=== PATIENT | male | born 1955 ===

== ENCOUNTER 2016-10-26 16:47 | Inpatient (IN) | payer MEDICAID ==
[~2016-10-26] VITALS: Ht 172.7 cm; Wt 90.6 kg
[2016-10-26] VITALS (8 sets, daily range): BP systolic 86–143; BP diastolic 47–97; PULSE 101–114; RESP 16–24; O2SAT 93–97
[~2016-10-26 16:47] MED LIST: AMIT100T2 PO; GABA-502 PO; OXYC1TAB24 PO
--- NOTE | 2016-10-26 16:52 | ED.REPORT ---
HPI-General Illness Date of Service Oct 26, 2016 ED Provider: Tomas Daily DO This is a 61 year old male with a history of DM brought to the ED by EMS for failure to thrive. Daughter reports pt body has been cold, has not had any PO intake in the last 2 days aside from EtOH earlier today, and has been more weak. Per daughter, pt fell over a few times while walking to the bathroom due to weakness. Pt states, "my whole body hurts." Reports nausea, vomiting, and diffuse abdominal pain. Denies SOB. En route, BP 110/50, HR 120. Nursing Notes Stated Complaint: FAILURE TO THRIVE Nursing Notes Reviewed: Yes Allergies: Coded Allergies: hydrocodone (Verified Adverse Reaction, Severe, GI issues, 04/15/16) Scheduled Amitriptyline (Amitriptyline) 100 Mg Tablet 200 MG PO HS Gabapentin (Gabapentin) 300 Mg Capsule 900 MG PO TID Scheduled PRN oxyCODONE-Acetaminophen 5-325 mg (oxyCODONE-Acetaminophen 5-325 mg) 1 Each Tablet 1 TAB PO Q4H PRN PRN For Pain General Time Seen by MD: 16:51 Chief Complaint Other Hx Obtained From: Patient Arrived By: Walk-in Sudden in Onset?: Yes Symptom Duration: Since onset Severity: Current: Mild Pertinent Negative: Pt denies other symptoms Recent Healthcare: No recent doctor visit, No recent hospitalization Similar Sx Previous: No Past Medical History Past Medical History Left BKA Smoking History Current Every Day Smoker Social History Alcohol Use: "Social" Ambulatory Status Independent Review of Systems Full Review of Systems Constitutional: Reports: Weakness - generalized, Denies: Chills, Fever Respiratory: Denies: Non-productive cough, Shortness of breath Cardiovascular: Denies: Chest pain GI: Reports: Abdominal pain, Nausea, Vomiting Complete sys rev & neg: except as marked. Physical Exam Vital Signs Vital Signs Date Time Temp Pulse Resp B/P Pulse Ox O2 Delivery O2 Flow Rate FiO2 10/26/16 19:07 103/47 10/26/16 18:55 99/53 10/26/16 18:51 36.9 101 16 143/97 96 Nasal Cannula 2 10/26/16 17:03 36.6 101 17 86/47 95 Nasal Cannula 2 - Initial VS: Reviewed Head / Eyes: Atraumatic, Normocephalic, PERRL Neck: Supple, Non-tender, Full range of motion Cardiovascular: Regular rate & rhythm, Heart sounds normal, Intact distal pulses Skin: Warm Neurologic: Alert, Oriented, Nonfocal Psychiatric: Mood/affect normal, Behavior normal, Normal thought content Mouth: Positive: Mucous membranes dry Respiratory / Chest: No chest tenderness Coarse breath sounds in R base with inspiration Interpretation & Diagnostics BRAIN CT IMPRESSION: No acute intracranial abnormality. Minimal atrophic changes are present. Dictated by: Yunior Nicole M.D. on 10/26/2016 at 17:38 Approved by: Yunior Nicole M.D. on 10/26/2016 at 17:38 CHEST X-RAY IMPRESSION: Infiltrate in the right upper lung field and probably minimally midlung field laterally. Infiltrate in the lower lung field posteroinferiorly side is difficult to determine it could be left or right. Dictated by: Yunior Nicole M.D. on 10/26/2016 at 17:48 Approved by: Yunior Nicole M.D. on 10/26/2016 at 17:48 Lab Results Interpretation Result Diagram: 10/26/16 1800 10/26/16 1800 Test 10/26/16 18:00 White Blood Count 8.9th/mm3 (3.8-10.1) Red Blood Count 3.78mil/mm3 (4.40-5.80) Hemoglobin 12.1g/dL (13.8-17.2) Hematocrit 37.7% (41.0-50.0) Mean Corpuscular Volume 99.7fL (81-100) Mean Corpuscular Hemoglobin 32.0pg (27.0-35.0) Mean Corpuscular Hemoglobin Concent 32.1% (32.0-37.0) Red Cell Distribution Width 13.6% (12.3-15.4) Platelet Count 189bil/L (150-400) Neutrophils (%) (Auto) 79.0% (40-74) Lymphocytes (%) (Auto) 8.3% (14-46) Monocytes (%) (Auto) 10.7% (4-12) Eosinophils (%) (Auto) 0.5% (0-5) Basophils (%) (Auto) 0.1% (0-3) Sodium Level 132mEq/L (134-144) Potassium Level 5.9mEq/L (3.5-5.2) Chloride Level 103mEq/L (97-108) Carbon Dioxide Level 13mmol/L (18-29) Blood Urea Nitrogen 87mg/dL (8-27) Creatinine 8.28mg/dL (0.76-1.27) Estimat Glomerular Filtration Rate 7mL/min (>59) Glucose Level 105mg/dL (60-99) Calcium Level 8.8mg/dL (8.5-10.1) Total Bilirubin 0.3mg/dL (0.0-1.2) Aspartate Amino Transf (AST/SGOT) 58U/L (0-50) Alanine Aminotransferase (ALT/SGPT) 49U/L (0-44) Alkaline Phosphatase 81U/L (25-160) Troponin T < 0.010ug/L (0.0-0.011) Pro-B-Type Natriuretic Peptide 3193pg/mL (0-210) Total Protein 7.9g/dL (6.4-8.4) Albumin 3.4g/dL (3.4-5.0) Hold Ji Top Tube Received (Received) ECG Interpretation ECG Interpretation: Sinus tachycardia at a rate of 102 Time: 19:05 Interpreted by: ED physician Re-Eval/Medical Decision Med Decision/Clinical Course 61-year-old diabetic male brought from the [facility] for increasing confusion over the past couple of days. He is hypoxic on room air and has coarse breath sounds in the right lung. X-ray reveals patchy pneumonia. He appears significantly dehydrated with very dry mucous membranes. He is a difficult IV stick and required IV therapy. Blood pressure initially was 80s over 40s. After 1 L fluids blood pressure improved to 106/50 systolic labs returned showing metabolic acidosis, hyperkalemia, and acute kidney injury with a creatinine of 8.3. Patient was then given a second liter of fluids. Patient meets sepsis criteria. Levaquin was started for pneumonia and renally dosed. Blood cultures were drawn prior to antibiotics. Discussed his care with nephrology who recommended a bicarbonate drip and Kayexalate. Patient will be admitted to [facility] for further treatment and workup. Time of Eval: 17:59 Re-Evaluation/Progress Note: Re-checked, discussed CT and x-ray results. Time of Eval: 19:16 Re-Evaluation/Progress Note: BP 106/45, HR 110. Discussed lab results and need for admission, all questions addressed. Consultation #1: Referral / Consult Name: Antonietta Sigala MD Consulted With: Nephrology Call Returned at: 19:08 Model Making Supervisor: Agrees with eval, Agrees with plan Note: D50 with saline, bicarb drip Consultation #2: Referral / Consult Name: Kuldip Mendoza MD Consulted With: Hospitalist Call Returned at: 19:17 Model Making Supervisor: Accepts admit Counseled Regarding: Diagnosis, Lab results, Need for follow-up, Need for admission Discharge & Departure Primary Impression: Pneumonia Pneumonia type: due to unspecified organism Laterality: right Lung location : unspecified part of lung Qualified Code: J18.9 - Pneumonia, unspecified organism Additional Impressions: Hypotension Hypotension type: unspecified hypotension type Qualified Code: I95.9 - Hypotension, unspecified Dehydration AKASH (acute kidney injury) Sepsis Sepsis type: sepsis due to unspecified organism Qualified Code: A41.9 - Sepsis, unspecified organism Metabolic acidosis Hyperkalemia Hyponatremia Transaminitis Disposition: ADMITTED TO HOSPITAL Discharge Condition All VS Reviewed: Yes Condition: Stable Referrals: NOPCP (PCP) Scribe Attestation Portions of this note were transcribed by Carmen Thapa. I, Dr. Daily personally performed the history, physical exam and medical decision-making; I reviewed and confirmed the accuracy of the information in the transcribed note. Tomas Daily DO Oct 26, 2016 16:51 CARMEN THAPA Oct 26, 2016 16:59
[2016-10-26] MEDS ORDERED: 0.9% Sodium Chloride 1,000 ML IV ONE ×2 (17:01)
--- NOTE | 2016-10-26 17:39 | DRSVH ---
PROCEDURE: CT BRAIN WITHOUT CONTRAST ([id number]) INDICATIONS: ams, confusion TECHNIQUE: Noncontrast 4.5 mm thick angled axial sections acquired from the foramen magnum to the vertex, with c oronal reformats. COMPARISON: None. FINDINGS: Image quality: Excellent. CSF spaces: Basal cisterns are patent. No extra-axial fluid collections. The ventricles are symmet jailyn in size and shape. Brain: No intracranial bleeds or masses. There is cerebral volume loss for age, with resultant vent ricular and sulcal prominence. There are periventricular and deep white matter chronic small vessel ischemic changes. There is intracranial internal carotid artery atherosclerosis. Skull and face: Calvarium and visualized facial bones appear intact, without suspicious lesions. Sinuses: Visualized sinuses and mastoids are clear. IMPRESSION: No acute intracranial abnormality. Minimal atrophic changes are present. Dictated by: Yunior Nicole M.D. on 10/26/2016 at 17:38 Approved by: Yunior Nicole M.D. on 10/26/2016 at 17:38
--- NOTE | 2016-10-26 17:50 | DRSVH ---
PROCEDURE: X-RAY CHEST, TWO VIEWS ([id number]) INDICATIONS: dyspnea, RLL rales TECHNIQUE: 2 views of the chest were acquired. COMPARISON: None. FINDINGS: Surgical changes and devices: teletypesetter monitor leads are seen over the chest. Lungs and pleura: No pleural effusions or pneumothorax. There is a poor depth of inspiration. There is some patchy streaky disease at the right apex medially and probably in the right midlung field. Re trocardiac middle infiltrate cannot be excluded. In the lateral view of the chest is some abnormal de nsity posteroinferiorly at either the left or right base. Mediastinum: Mediastinal contours are normal. Heart size is normal. Bones and chest wall: No suspicious bony abnormalities. Soft tissues appear unremarkable. IMPRESSION: Infiltrate in the right upper lung field and probably minimally midlung field laterally. Infiltrate in the lower lung field posteroinferiorly side is difficult to determine it could be left or right. Dictated by: Yunior Nicole M.D. on 10/26/2016 at 17:48 Approved by: Yunior Nicole M.D. on 10/26/2016 at 17:48
[2016-10-26 18:20] LABS: BASOPHILS % (AUTO) 0.1 % (0-3)
[2016-10-26 18:23] LABS: EOSINOPHILS % (AUTO) 0.5 % (0-5); MONOCYTES % (AUTO) 10.7 % (4-12); Mean Corpuscular Volume 99.7 fL (81-100); Platelet Count 189 bil/L (150-400)
[2016-10-26 19:03] LABS: TROPONIN T < 0.010 ug/L (0.0-0.011)
[2016-10-26] MEDS ORDERED: levoFLOXacin Inj 500 MG in IV Premix 1 EACH IV ONE (19:15)
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
[2016-10-26] MEDS: Sodium Bicarb 8.4% Inj 150 MEQ in Dextrose 5% 1,000 ML IV SCH (20:02)
[2016-10-26 20:39] LABS: APPEARANCE,URINE CLEAR (CLEAR,HAZY); COLOR,URINE YELLOW (YELLOW); OCCULT BLOOD,URINE MODERATE (NEGATIVE); UROBILINOGEN,URINE NORMAL (NORMAL)
[2016-10-26] MEDS ORDERED: Alum-Mag Hydrox-Simeth 30 mL Suspension PO PRN (20:40)
[2016-10-26] MEDS ORDERED: Ondansetron 2 mg/mL 2 mL Inj IVPUSH PRN (20:40)
[2016-10-26] MEDS ORDERED: Thiamine Inj 100 MG, Folic Acid Inj 1 MG, Magnesium Sulfate 50% Inj 2 GM, Multivitamins... IV ONE ×5 (22:25)
--- NOTE | 2016-10-26 23:32 | NUR ---
admission patient confused. alert to person and place. but has difficulty verbalizing. sporadic answering of questions. attempting to get out of bed, does not follow commands and does not hold attention. pulling at leiva catheter and tele box. tele sinus tach 110-115 placed in soft wrist restraints for patient safety and protection of lines. reviewed med rec with nadia benavides. patient has left below the knee amputation. removed prosthetic, looked at skin. small abrasion anterior left knee. prosthetic put back on leg, per patient preference. pale urine in leiva. non productive cough at times. given ice chips sparingly. patient unable to specify source of pain. but is very restless and fidgety. abd is round. hypoactive boweltones. Dr Mendoza to bedside, reviewed plan of care with patient and SO makayla. care ongoing.
[2016-10-26] MEDS: Pantoprazole 20 mg ER24 Tablet PO SCH (23:47)
[2016-10-27] VITALS (15 sets, daily range): BP systolic 82–113; BP diastolic 45–73; PULSE 92–114; RESP 15–34; O2SAT 90–98
--- NOTE | 2016-10-27 01:58 | NUR ---
agitation patient agitated. trying to climb out of bed. turned and repositioned patient. medicated with ativan 1 mg iv push care ongoing.
[2016-10-27] MEDS: Lactulose 20 Gm/30 mL 30 mL Syrup PO SCH ×4 (02:00→20:30)
[2016-10-27 02:03] LABS: Magnesium 2.3 mg/dL (1.6-2.6); TROPONIN T 0.01 ug/L (0.0-0.011)
[2016-10-27 04:36] LABS: Magnesium 2.5 mg/dL (1.6-2.6); Phosphorus 2.6 mg/dL (2.5-4.9)
--- NOTE | 2016-10-27 04:38 | NUR ---
fever patient has temp 38.7 confused. unable to cognitively swallow a pill notified night hospitalist. requested iv tylenol.
[2016-10-27] MEDS: Sodium Bicarb 8.4% Inj 150 MEQ in Dextrose 5% 1,000 ML IV SCH ×2 (05:14→19:22)
[2016-10-27] MEDS: Acetaminophen IV 1,000 MG in IV Premix 1 EACH IV PRN ×2 (05:14→13:11)
--- NOTE | 2016-10-27 06:43 | NUR ---
agitation patient restless. unable to calm. medicated with ativan 0.5mg iv (patient drowsy after last dose of ativan 1 mg iv). will monitor . given emotional support. Addendum: 10/27/16 at 0723 by JUANITA CISSE RN patient given additional 0.5mg ativan. cont to be restless
[2016-10-27] MEDS: Albuterol-Ipratropium 3 mL Inhalation Solution NEB SCH ×5 (07:39→21:42)
[2016-10-27] MEDS ORDERED: Influenza (Adult) Vaccine 0.5 mL Syringe IM ONE (08:30)
[2016-10-27] MEDS: Pantoprazole 20 mg ER24 Tablet PO SCH ×2 (08:30→20:30)
--- NOTE | 2016-10-27 09:29 | ABG ---
DateTimeAnalyzed 09:23:00 -_ pH ____7.249 - 7.350 7.450 pCO2 ___41.5__ -mmHg 35.0 45.0 pO2 ___64.0__ -mmHg 69.0 116 HCO3- ___17.5__ -mmol/L 22.0 26.0 ABE ___-8.7__ -mmol/L -2.0 2.0 tHb ___10.1__ -g/dL O2Hb ___87.6__ -% COHb ____0.9__ -% MetHb ____1.5__ -% sO2 ___89.8__ -% 25.0 FIO2 ___45.0__ -% Drawn By RC - Date/Time Notified____ 09:28:00 -_ Liter_Flow ____6.0__ -L/min Oxygen Device 1 __OXYMASK - Notified By RC - Notified Whom ___MILLER - B 759 -mmHg tO2 ___12.4__ -Vol% Sukhdev test _Positive -
[2016-10-27] MEDS ORDERED: Atropine 1% 5 mL Ophthalmic Solution SL PRN (10:20)
[2016-10-27] MEDS: Heparin 5,000 Unit/mL Inj SUBQ SCH ×2 (10:39→21:05)
[2016-10-27] MEDS ORDERED: 0.9% Sodium Chloride 250 ML ONE (11:12)
--- NOTE | 2016-10-27 11:56 | DRSVH ---
PROCEDURE: X-RAY KUB ([id number]) INDICATIONS: abd distention TECHNIQUE: One view of the abdomen acquired. COMPARISON: None. FINDINGS: Surgical changes and devices: None. Bowel: Bowel gas pattern is nonspecific with several small bowel gas filled loops at the right lower abdomen/pelvis, but without gaseous distention to the degree that likelihood of obstruction is consi dered high.. Soft tissues: No suspicious abdominal calcifications. Visualized solid organ contours appear normal in size. Bones: No suspicious bony lesions. IMPRESSION: Ileus may explain the pattern of mild prominence of gas within small bowel loops over the lower right abdomen/pelvis. Depending on the clinical status followup by CT scanning may become nec essary. Early small bowel obstruction conceivably could produce this appearance. Dictated by: Dane Disla M.D. on 10/27/2016 at 11:54 Approved by: Dane Dilsa M.D. on 10/27/2016 at 11:54
--- NOTE | 2016-10-27 12:21 | NUR ---
Flu vaccine held Held d/t pt unable to consent at this time. No family present to consent.
--- NOTE | 2016-10-27 13:48 | NUR ---
Social Work Note: Screen Note Data& Assessment: EMR reviewed. SW met with pt and pt significant other at bedside to assess for any unmet needs. Pt was sleeping at this time. SW number provided on pt whiteboard. Luís Vega is a 61 year old male admitted n 10/26/2016 for acute Kidney Injury and community acquired pneumonia. Pt has [facility] Medicaid insurance coverage and goes to the [facility] for primary care. Pt lives in [place] and is independent at baseline. Pt significant other denies any needs at this time. SW to continue to follow if any needs arise. Plan: Anticipated discharge home via POV when medically ready. Pt significant other denies any needs at this time. SW to continue to follow if any needs arise. JANELLE Mckeon
--- NOTE | 2016-10-27 14:28 | DRSVH ---
PROCEDURE: US ABDOMEN INDICATIONS: transaminitis TECHNIQUE: Real-time scanning was performed of the abdominal and retroperitoneal organs, with image documentatio n. COMPARISON: None. FINDINGS: Liver length: 18.61 cm Gallbladder Wall Thickness: 3 mm CHD: 5.60 mm CBD: 5.90 mm Spleen length: 15.47 cm Right kidney length: 9.33 cm Left kidney length: 11.28 cm Aorta(Proximal): 2.86 cm Aorta(Mid): 1.94 cm Aorta(Distal): 1.82 cm Liver: Liver is diffusely increased in echogenicity. No focal hepatic abnormalities identified. No rmal hepatic size. Gallbladder: Multiple gallstones are present a lateral thickened measuring up to 3.5 mm. No perichol ecystic fluid. Mild right upper quadrant tenderness is present. Biliary ducts: Intrahepatic bile ducts are non-dilated. Extrahepatic bile duct caliber is normal. Normal is 6-7 mm or less in diameter, or 10 mm or less post-cholecystectomy. Pancreas: Visualized portions of the pancreas are sonographically normal. Spleen: Spleen is enlarged in size and homogeneous in echotexture. Kidneys: Kidneys are normal in size and echotexture. No hydronephrosis or nephrolithiasis. No saige d masses. Bilateral small exophytic cysts present. Aorta: Visualized aorta is normal in caliber at less than 3 cm. Iliacs: Not well-seen. IVC: Not well-seen. Miscellaneous: No free abdominal fluid. IMPRESSION: 1. Increased hepatic echogenicity noted likely related to fatty infiltration of the liver but other s ources of hepatocellular disease cannot be excluded. Recommend clinical correlation. 2. Bilateral exophytic renal cysts. 3. Cholelithiasis with thickened edematous gallbladder wall which may be related to developing jannet cystitis. Recommend clinical correlation and followup. 4. Mild sonographic splenomegaly. Oleksandr Solano RN given results by the test worker at 1350 hrs. 10/27/2016. Dictated by: Bakari SAMANIEGO Interpreted: Gaby Nixon MD on 10/27/2016 at 14:27 Transcribed by: GAURAV on 10/27/2016 at 14:27 Approved by: Gaby Nioxn M.D. on 10/27/2016 at 16:35
--- NOTE | 2016-10-27 14:41 | DRSVH ---
[facility] [address] [place] [address] Echocardiogram Report Name: MERCED HOLDER LStudy Date: Height: 68 in Hospital Exam Location: [facility] Weight: 230 lb Gender: Male BSA: 2.2 m2 : 1955 Age: 61 yrs BP: 111/67 mmHg Reason For Study: CHF Ordering Physician: Performed By: Gracie Dumas Interpretation Summary Technically difficult study. Mild concentric left ventricular hypertrophy with ejection fraction 65-70%. Normal right ventricle and both atria. Mild mitral regurgitation. Right ventricular systolic pressure is estimated to be 32 mmHg plus the clinically estimated CVP which cannot be estimated on this exam. Procedure: A two-dimensional transthoracic echocardiogram with color flow and Doppler was performed. The study quality was technically difficult. Image quality is very poor. The patient is not able to follow breathing instructions. A contrast injection of Definity was performed to improve assessment of LV function. Contrast was injected into an intravenous site in the left arm. A total of 4 cc of contrast was given. There is no prior echocardiogram noted for this patient. The patient was in a tachycardic rhythm during the exam. Left Ventricle: The left ventricle is grossly normal size. There is mild concentric left ventricular hypertrophy. The left ventricular ejection fraction is grossly normal. The ejection fraction is estimated to be 65-70%. There are no obvious focal wall motion abnormalities noted but poor endocardial definition reduces the sensitivity for the detection of such. Spectral Doppler of the mitral valve is reversed, with an E/A wave ratio < 1.0. Right Ventricle: The right ventricle is grossly normal size. Grossly normal right ventricular function. Atria: Both atria are normal in size. Mitral Valve: The mitral valve is normal. There is mild mitral regurgitation. Aortic Valve: The aortic valve opens well. No aortic regurgitation is present. Tricuspid Valve: The tricuspid valve is not well visualized, but is grossly normal. There is trace tricuspid regurgitation. Right ventricular systolic pressure is estimated to be 32 mmHg plus the clinically estimated CVP which cannot be estimated on this exam. Pulmonic Valve: The pulmonic valve is not well visualized. Great Vessels: The aortic root is mildly dilated. The dimensions of the ascending aorta are normal. The pulmonary is not well visualized. The IVC was not well visualized secondary to technical limitations making central venous pressures difficult to estimate. Pericardium/ Pleura There is no pericardial effusion. There is no pleural effusion. MMode/2D Measurements & Calculations LVIDd: 4.7 cm LA dimension RA long axis LVOT diam IVSd: 1.1 cm LVPWd: 1.3 cm LA A2 area RA area AoV Opening : 18.3 cm Ao root diam LA A4 area RA vol: 53.2 ml RA asc Aorta Diam LA length (vol) : 24.5 mm2 LA vol: 57.5 ml LA vol index : 26.5 ml/m2 LV correa. diameter/BSA (cm/m^2): 2.2 Doppler Measurements & Calculations Ao V2 max MV E max rolan MV E/A: 0.85 TR max rolan : 211.5 cm/sec : 142.5 cm/sec Med Peak E' Rolan : 265.6 cm/sec Ao max P.9 mmHg MV A max rolan TR max PG Ao mean P.9 mmHg : 167.8 cm/sec E/E' med: 13.0 : 31.5 mmHg LVOT Max Rolan MV P1/2t Lat Peak E' Rolan PA V2 max : 146.7 cm/sec : 64.5 msec : 140.7 cm/sec E/E' lat: 12.3 PA mean PG EDDA(I,D): 2.9 cm Pulm A Revs Dur sev ratio: 0.69 PA Accel Time : 0.07 sec MV P1/2t max rolan Ao V2 mean LV V1 max PG PA V2 mean : 150.8 cm/sec : 106.9 cm/sec Ao V2 VTI: 31.8 cm LV V1 VTI: 21.9 cm MVA(P1/2t): 3.4 cm2 EDDA(V,D): 2.9 cm2 EDDA indexed to BSA (cm^2/m^2): 1.3 Electronically signed by: Kera Vargas on Reading Physician:10/27/2016 02:40 PM
--- NOTE | 2016-10-27 17:35 | NUR ---
Called to pt. room. R[employer] Bipap alarming inoperable. Removed from pt. Pt. placed on 15 lpm Oxymask. Pt. placed on V-60 Bipap. Bipap checked and functioning properly on pt. Will continue to monitor.
[2016-10-27] MEDS ORDERED: 0.9% Sodium Chloride 500 ML ONE (17:38)
[2016-10-27] MEDS ORDERED: Haloperidol 5 mg/mL Inj IVPUSH ONE (17:50)
[2016-10-27] MEDS ORDERED: 0.9% Sodium Chloride 1,000 ML IV ONE (17:50)
--- NOTE | 2016-10-27 18:23 | PCM.PNMED ---
Subjective Date of Service Oct 27, 2016 Subjective 61-year-old man with peripheral vascular disease, tobacco use presents with new onset acute renal failure and encephalopathy. He is reported by family to have had cough and loss of appetite for several days prior to admission. Patient has been moaning and showing signs of obstructive apnea requiring BiPAP all day. Is not able to report symptoms. His abdomen is distended but not significantly tender to palpation. Exam Vital Signs Vital Sign - Last Date Time Temp Pulse Resp B/P Pulse Ox O2 Delivery O2 Flow Rate FiO2 10/27/16 17:20 94 84/45 10/27/16 16:55 37.3 15 96 BiPAP 10/27/16 16:39 35 10/27/16 08:56 6.00 Intake and Output 10/26/16 10/26/16 10/27/16 Cumulative From/Thru 14:59 22:59 06:59 10/26/16 17:03 - 10/27/16 04:15 Intake Total 2000 ml 1650 ml 3650 ml Output Total 1100 ml 1100 ml Balance 2000 ml 550 ml 2550 ml Intake IV Total 2000 ml 1650 ml 3650 ml Output Urine Total 1100 ml 1100 ml Exam General: Obese man writhing and grunting HEENT: sclerae anicteric, oral mucosa moist Neck: no apparent JVD Chest: Lots of upper airway noise, lung navarrete generally clear to auscultation Cardiac: Distant obscured heart sounds S1S2, no murmur Abdomen: BS absent, distended and moderately tympanic, seemingly non-tender to palpation Extremities: No pitting edema; left leg BKA amputation well-healed Neuro: Does not orient to voice, cranial nerves symmetric, moving all 4 extremities with normal strength IVs and Medications Medications Reviewed: Medications were reviewed in detail Lab and Diagnostics Result Diagram: 10/26/16 1800 10/27/16 0358 Assessment & Plan Acute active and high-risk problems: # Acute renal failure. New-onset. Etiology unclear. Metabolic acidosis with serum bicarbonate 10-13 on admission. Hyperkalemia with potassium approximate 6.1. No overt fluid overload at this time. - Nephrology was consulted regarding plans for dialysis - Monitor and treat critical hyperkalemia - IV fluids only as needed for blood pressure resuscitation otherwise avoid fluid overload - Renal failure lab workup ordered - Abdominal ultrasound performed # Acute respiratory failure with hypoxia. Patient shows clear signs of obstructive apnea, exacerbated by his metabolic encephalopathy. Seems much better on BiPAP. Requiring restraints and sitter to maintain BiPAP due to encephalopathy. - Continue BiPAP, recheck ABG - goal is to achieve adequate oxygenation with some respiratory compensation for metabolic alkalosis - Repeat chest x-ray in a.m. - Continue levofloxacin antibiotics for possible pneumonia # Sepsis with hypotension and organ dysfunction. MAXIMUM TEMPERATURE 38.7. Blood pressure systolic 82 on first day of hospitalization. Tachycardia with heart rate 110. No leukocytosis Procalcitonin markedly elevated 30.6. Patchy chest x-ray abnormalities suggest possible pneumonia, no cough and no phlegm. Abdomen is distended and quiet, possible ischemic bowel or right lower quadrant infectious process. - Fluid resuscitation and/or vasopressors to maintain mean arterial pressure gradient 65 mm - Follow urine output but this is not in a survey guide to volume status - Monitor oxygen saturation and case fluid resuscitation results in pulmonary edema he will need dialysis urgently # Ileus versus SBO. Clinically appears to have acute abdominal distention with reduced bowel tones. Intra abdominal pressure estimate is 16 cm water. We have been unable to pass an NG tube for suction and decompression. - Obtain abdominal CT - If evidence of obstruction will consult general surgery - Add metronidazole given septic picture with possible lower abdominal process # Encephalopathy. Patient has been restless and disoriented and disruptive of needed medical care. Likely metabolic encephalopathy due to sepsis. Ammonia is elevated although abdominal ultrasound does not suggest cirrhosis. Uremia is contributing. - Lactulose when patient is tolerating by mouth intake - Soft restraints as needed to assure needed medical care - Haloperidol as needed, prefer no opioids - Holding off on benzodiazepines due to delirium; unless he develops more obvious alcohol withdrawal Other problems: Peripheral vascular disease Possible alcohol abuse Venous thromboembolism prophylaxis - wait until abdominal assessment complete and there is no need for any intervention and start heparin renal dose GI prophylaxis not indicated at present VTE Prophylaxis: SCDs Resuscitation Status: CPR: Attempt Resuscitation Time spent 65 minutes in critical care time Fito Santiago MD Oct 27, 2016 18:23
[2016-10-27] MEDS ORDERED: Haloperidol 5 mg/mL Inj IVPUSH PRN (18:25)
--- NOTE | 2016-10-27 18:35 | ABG ---
DateTimeAnalyzed 18:31:00 -_ pH ____7.324 - 7.350 7.450 pCO2 ___35.1__ -mmHg 35.0 45.0 pO2 ___70.8__ -mmHg 69.0 116 HCO3- ___17.7__ -mmol/L 22.0 26.0 ABE ___-7.1__ -mmol/L -2.0 2.0 tHb ____9.9__ -g/dL O2Hb ___91.0__ -% COHb ____0.9__ -% MetHb ____1.5__ -% sO2 ___93.2__ -% 25.0 FIO2 ___35.0__ -% Pressure_Support ___12.0__ -cmH2O CPAP ___12.0__ -cmH2O Set_RR ___15.0__ -b/min Drawn By blf - Date/Time Notified____ 18:34:00 -_ Spontaneous_RR ___27.0__ -b/min Oxygen Device 1 ____BIPAP - Notified By blf - Notified Whom ___DR. DUONG - B 758 -mmHg tO2 ___12.8__ -Vol% Sukhdev test N/A -
[2016-10-27] MEDS ORDERED: 0.9% Sodium Chloride 500 ML IV ONE (19:15)
--- NOTE | 2016-10-27 19:27 | NUR ---
hypotension Pt. hypotensive this afternoon at 1700. notified and NS bolus administered. BP increased to 98/68. will continue to monitor. Pt. transferred to CCU room at 1915.
--- NOTE | 2016-10-27 20:00 | NUR ---
Transfer to CCU Pt transferred to CCU from [facility] in stable condition in bed, and with all belongings. Agitated. Does not seem to be A&O to person placer or time. Tele shows SR/ST 90s-110s. Pt abdomen is distended. Orders for CT scan. Pt on BIPAP at 35% FiO2. RR high 30s. MD was at bedside and reports no pain meds (dilaudid and fentanyl) d/t for respiratory drive. Ok to give haldol/ativan for CT scan. Oriented pt and family to room, call light, and floor.
[2016-10-27] MEDS ORDERED: metroNIDAZOLE Inj 1,000 MG in IV Premix 1 EACH IV SCH (20:30)
--- NOTE | 2016-10-27 20:54 | DRSVH ---
PROCEDURE: CT ABDOMEN AND PELVIS WITHOUT CONTRAST ([id number]) INDICATIONS: r/o SBO, RLQ gas abnormal TECHNIQUE: Noncontrast 5 mm thick sections acquired from the diaphragms to the symphysis. 5 mm coronal and sagi ttal reformats were then performed. For radiation dose reduction, the following was used: automated exposure control, adjustment of mA and/or kV according to patient size. COMPARISON: None. FINDINGS: Image quality: Degraded by motion artifact. ABDOMEN: Lung bases: There is moderate patchy bibasilar airspace opacity. Small left pleural effusion which ap pears to demonstrate a thickened rind. Solid organs: Liver and spleen are normal in size. Gallbladder demonstrates calculi within its lume n. Pancreas is normal in contours. No adrenal nodules. Kidneys are normal in size, without hydrone phrosis or nephrolithiasis. Peritoneum and bowel: Unenhanced bowel loops demonstrate normal wall thickness and caliber. No free fluid or air. Normal appendix. Small hiatal hernia. Nodes and vessels: No retroperitoneal or mesenteric adenopathy by size criteria. Aorta and inferior vena cava are normal in caliber. Miscellaneous: No ventral hernias. PELVIS: Genitourinary: Richardson catheter is present. Urinary bladder is decompressed. Miscellaneous: No inguinal hernias or adenopathy. Bones: No suspicious bony lesions. Mild chronic wedging of L1, and L2. No acute vertebral body comp ression fractures. IMPRESSION: 1. Bibasilar pneumonia. 2. Small loculated left pleural effusion with thickened rind, possibly indicating empyema. This is to o small to safely aspirate percutaneously. 3. Cholelithiasis without evidence of cholecystitis. 4. Normal appendix. 5. Small hiatal hernia. Dictated by: Myke Gonzalez M.D. on 10/27/2016 at 20:52 Approved by: Myke Gonzalez M.D. on 10/27/2016 at 20:52
[2016-10-27] MEDS: Dexmedetomidine 400 mCg/100 mL NS Premix IV SCH (22:44)
--- NOTE | 2016-10-27 23:01 | NUR ---
Agitation/RR Pt not responding to IVP medications. He is agitated, overbreathing BIPAP, and pulling everything off/out of him despite 3 point restraints. MD notified and orders to start Precedex gtt per protocol received and initiated. Sitter at bedside for restrained BIPAP pt. Care ongoing
--- NOTE | 2016-10-27 23:42 | ABG ---
DateTimeAnalyzed 23:39:00 -_ pH ____7.351 - 7.350 7.450 pCO2 ___34.7__ -mmHg 35.0 45.0 pO2 ___65.0__ -mmHg 69.0 116 HCO3- ___18.7__ -mmol/L 22.0 26.0 ABE ___-5.7__ -mmol/L -2.0 2.0 tHb ____9.9__ -g/dL O2Hb ___90.3__ -% COHb ____0.8__ -% MetHb ____1.3__ -% sO2 ___92.2__ -% 25.0 FIO2 ___35.0__ -% Pressure_Support ___12.0__ -cmH2O CPAP ____6.0__ -cmH2O Set_RR ___15.0__ -b/min Drawn By MT - Date/Time Notified____ 23:42:00 -_ Spontaneous_RR ___27.0__ -b/min Oxygen Device 1 ____BIPAP - Notified By MT - Notified Whom RN - B 758 -mmHg tO2 ___12.6__ -Vol% Sukhdev test _Positive -
[2016-10-28] VITALS (18 sets, daily range): BP systolic 87–126; BP diastolic 56–73; PULSE 83–106; RESP 15–38; O2SAT 82–100
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
[2016-10-28 01:20] LABS: Mean Corpuscular Hemoglobin 31.6 pg (27.0-35.0); Mean Corpuscular Volume 97.6 fL (81-100)
[2016-10-28] MEDS: Lactulose 20 Gm/30 mL 30 mL Syrup PO SCH ×3 (01:24→14:04)
[2016-10-28 01:51] LABS: Magnesium 2.2 mg/dL (1.6-2.6); Phosphorus 3.9 mg/dL (2.5-4.9)
[2016-10-28 03:34] LABS: BASOPHILS % (AUTO) 0.2 % (0-3); EOSINOPHILS % (AUTO) 0.2 % (0-5); Mean Corpuscular Hemoglobin 31.8 pg (27.0-35.0); Mean Corpuscular Volume 98.1 fL (81-100); NEUTROPHILS % (AUTO) 84.6 % (40-74); Platelet Count 171 bil/L (150-400)
[2016-10-28 04:08] LABS: Vitamin D, 25-Hydroxy 27.8 ng/mL (30.0-100.0)
[2016-10-28] MEDS: Dexmedetomidine 400 mCg/100 mL NS Premix IV SCH ×4 (04:16→22:49)
[2016-10-28 05:13] LABS: Magnesium 2.2 mg/dL (1.6-2.6)
--- NOTE | 2016-10-28 05:22 | NUR ---
Temp Around midnight pt developed temp with max temp beings 39.6. Stat labs ordered to look for possible infection source and came back with slightly elevated WBC and normal LA. MD notified of results and high temp. Pt is NPO and no IV Tylenol ordered. No new orders received from MD. Fan turned on in room. Does not feel hot/warm to touch. Will continue to monitor. Care ongoing
[2016-10-28] MEDS: Albuterol-Ipratropium 3 mL Inhalation Solution NEB SCH ×4 (08:03→20:49)
[2016-10-28] MEDS: Pantoprazole 20 mg ER24 Tablet PO SCH (08:30)
[2016-10-28] MEDS ORDERED: Sodium Bicarb 8.4% Inj 100 MEQ in Dextrose 5% 1,000 ML IV SCH ×2 (08:40→15:20)
[2016-10-28] MEDS: Multivit-Miner-Folic Acid-Iron Tablet PO SCH (08:45)
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
--- NOTE | 2016-10-28 11:06 | NUR ---
NUTRITION ASSESSMENT: ASSESS: Pt is a 61yo M admitted to for confusion, weakness and falls and fevers, sweats, chills and a productive cough. He was transferred to CCU for hypotension. He is on BIPAP. Currently on CIWA protocol. Pt's abdomen was distended but per RN, pt has had a large BM and abdomen is less distended. Nephrology is involved for possible dialysis. Pt has been NPOx2 days due to decreased level of alertness. PMHX: chronic renal insufficiency, pre-diabetes, alcoholism, BKA LABS: Reviewed. Bun 78, [employer]ing [employer] Super[employer] 7.16, Glu 121, Ca 7.8, Alb 2.4 MEDS: Reviewed. Thiamine, MVI GI: BMx1 10/28 SKIN: Kevon 10 CURRENT WTS: 104.5kg, BMI 35kg/m2, IBW 70kg DIET: NPOx2 days EST. NEEDS: BMI, BKA (-5% for BKA) Kcals: 2185-2485kcal/day (22-25kcal/kg) Pro: 85-105g/day (1.2-1.5g/kg IBW) NUTRITION DIAGNOSIS: 1.) Inadequate oral intake related to decreased ability to consume sufficient energy as evidenced by current NPO status. NUTRITION INTERVENTION: 1.) Will continue to monitor NPO/ respiratory status and mentation. If pt continues to be NPO, recommend consider nutrition support in next 24-48 hrs or if mentation improves pt would benefit from a speech evaluation MONITOR / EVAL: NPO, BIPAP, mentation, GI, labs, wt, POC, nutrition status. Will continue to monitor per high nutrition risk guidelines
[2016-10-28] MEDS: Piperacillin-Tazo 3.375 Gm Inj 3.375 GM in Dextrose 5% Minibag Plus 50 ML IV SCH ×2 (11:12→21:33)
[2016-10-28] MEDS: Heparin 5,000 Unit/mL Inj SUBQ SCH ×2 (11:13→21:33)
--- NOTE | 2016-10-28 11:28 | ABG ---
DateTimeAnalyzed 11:20:00 -_ pH ____7.395 - 7.350 7.450 pCO2 ___40.0__ -mmHg 35.0 45.0 pO2 ___78.9__ -mmHg 69.0 116 HCO3- ___24.0__ -mmol/L 22.0 26.0 ABE ___-0.2__ -mmol/L -2.0 2.0 tHb ____9.9__ -g/dL O2Hb ___93.0__ -% COHb ____1.0__ -% MetHb ____1.3__ -% sO2 ___95.2__ -% 25.0 FIO2 ___50.0__ -% Pressure_Support ___12.0__ -cmH2O PEEP ____6.0__ -cmH2O Set_RR ___15.0__ -b/min Drawn By gj - Date/Time Notified____ 11:27:00 -_ Spontaneous_RR ___15.0__ -b/min Oxygen Device 1 ____BIPAP - Notified By gj - Notified Whom LY - B 762 -mmHg tO2 ___13.1__ -Vol% Sukhdev test _Positive -
[2016-10-28 11:40] LABS: INR 1.03 ratio
--- NOTE | 2016-10-28 11:48 | NUR ---
Transfer: Pt transferred to room 2018 with all of his belongings. Family aware of transfer, SO at bedside
[2016-10-28] MEDS ORDERED: fentaNYL-PF 50 mCg/mL 2 mL Inj IVPUSH ONE (12:15)
[2016-10-28] MEDS: Sodium Bicarb 8.4% Inj 150 MEQ in Dextrose 5% 1,000 ML IV SCH ×2 (12:18→23:50)
--- NOTE | 2016-10-28 13:42 | PCM.PNMED ---
Subjective Date of Service Oct 28, 2016 Subjective Nephrology Consult Consult Reason: Elevated Bun/Cr S: Mr Vega continues to be fairly unresponsive except to painful stimuli. Overnight, he was transferred to the CCU and placed on BiPAP for respiratory distress. He continues to be quite feverish and is undergoing a septic workup. This morning, patient was placed in airborne precautions while undergoing TB workup. He is currently on IV Zosyn and IV D5W with NaHCO3. Nephrology attending: Patient was seen and examined by me personally. I discussed the case with the resident. He has had some significant increase in his urine output along with a decrease in his serum creatinine level. He still requiring BiPAP for respiratory support. There are number of laboratory results are pending at time of this dictation. I would like to continue cautious fluid infusion to balance the urine output. Exam Vital Signs Vital Sign - Last Date Time Temp Pulse Resp B/P Pulse Ox O2 Delivery O2 Flow Rate FiO2 10/28/16 12:00 37.8 98 25 115/73 95 BiPAP 50 10/27/16 08:56 6.00 Intake and Output 10/27/16 10/27/16 10/28/16 Cumulative From/Thru 14:59 22:59 06:59 10/26/16 17:03 - 10/28/16 05:39 Intake Total 1800 ml 1596 ml 7046 ml Output Total 200 ml 1100 ml 2400 ml Balance 1600 ml 496 ml 4646 ml Intake IV Total 1800 ml 1596 ml 7046 ml Output Urine Total 200 ml 1100 ml 2400 ml # Bowel Movements 1 1 Exam Gen: Somnolent patient currently on BiPAP, responsive to painful stimuli ENT: Mucous membrane moist, JVP distension noted CV: RRR Resp: Decreased breath sounds with diffuse wheezing Abd: Soft, mildly distended which is improved from yesterday. Tympanitic. Pain to palpation of RUQ IVs and Medications IV Fluids 1596 In 1100 Out 0.44 ml/kg/hr Medications Reviewed: Medications were reviewed in detail Lab and Diagnostics Result Diagram: 10/28/16 0329 10/28/16 0440 X-Rays, CTs and MRIs PROCEDURE: CT ABDOMEN AND PELVIS WITHOUT CONTRAST ([id number]) INDICATIONS: r/o SBO, RLQ gas abnormal TECHNIQUE: Noncontrast 5 mm thick sections acquired from the diaphragms to the symphysis. 5 mm coronal and sagittal reformats were then performed. For radiation dose reduction, the following was used: automated exposure control, adjustment of mA and/or kV according to patient size. COMPARISON: None. FINDINGS: Image quality: Degraded by motion artifact. ABDOMEN: Lung bases: There is moderate patchy bibasilar airspace opacity. Small left pleural effusion which appears to demonstrate a thickened rind. Solid organs: Liver and spleen are normal in size. Gallbladder demonstrates calculi within its lumen. Pancreas is normal in contours. No adrenal nodules. Kidneys are normal in size, without hydronephrosis or nephrolithiasis. Peritoneum and bowel: Unenhanced bowel loops demonstrate normal wall thickness and caliber. No free fluid or air. Normal appendix. Small hiatal hernia. Nodes and vessels: No retroperitoneal or mesenteric adenopathy by size criteria. Aorta and inferior vena cava are normal in caliber. Miscellaneous: No ventral hernias. PELVIS: Genitourinary: Richardson catheter is present. Urinary bladder is decompressed. Miscellaneous: No inguinal hernias or adenopathy. Bones: No suspicious bony lesions. Mild chronic wedging of L1, and L2. No acute vertebral body compression fractures. IMPRESSION: 1. Bibasilar pneumonia. 2. Small loculated left pleural effusion with thickened rind, possibly indicating empyema. This is too small to safely aspirate percutaneously. 3. Cholelithiasis without evidence of cholecystitis. 4. Normal appendix. 5. Small hiatal hernia. Dictated by: Myke Gonzalez M.D. on 10/27/2016 at 20:52 Approved by: Myke Gonzalez M.D. on 10/27/2016 at 20:52 Assessment & Plan IMPRESSION: 1. Acute tubular necrosis secondary to possible pneumonia. 2. Metabolic acidosis. 3. Hyperkalemia, improved 4. Abdominal Distention - Ileus vs SBO RECOMMENDATION: Patient's Cr mildly improved today. Patient's ATN is due to his infection and sepsis. We will plan to follow this patient as his infection is being treated. We will hold dialysis unless there is an urgent indication. Continue to monitor I/Os closely to avoid fluid overload. Thank you for the interesting consult, we will be following him closely with you. VTE Prophylaxis: SCDs Resuscitation Status: CPR: Attempt Resuscitation Ramírez Jean DO Oct 28, 2016 13:42 Humphrey Gonzalez DO Oct 28, 2016 14:29
--- NOTE | 2016-10-28 13:44 | DRSVH ---
PROCEDURE: X-RAY CHEST ONE VIEW, PORTABLE ([id number]) INDICATIONS: central line TECHNIQUE: One view of the chest was acquired. COMPARISON: [facility], CR, XR CHEST 2VW, 10/26/2016, 17:14. FINDINGS: Surgical changes and devices: There is a right IJ central line with the tip projecting to the area of SVC. Lungs and pleura: There is a small left pleural effusion. Bilateral airspace infiltrates are present , increased compared to the last exam. No pneumothorax. Mediastinum: Mediastinal contours appear normal. Heart size is normal. Bones and chest wall: No suspicious bony lesions. Overlying soft tissues appear unremarkable. IMPRESSION: 1. Right IJ central line tip projects to the area of SVC. 2. Bilateral airspace infiltrates are increased, compatible with pulmonary edema or pneumonia. 3. Small left pleural effusion. Dictated by: Kika Crews M.D. on 10/28/2016 at 13:43 Approved by: Kika Crews M.D. on 10/28/2016 at 13:43
[2016-10-28] MEDS ORDERED: Sodium Chloride LOK Flush 10 mL Syringe IVFLUSH PRN ×2 (14:45)
[2016-10-28] MEDS: Norepineph 8,000 mCg/250 mL NS 8,000 MCG in IV Premix 1 EACH IV SCH (15:17)
--- NOTE | 2016-10-28 15:28 | CONS ---
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 Mahnaz Lua. Please refer to her separate detailed note for additional information. REASON FOR CONSULTATION: The patient is a 61-year-old man seen in consultation at the request of Dr. Golden for acute respiratory failure and severe sepsis with right upper lobe pneumonia. HISTORY OF PRESENT ILLNESS: The patient is a 61-year-old gentleman admitted on October 26 with confusion, weakness, falls and fevers in the setting of heavy alcohol use. None of the history is obtained from the patient and is collected from family members and from review of medical records. He has reportedly had about a week of productive cough with fever, chills and worsening confusion. This progressed enough overnight with hypotension that he was transferred to the ICU. There is no significant history of weight loss or direct TB exposure to the patient's family's knowledge. He is currently on BiPAP and confused, unable to give me any additional history. Past medical history, social history, family history, and review of systems is according to resident note. Please refer to that note for additional information, but the patient is too confused for us to obtain this directly from him. PHYSICAL EXAMINATION: Vital signs reviewed. He is febrile up to 39.5, confused. He is on BiPAP trying to pull it off. Chest is clear at this point. LABORATORIES: Reviewed. WBC 10.8. Chemistry also reviewed and his creatinine is up to 7.1, bicarbonate of 19. Procalcitonin 23. Culture data: No new growth. IMAGING: Reviewed his abdominal CT which shows dense bibasilar consolidation concerning for pneumonia. Chest x-ray shows dense right upper lobe infiltrate. Arterial blood gas shows pH 7.39, pCO2 40, pO2 of 78 and bicarbonate of 24. ASSESSMENT/RECOMMENDATIONS: 1. Severe sepsis. 2. Right upper lobe and bibasilar pneumonia. 3. Acute hypoxic respiratory failure. 4. Acute encephalopathy. 5. History of alcohol abuse, suspected alcohol withdrawal. 6. Acute on chronic renal failure. This 61-year-old man with history of significant alcohol abuse is presenting with a respiratory infection and severe sepsis. We are treating him for bacterial pneumonia but we are also reasonably concerned about his risk factors for TB. For this reason, he has been placed in airborne isolation and we are going to try to get sputum for AFB but, given that he is so obtunded, we may not be able to do this without bronchoscopy. At this point since he is hypotensive, I think the priority remains trying to stabilize him with fluid boluses. I would like to get a chest CT if possible if he is able to travel so we can further define this area of infiltrate. He had a central venous catheter placed in order to give us enough IV access. He may need benzodiazepine through the CIWA protocol for management of alcohol withdrawal. CRITICAL CARE TIME: 60 minutes.
--- NOTE | 2016-10-28 15:45 | NUR ---
Agitation/HR/Respiratory: P: Around 1345 pt became very agitated and began to try to pull at lines, sitting up in bed, very agitated and restless, pt needed to have a BM and was trying to get out of bed. HR increased to 130s. RR increased into 30's. I: Pt continues to be on precedex gtt, increased gtt (see flow sheet). Ciwa elevated, given 1 mg ativan IVP with no effect. Given 10 mg lorazepam IVP. E: Pt is now calm and resting at this time. Precedex gtt currently at 0.9 mcg/kg/hr. Pt continues to be on bipap at 50% FiO2 with SpO2 92-99% this shift. RR increases to 30's with agitation and restless ness
--- NOTE | 2016-10-28 15:50 | PCM.PNMED ---
Subjective Date of Service Oct 28, 2016 Subjective pt looked lethargic on Bipap, sedated with Precedex only, barely responded to toxic stimuli, BP boarder line low MAP 70s, mildly [id number], low 90% on Bipap 10/28, 50% FiO2 case was discussed during the rounds AM, pulmonary, ID is on board switched to zosyn, airborne isolation started until rule out TB Family-daughter Next of kin suggested that pt would have refused CPR/intubation. Exam Vital Signs Vital Sign - Last Date Time Temp Pulse Resp B/P Pulse Ox O2 Delivery O2 Flow Rate FiO2 10/28/16 14:28 112 38 87/58 98 50 10/28/16 12:00 37.8 BiPAP 10/27/16 08:56 6.00 Intake and Output 10/27/16 10/27/16 10/28/16 Cumulative From/Thru 15:00 23:00 07:00 10/26/16 17:03 - 10/28/16 05:39 Intake Total 1800 ml 1596 ml 7046 ml Output Total 200 ml 1100 ml 2400 ml Balance 1600 ml 496 ml 4646 ml Intake IV Total 1800 ml 1596 ml 7046 ml Output Urine Total 200 ml 1100 ml 2400 ml # Bowel Movements 1 1 Exam lethargic on BiPAP no JVD, MMM, no LAD regular tachy, nl s1, s2 no mrg coarse BS anteriorly S,ND,NT,normoactive BS+ warm, no edema, pulses 2/2 IVs and Medications Medications Reviewed: Medications were reviewed in detail Lab and Diagnostics Result Diagram: 10/28/16 0329 10/28/16 0440 X-Rays, CTs and MRIs PROCEDURE: CT ABDOMEN AND PELVIS WITHOUT CONTRAST ([id number]) INDICATIONS: r/o SBO, RLQ gas abnormal TECHNIQUE: Noncontrast 5 mm thick sections acquired from the diaphragms to the symphysis. 5 mm coronal and sagittal reformats were then performed. For radiation dose reduction, the following was used: automated exposure control, adjustment of mA and/or kV according to patient size. COMPARISON: None. FINDINGS: Image quality: Degraded by motion artifact. ABDOMEN: Lung bases: There is moderate patchy bibasilar airspace opacity. Small left pleural effusion which appears to demonstrate a thickened rind. Solid organs: Liver and spleen are normal in size. Gallbladder demonstrates calculi within its lumen. Pancreas is normal in contours. No adrenal nodules. Kidneys are normal in size, without hydronephrosis or nephrolithiasis. Peritoneum and bowel: Unenhanced bowel loops demonstrate normal wall thickness and caliber. No free fluid or air. Normal appendix. Small hiatal hernia. Nodes and vessels: No retroperitoneal or mesenteric adenopathy by size criteria. Aorta and inferior vena cava are normal in caliber. Miscellaneous: No ventral hernias. PELVIS: Genitourinary: Leiva catheter is present. Urinary bladder is decompressed. Miscellaneous: No inguinal hernias or adenopathy. Bones: No suspicious bony lesions. Mild chronic wedging of L1, and L2. No acute vertebral body compression fractures. IMPRESSION: 1. Bibasilar pneumonia. 2. Small loculated left pleural effusion with thickened rind, possibly indicating empyema. This is too small to safely aspirate percutaneously. 3. Cholelithiasis without evidence of cholecystitis. 4. Normal appendix. 5. Small hiatal hernia. Dictated by: Myke Gonzalez M.D. on 10/27/2016 at 20:52 Approved by: Myke Gonzalez M.D. on 10/27/2016 at 20:52 Assessment & Plan Acute active and high-risk problems: #severe sepsis, secondary presumed bacterial pneumonia, possible empyema based on CT abd/pelvis, high wbc/procalcitonin -appreciate ID recs on abx management, FU ID w/u, urine strep Ag, legionella, sputum Cx, MRSA swab, respiratory PCR, AFB, Quantiferon. -airborone iso started 10/28 given hx-[place], chronic etoh abuse, d/c when AFBx3 sets negative -chest CT ordered per ID given concern of upper lobe lesion #AKASH on CKD, secondary to ATN from sepsis, resultant severe metabolic acidosis, hyperkalemia, UOP-non oligouric phase of ATN, seemed improving as sepsis clears. -no dialysis today per renal recs, daily assessment for possible dialysis -strict -I/O with leiva, daily wt, avoid renal toxin, replete K,Mg, CMP bid for now # Acute respiratory failure with hypoxia likely from sepsis, maintain airways with BiPAP, -appreciate pulmonary recs on airway management, , would confirm with family again about CODE STATUS if pt requires intubation -target O2 >95%, cw BiPAP, serial ABG # Encephalopathy Likely metabolic encephalopathy due to sepsis. 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 -NPO for now given MS, PPI for GI ppx while on Bipap, dvt ppx: HSQ gi ppx as above DNR/DNI per daughter, appreciate pulmonary team further discussion w/ family diet: NPO while on BiPAP VTE Prophylaxis: SCDs Resuscitation Status: CPR: Attempt Resuscitation Time spent 35min Lalo Golden MD Oct 28, 2016 15:34
[2016-10-28] MEDS: Pantoprazole 4 mg/mL 10 mL Inj IVPUSH SCH (16:01)
--- NOTE | 2016-10-28 16:59 | PROCED ---
[address] [address] PROCEDURE NOTE PATIENT: MERCED HOLDER : 1955 MR#: [id number] ADMIT: 10/26/2016 JOB ID: [id number] DATE OF SERVICE: 10/28/2016 POSTOPERATIVE DIAGNOSIS(ES): PREOPERATIVE DIAGNOSIS(ES): SURGEON: Gianna Mckinney MD. PROCEDURE: Right internal jugular central venous catheter placement. INDICATION: Hypotension. Consent obtained from patient's daughter after risks and benefits discussed in detail. The patient was on BiPAP during the procedure. We used ultrasound to localize the right internal jugular vein which was clearly visualized. We then proceeded to prep and drape the patient in a sterile manner. The patient was placed in Trendelenburg. Ultrasound was used to localize the vein and local anesthetic was administered initially. A finder needle was then used to enter the vein and a guidewire was passed without difficulty. Ultrasound was used to confirm location of the guidewire inside the vein. We then proceeded to make a small skin incision with a scalpel and dilate the vein. Triple lumen catheter was passed without difficulty and secured at 17 cm. Chest x-ray is pending at this time. COMPLICATIONS: None. MEDICATIONS: Lidocaine 5 cc administered and some fentanyl was given also prior to the procedure to help the patient stay calm. Chest x-ray pending as above.
--- NOTE | 2016-10-28 17:59 | ABG ---
DateTimeAnalyzed 17:55:00 -_ pH ____7.434 - 7.350 7.450 pCO2 ___38.9__ -mmHg 35.0 45.0 pO2 ___48.3__ -mmHg 69.0 116 HCO3- ___25.6__ -mmol/L 22.0 26.0 ABE ____1.8__ -mmol/L -2.0 2.0 tHb ___10.2__ -g/dL O2Hb ___82.0__ -% COHb ____1.1__ -% MetHb ____1.3__ -% sO2 ___84.0__ -% 25.0 FIO2 ___50.0__ -% Pressure_Support ___16.0__ -cmH2O PEEP ___10.0__ -cmH2O Set_RR ___15.0__ -b/min Drawn By blf - Date/Time Notified____ 17:58:00 -_ Spontaneous_RR ___32.0__ -b/min Oxygen Device 1 ____BIPAP - Notified By blf - Notified Whom ABU PRATEEK RN - B 764 -mmHg tO2 ___11.8__ -Vol% Sukhdev test N/A -
[2016-10-28 18:11] LABS: BASOPHILS % (AUTO) 0.2 % (0-3); EOSINOPHILS % (AUTO) 0.2 % (0-5); MONOCYTES % (AUTO) 6.8 % (4-12); Mean Corpuscular Hemoglobin 31.8 pg (27.0-35.0); Mean Corpuscular Volume 96.8 fL (81-100); NEUTROPHILS % (AUTO) 86.6 % (40-74); Platelet Count 181 bil/L (150-400)
[2016-10-28 18:32] LABS: Phosphorus 3.6 mg/dL (2.5-4.9)
--- NOTE | 2016-10-28 19:37 | NUR ---
Respiratory Assumed care of pt approx at 1515. Approx at 1740 pt desated. SPO2 down to 82% on BiPAP. RT in the room. Obtained ABGs. BiPAP settings changed per RT. SPO2 up to high 90s. VSS. RT will obtain F/U ABGs.
[2016-10-28] MEDS ORDERED: levoFLOXacin Inj 500 MG in IV Premix 1 EACH IV SCH (20:30)
[2016-10-29] VITALS (14 sets, daily range): BP systolic 85–144; BP diastolic 49–87; PULSE 75–118; RESP 18–41; O2SAT 89–100
[2016-10-29] MEDS: Acetaminophen IV 1,000 MG in IV Premix 1 EACH IV PRN (03:13)
[2016-10-29 05:12] LABS: BASOPHILS % (AUTO) 0.2 % (0-3); EOSINOPHILS % (AUTO) 0.9 % (0-5); MONOCYTES % (AUTO) 6.2 % (4-12); Mean Corpuscular Hemoglobin 31.8 pg (27.0-35.0); Mean Corpuscular Volume 96.7 fL (81-100); NEUTROPHILS % (AUTO) 84.3 % (40-74); Platelet Count 174 bil/L (150-400)
[2016-10-29 05:36] LABS: Phosphorus 4.3 mg/dL (2.5-4.9)
[2016-10-29] MEDS: Albuterol-Ipratropium 3 mL Inhalation Solution NEB SCH ×4 (06:00→20:46)
--- NOTE | 2016-10-29 06:18 | NUR ---
Activity/Resp: Pt was very cooperative and rested throughout the night. Pt tolerated Bipap spo2 has beenbetween 95-99% during the night. Precedex infusing at .5mcg/kg/min.
[2016-10-29] MEDS: Pantoprazole 4 mg/mL 10 mL Inj IVPUSH SCH (07:30)
[2016-10-29] MEDS: Heparin 5,000 Unit/mL Inj SUBQ SCH ×2 (07:34→20:51)
[2016-10-29] MEDS: Norepineph 8,000 mCg/250 mL NS 8,000 MCG in IV Premix 1 EACH IV SCH (07:35)
[2016-10-29] MEDS: Dexmedetomidine 400 mCg/100 mL NS Premix IV SCH (07:35)
[2016-10-29] MEDS: Sodium Bicarb 8.4% Inj 150 MEQ in Dextrose 5% 1,000 ML IV SCH ×3 (08:25→20:07)
[2016-10-29] MEDS: Thiamine Inj 100 MG in Dextrose 5% 50 ML IV SCH (08:30)
[2016-10-29] MEDS: Multivit-Miner-Folic Acid-Iron Tablet PO SCH (08:30)
[2016-10-29] MEDS: Piperacillin-Tazo 3.375 Gm Inj 3.375 GM in Dextrose 5% Minibag Plus 50 ML IV SCH ×2 (08:30→20:51)
--- NOTE | 2016-10-29 09:19 | PROG NOTE ---
[address] [address] PROGRESS NOTE PATIENT: MERCED HOLDER : 1955 MR#: [id number] ADMIT: 10/26/2016 JOB ID: [id number] DATE: 10/29/2016 REASON FOR FOLLOW UP: Respiratory failure and encephalopathy likely secondary to pulmonary infection. INTERVAL HISTORY: Overnight, the patient has improved in some ways while backsliding in others. He is currently on BiPAP in the ICU with 70% BiPAP. Because of his severe acidosis, he has required a bicarbonate drip. On the positive side, the patient is more awake than yesterday and able to tell us that he does not have fever and that he is obviously short of breath. He also is asking for water. He denies any prior history of TB or hepatitis C. This case was discussed in detail with the ICU team as well as with the ICU nurse at the bedside. PHYSICAL EXAMINATION: Reveals a man who is intermittently febrile, currently 37.7, but he was 38.5 during the night axillary. Blood pressure is 98/65. He is saturating reasonably well on BiPAP currently 70, and was as high as 80 during the night. Eyes without scleral icterus. Oral cavity cannot be examined because of the BiPAP. His lung exam: Coarse bilateral breath sounds. Cardiac tones regular rate and rhythm, though distant. Abdomen slightly distended, but essentially nontender. Richardson catheter is present. He had 850 cc at out overnight. No notable skin rash. LABORATORIES: Include a white count stable at 10,000, with 80% segs. Creatinine 6.38, which is down a bit from 6.73 yesterday. His LFTs are entirely normal. Albumin 2.4. Yesterday's procalcitonin an impressive 23.16. That is, of course, in the setting of renal failure, but still pretty dramatic elevation. Urinalysis without pyuria. BRENT screen is negative. ANCA is pending. Hep C is positive, and so we have requested a viral load. HIV negative. QuantiFERON Gold is pending. Urine Legionella negative. Urine pneumococcal antigen likewise negative. Rapid viral panel negative. Blood cultures remain negative. MRSA screen is pending but should be completed within the hour. Chest x-ray yesterday showed bilateral infiltrates consistent with pulmonary edema or pneumonia. Recall that his admission chest x-ray showed a right upper lobe infiltrate as well as some infiltrate in the lower lung navarrete bilaterally. Recall that the CT scan of the abdomen and pelvis had shown the bottom of the lungs which appeared to have a rind around the left pleural effusion suggesting the possibility of an empyema. IMPRESSION: This is a difficult case of a 61-year-old, gentleman, with alcoholism, who presented with confusion, falls and sweats. His procalcitonin is extremely elevated, and suggesting bacterial sepsis or serious bacterial pneumonia as the cause of at least part of his decompensation. His CT of the abdomen showed what appeared to be a piece of an empyema with pleural rind, but we have been unable to confirm this with a chest CT due to the patient's instability. Blood cultures and other studies remain negative and the patient has been on Zosyn as a sole broad-spectrum antibiotic. He has been placed in airborne isolation while we rule out tuberculosis. RECOMMENDATIONS: 1. Continue with airborne isolation. 2. A collection of the sputum samples was discussed in detail with the nurses. 3. Will continue with Zosyn. 4. We await the galactomannan and sputum AFB samples. 5. Once stable enough, I would get a CT scan of the chest. 6. If the patient does indeed have an empyema, of course, it will be essential to drain it with a chest tube or decorticate the patient. 7. A hep C viral load has been ordered as he is hep C positive. 8. The patient tells us today he would definitely want to be intubated if it came to that, as he is now on BiPAP and doing only moderately well. This reflects a change from the chart where he is said to be a DNI, which that information apparently came from his daughter, so I think it might be important to revisit this issue with the patient. We have discussed this in detail in person with Dr. Golden.
--- NOTE | 2016-10-29 12:01 | PCM.PNMED ---
Subjective Date of Service Oct 29, 2016 Subjective ICU/PULMONOLOGY PROGRESS NOTE This is a 61 year old man with past medical history significant for alcohol abuse who presented obtunded now complicated by respiratory infection, hypoxic respiratory failure and severe sepsis. Overnight: No acute events. Today: The patient is still confused and pulled out his IJ. His CIWA this morning is 13. ROS is not obtainable. Exam Vital Signs Vital Sign - Last Date Time Temp Pulse Resp B/P Pulse Ox O2 Delivery O2 Flow Rate FiO2 10/29/16 08:05 CPAP/BIPAP 10/29/16 08:05 37.7 90 34 98/65 98 80 10/27/16 08:56 6.00 Intake and Output 10/28/16 10/28/16 10/29/16 Cumulative From/Thru 15:00 23:00 07:00 10/26/16 17:03 - 10/29/16 06:07 Intake Total 2251 ml 1215 ml 82058 ml Output Total 1750 ml 850 ml 5000 ml Balance 501 ml 365 ml 5512 ml Intake IV Total 2251 ml 1215 ml 02077 ml Output Urine Total 1750 ml 850 ml 5000 ml # Bowel Movements 1 2 Exam GEN: obese man in mild acute distress, with BPAP on face, sitting up in bed, alert, not oriented HEENT: sclera inacteric. PERRLA NECK: bandage on neck RESP: crackles at bases bilaterally, increases respiratory effort CV: tachycardic, irregularly irregular ABD: obese, soft : leiva in place EXT: no edema bilaterally IVs and Medications Medications Reviewed: Medications were reviewed in detail Lab and Diagnostics Result Diagram: 10/29/1644410/29/16444 X-Rays, CTs and MRIs PROCEDURE: CT ABDOMEN AND PELVIS WITHOUT CONTRAST (PNL-7104) IMPRESSION: 1. Bibasilar pneumonia. 2. Small loculated left pleural effusion with thickened rind, possibly indicating empyema. This is too small to safely aspirate percutaneously. 3. Cholelithiasis without evidence of cholecystitis. 4. Normal appendix. 5. Small hiatal hernia. Dictated by: Myke Gonzalez M.D. on 10/27/2016 at 20:52 Approved by: Myke Gonzalez M.D. on 10/27/2016 at 20:52 Assessment & Plan This is a 61 year old man with past medical history significant for alcohol abuse who presented obtunded now complicated by respiratory infection, hypoxic respiratory failure and severe sepsis. Severe sepsis -secondary presumed bacterial pneumonia, possible empyema based on CT abd/pelvis , high wbc/procalcitonin -appreciate ID recs on antibiotics management, FU ID w/u, urine strep Ag, legionella, sputum Cx, MRSA swab, respiratory PCR, AFB, Quantiferon all pending -airborone iso started 10/28 given hx-[place] Paula, chronic etoh abuse, d/c when AFBx3 sets negative -chest CT ordered per ID given concern of upper lobe lesion, however this is not possible with the patients current state AKASH on CKD -secondary to ATN from sepsis -resultant severe metabolic acidosis, hyperkalemia, non oliguric phase of ATN, seemed improving as sepsis clears -has good urine output and his Cr is improving -no dialysis yet -daily assessment for possible dialysis -strict I and O with Leiva, daily wt, avoid renal toxin -replete K and Mg as needed -CMP twice daily for now Acute respiratory failure with hypoxia likely from sepsis, -worsening, on most recent ABG PaO2 was only 48.3 -maintain airways with BiPAP -patient is DNI per his wishes, this has been confirmed with multiple family members however will ask palliative care to assist in further evaluating this code status -today it was explained to his family member that at his current state he is worsening and will likely imminently need to be intubated but to respect his wishes this will not be done, thus he will likely without intubation soon -target O2 >95% -will continue with BPAP -continue to monitor with ABGs Encephalopathy -Likely mixed metabolic encephalopathy with EtOH withdrawal -on Precedex, Haldol and Valium Hepatitis C antibody positive -Viral load pending Ileus on KUB/CT abdomen, bowel remains not surgical. -NPO for now given MS, PPI for GI ppx while on Bipap, dvt ppx: HSQ gi ppx as above DNR/DNI per daughter diet: NPO while on BiPAP VTE Prophylaxis: SCDs Resuscitation Status: CPR: Attempt Resuscitation Attending Statement I have seen and examined this patient with the resident physician. Vital signs , labs, imaging have been reviewed. I agree with the assessment and plan above. Please refer to my separately dictated progress note for any modifications to above. Faey Katz M.D. Pulmonary and Critical Care medicine Pager [phone] Mahnaz Lua DO Oct 29, 2016 11:41 Faye Katz MD Oct 29, 2016 15:27
--- NOTE | 2016-10-29 12:13 | NUR ---
Palliative Care Palliative Care received verbal order from Dr Katz 10/29/16 to assist with goals of care. Patient is a 61 year old man with alcoholism. He was admitted 10/26/16 for care of delirium, CAP, respiratory failure and acute kidney injury. He is on bipap. Manolo Vega (daughter) [phone] Palliative Care to follow. lEba Patten
[2016-10-29] MEDS ORDERED: 0.9% Sodium Chloride 1,000 ML ONE (12:49)
--- NOTE | 2016-10-29 13:25 | PROG NOTE ---
[address] [address] PROGRESS NOTE PATIENT: MERCED HOLDER : 1955 MR#: [id number] ADMIT: 10/26/2016 JOB ID: [id number] DATE: 10/29/2016 PULMONARY CRITICAL CARE PROGRESS NOTE: SUBJECTIVE: The patient is a 61-year-old man with history of alcohol use admitted with severe sepsis, respiratory failure in the setting of alcohol abuse. The patient was seen and evaluated with resident physician, Dr. Mahnaz Lua. Please refer to her separate detailed note for additional information. The following is an addendum. INTERVAL HISTORY: Blood pressures have improved and somewhat stabilized overnight. He remains agitated and delirious on BiPAP, hypoxic. REVIEW OF SYSTEMS: Unable to obtain. PHYSICAL EXAMINATION: Vital signs reviewed. T-max of 38.5, pulse 92, respirations 26, sats 100% on 70% BiPAP. General: Morbidly obese gentleman sitting up in bed, currently with BiPAP on, trying to answer questions. He is oriented to self but thinks he is in [facility] and that it is November 1905. Chest: Bilateral crackles. LABORATORIES: Reviewed. Notable for WBC of 10. Creatinine down to 6.38 from 7.1 yesterday. Bicarb of 26. Procalcitonin of 24. Cultures: Respiratory viral PCR is negative. but we just obtained sputum for AFB and bacterial cultures. Chest x-ray reviewed and shows worsening bilateral infiltrates. Right IJ central line initially in appropriate position. ASSESSMENT: 1. Severe sepsis. 2. Acute hypoxic respiratory failure. 3. Acute encephalopathy/alcohol withdrawal. 4. Bilateral pneumonia. 5. History of alcohol abuse. 6. Hepatitis C. RECOMMENDATIONS: This 61-year-old gentleman with history of significant alcohol use presented with worsening mental status and progressed to respiratory failure requiring BiPAP as well as severe sepsis due to a pneumonia. As far as his pneumonia, the differential includes TB and we have been waiting to get sputum which we just obtained. Studies are still pending on this. He is currently on Zosyn alone. His MRSA surveillance culture is still pending at this time. Blood cultures are negative. As far as his respiratory status, he is on BiPAP at 70% to 80% FiO2 and his last arterial blood gas this morning showed pH 7.43, pCO2 of 38, and pO2 of 48. It is not clear if this is venous or arterial. The patient is agitated enough that he pulled out his central line, his triple lumen right IJ, today. We are going to try to have IV therapy put in two peripherals and manage with that. I think he is high risk for complications if we try again to put a central line in with him on BiPAP on 70% to 80% FiO2. He has also not had any requirements for medications that need to be given through a central line such as pressors. Based on conversation with the patient's daughter, who is legal next of kin, as well as the patient's girlfriend, he has previously clearly indicated a desire to not be intubated or have any kind of life support or resuscitation measures. Apparently this is even in the setting of short-term therapy and with the complete understanding that not getting this therapy may mean that he would . Because of this, the patient is DNR, DNI at this time. Since we are unable to intubate him we have to be especially cautious with medications we give and any procedures. For example, I think bronchoscopy would help us with diagnosis of his underlying lung process, but there is no way he could tolerate it with how tenuous he is from a respiratory standpoint. I did involve Palliative Care to help with conversations with the family and any additional decision making. TIME: Critical care time 50 minutes.
--- NOTE | 2016-10-29 14:02 | PCM.PNMED ---
Subjective Date of Service Oct 29, 2016 Subjective The patient's renal function and urine output continues to improve. He does remain dependent on BiPAP and if there is no improvement in his respiratory status most likely will require intubation and mechanical ventilation. At this point his BRENT has come back negative however his hepatitis C is positive, which may explain his chronic kidney disease. Exam Vital Signs Vital Sign - Last Date Time Temp Pulse Resp B/P Pulse Ox O2 Delivery O2 Flow Rate FiO2 10/29/16 11:00 92 26 100 BiPAP 70 10/29/16 08:05 37.7 98/65 10/27/16 08:56 6.00 Intake and Output 10/28/16 10/28/16 10/29/16 Cumulative From/Thru 15:00 23:00 07:00 10/26/16 17:03 - 10/29/16 06:07 Intake Total 2251 ml 1215 ml 61433 ml Output Total 1750 ml 850 ml 5000 ml Balance 501 ml 365 ml 5512 ml Intake IV Total 2251 ml 1215 ml 19105 ml Output Urine Total 1750 ml 850 ml 5000 ml # Bowel Movements 1 2 Exam Patient is in some moderate respiratory distress on BiPAP. Sclerae are pale. Neck is supple without adenopathy or thyromegaly however venous distention is noted. His lungs showed scattered rhonchi and bibasilar rales. Heart was irregularly irregular. Abdomen remains distended with diffuse tympany to percussion. There is some mild generalized tenderness but no rebound guarding or hepatosplenomegaly was noted. Extremities show significant clubbing, cyanosis, with some generalized edema noted. Skin turgor was good and is no evidence of any rashes. Lab and Diagnostics Result Diagram: 10/29/1644410/29/16444 X-Rays, CTs and MRIs PROCEDURE: CT ABDOMEN AND PELVIS WITHOUT CONTRAST ([id number]) IMPRESSION: 1. Bibasilar pneumonia. 2. Small loculated left pleural effusion with thickened rind, possibly indicating empyema. This is too small to safely aspirate percutaneously. 3. Cholelithiasis without evidence of cholecystitis. 4. Normal appendix. 5. Small hiatal hernia. Dictated by: Myke Gonzalez M.D. on 10/27/2016 at 20:52 Approved by: Myke Gonzalez M.D. on 10/27/2016 at 20:52 Assessment & Plan Impression #1 acute kidney injury/acute tubular necrosis which appears to be resolving [place] acidosis #3 hypertension with hypertensive cardiovascular disease and hypertensive nephrosclerosis normal for hepatitis C Recommendations #1 change his IV and discontinue the sodium bicarbonate drip and switch him to normal saline. #2 we will need to closely follow his intake and output along with his lab. VTE Prophylaxis: SCDs Resuscitation Status: CPR: Attempt Resuscitation Humphrey Gonzalez DO Oct 29, 2016 14:02
--- NOTE | 2016-10-29 14:45 | PCM.PALLBR ---
Palliative Brief Note Date of Service Oct 29, 2016 . 61-year-old male admitted with increasing weakness and confusion, found to be septic with evidence of bilateral pneumonia and acute renal failure. Palliative medicine consulted to assist in determination of goals of care. Patient has intermittently been incoherent and non-decisional- at other times has seemed oriented enough to state wishes, but not consistently. Family members have also provided inconsistent information regarding end-of-life care wishes. Prior to visiting, reviewed records in the EMR in detail, spoke with his nurse and reviewed his case on CCU rounds with medical/critical care teams. Past medical history available is limited, though what there is is reviewed and remarkable for chronic renal failure, stage undetermined, elevated blood glucose, chronic tobacco and alcohol use, and post traumatic left BKA. On my arrival, patient remains on BiPAP, restless and not able to respond to questions consistently or clearly during the time I was with him. Brief physical exam as outlined by medical team. His significant other was in the room and I spoke with her- she thinks that one of his daughters might be formal POA but is uncertain. She says that she does not have power of javascript engineer. She notes that he has previously expressed that ' he did not want to be kept alive on machines' but she was unable to say whether that meant that aggressive support could be used briefly or if it was felt that he had reversible medical problems. When Dr. Quintanilla of infectious disease had seen him, patient apparently indicated clearly that he would be willing to be intubated if necessary. I attempted to reach his family members by phone during the day but was unsuccessful. I left my cell phone number with his bedside nurse with instructions to be called the family members arrived. At this time, because of the inability to determine definitively what his wishes might be, it would appear appropriate to default to aggressive care, and if he deteriorated significantly and required intubation/mechanical ventilation that should be carried out. Palliative medicine will continue to follow and hopefully in the coming days will have opportunity to review the patient's background and wishes further with family members. Total 50 minutes spent today, greater than 50% in direct contact with patient and family members and in care coordination with his medical/critical care teams , including 10 minutes reviewing information regarding advanced care wishes as best they could be determined. Luís Spaulding MD Oct 29, 2016 14:45
--- NOTE | 2016-10-29 14:58 | PCM.PNMED ---
Subjective Date of Service Oct 29, 2016 Subjective was febrile again but HD stable w/o vasopressors MS greatly improved, AAOx2, although slightly drowsy was on BiPAP 07/09, 70% bicarb drip stopped per renal CT without contrast canceled given critical respiratory status palliative care on board, recommended reverting to Full code Exam Vital Signs Vital Sign - Last Date Time Temp Pulse Resp B/P Pulse Ox O2 Delivery O2 Flow Rate FiO2 10/29/16 12:30 CPAP/BIPAP 10/29/16 12:30 37.4 118 38 106/59 97 70 10/27/16 08:56 6.00 Intake and Output 10/28/16 10/28/16 10/29/16 Cumulative From/Thru 15:00 23:00 07:00 10/26/16 17:03 - 10/29/16 06:07 Intake Total 2251 ml 1215 ml 09263 ml Output Total 1750 ml 850 ml 5000 ml Balance 501 ml 365 ml 5512 ml Intake IV Total 2251 ml 1215 ml 61063 ml Output Urine Total 1750 ml 850 ml 5000 ml # Bowel Movements 1 2 Exam drowsy on BiPAP no JVD, MMM, no LAD regular tachy, nl s1, s2 no mrg coarse BS anteriorly S,ND,NT,normoactive BS+ warm, no edema, pulses 2/2 IVs and Medications Medications Reviewed: Medications were reviewed in detail Lab and Diagnostics Result Diagram: 10/29/1644410/29/16444 X-Rays, CTs and MRIs PROCEDURE: CT ABDOMEN AND PELVIS WITHOUT CONTRAST (PNL-7104) IMPRESSION: 1. Bibasilar pneumonia. 2. Small loculated left pleural effusion with thickened rind, possibly indicating empyema. This is too small to safely aspirate percutaneously. 3. Cholelithiasis without evidence of cholecystitis. 4. Normal appendix. 5. Small hiatal hernia. Dictated by: Myke Gonzalez M.D. on 10/27/2016 at 20:52 Approved by: Myke Gonzalez M.D. on 10/27/2016 at 20:52 Assessment & Plan Acute active and high-risk problems: #severe sepsis, secondary presumed bacterial pneumonia, possible empyema based on CT abd/pelvis, high wbc/procalcitonin -appreciate ID recs on abx management, FU ID w/u, urine strep Ag, legionella, sputum Cx, MRSA swab, respiratory PCR, AFB, Quantiferon. -airborone iso started 10/28 given hx-[place] Paula, chronic etoh abuse, d/c when AFBx3 sets negative -chest CT deferred given critical respiratory status #AKASH on CKD, secondary to ATN from sepsis, resultant severe metabolic acidosis, hyperkalemia, UOP-non oligouric phase of ATN, seemed improving as sepsis clears. -no dialysis today per renal recs, daily assessment for possible dialysis, bicarb drip 10/26-12 AM acidosis resolved. -strict -I/O with leiva, daily wt, avoid renal toxin, replete K,Mg, CMP bid for now # Acute respiratory failure with hypoxia likely from sepsis, maintain airways with BiPAP, -appreciate pulmonary recs on airway management, remains FULL CODE per palliative care -target O2 >95%, cw BiPAP, serial ABG # Encephalopathy Likely metabolic encephalopathy due to sepsis. out of window for ETOH WD, less likely [employer] infection given rapid improvement of MS, no nuchal rigidity -restraints/haldol prn for acute delirium, no LP if pt keeps febrile w/ zosyn, -avoid other sedatives-benzo, opioid for now chronic, stable #Ileus on KUB/CT abdomen, bowel remains not surgical. -NPO for now given MS, PPI for GI ppx while on Bipap, dvt ppx: HSQ gi ppx as above full code diet: NPO VTE Prophylaxis: SCDs Resuscitation Status: CPR: Attempt Resuscitation Time spent 35min Lalo Golden MD Oct 29, 2016 14:51
[2016-10-29] MEDS ORDERED: 0.9% Sodium Chloride 250 ML ONE (18:14)
[2016-10-29] MEDS: 0.9% Sodium Chloride 1,000 ML IV SCH (20:50)
[2016-10-29] MEDS ORDERED: fentaNYL 2,500 mCg/250 mL Premix IV ONE (23:11)
[2016-10-29] MEDS ORDERED: Propofol 10,000 mCg/mL 100 mL Inj ONE (23:11)
[2016-10-29] MEDS ORDERED: 0.9% Sodium Chloride 500 ML ONE (23:29)
[2016-10-29] MEDS ORDERED: Furosemide 10 mg/mL 10 mL Inj IVPUSH ONE ×2 (23:36→23:45)
[2016-10-30] VITALS (14 sets, daily range): BP systolic 86–113; BP diastolic 50–71; PULSE 22–126; RESP 16–35; O2SAT 94–100
[2016-10-30] MEDS: Norepineph 8,000 mCg/250 mL NS 8,000 MCG in IV Premix 1 EACH IV SCH (00:35)
--- NOTE | 2016-10-30 01:17 | ABG ---
DateTimeAnalyzed 01:14:00 -_ pH ____7.341 - 7.350 7.450 pCO2 ___44.6__ -mmHg 35.0 45.0 pO2 109 -mmHg 69.0 116 HCO3- ___23.4__ -mmol/L 22.0 26.0 ABE ___-1.7__ -mmol/L -2.0 2.0 tHb ____9.8__ -g/dL O2Hb ___95.5__ -% COHb ____0.8__ -% MetHb ____1.3__ -% sO2 ___97.5__ -% 25.0 FIO2 __100.0__ -% PRVC x - PEEP ____5.0__ -cmH2O Set_RR ___25.0__ -b/min Vt __410.0__ -L Drawn By af - Date/Time Notified____ 01:16:00 -_ Spontaneous_RR ___31.0__ -b/min Oxygen Device 1 VENTILATOR - Notified By AF - Notified Whom ____Nurse - B 765 -mmHg tO2 ___13.4__ -Vol% OrderingPhysicianInitials mf - Sukhdev test N/A -
--- NOTE | 2016-10-30 01:26 | PROCED ---
[address] [address] PROCEDURE NOTE PATIENT: MERCED HOLDER : 1955 MR#: [id number] ADMIT: 10/26/2016 JOB ID: [id number] DATE OF SERVICE: POSTOPERATIVE DIAGNOSIS(ES): PREOPERATIVE DIAGNOSIS(ES): SURGEON: INDICATION: Hemodynamic monitoring and intravenous access. PROCEDURE: A time-out was completed and verified the correct patient, procedure, site and positioning. The patient was placed in Trendelenburg for central line placement. The patient's right neck and shoulder was prepped with Chlorhexidine, draped in sterile fashion. Lidocaine 1% was used to anesthetize the surrounding skin. A triple lumen catheter was introduced into the right internal jugular vein using Seldinger technique under ultrasound guidance. The catheter was threaded smoothly over the guidewire and appropriate blood return was obtained. Each lumen of the catheter was evacuated of air and flushed with sterile saline. The catheter was then sutured in place to the skin and a sterile dressing was applied. Vital signs remained stable throughout the procedure. Only one pass was used. The nurse was present for this entire procedure. I then placed an arterial line for hemodynamic monitoring. The patient's right wrist was prepped in sterile fashion. A 20-gauge Arrow arterial line was introduced into the right radial artery. The catheter was threaded over a guidewire and the needle was removed with appropriate pulsatile blood flow. The catheter was then secured with a sterile dressing. Vital signs remained stable. No complications.
[2016-10-30] MEDS: Propofol Inj 1,000,000 MCG in IV Premix 1 EACH IV SCH ×2 (01:57→22:24)
[2016-10-30] MEDS: fentaNYL 2,500 mCg/250 mL 2,500 MCG in IV Premix 1 EACH IV PRN (01:58)
[2016-10-30] MEDS ORDERED: Cisatracurium 200,000 mCg/100 mL NS IV SCH ×4 (02:25→12:50)
[2016-10-30] MEDS: 0.9% Sodium Chloride 1,000 ML IV SCH ×4 (02:45→23:05)
--- NOTE | 2016-10-30 02:53 | PCM.EDPN ---
ED Note Date of Service Oct 30, 2016 Procedures Intubation : Intubation Procedure: Intubation of this 61-year-old male with pneumonia is requested by the hospitalist team. Patient is presently delirious but when more lucid and reportedly requested ventilatory support if necessary. Contraindications present to the use of succinylcholine. Procedure Performed by: ED physician Patient Position: Neutral position Blade / ET Tube / Route: Lynn scope Procedural Sedation/Analgesia: Sedation: Etomidate (20mg) Neuromuscular Agent: Succinylcholine (120mg) ET Confirmation: Direct visualization, BS equal, End tidal CO2 device, CXR, Rising O2 sat Secured / Marked: ET tube device, Tube marked at ___ cm (25) Complications: None Post-Procedure: Condition improved Hansel Irwin MD Oct 30, 2016 02:53
[2016-10-30] MEDS: Chlorhexidine 0.12% 15 mL Oral Solution MT SCH ×5 (04:30→20:47)
--- NOTE | 2016-10-30 04:59 | ABG ---
DateTimeAnalyzed 04:57:00 -_ pH ____7.169 - 7.350 7.450 pCO2 ___74.5__ -mmHg 35.0 45.0 pO2 134 -mmHg 69.0 116 HCO3- ___26.0__ -mmol/L 22.0 26.0 ABE ___-3.1__ -mmol/L -2.0 2.0 tHb ___10.0__ -g/dL O2Hb ___95.8__ -% COHb ____0.4__ -% MetHb ____1.3__ -% sO2 ___97.5__ -% 25.0 FIO2 __100.0__ -% PEEP ___15.0__ -cmH2O Set_RR ___18.0__ -b/min Vt __480.0__ -L Drawn By af - Date/Time Notified____ 04:59:00 -_ Spontaneous_RR ___18.0__ -b/min Oxygen Device 1 VENTILATOR - Notified By af - Notified Whom ____nurse - B 763 -mmHg tO2 ___13.7__ -Vol% OrderingPhysicianInitials mf - Sukhdev test N/A -
--- NOTE | 2016-10-30 06:11 | ABG ---
DateTimeAnalyzed 06:08:00 -_ pH ____7.222 - 7.350 7.450 pCO2 ___65.5__ -mmHg 35.0 45.0 pO2 124 -mmHg 69.0 116 HCO3- ___25.9__ -mmol/L 22.0 26.0 ABE ___-2.1__ -mmol/L -2.0 2.0 tHb ___10.2__ -g/dL O2Hb ___95.4__ -% COHb ____0.5__ -% MetHb ____1.4__ -% sO2 ___97.2__ -% 25.0 FIO2 __100.0__ -% CPAP ___12.0__ -cmH2O Set_RR ___25.0__ -b/min Vt __440.0__ -L Drawn By AF - Date/Time Notified____ 06:11:00 -_ Spontaneous_RR ___25.0__ -b/min Oxygen Device 1 VENTILATOR - Notified By af - Notified Whom ____nurse - B 762 -mmHg tO2 ___13.9__ -Vol% OrderingPhysicianInitials mf - Sukhdev test N/A -
[2016-10-30] MEDS: Pantoprazole 4 mg/mL 10 mL Inj IVPUSH SCH (07:30)
--- NOTE | 2016-10-30 07:59 | NUR ---
code status/Resp: At start of shift the were conflicting progress notes from MDs regaurding code status. After talking with PT at 1930 which he appeared to be coherent when asked if he would want to be but on ventilator to breath for him pt stated "yah, for a little while" Resident was here and she talked with Dr Hartman and pt's code status was changed to full code. Pt resp rate steadily increased during the evening to the high 40s and low 50s with accessory muscle use. Dr Hartman was paged and here to see pt. ED MD here to intubate pt. Pt was give 120mg of sucs and 20mg of etomidate. pt was intubated with 8.o ETT 25cm at the teeth. CXR confirmed placement anethesia here and placed right IJ triple lumen central line and right radial a-line. Pt was hypotensive and levophed was started and titrated for pressures. Copious amounts of thick pink frothy sputum was suctioned and lasix was ordered. Pt had 1800mls of urine out. Pt was struggling against the ventilator and required to be paralized. Train of 4 baseline was 4/4 at 33.3 milliamps and biz was 57. propofol and fentanyl were titrated for sedation. pt had been stable since being paralized.
[2016-10-30] MEDS: Piperacillin-Tazo 3.375 Gm Inj 3.375 GM in Dextrose 5% Minibag Plus 50 ML IV SCH ×2 (08:30→20:48)
[2016-10-30] MEDS: Thiamine Inj 100 MG in Dextrose 5% 50 ML IV SCH (08:30)
[2016-10-30] MEDS: Heparin 5,000 Unit/mL Inj SUBQ SCH ×3 (08:30→20:47)
[2016-10-30] MEDS: Multivit-Miner-Folic Acid-Iron Tablet PO SCH (08:30)
[2016-10-30 09:10] LABS: BASOPHILS % (AUTO) 0.2 % (0-3); EOSINOPHILS % (AUTO) 1.2 % (0-5); MONOCYTES % (AUTO) 6.3 % (4-12); Mean Corpuscular Hemoglobin 31.5 pg (27.0-35.0); Mean Corpuscular Volume 101.5 fL (81-100); NEUTROPHILS % (AUTO) 80.5 % (40-74); Platelet Count 202 bil/L (150-400)
[2016-10-30 09:30] LABS: Magnesium 1.6 mg/dL (1.6-2.6); Phosphorus 4.8 mg/dL (2.5-4.9)
--- NOTE | 2016-10-30 09:34 | DRSVH ---
PROCEDURE: X-RAY CHEST ONE VIEW, PORTABLE ([id number]) INDICATIONS: TUBE PLACEMENT. TECHNIQUE: One view of the chest was acquired. COMPARISON: [facility], CR, XR CHEST 1VW (PORTABLE), 10/28/2016, 12:54. FINDINGS: Surgical changes and devices: Endotracheal tube is in place, tip projected 3.2 cm above the yanely. Nasogastric tube also present with the tip not visualized. Right IJ CVL has been removed. Lungs and pleura: Diffuse, widespread bilateral pulmonary interstitial and air space opacities are p resent increased from prior examination. No pneumothorax. Mediastinum: Mediastinal contours appear normal. Heart size is normal. Bones and chest wall: No suspicious bony lesions. Overlying soft tissues appear unremarkable. IMPRESSION: 1. Interval placement of ETT and nasogastric tubes. 2. Worsening pulmonary edema and/or diffuse bilateral inflammatory process. Correlate clinically. Dictated by: Bakari SAMANIEGO Interpreted: Ekaterina Carter MD on 10/30/2016 at 8:50 Transcribed by: KAYLA on 10/30/2016 at 12:34 Approved by: Ekaterina Carter MD, PhD on 10/30/2016 at 17:22
--- NOTE | 2016-10-30 09:48 | DRSVH ---
PROCEDURE: X-RAY CHEST ONE VIEW, PORTABLE ([id number]) INDICATIONS: LINE PLACEMENT TECHNIQUE: One view of the chest was acquired. COMPARISON: [facility], CR, XR CHEST 1VW (PORTABLE), 10/29/2016, 23:09. FINDINGS: Surgical changes and devices: Placement of right IJ CVL, tip projected over the mid to upper SVC. S table position of ETT. Nasogastric tube present with the tip likely traversing the GE junction but i s not clearly seen on current exam. Lungs and pleura: Aside from technique differences, no significant change in diffuse, widespread osman ateral pulmonary interstitial and air space opacities. No pneumothorax. Mediastinum: Mediastinal contours appear normal. Heart size is normal. Bones and chest wall: No suspicious bony lesions. Overlying soft tissues appear unremarkable. IMPRESSION: 1. Interval placement of right IJ CVL; otherwise, no significant change from prior exam. Dictated by: Bakari Bunch RRA Interpreted: Ekaterina Carter MD on 10/30/2016 at 8:51 Transcribed by: KAYLA on 10/30/2016 at 12:48 Approved by: Ekaterina Carter MD, PhD on 10/30/2016 at 17:22
--- NOTE | 2016-10-30 10:07 | PROG NOTE ---
[address] [address] PROGRESS NOTE PATIENT: MERCED HOLDER : 1955 MR#: [id number] ADMIT: 10/26/2016 JOB ID: [id number] DATE: 10/30/2016 INFECTIOUS DISEASE FOLLOW UP NOTE: REASON FOR FOLLOWUP: Probable pneumonia with respiratory failure, now ventilator dependent and acute renal failure. INTERVAL HISTORY: The patient overnight had developed increasing respiratory difficulty and was intubated. He is currently on the ventilator requiring high inspired concentrations of FiO2. To improve ventilation, he has been paralyzed and no additional history can be obtained from the patient. This case was discussed exhaustively during ICU rounds this morning. PHYSICAL EXAMINATION: Reveals an intubated and paralyzed gentleman. His temperature is 37.7. Yesterday it was as high as 38.5 and the day before 39 degrees. His pulse is in the 90s, respiratory rate is ventilator dependent, of course, as he is paralyzed. Blood pressure 108/50 and he is on a very minimal dose of norepinephrine. He is saturating well but requiring 80% FiO2 at this moment. Examination of the head reveals no new abnormalities. Eyes without conjunctivitis. Oral endotracheal tube, orogastric tube are now present. The patient's lungs are notable for rales and rhonchi at both bases. Cardiac tones very tachycardic with possible S3. Abdomen: Slightly distended without obvious organomegaly. The patient's extremities notable for the BKA that was previously mentioned. Otherwise no changes. No rash is seen. Minimal peripheral edema though the patient is up several liters. Minimal respiratory secretions though what we do have is pink and frothy consistent with ARDS or CHF. LABORATORIES: Include white count 11,000, platelet count 200,000. Creatinine is 6.38. LFTs are normal. Procalcitonin is 25. Urinalysis without pyuria. BRENT is negative. ANCA is pending. His hep C is positive. Hepatitis C viral load pending. QuantiFERON Gold is pending. Micro: Sputum is pending for Gram stain and culture, but prior sputum from the 7th is growing Staph aureus with susceptibilities pending as well as group B strep. A MRSA screen is negative. Respiratory viral PCR negative. Blood cultures are negative. AFB x2 with nucleic acid implication pending. IMAGING: Chest x-ray was reviewed. Diffuse ARDS or CHF type pattern. Recall that a prior CT though raised the question of a pulmonary rind and that was an abdominal CT as we have not been able to get a pulmonary CT yet. IMPRESSION: This patient continues to be critically ill. He started off with a history confusion, falls and sweats in the setting of alcoholism. He was found to have renal failure, dramatically elevated procalcitonin and evidence of bacterial pneumonia on initial chest x-ray. An abdominal CT raised the possibility of empyema which we have been unable to confirm or refute as we do not have a CT scan. At this point he continues on broad-spectrum antibiotics with Zosyn. RECOMMENDATIONS: 1. Will continue with airborne isolation. 2. We await the AFB and many other pending studies. 3. Will continue with Zosyn. 4. Because he is growing Staph aureus from his sputum, will go ahead and add MRSA coverage but this can be stopped tomorrow if his cultures show that his Staph aureus from sputum is not MRSA. 5. Will continue to closely follow this patient with you. 6. I understand from Dr. Katz that an ultrasound will be attempted to try and define if his pleural fluid is enough to tap. A CT scan of the chest is on hold given the patient's profound respiratory insufficiency at this point.
[2016-10-30] MEDS: DEXTROSE 5% IV SCH ×2 (10:30→20:46)
[2016-10-30] MEDS: CEFTAROLINE IV SCH ×2 (10:30→20:46)
[2016-10-30] MEDS ORDERED: Calcium GLUCO 10% (mEq) Inj 4.65 MEQ in Dextrose 5% 50 ML IV ONE (10:45)
[2016-10-30] MEDS ORDERED: Lidocaine PF 2% 10 mL Inj ONE (10:52)
[2016-10-30] MEDS: Albuterol-Ipratropium 3 mL Inhalation Solution NEB SCH ×3 (10:52→20:28)
[2016-10-30] MEDS ORDERED: Lidocaine Topical 2% 30 mL Jelly ONE (10:52)
--- NOTE | 2016-10-30 10:56 | PCM.PNMED ---
Subjective Date of Service Oct 30, 2016 Subjective Nephrology Progress Note Reason for Consultation: Acute renal failure S: Overnight patient developed increased work of breathing and respiratory distress, so he was intubated. He continues to have elevated temperatures but his urine output has been adequate and his BUN/Cr has been improving. There have been no indications for urgent dialysis yet. Nephrology attending: Events of yesterday evening have been reviewed. I discussed the case at length with Dr. Katz from critical care. In the last 36 hours he has had 3700 mL subjective urine output and his BUN and creatinine continue to improve. Unfortunately he is requiring continual mechanical ventilation. At this point I would like to back down on his fluids and switch him over to D5W with 2 A of sodium bicarbonate to run at 60 mL per minute. Would also like to continue to replace his potassium and closely follow his intake and output. His albumin is 1.8 and feel that we should probably give him several doses of albumin and optimally try to utilize his gut for nutritional support. Exam Vital Signs Vital Sign - Last Date Time Temp Pulse Resp B/P Pulse Ox O2 Delivery O2 Flow Rate FiO2 10/30/16 06:31 93 10/30/16 05:03 108/50 96 100 10/30/16 04:30 CPAP/BIPAP 10/30/16 04:30 37.7 18 10/27/16 08:56 6.00 Intake and Output 10/29/16 10/29/16 10/30/16 Cumulative From/Thru 15:00 23:00 07:00 10/26/16 17:03 - 10/30/16 06:00 Intake Total 1151 ml 1774 ml 69073 ml Output Total 1000 ml 1950 ml 7950 ml Balance 151 ml -176 ml 5487 ml Intake Oral 0 ml 0 ml IV Total 1151 ml 1774 ml 97441 ml Output Urine Total 1000 ml 1800 ml 7800 ml Gastric Drainage Total 150 ml 150 ml # Bowel Movements 0 2 Exam Gen: Obese male currently sedated and intubated on [facility] ventilation. HEENT: NG tube in place with pink frothy secretions noted. Eyes non-icteric. Dry crusty charity-oral mucosa Neck; Right IJ catheter under clear dressing, clean and dry. JVP noted CV; Tachycardic with regular rhythm, radial pulses present and equal Resp: Diffuse wheezing, rhonchi, and bibasilar rales. Abd: Obese, mildly distended, dull to percussion : Richardson catheter in place. MSK: Trace edema of extremities Skin: No rash noted, warm and dry. IVs and Medications Medications Reviewed: Medications were reviewed in detail Lab and Diagnostics Result Diagram: 10/30/16 0850 10/30/16 0850 X-Rays, CTs and MRIs PROCEDURE: X-RAY CHEST ONE VIEW, PORTABLE ([id number]) INDICATIONS: TUBE PLACEMENT. TECHNIQUE: One view of the chest was acquired. COMPARISON: , CR, XR CHEST 1VW (PORTABLE), 10/28/2016, 12 :54. FINDINGS: Surgical changes and devices: Endotracheal tube is in place, tip projected 3.2 cm above the yanely. Nasogastric tube also present with the tip not visualized. Right IJ CVL has been removed. Lungs and pleura: Diffuse, widespread bilateral pulmonary interstitial and air space opacities are present increased from prior examination. No pneumothorax. Mediastinum: Mediastinal contours appear normal. Heart size is normal. Bones and chest wall: No suspicious bony lesions. Overlying soft tissues appear unremarkable. IMPRESSION: 1. Interval placement of ETT and nasogastric tubes. 2. Worsening pulmonary edema and/or diffuse bilateral inflammatory process. Correlate clinically. Dictated by: Bakari Bunch RRA Interpreted: Ekaterina Carter MD on 10/30/2016 at 8:50 Transcribed by: KAYLA on 10/30/2016 at 12:34 Assessment & Plan IMPRESSION: 61 yo male with h/o alcohol abuse who presents with respiratory infection, hypoxic respiratory failure, severe sepsis, and acute renal failure. 1. AKASH/ATN secondary to sepsis 2. Metabolic acidosis. 3. Hypokalemia 4. Hypoalbuminemia RECOMMENDATION: We will plan to change patient's fluids to D5W with 2 amps of bicarb at 50 mls/ hr for maintenance fluids due to patient's respiratory deterioration and increase peripheral edema. Will give Albumin x 3 doses for patient's hypoalbuminemia and replenish patient's potassium with 40meQ of KCl. His BUN/Cr is improving and his urine output is appropriate. Will continue to monitor closely, replenish electrolytes as needed, and dialyze if there are urgent indications. VTE Prophylaxis: SCDs Resuscitation Status: CPR: Attempt Resuscitation Ramírez Jean DO Oct 30, 2016 10:56 Humphrey Gonzalez DO Oct 30, 2016 13:21
--- NOTE | 2016-10-30 11:46 | PCM.PNMED ---
Subjective Date of Service Oct 30, 2016 Subjective pt was decompensated overnight, intubated, RIJ CVC inserted by anesthesia, sedated Exam Vital Signs Vital Sign - Last Date Time Temp Pulse Resp B/P Pulse Ox O2 Delivery O2 Flow Rate FiO2 10/30/16 10:42 115 113/59 96 80 10/30/16 04:30 CPAP/BIPAP 10/30/16 04:30 37.7 18 10/27/16 08:56 6.00 Intake and Output 10/29/16 10/29/16 10/30/16 Cumulative From/Thru 15:00 23:00 07:00 10/26/16 17:03 - 10/30/16 06:00 Intake Total 1151 ml 1774 ml 45037 ml Output Total 1000 ml 1950 ml 7950 ml Balance 151 ml -176 ml 5487 ml Intake Oral 0 ml 0 ml IV Total 1151 ml 1774 ml 46596 ml Output Urine Total 1000 ml 1800 ml 7800 ml Gastric Drainage Total 150 ml 150 ml # Bowel Movements 0 2 Exam sedated, vented on PRVC, no JVD, MMM, no LAD RRR, nl s1, s2 no mrg coarse BS anteriorly S,ND,NT,normoactive BS+ warm, no edema, pulses 2/2 s/p Lt BKA RIJ, leiva in place IVs and Medications Medications Reviewed: Medications were reviewed in detail Lab and Diagnostics Result Diagram: 10/30/16 0850 10/30/16 0850 X-Rays, CTs and MRIs PROCEDURE: X-RAY CHEST ONE VIEW, PORTABLE ([id number]) INDICATIONS: TUBE PLACEMENT. TECHNIQUE: One view of the chest was acquired. COMPARISON: [facility], CR, XR CHEST 1VW (PORTABLE), 10/28/2016, 12 :54. FINDINGS: Surgical changes and devices: Endotracheal tube is in place, tip projected 3.2 cm above the yanely. Nasogastric tube also present with the tip not visualized. Right IJ CVL has been removed. Lungs and pleura: Diffuse, widespread bilateral pulmonary interstitial and air space opacities are present increased from prior examination. No pneumothorax. Mediastinum: Mediastinal contours appear normal. Heart size is normal. Bones and chest wall: No suspicious bony lesions. Overlying soft tissues appear unremarkable. IMPRESSION: 1. Interval placement of ETT and nasogastric tubes. 2. Worsening pulmonary edema and/or diffuse bilateral inflammatory process. Correlate clinically. Dictated by: Bakari Bunch RRA Interpreted: Eakterina Carter MD on 10/30/2016 at 8:50 Transcribed by: KAYLA on 10/30/2016 at 12:34 Assessment & Plan Acute active and high-risk problems: # Acute respiratory failure with hypoxia likely from sepsis, pt was initially maintain airways with BiPAP, deteriorated 10/29-, intubated. -appreciate CCM team active management with airway management, cw vent bundle, remains FULL CODE per palliative care #severe sepsis, secondary presumed bacterial pneumonia, possible empyema based on CT abd/pelvis, high wbc/procalcitonin, staph+ on sputum, -appreciate ID recs on abx management, cw zosyn, FU ID w/u MRSA swab, pending BCX -airborne iso started 10/28 given hx-[place] Paula, chronic etoh abuse, d/c when AFBx3 sets negative -chest CT deferred given critical respiratory status, bedside US to perform by CCM team if effusion is amenable for tap -trial of albumin per nephrology #AKASH on CKD, secondary to ATN from sepsis, resultant severe metabolic acidosis, hyperkalemia, UOP-non oligouric phase of ATN, seemed improving as sepsis clears. -no dialysis today per renal recs, daily assessment for possible dialysis, bicarb drip 10/26-10/29 AM acidosis resolved, resumed bicarb 10/30 as acidosis worsened -strict -I/O with leiva, daily wt, avoid renal toxin, replete K,Mg, # Encephalopathy Likely metabolic encephalopathy due to sepsis. out of window for ETOH WD, less likely LINE ASSEMBLER infection given rapid improvement of MS, no nuchal rigidity -restraints/haldol prn for acute delirium, -avoid other sedatives-benzo, opioid for now chronic, stable #Ileus on KUB/CT abdomen, bowel remains not surgical, tube feeds started dvt ppx: HSQ gi ppx famotidine full code diet: tube feeds VTE Prophylaxis: SCDs Resuscitation Status: CPR: Attempt Resuscitation Time spent 35min Lalo Golden MD Oct 30, 2016 11:46
--- NOTE | 2016-10-30 12:18 | PROG NOTE ---
[address] [address] PROGRESS NOTE PATIENT: MERCED HOLDER : 1955 MR#: [id number] ADMIT: 10/26/2016 JOB ID: [id number] DATE: 10/30/2016 PULMONARY CRITICAL CARE PROGRESS NOTE: The patient is a 61-year-old man with history of alcohol abuse presenting with pneumonia, respiratory failure and ARDS. INTERVAL HISTORY: His respiratory status continued to worsen last night and apparently in a conversation with Dr. Spaulding of palliative care, he indicated in front of his girlfriend that he would want to be intubated if he worsens. For this reason, he was placed on mechanical ventilation last night, as he continued to have respiratory distress. He also had severe hypoxia and was started on a paralytic, with PEEP increased appropriately. REVIEW OF SYSTEMS: Unable to obtain. PHYSICAL EXAMINATION: Vital signs reviewed. Notable for T-max of 37.8. On the vent, he is on 80% FiO2 and PEEP of 12 cm right now, with tidal volume around 500. General: Intubated, sedated and paralyzed. Chest: Bilateral crackles. Heart: Regular rate, rhythm. He has left BKA. LABORATORIES: Reviewed. Notable for creatinine down to 4.5 from 8 on admission. He continues to make urine, almost 2 L. Procalcitonin 25. Cultures, sputum culture with beta strep group B, as well as Staph aureus. Other cultures and respiratory viral PCR panel are negative. Arterial blood gas from this morning shows pH 7.22, pCO2 of 65, pO2 of 124, bicarb of 25.9. IMAGING: Chest x-ray showed diffuse bilateral infiltrates consistent with ARDS. ET tube in appropriate position. He had a central line and art line also placed last night. ASSESSMENT AND RECOMMENDATIONS: 1. Severe adult respiratory distress syndrome. 2. Acute hypoxic respiratory failure. 3. Bilateral pneumonia. 4. Septic shock. 5. Acute on chronic kidney injury. 6. History of alcohol use. 7. Acute encephalopathy. A 61-year-old man with history of alcohol use presenting with pneumonia and respiratory failure with encephalopathy. Respiratory failure worsened to the point of intubation overnight, and he has been severely hypoxic with adult respiratory distress syndrome. FiO2 is currently 80% with PEEP of 12 cm, and his tidal volume is 500 cc. I would like to increase the PEEP slowly to 14 and then again to 16 if tolerated hemodynamically. I also think we should start working down the tidal volume to goal of 6 cc/kg ideal body weight for adult respiratory distress syndrome. We will check his plateau pressure once he gets to 6 cc and repeat a blood gas. Blood gas this morning was acidemic, and it is not clear if this has already been corrected, so will check with RT. His respiratory rate currently is 20 and obviously, he is paralyzed so he is riding the ventilator. From an antibiotic standpoint, he is on Zosyn alone. Dr. Quintanilla is consulting and has added cetirizine. Tuberculosis is also a concern, and we are still in the process of ruling this out. So, for this reason, we will proceed with a bronchoscopy with lavage looking for bacterial, fungal, AFB cultures. Viral organisms are also possibility but I think they are much less likely. We will add on a TB PCR to the BAL samples. We can take him off airborne precautions if that is negative. He is on a very low dose of norepinephrine and has been adequately fluid resuscitated. He is on appropriate deep venous thrombosis and gastrointestinal prophylaxis. He is a FULL CODE at this point per his conversation with Palliative Care yesterday. Appreciate their assistance with this complex patient. Critical care time 45 minutes CANDI
--- NOTE | 2016-10-30 13:29 | ABG ---
DateTimeAnalyzed 13:25:00 -_ pH ____7.110 - 7.350 7.450 pCO2 ___84.4__ -mmHg 35.0 45.0 pO2 ___81.2__ -mmHg 69.0 116 HCO3- ___25.7__ -mmol/L 22.0 26.0 ABE ___-5.0__ -mmol/L -2.0 2.0 tHb ___10.5__ -g/dL O2Hb ___90.5__ -% COHb ____0.3__ -% MetHb ____1.5__ -% sO2 ___92.2__ -% 25.0 FIO2 ___80.0__ -% PRVC 410 - PEEP ___14.0__ -cmH2O Vt __410.0__ -L Drawn By NB - Date/Time Notified____ 13:28:00 -_ Spontaneous_RR ___22.0__ -b/min Oxygen Device 1 VENTILATOR - Notified By NB - Notified Whom ___Parimi - B 758 -mmHg tO2 ___13.5__ -Vol% Sukhdev test N/A -
--- NOTE | 2016-10-30 13:48 | ENDO ---
[address] [address] ENDOSCOPY PROCEDURE PATIENT: MERCED HOLDER : 1955 MR#: [id number] ADMIT: 10/26/2016 JOB ID: [id number] DATE OF SERVICE: 10/30/2016 PROCEDURE: Bronchoscopy. ENDOSCOPIST: Faye Katz MD. INDICATION: Bilateral pneumonia, respiratory failure. DESCRIPTION OF PROCEDURE: Informed consent was obtained from the patient's daughter on the telephone after risks and benefits of the procedure were discussed. The patient was intubated and paralyzed prior to the procedure for respiratory failure and ARDS. FiO2 was turned up to 100%. Lidocaine was administered through the ET tube and bronchoscope was passed through the ET tube without difficulty. Trachea was visualized. A complete bilateral airway inspection revealed completely normal airways without any airway obstruction or abnormal secretions. Mucosa was normal in appearance. We proceeded to do a bronchoalveolar lavage in the right upper lobe anterior segment. 120 cc of saline was administered with approximately 30-40 cc return. We then did a lavage in the left lower lobe anterior segment. Again 120 cc was administered with about 25-30 cc return obtained. The patient tolerated the procedure well. COMPLICATIONS: None. He did not have any problems or desaturation. FINDINGS: Normal airways. SAMPLES: Bilateral samples from right upper lobe anterior segment and left lower lobe anterior segment were pooled for a total of about 55 cc and sent for bacterial, fungal, AFB cultures, viral respiratory PCR, TB PCR.
[2016-10-30] MEDS ORDERED: Sodium Chloride LOK Flush 10 mL Syringe IVFLUSH PRN ×2 (13:50)
[2016-10-30 14:10] LABS: Antiproteinase 3 (PR-3) Abs <3.5 U/mL (0.0-3.5); Perinuclear (P-ANCA) <1:20 titer (Neg:<1:20)
[2016-10-30] MEDS ORDERED: KCl 40 mEq/100 mL (CENTRAL) 40 MEQ in IV Premix 1 EACH IV ONE (14:15)
--- NOTE | 2016-10-30 14:20 | NUR ---
NUTRITION ASSESSMENT: ASSESS: Pt is a 61yo M admitted to for confusion, weakness and falls and fevers, sweats, chills and a productive cough. Pt now intubated, on nimbex. Verbal order received to start TFs today. Pt w/ ileus. PMHX: chronic renal insufficiency, pre-diabetes, alcoholism, BKA LABS: Reviewed. Na 148, K 3.1, Cl 112, BUN 62, Ca 6.1, Albumin 1.6 MEDS: Reviewed. Nimbex, Thiamine, MVI, Propofol @ 10-15 ml/hr (264-396 kcal/d) GI: BMx2 10/28 SKIN: Kevon 12 CURRENT WTS: 101.9 kg, BMI 34.2 kg/m2, IBW 70kg Admit Wt: 104.5 kg DIET: NPOx4 days EST. NEEDS: Vent, BMI, BKA (-5% for BKA) Kcals: 3131-5823 kcal/day (20-22 kcal/kg) Pro: 85-105g/day (1.2-1.5g/kg IBW) NUTRITION DIAGNOSIS: 1.) Inadequate oral intake related to decreased ability to consume sufficient energy as evidenced by current NPO status.---PERSISTS NUTRITION INTERVENTION: 1.) Recommend Vital 1.5 @ 10 ml/hr x24 hrs to establish tolerance d/t ileus and risk for refeeding r/t to alcohol abuse. 2.) Once pt tolerating, recommend advancing 10 ml q 6 hrs to goal rate of 55 ml/hr to provide 1815 kcal/d (~2115 kcal w/ current propofol rate), 81 g/d protein, and 1104 ml/d H2O. 3.) Once pt tolerating Vital 1.5 @ goal rate, recommend addition of 1 packet of prosource per day to better meet pts est protein needs 4.) Adjust goal rate based on daily propofol rate MONITOR / EVAL: NPO/Vent, TF start/dasha, GI, labs, wt, POC, nutrition status. Will continue to monitor per high nutrition risk guidelines
--- NOTE | 2016-10-30 14:20 | PCM.PNMED ---
Subjective Date of Service Oct 30, 2016 Subjective Over night pt decompensated and required intubation with central line and arterial line placement per anesthesia. Pt currently sedated and intubated. Discussion with family by Dr. Spaulding has changed the code status to full code, however, there is a question about who has DPOA status. Will currently work on full code and change should new information becomes available. Exam Vital Signs Vital Sign - Last Date Time Temp Pulse Resp B/P Pulse Ox O2 Delivery O2 Flow Rate FiO2 10/30/16 06:31 93 10/30/16 05:03 108/50 96 100 10/30/16 04:30 CPAP/BIPAP 10/30/16 04:30 37.7 18 10/27/16 08:56 6.00 Intake and Output 10/29/16 10/29/16 10/30/16 Cumulative From/Thru 15:00 23:00 07:00 10/26/16 17:03 - 10/29/16 18:30 Intake Total 1151 ml 19676 ml Output Total 1000 ml 6000 ml Balance 151 ml 5663 ml Intake Oral 0 ml 0 ml IV Total 1151 ml 82306 ml Output Urine Total 1000 ml 6000 ml # Bowel Movements 0 2 Exam GEN: sedated HEENT: sclera inacteric. PERRLA NECK: right IJ in place RESP: diffuse crackles and rhonchi CV: regular rate; irregular rhythm ABD: obese, soft : leiva in place EXT: no edema; paralyzed psych: sedated neuro: sedated IVs and Medications Medications Reviewed: Medications were reviewed in detail Lab and Diagnostics Result Diagram: 10/29/1644410/29/16444 X-Rays, CTs and MRIs PROCEDURE: CT ABDOMEN AND PELVIS WITHOUT CONTRAST ([id number]) IMPRESSION: 1. Bibasilar pneumonia. 2. Small loculated left pleural effusion with thickened rind, possibly indicating empyema. This is too small to safely aspirate percutaneously. 3. Cholelithiasis without evidence of cholecystitis. 4. Normal appendix. 5. Small hiatal hernia. Dictated by: Myke Gonzalez M.D. on 10/27/2016 at 20:52 Approved by: Myke Gonzalez M.D. on 10/27/2016 at 20:52 Assessment & Plan This is a 61 year old man with past medical history significant for alcohol abuse who presented obtunded now complicated by respiratory infection, hypoxic respiratory failure and severe sepsis. Acute Respiratory Distress Syndrome; ongoing - Pt decompensated last night; intubated by anesthesia with initial ABG's showing acidosis pH 7.1. - Vent settings decreased to Vt 6ml/kg lean body weight; PEEP > 12; on nimbex; - Attempting to keep pt as dry as possible in conjunction with nephrology - ABG shows a respiratory acidosis at Severe sepsis second to probable pneumonia - Secondary presumed bacterial pneumonia, possible empyema based on CT abd/ pelvis, high wbc/procalcitonin - ID added cetirizine today, continued zosyn - Bronchoscopy today and samples sent for AFB, fungal, and bacterial cultures AKASH on CKD - Secondary to ATN from sepsis; resolving significantly with Cre from 8 down to 4 in 2-3 days - Resultant severe metabolic acidosis, hyperkalemia, non oliguric phase of ATN - COntinues to maintain good urine output - Nephrology consulted and appreciate Dr. Manzanares recommendations - Continue to perform serial CMP/BMP Encephalopathy - Likely mixed metabolic encephalopathy with EtOH withdrawal - Propofol and Fentanyl and Nimbex currently Hepatitis C antibody positive - Viral load pending Ileus on KUB/CT abdomen, bowel remains not surgical. -NPO for now given MS, PPI for GI ppx while on Bipap, dvt ppx: HSQ gi ppx as above DNR/DNI per daughter VTE Prophylaxis: SCDs Resuscitation Status: CPR: Attempt Resuscitation Attending Statement I have seen and examined this patient with the resident physician. Vital signs , labs, imaging have been reviewed. I agree with the assessment and plan above. Please refer to my separately dictated progress note for any modifications to above. Faye Katz M.D. Pulmonary and Critical Care medicine Pager [phone] Brandon Khanna DO Oct 30, 2016 07:33 Faye Katz MD Oct 30, 2016 16:34
[2016-10-30] MEDS: Sodium Bicarb 8.4% Inj 100 MEQ in Dextrose 5% 1,000 ML IV SCH (15:00)
[2016-10-30] MEDS ORDERED: 0.9% Sodium Chloride 250 ML ONE ×2 (15:23→17:27)
--- NOTE | 2016-10-30 15:28 | ABG ---
DateTimeAnalyzed 15:24:00 -_ pH ____7.128 - 7.350 7.450 pCO2 ___80.5__ -mmHg 35.0 45.0 pO2 107 -mmHg 69.0 116 HCO3- ___25.5__ -mmol/L 22.0 26.0 ABE ___-4.7__ -mmol/L -2.0 2.0 tHb ___10.6__ -g/dL O2Hb ___94.6__ -% COHb ____0.4__ -% MetHb ____1.6__ -% sO2 ___96.5__ -% 25.0 FIO2 ___80.0__ -% PRVC 410 - PEEP ___14.0__ -cmH2O Set_RR ___26.0__ -b/min Vt __410.0__ -L Drawn By NB - Date/Time Notified____ 15:27:00 -_ Oxygen Device 1 VENTILATOR - Notified By NB - Notified Whom ___Parimi - B 757 -mmHg tO2 ___14.2__ -Vol% Sukhdev test N/A -
--- NOTE | 2016-10-30 17:07 | ABG ---
DateTimeAnalyzed 17:03:00 -_ pH ____7.191 - 7.350 7.450 pCO2 ___65.5__ -mmHg 35.0 45.0 pO2 ___91.9__ -mmHg 69.0 116 HCO3- ___24.1__ -mmol/L 22.0 26.0 ABE ___-4.3__ -mmol/L -2.0 2.0 tHb ___10.2__ -g/dL O2Hb ___94.1__ -% COHb ____0.6__ -% MetHb ____1.5__ -% sO2 ___96.1__ -% 25.0 FIO2 ___70.0__ -% PRVC 410 - PEEP ___16.0__ -cmH2O Set_RR ___30.0__ -b/min Vt __410.0__ -L Drawn By NB - Date/Time Notified____ 17:06:00 -_ Spontaneous_RR ___30.0__ -b/min Oxygen Device 1 VENTILATOR - Notified By NB - Notified Whom Parimi/ Khanna - B 756 -mmHg tO2 ___13.7__ -Vol% Sukhdev test N/A -
--- NOTE | 2016-10-30 18:00 | NUR ---
TF not started due to Paralytic needed to ventilate pt.
--- NOTE | 2016-10-30 18:17 | PCM.PNPALL ---
Date of Service Oct 30, 2016 Date of Hospital Admission: Oct 26, 2016 at 20:28 Date of Palliative Consult: Oct 29, 2016 Palliative Care Recommendation Summary of palliative recommendations: -No family available yest or today. At this point full code and aggressive treatment in place. Will sign off for Palliative care. Please call us if something comes up where we may be of benefit. Problems: Resuscitation Status Resuscitation Status: CPR: Attempt Resuscitation Objective Findings Exam Vital Sign - Last Date Time Temp Pulse Resp B/P Pulse Ox O2 Delivery O2 Flow Rate FiO2 10/30/16 17:18 65 10/30/16 15:43 94 10/30/16 13:57 121 103/56 10/30/16 11:56 16 Mechanical Ventilator 10/30/16 04:30 37.7 10/27/16 08:56 6.00 Intake and Output 10/29/16 10/29/16 10/30/16 Cumulative From/Thru 15:00 23:00 07:00 10/26/16 17:03 - 10/30/16 06:00 Intake Total 1151 ml 1774 ml 06440 ml Output Total 1000 ml 1950 ml 7950 ml Balance 151 ml -176 ml 5487 ml Intake Oral 0 ml 0 ml IV Total 1151 ml 1774 ml 48828 ml Output Urine Total 1000 ml 1800 ml 7800 ml Gastric Drainage Total 150 ml 150 ml # Bowel Movements 0 2 Lab/Diagnostics Lab and Imaging results reviewed in detail in EMR. Patient/Family Conference Discussion/Goals of Care Discussion FAMILY UNDERSTANDING OF DISEASE: DISEASE PROGRESSION/EVIDENCE OF DECLINE: SYMPTOM BURDEN: GOALS: HOPES/WORRIES: FAMILY WISHES/VALUES: Do you want to be told truth about his illness, even if unpleasant? Does family want to know prognosis when it can be predicted, to better guide treatment decisions? What is quality of life for the patient: to be able to interact with their loved ones and friends, to travel, not to be bedbound, to be independent in taking care of themselves: Would patient choose quality of life over quantity of life? Would comfort care be more important than being awake and alert? If patient is no longer alert and aware because of their illness, would you choose comfort for them? Palliative Care counselled: Time spent Total time [ ] minutes; >50% face to face with patient and/or family, providing counselling regarding plans and recommendations, and in care coordination with his/her medical teams. I also spent an additional [ ] minutes counseling for advanced care planning with the patient/the patients family/the surrogate decision maker. Yessi Meléndez MD Oct 30, 2016 18:17 Would comfort care be more important than being awake and alert? If patient is no longer alert and aware because of their illness, would you choose comfort for them? Palliative Care counselled: Time spent Total time [ ] minutes; >50% face to face with patient and/or family, providing counselling regarding plans and recommendations, and in care coordination with his/her medical teams. I also spent an additional [ ] minutes counseling for advanced care planning with the patient/the patients family/the surrogate decision maker. Yessi Meléndez MD Oct 30, 2016 18:17
--- NOTE | 2016-10-30 19:00 | NUR ---
ARDS Protocol 6cc/kg;Bronchoscopy/Ultrasound/AFB specs sent/Pressor/Paralytic+sedation Intubated on operation shift supervisor/Rt IJ CVL, Rt radial Art line per Anesthes. Unstable, difficult to ventilate so Paralytic added to Propofol & Fentanyl gtts; current Tof4 is 1/4 @ power of 6. Bis is 32. Norepi titrated to MAP of 65 goal; currently down to 0.75mcg. Vent changes & multiple ABGs done; currently up to PEEP of 16, rate 30, Fio2 65%, Tv 460. Scant secretions. Pt's S.OTravon Ram updated; also [employer] here performing prayer ceremony @ bedside.
[2016-10-30] MEDS: Albumin 25% 25 Gm/100 mL IV SCH (20:47)
[2016-10-31] VITALS (14 sets, daily range): BP systolic 100–164; BP diastolic 53–78; PULSE 78–95; RESP 30; O2SAT 96–100
[2016-10-31] MEDS: Chlorhexidine 0.12% 15 mL Oral Solution MT SCH ×7 (00:50→23:43)
[2016-10-31] MEDS: Albumin 25% 25 Gm/100 mL IV SCH ×2 (02:08→08:22)
[2016-10-31] MEDS: Propofol Inj 1,000,000 MCG in IV Premix 1 EACH IV SCH ×4 (02:12→22:12)
[2016-10-31] MEDS: 0.9% Sodium Chloride 1,000 ML IV SCH ×4 (05:45→19:37)
--- NOTE | 2016-10-31 05:53 | ABG ---
DateTimeAnalyzed 05:50:00 -_ pH ____7.278 - 7.350 7.450 pCO2 ___54.9__ -mmHg 35.0 45.0 pO2 150 -mmHg 69.0 116 HCO3- ___24.8__ -mmol/L 22.0 26.0 ABE ___-1.6__ -mmol/L -2.0 2.0 tHb ____8.8__ -g/dL O2Hb ___96.4__ -% COHb ____0.7__ -% MetHb ____1.5__ -% sO2 ___98.6__ -% 25.0 FIO2 ___21.0__ -% PEEP ___16.0__ -cmH2O Set_RR ___30.0__ -b/min Vt __460.0__ -L Drawn By MD - Date/Time Notified____ 05:52:00 -_ Spontaneous_RR ___30.0__ -b/min Oxygen Device 1 VENTILATOR - Notified By MD - Notified Whom RN D.DEW - B 756 -mmHg tO2 ___12.2__ -Vol% Sukhdev test N/A -
[2016-10-31 06:11] LABS: BASOPHILS % (AUTO) 0.3 % (0-3); EOSINOPHILS % (AUTO) 0.5 % (0-5); MONOCYTES % (AUTO) 6.3 % (4-12); Mean Corpuscular Hemoglobin 31.5 pg (27.0-35.0); Mean Corpuscular Volume 102.6 fL (81-100); NEUTROPHILS % (AUTO) 80.7 % (40-74); Platelet Count 200 bil/L (150-400)
[2016-10-31] MEDS: Albuterol-Ipratropium 3 mL Inhalation Solution NEB SCH ×4 (08:01→20:34)
[2016-10-31] MEDS: Pantoprazole 4 mg/mL 10 mL Inj IVPUSH SCH (08:22)
[2016-10-31] MEDS: Multivit-Miner-Folic Acid-Iron Tablet PO SCH (08:23)
[2016-10-31] MEDS: Piperacillin-Tazo 3.375 Gm Inj 3.375 GM in Dextrose 5% Minibag Plus 50 ML IV SCH ×2 (08:23→21:19)
[2016-10-31] MEDS: Heparin 5,000 Unit/mL Inj SUBQ SCH ×2 (08:23→19:58)
[2016-10-31] MEDS: Sodium Bicarb 8.4% Inj 100 MEQ in Dextrose 5% 1,000 ML IV SCH (08:24)
[2016-10-31] MEDS: DEXTROSE 5% IV SCH ×2 (08:24→19:57)
[2016-10-31] MEDS: CEFTAROLINE IV SCH ×2 (08:24→19:57)
[2016-10-31] MEDS: Thiamine Inj 100 MG in Dextrose 5% 50 ML IV SCH (08:25)
--- NOTE | 2016-10-31 08:36 | PROG NOTE ---
[address] [address] PROGRESS NOTE PATIENT: MERCED HOLDER : 1955 MR#: [id number] ADMIT: 10/26/2016 JOB ID: [id number] DATE: 10/31/2016 INFECTIOUS DISEASE FOLLOW UP NOTE: REASON FOR FOLLOW UP: Respiratory failure with probable sepsis in a patient with underlying pulmonary infection. INTERVAL HISTORY: Overnight, the patient has remained intubated and paralyzed in the ICU. There has been some improvement in some parameters as he has been weaned off vasopressor agents and is maintaining a reasonable blood pressure. He remains ventilator dependent and his FiO2 has been dropped even at the expense of raising his PEEP somewhat. He continues to be in renal failure. No additional history is available from the patient, but we did discuss this case with the ICU team. PHYSICAL EXAMINATION: Reveals temperature 36.6. He was 38.2 yesterday evening. Pulse in the 80s, respiratory rate is ventilator determined as he is paralyzed. Blood pressure 120/63, saturating 100% on 65 but 16 of PEEP. Urine output continues to be poor, though we did have between 500 and 800 cc over the past two days. The patient is orally intubated and also has an oral gastric tube. Mucous membranes are dry. Eyes without scleral icterus or conjunctivitis. The IV lines appear to be in good position. His lungs have improved overnight with less rales and rhonchi. Cardiac tones: Regular rate and rhythm and he is in sinus rhythm. Abdomen without focal abnormality. He has a left BKA as previously noted. Otherwise there is no change in the extremities. LABORATORIES: Include a white count 10,200, platelets 200,000. Creatinine last night 6.33. This morning's is pending. LFTs with a bump in AST to 61 yesterday evening, otherwise stable. Procalcitonin is very elevated about 25. Vanc has come back negative. Glomerular basement membrane negative. BRENT negative. Hep C is positive. Hepatitis C viral load pending. HIV negative. QuantiFERON Gold is pending. In terms of microbiology, we have negative blood cultures, negative respiratory viral PCR panel, negative urine Legionella and pneumococcal antigen. Sputum has grown group B Strep and a Staph aureus to be identified so it is unclear whether that Staph aureus is MSSA or MRSA. A bronch was done yesterday and cultures and multiple studies are pending on the bronchoscopy including AFB PCR. Note that we also have three AFB smears pending at this time from sputum as well as bronchoscopy and at least one of these has nucleic acid amplification pending. IMAGING: Chest x-ray done yesterday showed bilateral interstitial changes consistent with ARDS. Recall that a CT scan done earlier though when the patient was admitted back on the showed suspicion of an empyema on the left with a small associated effusion. IMPRESSION: This patient is somewhat better overnight in that he is no longer on vasopressor agents and is oxygenating better with better acid-base balance, but he remains on 16 of PEEP though he is off vasopressor agents and he is still in renal failure. The working diagnosis here is a Strep or Staph pneumonia possibly with associated empyema. He continues on ceftaroline and Zosyn to cover aspiration pneumonia as well as group B Strep and Staph aureus. The ceftaroline is there exclusively because of the possibility of MRSA, and if the sputum Staph aureus is identified as MSSA, the ceftaroline can be dropped. RECOMMENDATION: 1. Will continue with airborne isolation until we have back at least one sputum nucleic acid amplification, which is negative or two AFBs that are negative. 2. Will continue with Zosyn and ceftaroline, but if the sputum Staph aureus is MSSA, we can stop the ceftaroline. 3. Will continue to closely follow this complex patient with you.
[2016-10-31] MEDS ORDERED: Polyethylene Glycol (PEG) 17 Gm Powder PO PRN (09:10)
[2016-10-31] MEDS ORDERED: Clindamycin Inj 600 MG in IV Premix 1 EACH IV SCH (09:15)
[2016-10-31] MEDS ORDERED: 0.9% Sodium Chloride 250 ML ONE (09:38)
--- NOTE | 2016-10-31 09:56 | DRSVH ---
PROCEDURE: X-RAY CHEST ONE VIEW, PORTABLE ([id number]) INDICATIONS: intubated, ards TECHNIQUE: One view of the chest was acquired. COMPARISON: [facility], CR, XR CHEST 1VW (PORTABLE), 10/30/2016, 0:06. [facility], CR, XR CHEST 1VW (PORTABLE), 10/29/2016, 23:09. [facility], CR, XR CHEST 1VW (PO RTABLE), 10/28/2016, 12:54. FINDINGS: Surgical changes and devices: Stable position of ETT and right IJ CVL. Nasogastric tube tip not well seen. Lungs and pleura: Persistent small bilateral pleural effusions. Diffuse, widespread bilateral pulmona ry interstitial and air space opacities are present and slightly decreased on the right given the dif ferences the technique difference. No pneumothorax. Mediastinum: Mediastinal contours appear normal. Heart size is normal. Bones and chest wall: No suspicious bony lesions. Overlying soft tissues appear unremarkable. IMPRESSION: 1. Support lines and tubes as above. 2. No change to slight decrease in diffuse opacity throughout the right lung otherwise no change from prior examination suggestive of pulmonary edema and/or diffuse bilateral pneumonia. ARDS cannot be excluded. Dictated by: Bakari Bunch RREspinoza Interpreted: Gaby Nixon MD on 10/31/2016 at 9:56 Transcribed by: GAURAV on 10/31/2016 at 9:56 Approved by: Gaby Nixon M.D. on 10/31/2016 at 14:35
[2016-10-31] MEDS ORDERED: 0.9% Sodium Chloride 500 ML ONE (10:35)
--- NOTE | 2016-10-31 11:40 | ABG ---
DateTimeAnalyzed 11:37:00 -_ pH ____7.253 - 7.350 7.450 pCO2 ___60.2__ -mmHg 35.0 45.0 pO2 ___90.3__ -mmHg 69.0 116 HCO3- ___25.7__ -mmol/L 22.0 26.0 ABE ___-1.3__ -mmol/L -2.0 2.0 tHb ____8.4__ -g/dL O2Hb ___94.0__ -% COHb ____0.8__ -% MetHb ____1.3__ -% sO2 ___96.0__ -% 25.0 FIO2 ___55.0__ -% PEEP ___14.0__ -cmH2O Set_RR ___30.0__ -b/min Vt __420.0__ -L Drawn By as - Date/Time Notified____ 11:40:00 -_ Spontaneous_RR ___30.0__ -b/min Oxygen Device 1 VENTILATOR - Notified By ams - Notified Whom dr yanchuk - B 756 -mmHg tO2 ___11.3__ -Vol% Sukhdev test N/A -
--- NOTE | 2016-10-31 11:59 | PCM.PNMED ---
Subjective Date of Service Oct 31, 2016 Subjective ICU/PULMONOLOGY PROGRESS NOTE This is a 61 year old man with past medical history significant for alcohol abuse who presented obtunded now complicated by respiratory infection, hypoxic respiratory failure, ARDS and severe sepsis. Overnight: No acute events. Today: This morning the patient is sedated and intubated and paralyzed. Off NE this morning. ROS is not obtainable. Exam Vital Signs Vital Sign - Last Date Time Temp Pulse Resp B/P Pulse Ox O2 Delivery O2 Flow Rate FiO2 10/31/16 08:48 Ventilator 10/31/16 08:20 36.8 95 30 110/57 99 65 10/27/16 08:56 6.00 Intake and Output 10/30/16 10/30/16 10/31/16 Cumulative From/Thru 15:00 23:00 07:00 10/26/16 17:03 - 10/31/16 06:08 Intake Total 929 ml 1986 ml 67043 ml Output Total 975 ml 825 ml 9750 ml Balance -46 ml 1161 ml 6602 ml Intake Oral 0 ml IV Total 929 ml 1986 ml 55869 ml Output Urine Total 850 ml 550 ml 9200 ml Gastric Drainage Total 125 ml 275 ml 550 ml # Bowel Movements 0 2 Exam GEN: sedated, intubated, restrained HEENT: sclera inacteric NECK: right IJ in place RESP: diffuse crackles and rhonchi CV: irregularly irregular rhythm ABD: obese, soft : leiva in place EXT: no edema; paralyzed psych: sedated neuro: sedated IVs and Medications Medications Reviewed: Medications were reviewed in detail Lab and Diagnostics Result Diagram: 10/31/1652410/31/16524 X-Rays, CTs and MRIs PROCEDURE: CT ABDOMEN AND PELVIS WITHOUT CONTRAST ([id number]) IMPRESSION: 1. Bibasilar pneumonia. 2. Small loculated left pleural effusion with thickened rind, possibly indicating empyema. This is too small to safely aspirate percutaneously. 3. Cholelithiasis without evidence of cholecystitis. 4. Normal appendix. 5. Small hiatal hernia. Dictated by: Myke Gonzalez M.D. on 10/27/2016 at 20:52 Approved by: Myke Gonzalez M.D. on 10/27/2016 at 20:52 Assessment & Plan This is a 61 year old man with past medical history significant for alcohol abuse who presented obtunded now complicated by respiratory infection, hypoxic respiratory failure and severe sepsis. Acute Respiratory Distress Syndrome, ongoing - Pt decompensated 10/30/16 intubated by anesthesia with initial ABG's showing acidosis pH 7.1. - Vent settings decreased to Vt 6ml/kg lean body weight; PEEP > 12; on Nimbex; - Attempting to keep pt as dry as possible in conjunction with nephrology - Most recent ABG shows pH 7.268 PaCO2 54.9 PaO2 150 at FiO2 .65 PEEP 16 TV 460 RR 30 - Will adjust vent to PRVC TV 420 FiO2 .55 RR 30 PEEP 14 Severe sepsis second to pneumonia - Secondary to MRSA and GBS pneumonia, possible empyema based on CT abd/pelvis, high wbc/procalcitonin - Continue with cetirizine and Zosyn - Bronchoscopy 10/30/16 and samples sent for AFB, fungal, and bacterial cultures AKASH on CKD - Secondary to ATN from sepsis; resolving significantly with Cr from 8 down to jasmin of 4, however now increasing back to 6. - Resultant severe metabolic acidosis, hyperkalemia, non oliguric phase of ATN - Continues to maintain good urine output - Nephrology consulted and appreciate Dr. Manzanares recommendations - Continue to perform serial CMP/BMP Encephalopathy - Likely mixed metabolic encephalopathy with EtOH withdrawal - Propofol and Fentanyl and Nimbex currently Hepatitis C antibody positive - Viral load pending Macrocytic Anemia, acute -Likely compounded iatrogenic anemia and non-megaloblastic anemia -will continue to monitor Prophylaxis: SubQ heparin PPI FULL CODE VTE Prophylaxis: SCDs Resuscitation Status: CPR: Attempt Resuscitation Attending Statement I have seen and examined this patient with the resident physician. Vital signs , labs, imaging have been reviewed. I agree with the assessment and plan above. Please refer to my separately dictated progress note for any modifications to above. Faye Katz M.D. Pulmonary and Critical Care medicine Pager [phone] Mahnaz Lua DO Oct 31, 2016 10:38 Faye Katz MD Oct 31, 2016 16:49
--- NOTE | 2016-10-31 13:24 | PROG NOTE ---
[address] [address] PROGRESS NOTE PATIENT: MERCED HOLDER : 1955 MR#: [id number] ADMIT: 10/26/2016 JOB ID: [id number] DATE: 10/31/2016 PULMONARY CRITICAL CARE PROGRESS NOTE: The patient is a 61-year-old man seen in followup for respiratory failure in the setting of septic shock, MRSA pneumonia. The patient was seen and evaluated with resident physician Dr. Mahnaz Lua. Please refer to her separate detailed note for additional information. The following is an addendum. INTERVAL HISTORY: Continues to have problems with respiratory acidosis. He was weaned off of pressors today. Sputum cultures growing MRSA despite negative MRSA in nares screen. REVIEW OF SYSTEMS: Unable to obtain. PHYSICAL EXAMINATION: Vital signs: Reviewed. T-max of 38.2 last night. Sats 97% on 65% FiO2, PEEP of 16 cm, tidal volume 460, rate of 30. General: Intubated, sedated and paralyzed. Chest: Bilateral crackles. LABORATORIES: Reviewed. WBC 10.2, hemoglobin 8.5, platelets 200. Chemistry shows creatinine is up to 6.53 from 4.5 yesterday. Procalcitonin of 25 yesterday. Cultures from October 29 -- sputum cultures growing MRSA and beta strep. IMAGING: Chest x-ray done today shows diffuse bilateral infiltrates with ET tube and lines in appropriate position. ASSESSMENT AND RECOMMENDATIONS: 1. Septic shock. 2. Acute hypoxic respiratory failure. 3. Acute respiratory distress syndrome. 4. Methicillin-resistant Staphylococcus aureus and streptococcal pneumonia. 5. History of alcohol abuse. Acute encephalopathy. This 61-year-old man presenting with pneumonia, septic shock and respiratory failure progressing to adult respiratory distress syndrome. From a ventilator standpoint, he is on 16 cm of PEEP and FiO2 of 65% currently. When we decreased his tidal volume to 6 cc/kg yesterday, he had severely worsened respiratory acidosis with pH of 7.1. For this reason, I increased his tidal volumes back up to 460 at that time. Today, however, his gas is better with a pH of 7.27. So, I would like to attempt this again. We will decrease FiO2 and PEEP a little and then try a lower tidal volume of around 420. On this volume, his plateau pressure is 30, which should be acceptable. He is off pressors currently. Ceftaroline was added to Zosyn yesterday to cover methicillin-resistant Staphylococcus aureus. I suspect this is going to help. Will follow procalcitonin tomorrow, and chest x-rays daily. He is on appropriate deep venous thrombosis and gastrointestinal prophylaxis. He had a bronchoscopy done yesterday and the results are still pending at this time, including AFB cultures to rule out tuberculosis. If his bronchoscopy AFB smear is negative, we can take him off airborne precautions. He is a FULL CODE. Palliative Care has spoken with him prior to intubation. Critical care time 45 minutes MTDD
[2016-10-31] MEDS: Norepineph 8,000 mCg/250 mL NS 8,000 MCG in IV Premix 1 EACH IV SCH (13:42)
--- NOTE | 2016-10-31 14:19 | PCM.PNMED ---
Subjective Date of Service Oct 31, 2016 Subjective sedated, pt remained on vent with persistent resp acidosis, vent managed by CCM team ceftaroline started in addition to zosyn given MRSA+ sputum another fever38.6 last night, HD stable Exam Vital Signs Vital Sign - Last Date Time Temp Pulse Resp B/P Pulse Ox O2 Delivery O2 Flow Rate FiO2 10/31/16 12:53 36.7 93 30 118/59 98 Mechanical Ventilator 55 10/27/16 08:56 6.00 Intake and Output 10/30/16 10/30/16 10/31/16 Cumulative From/Thru 15:00 23:00 07:00 10/26/16 17:03 - 10/31/16 06:08 Intake Total 929 ml 1986 ml 40213 ml Output Total 975 ml 825 ml 9750 ml Balance -46 ml 1161 ml 6602 ml Intake Oral 0 ml IV Total 929 ml 1986 ml 88498 ml Output Urine Total 850 ml 550 ml 9200 ml Gastric Drainage Total 125 ml 275 ml 550 ml # Bowel Movements 0 2 Exam sedated, vented on PRVC, no JVD, MMM, no LAD RRR, nl s1, s2 no mrg coarse BS anteriorly S,ND,NT,normoactive BS+ warm, no edema, pulses 2/2 s/p Lt BKA RIJ, leiva in place IVs and Medications Medications Reviewed: Medications were reviewed in detail Lab and Diagnostics Result Diagram: 10/31/1652410/31/16524 X-Rays, CTs and MRIs PROCEDURE: CT ABDOMEN AND PELVIS WITHOUT CONTRAST ([id number]) IMPRESSION: 1. Bibasilar pneumonia. 2. Small loculated left pleural effusion with thickened rind, possibly indicating empyema. This is too small to safely aspirate percutaneously. 3. Cholelithiasis without evidence of cholecystitis. 4. Normal appendix. 5. Small hiatal hernia. Dictated by: Myke Gonzalez M.D. on 10/27/2016 at 20:52 Approved by: Myke Gonzalez M.D. on 10/27/2016 at 20:52 Assessment & Plan Acute active and high-risk problems: # Acute respiratory failure with hypoxia likely from MRSA pneumonia sepsis, pt was initially maintain airways with BiPAP, deteriorated 10/29-, intubated, pt remained on vent improved hypoxemia -appreciate CCM team active management with airway management, cw vent bundle, remains FULL CODE per palliative care #septic shock secondary to MRSA pneumonia, possible empyema based on CT abd/ pelvis, high wbc/procalcitonin, MRSA+ on sputum, AFB so far ngtd. -pt HD more stable today -appreciate ID recs on abx management, cw zosyn, ceftaroline, FU finial BCX -airborne iso started 10/28 given hx-[place], chronic etoh abuse, d/c when AFB neg from bronchial lavage -chest CT deferred given critical respiratory status, bedside US to perform by CCM team if effusion is amenable for tap -s/p trial of albumin per nephrology #AKASH on CKD, secondary to ATN from sepsis, resultant severe metabolic acidosis, hyperkalemia, UOP-non oligouric phase of ATN, seemed improving as sepsis clears. -no dialysis today per renal recs, daily assessment for possible dialysis, bicarb drip 10/26-12 AM acidosis resolved, resumed bicarb 10/30 as acidosis worsened -strict -I/O with leiva, daily wt, avoid renal toxin, replete K,Mg, # Encephalopathy Likely metabolic encephalopathy due to sepsis. out of window for ETOH WD, less likely BRACELET FORMER infection given rapid improvement of MS prior to intubation, no nuchal rigidity -sedated, reassess MS after extubation. -avoid other sedatives-benzo, opioid for now #hepC ab +, newly found, viral load pending, chronic, stable #Ileus on KUB/CT abdomen, bowel remains not surgical, tube feeds started dvt ppx: HSQ gi ppx famotidine full code diet: tube feeds VTE Prophylaxis: SCDs Resuscitation Status: CPR: Attempt Resuscitation Time spent 35min Lalo Golden MD Oct 31, 2016 14:19
--- NOTE | 2016-10-31 16:36 | NUR ---
Social Work: Continued Discharge Planning D: Pt discussed in morning rounds. Pt remains in CCU status with airborne precautions in place. No anticipated discharge at this time. Pt remains vented with probable sepsis and underlying pulmonary infection, per ID note. Pt remains on IV Abx. Palliative care has consulted however no family has been present. Palliative has signed off until further discussion about treatment and code status can be had with family. A: Pt who is from [facility] with his spouse. P: PRICE ANALYST to continue to follow and assist with dcp once medically appropriate. JANELLE Braxton
--- NOTE | 2016-10-31 19:29 | NUR ---
SEDATION/RESPIRATORY/TUBE FEEDS Sedation continued w/ Propofol at 25-30 mcg/kg/min and Fentanyl 100 mcg/hr. Nimbex continued for ventilator support at 1.5 mcg/kg/min w/ Kasiw-be-Bxlt 11/26 and BIS of 40-48. Will continue to titrate these medications per protocol. Patient has been tolerating ventilator settings at 55% FiO2/14 PEEP/30 Rate/420 Vt, he does not appear to be in respiratory distress w/ Nimbex infusing. Does fight the vent when Nimbex is decreased or turned off. Tube feeding started at 10 mL/hr w/ 30 mL flushes Q4H, low residuals so far this shift w/ 15 mL and 10 mL residuals. Patient has not required pressors during this shift, but remains on standby in case they are needed. Will continue to monitor vitals, sedation status, ventilator requirement and TF residuals.
[2016-10-31] MEDS: fentaNYL 2,500 mCg/250 mL 2,500 MCG in IV Premix 1 EACH IV PRN (22:11)
[2016-11-01] VITALS (11 sets, daily range): BP systolic 88–134; BP diastolic 43–73; PULSE 71–81; RESP 30; O2SAT 98–100
[2016-11-01] MEDS: Norepineph 8,000 mCg/250 mL NS 8,000 MCG in IV Premix 1 EACH IV SCH (01:17)
[2016-11-01] MEDS: Sodium Bicarb 8.4% Inj 100 MEQ in Dextrose 5% 1,000 ML IV SCH (01:18)
[2016-11-01] MEDS: Propofol Inj 1,000,000 MCG in IV Premix 1 EACH IV SCH ×5 (01:18→18:42)
--- NOTE | 2016-11-01 03:11 | NUR ---
Shift Note Patient remains on vent, vent settings remain the same 55%/14/420/30, Nimbex titrated off and patient resting and calm, peak pressures 31 at this time, respirations even and rate of 30 riding the vent, coughing when suctioned and turned, lots of thick creamy white secretions, sedation titrated up, Propofol 35mcg/kg/min, BP decreased and Levophed restarted at 0.05mcg/kg/min, BP 100/50 at this time, has been of Nimbex since 229911/01/16, opening eyes to voice, no distress noted, good urine output, tolerating TF well at trickle feed 10ml.hr, residuals 8ml/35ml/15ml this shift, bathed and linens changed, will continue to monitor, doing well off Nimbex. Addendum: 11/01/16 at 0321 by JORJE NIETO RN Amended: Links added.
[2016-11-01 03:33] LABS: BASOPHILS % (AUTO) 0.4 % (0-3); EOSINOPHILS % (AUTO) 4.5 % (0-5); MONOCYTES % (AUTO) 4.5 % (4-12); Mean Corpuscular Hemoglobin 31.5 pg (27.0-35.0); Mean Corpuscular Volume 101.5 fL (81-100); NEUTROPHILS % (AUTO) 82.1 % (40-74); Platelet Count 190 bil/L (150-400)
[2016-11-01] MEDS: Chlorhexidine 0.12% 15 mL Oral Solution MT SCH ×5 (04:42→19:49)
--- NOTE | 2016-11-01 04:43 | ABG ---
DateTimeAnalyzed 04:41:00 -_ pH ____7.288 - 7.350 7.450 pCO2 ___55.3__ -mmHg 35.0 45.0 pO2 ___65.6__ -mmHg 69.0 116 HCO3- ___25.6__ -mmol/L 22.0 26.0 ABE ___-0.8__ -mmol/L -2.0 2.0 tHb ____8.9__ -g/dL O2Hb ___89.4__ -% COHb ____0.9__ -% MetHb ____1.5__ -% sO2 ___91.6__ -% 25.0 FIO2 ___21.0__ -% PEEP ___14.0__ -cmH2O Set_RR ___30.0__ -b/min Vt __420.0__ -L Drawn By MD - Date/Time Notified____ 04:43:00 -_ Spontaneous_RR ___30.0__ -b/min Oxygen Device 1 VENTILATOR - Notified By MD - Notified Whom RN J.NIETO - B 753 -mmHg tO2 ___11.3__ -Vol% Sukhdev test N/A -
[2016-11-01] MEDS: Albuterol-Ipratropium 3 mL Inhalation Solution NEB SCH ×4 (07:49→19:56)
[2016-11-01] MEDS: Thiamine Inj 100 MG in Dextrose 5% 50 ML IV SCH (08:13)
[2016-11-01] MEDS: CEFTAROLINE IV SCH ×2 (08:13→19:48)
[2016-11-01] MEDS: DEXTROSE 5% IV SCH ×2 (08:13→19:48)
[2016-11-01] MEDS: Pantoprazole 4 mg/mL 10 mL Inj IVPUSH SCH (08:13)
[2016-11-01] MEDS: Piperacillin-Tazo 3.375 Gm Inj 3.375 GM in Dextrose 5% Minibag Plus 50 ML IV SCH ×2 (08:14→19:48)
[2016-11-01] MEDS: Multivit-Miner-Folic Acid-Iron Tablet PO SCH (08:30)
[2016-11-01] MEDS: Heparin 5,000 Unit/mL Inj SUBQ SCH ×2 (08:30→19:49)
--- NOTE | 2016-11-01 10:45 | PCM.PNMED ---
Subjective Date of Service Nov 01, 2016 Subjective pt remained on vent, sedated, Nimbex d/monster since mn large secretions SBT, extubation per CCM team Exam Vital Signs Vital Sign - Last Date Time Temp Pulse Resp B/P Pulse Ox O2 Delivery O2 Flow Rate FiO2 11/01/16 07:49 74 130/61 100 60 11/01/16 04:00 37.0 30 Mechanical Ventilator 10/27/16 08:56 6.00 Intake and Output 10/31/16 10/31/16 11/01/16 Cumulative From/Thru 15:00 23:00 07:00 10/26/16 17:03 - 11/01/16 04:42 Intake Total 1922 ml 1463 ml 65297 ml Output Total 975 ml 750 ml 41128 ml Balance 947 ml 713 ml 8262 ml Intake Oral 0 ml 0 ml IV Total 1828 ml 1271 ml 41366 ml Tube Feeding 64 ml 102 ml 166 ml Tube Irrigant 30 ml 90 ml 120 ml Output Urine Total 950 ml 750 ml 17469 ml Gastric Drainage Total 25 ml 0 ml 575 ml # Bowel Movements 0 0 2 Exam sedated, vented on PRVC, no JVD, MMM, no LAD RRR, nl s1, s2 no mrg coarse BS anteriorly S,ND,NT,normoactive BS+ warm, no edema, pulses 2/2 s/p Lt BKA RIJ, leiva in place IVs and Medications Medications Reviewed: Medications were reviewed in detail Lab and Diagnostics Result Diagram: 11/01/16 0320 11/01/16 032 X-Rays, CTs and MRIs PROCEDURE: CT ABDOMEN AND PELVIS WITHOUT CONTRAST ([id number]) IMPRESSION: 1. Bibasilar pneumonia. 2. Small loculated left pleural effusion with thickened rind, possibly indicating empyema. This is too small to safely aspirate percutaneously. 3. Cholelithiasis without evidence of cholecystitis. 4. Normal appendix. 5. Small hiatal hernia. Dictated by: Myke Gonzalez M.D. on 10/27/2016 at 20:52 Approved by: Myke Gonzalez M.D. on 10/27/2016 at 20:52 Assessment & Plan Acute active and high-risk problems: # Acute respiratory failure with hypoxia likely from MRSA pneumonia sepsis, pt was initially maintain airways with BiPAP, deteriorated 10/29-8, intubated, pt remained on vent, improved oxygenation, still large secretion. -appreciate CCM team active management with airway management, cw vent bundle, remains FULL CODE per palliative care #septic shock secondary to MRSA pneumonia, possible empyema based on CT abd/ pelvis, high wbc/procalcitonin, MRSA+ on sputum, AFB so far ngtd, still on pressor. -appreciate ID recs on abx management, cw zosyn, ceftaroline, FU finial BCX -off airborne iso as neg AFB multiple sets in sputum, bronchial lavage, Quantiferon indeterminate. -chest CT deferred given critical respiratory status, bedside US to perform by CCM team if effusion is amenable for tap -s/p trial of albumin per nephrology #AKASH on CKD, secondary to ATN from sepsis, resultant severe metabolic acidosis, hyperkalemia, UOP-non oligouric phase of ATN, seemed improving as sepsis clears. -no dialysis today per renal recs, daily assessment for possible dialysis, bicarb drip 10/26-10/29 AM acidosis resolved, resumed bicarb 10/30 as acidosis worsened -strict -I/O with leiva, daily wt, avoid renal toxin, replete K,Mg, # Encephalopathy Likely metabolic encephalopathy due to sepsis. out of window for ETOH WD, less likely SIGNAL MANAGER infection given rapid improvement of MS prior to intubation, no nuchal rigidity -sedated, reassess MS after extubation. -avoid other sedatives-benzo, opioid for now #hepC ab +, newly found, viral load pending, chronic, stable #Ileus on KUB/CT abdomen, bowel remains not surgical, tube feeds started dvt ppx: HSQ gi ppx famotidine full code diet: tube feeds dispo: remains in critical condition in CCU VTE Prophylaxis: SCDs Resuscitation Status: CPR: Attempt Resuscitation Time spent 35min Lalo Golden MD Nov 01, 2016 10:45
[2016-11-01] MEDS ORDERED: Potassium Chloride 20 mEq/15 mL 15mL Oral Soln PO ONE (10:50)
--- NOTE | 2016-11-01 10:50 | PCM.PNMED ---
Subjective Date of Service Nov 01, 2016 Subjective Patient continues to be ventilator dependent but is maintaining good urine output. He has had a slight increase in his creatinine to a level .88 this morning. Looking over his intake and output record. Apparently is not tolerating the tube feedings. Intake and output for the last 24 hours was 3908 and an 1800 out Exam Vital Signs Vital Sign - Last Date Time Temp Pulse Resp B/P Pulse Ox O2 Delivery O2 Flow Rate FiO2 11/01/16 07:49 74 130/61 100 60 11/01/16 04:00 37.0 30 Mechanical Ventilator 10/27/16 08:56 6.00 Intake and Output 10/31/16 10/31/16 11/01/16 Cumulative From/Thru 15:00 23:00 07:00 10/26/16 17:03 - 11/01/16 04:42 Intake Total 1922 ml 1463 ml 79778 ml Output Total 975 ml 750 ml 66263 ml Balance 947 ml 713 ml 8262 ml Intake Oral 0 ml 0 ml IV Total 1828 ml 1271 ml 35456 ml Tube Feeding 64 ml 102 ml 166 ml Tube Irrigant 30 ml 90 ml 120 ml Output Urine Total 950 ml 750 ml 76170 ml Gastric Drainage Total 25 ml 0 ml 575 ml # Bowel Movements 0 0 2 Exam Patient is sedated on a ventilator. Lungs showed scattered rhonchi and diminished breath sounds. Heart irregularly regular. Abdomen is slightly distended with diminished bowel sounds. There is some mild tympany to percussion but no tenderness rebound guarding or hepatosplenomegaly noted. Initially shows some mild generalized edema. Skin turgor was good and there was no evidence of any rashes. Lab and Diagnostics Result Diagram: 11/01/16 0320 11/01/16 0320 X-Rays, CTs and MRIs PROCEDURE: CT ABDOMEN AND PELVIS WITHOUT CONTRAST ([id number]) IMPRESSION: 1. Bibasilar pneumonia. 2. Small loculated left pleural effusion with thickened rind, possibly indicating empyema. This is too small to safely aspirate percutaneously. 3. Cholelithiasis without evidence of cholecystitis. 4. Normal appendix. 5. Small hiatal hernia. Dictated by: Myke Gonzalez M.D. on 10/27/2016 at 20:52 Approved by: Myke Gonzalez M.D. on 10/27/2016 at 20:52 Assessment & Plan Impression #1 acute tubular necrosis secondary to MRSA pneumonia/sepsis #2 metabolic acidosis #3 hypokalemia Recommendations #1 I have discussed the case with Dr. Katz from critical care and I agree that we should be cutting back on his IV fluids. Also go ahead and replace his potassium. VTE Prophylaxis: SCDs Resuscitation Status: CPR: Attempt Resuscitation Humphrey Gonzalez DO Nov 01, 2016 10:50
--- NOTE | 2016-11-01 11:38 | PROG NOTE ---
[address] [address] PROGRESS NOTE PATIENT: MERCED HOLDER : 1955 MR#: [id number] ADMIT: 10/26/2016 JOB ID: [id number] DATE: 11/01/2016 PULMONARY CRITICAL CARE PROGRESS NOTE: The patient is a 61-year-old man with history of alcohol abuse, of origin, presenting with respiratory failure, septic shock and MRSA pneumonia. INTERVAL HISTORY: He is on minimal pressors right now. Vent settings are stable. Continues to make urine. No further fevers in the last 24 hours. REVIEW OF SYSTEMS: Unable to obtain. PHYSICAL EXAMINATION: Vital signs reviewed. Temperature 37, pulse 78, respirations 30, BP 123/58, sats 99% on 55% FiO2. General: Intubated, sedated. Chest: Clear to auscultation. LABORATORIES: Reviewed. WBC 10.1, hemoglobin 8.5, platelets 190. Chemistry also reviewed. Creatinine is up to 6.8 but potassium 3.4, bicarbonate is 23, BUN is 81. Procalcitonin today is pending. Culture data shows negative AFB smears on two sputum and one BAL sample. In addition, TB PCR is negative x2 as well. Sputum culture from October 29 growing MRSA and beta strep group B. BAL cultures remain negative to date. Arterial blood gas from this morning shows pH 7.28, pCO2 of 55, pO2 of 65, bicarb of 25. IMAGING: Chest x-ray shows slight improvement in bilateral pulmonary infiltrates. ET tube is in appropriate position. ASSESSMENT AND RECOMMENDATIONS: 1. Adult respiratory distress syndrome. 2. Acute hypoxic respiratory failure. Intubated October 28. 3. Septic shock. 4. Methicillin-resistant Staphylococcus aureus and streptococcal pneumonia. 5. History of alcohol abuse. 6. Acute on chronic renal failure, nonoliguric. 7. Acute encephalopathy. A 61-year-old man, of origin, with history of significant alcohol abuse presenting with septic shock, respiratory failure and now adult respiratory distress syndrome. From hemodynamic standpoint, he is almost completely off pressors. I would like to stop all of his IV fluids because his urine output continues to be good, and I am concerned about volume overload with his adult respiratory distress syndrome. Current ventilator settings are FiO2 of 60%, PEEP of 14. His sats are 100% on this, so I would like to wean his FiO2 first to 50% and then try going down to a PEEP of 12. I do not want to decrease the PEEP any further tonight. He has a mild respiratory acidosis, which is expected on low tidal volume ventilation. His tidal volumes are at goal 6 cc/kg, with plateau pressure of 30. As far as antibiotics, he is on ceftaroline and Zosyn. This is to cover both methicillin-resistant Staphylococcus aureus and aspiration. Procalcitonin has not budged in 3 days but I have a recheck pending today. He is on appropriate deep venous thrombosis and gastrointestinal prophylaxis. BAL cultures remain negative. He is a FULL CODE. CRITICAL CARE TIME: 45 minutes. CANDI
[2016-11-01] MEDS: Polyethylene Glycol (PEG) 17 Gm Powder PO SCH (12:06)
--- NOTE | 2016-11-01 15:45 | NUR ---
NUTRITION ASSESSMENT: ASSESS: Pt is a 61 YO male admitted with confusion, weakness, falls, renal failure, fevers, sweats, chills and a productive cough. Pt remains intubated, with enteral feeding continuing at trickle rate. Nephrology reporting pt. not tolerating enteral feeding. Pt. may require dialysis, although UOP is adequate at this time. PMHX: Chronic renal insufficiency, pre-diabetes, alcoholism, BKA LABS: Reviewed. K+ 3.4, BUN 81, Cr 6.88, glu 126, Ca 7.8, AST 7, Alb 2.5. MEDS:Reviewed. Thiamine, MVI, Propofol @ 20 ml/hr (528 kcal/d) GI: BM x 2 / Bowel regimen initiated. SKIN: Kevon 9 WT:96.7 kg, BMI 32.0 kg/m2, IBW 70kg Admit Wt: 104.5 kg DIET: NPOx6 days ENTERAL FEEDING: Vital 1.5 @ 10 ml/hr. EST. NEEDS: Vent, BMI, BKA (-5% for BKA) Kcals: 6733-2942 kcal/day (20-22 kcal/kg) Pro: 85-105g/day (1.2-1.5g/kg IBW) NUTRITION DIAGNOSIS: 1) Inadequate oral intake related to decreased ability to consume sufficient energy as evidenced by current NPO status with enteral feeding at trickle rate - PERSISTS. NUTRITION INTERVENTION: 1) Recommend advance enteral feeding tomorrow, advancing 10 ml q 6 hrs to goal rate of 55 ml/hr to provide 1815 kcal/d (~2343 kcal w/ current propofol rate), 81 g/d protein, and 1104 ml/d H2O. 3) Once pt tolerating Vital 1.5 @ goal rate, recommend addition of 1 packet of Prosource per day to better meet pts est protein needs 4) Adjust goal rate based on daily propofol rate MONITOR / EVAL: NPO/Vent, enteral feeding tolerance / advance, GI, labs, wt, POC, nutrition status. Will continue to monitor per high nutrition risk guidelines
--- NOTE | 2016-11-01 17:05 | NUR ---
BP Attempting to titrated levophed gtt from 0.05mcg/kg/min to standby and bp drops to 80's/40's. Levophed at 0.04mcg/kg/min with at BP of 114/52 and a MAP of 70. Propofol increased to 45mcg and Fentanyl to 125mcg r/t biting the tube and becoming restless. Q2 turning, floating right heel and left BKA with pillows. No BM. Bowel regimen started, gave miralax via OG tube. TF at trickle, 200cc residual. Richardson draining freely. IV therapy replaced right IJ dressing. Fio2 dropped to 50%
--- NOTE | 2016-11-01 17:20 | DRSVH ---
PROCEDURE: X-RAY CHEST ONE VIEW, PORTABLE ([id number]) INDICATIONS: ARDS TECHNIQUE: One view of the chest was acquired. COMPARISON: [facility], CR, XR CHEST 1VW (PORTABLE), 10/31/2016, 9:18. FINDINGS: Surgical changes and devices: Endotracheal tube and nasogastric tube are in stable position. There is a IJ central line with the tip in the area of SVC. Lungs and pleura: Lateral diffuse interstitial and airspace infiltrates suspicious for bilateral pne umonia or pulmonary edema. Overall, no significant change. There is a small left pleural effusion. No pneumothorax. Mediastinum: Mediastinal contours appear normal. Heart size is normal. Bones and chest wall: No suspicious bony lesions. Overlying soft tissues appear unremarkable. IMPRESSION: Stable chest x-ray. Dictated by: Kika Crews M.D. on 11/01/2016 at 17:18 Approved by: Kika Crews M.D. on 11/01/2016 at 17:18
[2016-11-01] MEDS: fentaNYL 2,500 mCg/250 mL 2,500 MCG in IV Premix 1 EACH IV PRN (18:41)
[2016-11-02] VITALS (13 sets, daily range): BP systolic 98–128; BP diastolic 48–60; PULSE 70–82; RESP 31–34; O2SAT 88–99
[2016-11-02] MEDS: Chlorhexidine 0.12% 15 mL Oral Solution MT SCH ×7 (00:30→23:13)
[2016-11-02 04:24] LABS: BASOPHILS % (AUTO) 0.4 % (0-3); EOSINOPHILS % (AUTO) 5.4 % (0-5); MONOCYTES % (AUTO) 4.4 % (4-12); Mean Corpuscular Hemoglobin 31.4 pg (27.0-35.0); Mean Corpuscular Volume 101.4 fL (81-100); NEUTROPHILS % (AUTO) 79.8 % (40-74); Platelet Count 221 bil/L (150-400)
[2016-11-02 04:51] LABS: Magnesium 2.3 mg/dL (1.6-2.6); Phosphorus 7.4 mg/dL (2.5-4.9)
--- NOTE | 2016-11-02 05:03 | ABG ---
DateTimeAnalyzed 05:01:00 -_ pH ____7.290 - 7.350 7.450 pCO2 ___54.1__ -mmHg 35.0 45.0 pO2 115 -mmHg 69.0 116 HCO3- ___25.2__ -mmol/L 22.0 26.0 ABE ___-1.1__ -mmol/L -2.0 2.0 tHb ____9.0__ -g/dL O2Hb ___95.4__ -% COHb ____0.8__ -% MetHb ____1.5__ -% sO2 ___97.6__ -% 25.0 FIO2 ___21.0__ -% PEEP ___14.0__ -cmH2O Set_RR ___30.0__ -b/min Vt __420.0__ -L Drawn By MD - Date/Time Notified____ 05:03:00 -_ Spontaneous_RR ___31.0__ -b/min Oxygen Device 1 VENTILATOR - Notified By MD - Notified Whom RN J.HERLICKSON - B 754 -mmHg tO2 ___12.3__ -Vol% Sukhdev test N/A -
[2016-11-02] MEDS: Albuterol-Ipratropium 3 mL Inhalation Solution NEB SCH ×4 (07:06→20:16)
[2016-11-02] MEDS: Pantoprazole 4 mg/mL 10 mL Inj IVPUSH SCH (07:54)
[2016-11-02] MEDS: Piperacillin-Tazo 3.375 Gm Inj 3.375 GM in Dextrose 5% Minibag Plus 50 ML IV SCH ×2 (07:55→20:21)
[2016-11-02] MEDS: Polyethylene Glycol (PEG) 17 Gm Powder PO SCH (08:06)
[2016-11-02] MEDS: Heparin 5,000 Unit/mL Inj SUBQ SCH ×2 (08:06→20:20)
[2016-11-02] MEDS: CEFTAROLINE IV SCH ×2 (08:24→20:21)
[2016-11-02] MEDS: DEXTROSE 5% IV SCH ×2 (08:24→20:21)
[2016-11-02] MEDS: Multivit-Miner-Folic Acid-Iron Tablet PO SCH (08:24)
[2016-11-02] MEDS: Thiamine Inj 100 MG in Dextrose 5% 50 ML IV SCH (08:24)
[2016-11-02] MEDS: Propofol Inj 1,000,000 MCG in IV Premix 1 EACH IV SCH ×5 (09:01→23:49)
--- NOTE | 2016-11-02 09:02 | DRSVH ---
PROCEDURE: X-RAY CHEST ONE VIEW, PORTABLE ([id number]) INDICATIONS: ARDS TECHNIQUE: One view of the chest was acquired. COMPARISON: [facility], CR, XR CHEST 1VW (PORTABLE), 11/01/2016, 4:16. FINDINGS: Surgical changes and devices: ET tube with its tip projected over the middle one third of the trachea . Nasoenteric tube is seen descending below the diaphragm. There is a right-sided central line with i ts tip projected over the SVC. Lungs and pleura: Thorax is mildly hypoexpanded. Interval increase in interstitial and air space opac ities in the right lung. Patchy opacity is seen in the retrocardiac region. Costophrenic angles demon strate minimal blunting. Mediastinum: Mediastinal contours appear unchanged. Heart size is normal. Bones and chest wall: No suspicious bony lesions. Overlying soft tissues appear unremarkable. IMPRESSION: Bilateral interstitial and alveolar airspace disease. Interval progression. Possible small bilateral pleural effusions. Dictated by: Anne Leyva M.D. on 11/02/2016 at 8:58 Approved by: Anne Leyva M.D. on 11/02/2016 at 8:58
--- NOTE | 2016-11-02 11:00 | PCM.PNMED ---
Subjective Date of Service Nov 02, 2016 Subjective pt still remain in vent, sedated, pressors, no sig chg Exam Vital Signs Vital Sign - Last Date Time Temp Pulse Resp B/P Pulse Ox O2 Delivery O2 Flow Rate FiO2 11/02/16 07:29 88 40 11/02/16 07:06 67 101/49 11/02/16 00:00 Ventilator 11/02/16 00:00 36.8 31 11/01/16 16:30 6.00 Intake and Output 11/01/16 11/01/16 11/02/16 Cumulative From/Thru 15:00 23:00 07:00 10/26/16 17:03 - 11/02/16 06:11 Intake Total 1699 ml 1388 ml 61177 ml Output Total 1500 ml 900 ml 35713 ml Balance 199 ml 488 ml 8949 ml Intake Oral 0 ml IV Total 1699 ml 956 ml 74761 ml Tube Feeding 251 ml 417 ml Tube Irrigant 181 ml 301 ml Output Urine Total 1500 ml 900 ml 18755 ml Gastric Drainage Total 575 ml # Bowel Movements 2 Exam sedated, vented on PRVC, no JVD, MMM, no LAD RRR, nl s1, s2 no mrg coarse BS anteriorly S,ND,NT,normoactive BS+ warm, no edema, pulses 2/2 s/p Lt BKA RIJ, leiva in place IVs and Medications Medications Reviewed: Medications were reviewed in detail Lab and Diagnostics Result Diagram: 11/02/1640911/02/16409 X-Rays, CTs and MRIs PROCEDURE: CT ABDOMEN AND PELVIS WITHOUT CONTRAST ([id number]) IMPRESSION: 1. Bibasilar pneumonia. 2. Small loculated left pleural effusion with thickened rind, possibly indicating empyema. This is too small to safely aspirate percutaneously. 3. Cholelithiasis without evidence of cholecystitis. 4. Normal appendix. 5. Small hiatal hernia. Dictated by: Myke Gonzalez M.D. on 10/27/2016 at 20:52 Approved by: Myke Gonzalez M.D. on 10/27/2016 at 20:52 Assessment & Plan Today, clinically no significant changes, appreciate vent management per Acute active and high-risk problems: # Acute respiratory failure with hypoxia likely from MRSA pneumonia sepsis, pt was initially maintain airways with BiPAP, deteriorated 10/29-, intubated, pt remained on vent, improved oxygenation, still large secretion. -appreciate CCM team active management with airway management, cw vent bundle, remains FULL CODE per palliative care #septic shock secondary to MRSA pneumonia, possible empyema based on CT abd/ pelvis, high wbc/procalcitonin, MRSA+ on sputum, AFB so far ngtd, still on pressor. -appreciate ID recs on abx management, cw zosyn, ceftaroline, FU finial BCX -off airborne iso as neg AFB multiple sets in sputum, bronchial lavage, Quantiferon indeterminate. -chest CT deferred given critical respiratory status, bedside US to perform by CCM team if effusion is amenable for tap -s/p trial of albumin per nephrology #AKASH on CKD, secondary to ATN from sepsis, resultant severe metabolic acidosis, hyperkalemia, UOP-non oligouric phase of ATN, seemed improving as sepsis clears. -no dialysis today per renal recs, daily assessment for possible dialysis, bicarb drip 10/26-10/29 AM acidosis resolved, resumed bicarb 10/30 as acidosis worsened -strict -I/O with leiva, daily wt, avoid renal toxin, replete K,Mg, # Encephalopathy Likely metabolic encephalopathy due to sepsis. out of window for ETOH WD, less likely SENIOR CONSTRUCTION MANAGER infection given rapid improvement of MS prior to intubation, no nuchal rigidity -sedated, reassess MS after extubation. -avoid other sedatives-benzo, opioid for now #hepC ab +, newly found, viral load pending, chronic, stable #Ileus on KUB/CT abdomen, bowel remains not surgical, tube feeds started dvt ppx: HSQ gi ppx famotidine full code diet: tube feeds dispo: remains in critical condition in CCU VTE Prophylaxis: SCDs Resuscitation Status: CPR: Attempt Resuscitation Time spent 35min Lalo Golden MD Nov 02, 2016 11:00
[2016-11-02] MEDS: fentaNYL 2,500 mCg/250 mL 2,500 MCG in IV Premix 1 EACH IV PRN (11:45)
--- NOTE | 2016-11-02 12:23 | PROG NOTE ---
[address] [address] PROGRESS NOTE PATIENT: MERCED HOLDER : 1955 MR#: [id number] ADMIT: 10/26/2016 JOB ID: [id number] PULMONARY/CRITICAL CARE PROGRESS NOTE: DATE: 11/02/2016 ADMITTING HISTORY: Patient is a 61-year-old man of origin with history of alcohol abuse presenting with respiratory failure, MRSA pneumonia, and septic shock with ARDS. INTERVAL HISTORY: Remains on very low-dose norepinephrine which we are not able to wean because of his blood pressures. Vent settings continue to slowly come down. Continues to make urine. No fevers. REVIEW OF SYSTEMS: Unable to obtain. PHYSICAL EXAMINATION: VITAL SIGNS: Reviewed. Afebrile. Pulse 73, respirations 31, BP 115/58. Sats 99% on 50% FiO2, now down to 40% FiO2 with PEEP of 12 cm, tidal volume 420, plateau pressure is 25. GENERAL: Intubated, sedated. CHEST: Clear to auscultation. LABORATORIES: Reviewed. WBC 10.9, hemoglobin 8.9, platelets 221. Chemistry also reviewed and creatinine is up to 6.86 with BUN of 79. Electrolytes are acceptable without any hyperkalemia or low bicarb. Pro calcitonin remains high at 26.8. Cultures from BAL continue to be negative with no growth, but sputum culture proceeding that has MRSA and group B strep. Chest x-ray shows small bilateral pleural effusions with bilateral airspace disease, worse on the right. Arterial blood gas this morning shows pH 7.29, pCO2 of 54, pO2 of 115, bicarb of 25. ASSESSMENT/RECOMMENDATIONS: 1. Acute respiratory distress syndrome. 2. Acute hypoxic respiratory failure, intubated October 28. 3. Septic shock. 4. Methicillin resistant Staphylococcus aureus and streptococcal pneumonia. 5. History of alcohol abuse. 6. Acute on chronic renal failure, nonoliguric. 7. Acute encephalopathy. A 61-year-old man of origin with significant history of alcohol use presenting with septic shock, respiratory failure, and ARDS. He remains on 0.05 mcg of norepinephrine which we are really not able to wean because of blood pressures. He is on propofol at 35 mcg and fentanyl at 125 to keep him comfortable. Vent settings vaughn, he is down to 40% FiO2 and 12 cm of PEEP, which is a slow improvement compared to a few days ago. I would like to leave his PEEP at 12 cm until we wean his FiO2 down to 30% or so. He is on goal tidal volume of 6 cc/kg with plateau pressure of 24. There was some concern about empyema previously, but on brief bedside evaluation with ultrasound, we did not see enough fluid to tap. I am concerned, however, about his procalcitonin which remains elevated at 26. It is hard to know if the renal failure is playing a part, but it certainly should not cause such a severe elevation. He seems to be responding in all other forms to the addition of MRSA coverage with Ceftaroline, but if he continues to have an elevated procalcitonin and pressor requirement, we may want to re-image his chest either with an ultrasound or with a CAT scan, looking for enlarging pleural effusion that requires chest tube placement. Continue Ceftaroline and Zosyn. I do think the Zosyn can be stopped soon, but primarily the reason for the Zosyn would be anaerobic coverage. Defer to Dr. Quintanilla. Procalcitonin has remained elevated as before. He is on appropriate DVT and GI prophylaxis, and he is a FULL CODE. CRITICAL CARE TIME: 45 minutes.
--- NOTE | 2016-11-02 13:40 | NUR ---
Social Work Note: Continued Discharge Planning Data& Assessment: Pt is not medically ready for discharge at this time. Pt remains on the vent. Pt has begun tube feeds at a trickle. SW to continue to follow for medical stabilization and improvement. No needs identified at this time. SW to continue to follow. Plan: Anticipated need for further PT when medically ready. Pt insurance could be a barrier to SNF. SW to continue to follow for medical stabilization and improvement. JANELLE Mckeon
[2016-11-02] MEDS ORDERED: 0.9% Sodium Chloride 250 ML ONE ×2 (20:06)
[2016-11-02] MEDS ORDERED: 0.9% Sodium Chloride 1,000 ML ONE (20:08)
[2016-11-02] MEDS: Acetaminophen IV 1,000 MG in IV Premix 1 EACH IV PRN (21:46)
[2016-11-02] MEDS: Norepineph 8,000 mCg/250 mL NS 8,000 MCG in IV Premix 1 EACH IV SCH (21:47)
[2016-11-03] VITALS (12 sets, daily range): BP systolic 102–133; BP diastolic 50–62; PULSE 63–70; RESP 30–36; O2SAT 94–97
[2016-11-03] MEDS: Propofol Inj 1,000,000 MCG in IV Premix 1 EACH IV SCH ×6 (02:54→21:18)
[2016-11-03] MEDS: Chlorhexidine 0.12% 15 mL Oral Solution MT SCH ×5 (04:12→20:22)
[2016-11-03 04:50] LABS: BASOPHILS % (AUTO) 0.5 % (0-3); EOSINOPHILS % (AUTO) 5.5 % (0-5); MONOCYTES % (AUTO) 5.5 % (4-12); Mean Corpuscular Hemoglobin 30.6 pg (27.0-35.0); Mean Corpuscular Volume 99.3 fL (81-100); NEUTROPHILS % (AUTO) 75.3 % (40-74); Platelet Count 262 bil/L (150-400)
--- NOTE | 2016-11-03 04:53 | ABG ---
DateTimeAnalyzed 04:49:00 -_ pH ____7.323 - 7.350 7.450 pCO2 ___44.0__ -mmHg 35.0 45.0 pO2 ___82.9__ -mmHg 69.0 116 HCO3- ___22.2__ -mmol/L 22.0 26.0 ABE ___-3.1__ -mmol/L -2.0 2.0 tHb ____9.1__ -g/dL O2Hb ___92.5__ -% COHb ____1.1__ -% MetHb ____1.5__ -% sO2 ___95.0__ -% 25.0 FIO2 ___40.0__ -% PEEP ___12.0__ -cmH2O Set_RR ___30.0__ -b/min Vt __420.0__ -L Drawn By MT - Date/Time Notified____ 04:52:00 -_ Spontaneous_RR ___31.0__ -b/min Oxygen Device 1 VENTILATOR - Notified By MT - Notified Whom RN - B 758 -mmHg tO2 ___11.9__ -Vol% Sukhdev test N/A -
[2016-11-03] MEDS ORDERED: Succinylcholine Chloride 20 mg/mL 5 mL Inj ONE (06:11)
[2016-11-03] MEDS: fentaNYL 2,500 mCg/250 mL 2,500 MCG in IV Premix 1 EACH IV PRN (06:11)
--- NOTE | 2016-11-03 07:04 | NUR ---
Sedation Attempted to wean sedation, Propofol from 45mcgs/kg/min to 40. Patient did not appear restless of uncomfortable but he began to more frequently over-breath the vent. When Propofol was lower Levophed was able to be titrated down slightly as well. Propofol increased back to 45 after a couple of hours; Levo was increased again as well. Fentanyl decreased from 125mcgs/hr to 100mcgs/hr. No changes in RR or other vital signs. Patient continues to appear comfortable and pain free.
[2016-11-03] MEDS: DEXTROSE 5% IV SCH (07:53)
[2016-11-03] MEDS: Piperacillin-Tazo 3.375 Gm Inj 3.375 GM in Dextrose 5% Minibag Plus 50 ML IV SCH (07:53)
[2016-11-03] MEDS: CEFTAROLINE IV SCH (07:53)
[2016-11-03] MEDS: Pantoprazole 4 mg/mL 10 mL Inj IVPUSH SCH (07:54)
[2016-11-03] MEDS: Thiamine Inj 100 MG in Dextrose 5% 50 ML IV SCH (07:54)
[2016-11-03] MEDS: Multivit-Miner-Folic Acid-Iron Tablet PO SCH (07:54)
[2016-11-03] MEDS: Polyethylene Glycol (PEG) 17 Gm Powder PO SCH (07:54)
[2016-11-03] MEDS: Heparin 5,000 Unit/mL Inj SUBQ SCH ×2 (07:55→20:27)
--- NOTE | 2016-11-03 08:59 | PROG NOTE ---
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 INTERVAL HISTORY: Over the weekend, the patient has improved somewhat. He remains on the ventilator, but is no longer paralyzed and his FiO2 has been decreased to 40 and his PEEP has been decreased to 12. He remains intermittently dependent on vasopressor agents, but at somewhat lower doses. His urine output continues to be fairly good, but his creatinine remains grossly elevated. This case discussed in detail with the ICU team. Note that the patient is obviously unable to supply any additional history. PHYSICAL EXAMINATION: Reveals a gentleman who has been afebrile the last 24 hours. Temperature 38.3. Prior to that he had spent two days without fever. Pulse is in the 60s, blood pressure 106/51 on norepinephrine at 0.05 mics per kg a minute, would equate to about 5 mcg per minute of norepinephrine, a moderate dose. He is on 40% and 12 of PEEP as was mentioned. Eyes unremarkable. Oral gastric and oral endotracheal tube present. Central line present on the right. He still has an A-line and his lines appear uninfected. Lungs with decreased breath sounds, especially at the left base but coarse breath sounds are heard. Cardiac tones: Regular rate and rhythm. Abdomen: Abdomen is slightly distended without focal abnormality or ascites. Penis and scrotum appear normal. Richardson catheter is present. He has a left BKA, which is well healed (the stump). LABORATORIES: Include white count sort of bouncing between 9000 and 12,000, currently 11.7, hematocrit 28, platelet count 262,000. Creatinine 7.27. AST is kind of bouncing around, but currently 94, ALT normal at 25, alk phos 82. Albumin 2.3. Procalcitonin on November 01 anyway was remarkable 26.7, BRENT and ANCA are negative. Glomerular basement membrane also negative. Hepatitis C antibody positive, viral load pending. HIV negative. QuantiFERON Gold indeterminate. Urine Legionella and pneumococcal antigens are negative. The bronch wash was culture negative. A prior sputum culture grew MRSA as well as group B strep. The MRSA was susceptible to ceftaroline, clindamycin, linezolid and vancomycin. Group B strep presumably susceptible to most all of those agents, though was not tested for clindamycin susceptibility. Sputums x3 negative for AFB. Two of those sputums were sent for nucleic acid amplification and those studies were negative. IMPRESSION: Overall this critically ill gentleman is somewhat improved. It would appear that his profound septic shock with ventilatory dependent respiratory as well as renal failure arose from a pulmonary infection. Whether this was strictly pneumonia or there was some degree of empyema remains unclear. The likely organisms here include the MRSA and group B strep we have isolated as well as probably anaerobes given his history of heavy alcohol abuse and confusion prior to admission. In addition, the patient has ongoing renal failure, which is non-oliguric as well as alcoholic hepatitis. The patient is currently on a combination of ceftaroline and Zosyn. These antibiotics can be simplified as we now have a better understanding of the microbiology. One reasonable way to proceed would be with a combination of linezolid and Flagyl, as this would provide coverage for the methicillin-resistant Staphylococcus aureus (MRSA) and group B strep and any associated anaerobes. Another way to do this would be to continue ceftaroline and add Flagyl for anaerobic coverage. I would avoid vancomycin in this situation because of his very borderline renal function. Additionally, I think we need to image the patient's chest with a CT scan to better understand what is going on in his left base and see whether this does constitute an empyema or pulmonary rind or not. RECOMMENDATIONS: 1. Will narrow the antibiotics from ceftaroline and Zosyn to linezolid and Flagyl. 2. CT scan of the chest should be obtained if this is feasible given the fact he remains on 12 of PEEP. 3. Will continue to closely follow this complex patient with you.
[2016-11-03] MEDS: Linezolid Inj 600 MG in IV Premix 1 EACH IV SCH ×2 (09:44→20:24)
[2016-11-03] MEDS: metroNIDAZOLE Inj 1,000 MG in IV Premix 1 EACH IV SCH ×2 (09:45→20:22)
[2016-11-03] MEDS: Albuterol-Ipratropium 3 mL Inhalation Solution NEB SCH ×3 (10:21→20:30)
--- NOTE | 2016-11-03 10:35 | NUR ---
NUTRITION FOLLOW UP: ASSESS: 61 YO male admitted with confusion, weakness, falls, renal failure.. Pt remains intubated, with enteral feeding continuing at trickle rate. Unclear if TF will be advanced. PMHX: Chronic renal insufficiency, pre-diabetes, alcoholism, BKA LABS: Reviewed. Na 146, BUN 83, Cr 7.27, Glu 115, AST 94, Alb 2.3 MEDS:Reviewed. Fentanyl, Pressors, Propofol @ 26 ml/hr (686 kcal/d) GI: BM x 1 (10/28) SKIN: Kevon 9 WT: 94.9 kg, BMI 31.8 kg/m2, IBW 70 kg, Admit Wt: 104.5 kg DIET: NPO x 8 days ENTERAL FEEDING: Vital 1.5 @ 10 ml/hr. ESTIMATED NEEDS: Vent, BMI, BKA (-5% for BKA) Calories: 0064-3469 kcal/day (20-22 kcal/kg BW) Protein: 85-105g/day (1.2-1.5 g/kg IBW) NUTRITION DIAGNOSIS: 1) Inadequate oral intake related to decreased ability to consume sufficient energy as evidenced by current NPO status with enteral feeding at trickle rate - PERSISTS. NUTRITION INTERVENTION: 1) Recommend advancing enteral feeding, advancing 10 ml q 6 hrs to goal rate of 45 ml/hr to provide 1485 kcal/d (2171 kcal w/ current propofol rate), 67 g/d protein; meeting 100% calorie, 79% protein needs. 2) Once pt tolerating Vital 1.5 @ goal rate, recommend addition of 1 packet of Prosource BID to better meet pt's estimated protein needs. 3) Adjust goal rate based on daily propofol rate. MONITOR/EVALUATE: NPO/Vent, enteral feeding advance, GI, labs, wt, POC, nutrition status. Follow per high nutrition risk guidelines Addendum: 11/03/16 at [address] Changed TF to Nepro due to elevated phosphorus. Recommend TF of Nepro at 10 ml/hr, once tolerance established, advanced 10 ml q 6 hr to goal rate of 35 ml/hr. At goal TF will provide 1386 kcal (2072 kcal w/ propofol), 62 g protein; meeting 100% calorie, 73% protein needs. Signed orders placed in chart.
--- NOTE | 2016-11-03 11:07 | DRSVH ---
PROCEDURE: X-RAY CHEST ONE VIEW, PORTABLE ([id number]) INDICATIONS: ARDS TECHNIQUE: One view of the chest was acquired. COMPARISON: [facility], CR, XR CHEST 1VW (PORTABLE), 11/02/2016, 7:43. FINDINGS: Surgical changes and devices: Stable position of ETT, nasogastric tube and right IJ CVL. Lungs and pleura: Diffuse, widespread bilateral pulmonary interstitial and air space opacities are p resent similar to prior examination. Trace pleural effusions present. No pneumothorax. Mediastinum: Mediastinal contours appear normal. Heart size is normal. Bones and chest wall: No suspicious bony lesions. Overlying soft tissues appear unremarkable. IMPRESSION: Pulmonary edema and or diffuse bilateral inflammatory process not significantly changed. Developing ARDS cannot be excluded. Dictated by: Bakari Bunch [facility] Interpreted: Ekaterina Carter MD on 11/03/2016 at 11:06 Transcribed by: NAHOMI on 11/03/2016 at 11:06 Approved by: Ekaterina Carter MD, PhD on 11/03/2016 at 17:02
[2016-11-03] MEDS: Dextrose 5% 1,000 ML IV SCH ×2 (11:38→20:45)
--- NOTE | 2016-11-03 13:37 | DRSVH ---
PROCEDURE: US VENOUS LEG DUPLEX BILATERAL INDICATIONS: R/O DVT, patient has respiratory distress. TECHNIQUE: Real-time imaging, as well as color and pulse Doppler interrogation, were performed of the deep veins of both legs from the inguinal ligament to the popliteal fossa. COMPARISON: None. FINDINGS: The deep veins are normally compressible, and free of intraluminal thrombus. Color and pu lse Doppler demonstrate normal phasic intravascular flow. There is normal augmentation response to d istal compression maneuver. IMPRESSION: No deep venous thrombosis identified within either the left or right lower extremities. Dictated by: Bakari Bunch [facility] Interpreted: Kika Crews MD on 11/03/2016 at 13:36 Transcribed by: RJ on 11/03/2016 at 13:36 Approved by: Kika Crews M.D. on 11/03/2016 at 13:50
--- NOTE | 2016-11-03 13:37 | DRSVH ---
PROCEDURE: US CHEST/PLEURAL SONOGRAM INDICATIONS: Respiratory distress, r/o abscess or pleural effus COMPARISON: None. FINDINGS: No left pleural effusion is seen. There is a small loculated right pleural effusion with internal debris. IMPRESSION: A small loculated right pleural effusion. Dictated by: Bakari SAMANIEGO Interpreted: Kika Crews MD on 11/03/2016 at 13:36 Transcribed by: RJ on 11/03/2016 at 13:36 Approved by: Kika Crews M.D. on 11/03/2016 at 13:50
[2016-11-03 14:14] LABS: Magnesium 2.5 mg/dL (1.6-2.6); Phosphorus 7.9 mg/dL (2.5-4.9)
--- NOTE | 2016-11-03 14:19 | PCM.PNMED ---
Subjective Date of Service Nov 03, 2016 Subjective pt was still sedated, vented plan for chest CT per Exam Vital Signs Vital Sign - Last Date Time Temp Pulse Resp B/P Pulse Ox O2 Delivery O2 Flow Rate FiO2 11/03/16 11:51 Ventilator 11/03/16 11:51 37.4 67 31 110/53 96 40 11/02/16 16:30 6.00 Intake and Output 11/02/16 11/02/16 11/03/16 Cumulative From/Thru 15:00 23:00 07:00 10/26/16 17:03 - 11/03/16 06:31 Intake Total 1011 ml 1516 ml 92888 ml Output Total 750 ml 1000 ml 79031 ml Balance 261 ml 516 ml 9726 ml Intake Oral 0 ml IV Total 1011 ml 1287 ml 15386 ml Tube Feeding 139 ml 556 ml Tube Irrigant 90 ml 391 ml Output Urine Total 750 ml 1000 ml 14476 ml Gastric Drainage Total 575 ml # Bowel Movements 2 Exam sedated, vented on PRVC, no JVD, MMM, no LAD RRR, nl s1, s2 no mrg coarse BS anteriorly S,ND,NT,normoactive BS+ warm, no edema, pulses 2/2 s/p Lt BKA RIJ, leiva in place IVs and Medications Medications Reviewed: Medications were reviewed in detail Lab and Diagnostics Result Diagram: 11/03/1643411/03/16434 X-Rays, CTs and MRIs PROCEDURE: CT ABDOMEN AND PELVIS WITHOUT CONTRAST ([id number]) IMPRESSION: 1. Bibasilar pneumonia. 2. Small loculated left pleural effusion with thickened rind, possibly indicating empyema. This is too small to safely aspirate percutaneously. 3. Cholelithiasis without evidence of cholecystitis. 4. Normal appendix. 5. Small hiatal hernia. Dictated by: Myke Gonzalez M.D. on 10/27/2016 at 20:52 Approved by: Myke Gonzalez M.D. on 10/27/2016 at 20:52 Assessment & Plan Today, clinically no significant changes, appreciate vent management per . still ARDS protocol high PEEP, Abx narrowed from ceftaroline and Zosyn to linezolid and Flagyl per ID. Acute active and high-risk problems: # Acute respiratory failure with hypoxia likely from MRSA pneumonia sepsis, pt was initially maintain airways with BiPAP, deteriorated 10/29-, intubated, pt remained on vent, improved oxygenation, still large secretion. -appreciate CCM team active management with airway management, cw vent bundle, remains FULL CODE per palliative care #septic shock secondary to MRSA pneumonia, possible empyema based on CT abd/ pelvis, high wbc/procalcitonin, MRSA+ on sputum, AFB so far ngtd, still on pressor. -appreciate ID recs on abx management, switched from zosyn, ceftaroline to linezolid/flagyl 11/03, FU finial BCX -off airborne iso as neg AFB multiple sets in sputum, bronchial lavage, Quantiferon indeterminate. -awaits chest CT which deferred initially given critical respiratory status, likely to obtain on the vent. -s/p trial of albumin per nephrology #AKASH on CKD, secondary to ATN from sepsis, resultant severe metabolic acidosis, hyperkalemia, UOP-non oligouric phase of ATN, seemed improving as sepsis clears. -no dialysis today per renal recs, daily assessment for possible dialysis, bicarb drip 10/26-10/29 AM acidosis resolved, resumed bicarb 10/30 as acidosis worsened -strict -I/O with leiva, daily wt, avoid renal toxin, replete K,Mg, # Encephalopathy Likely metabolic encephalopathy due to sepsis. out of window for ETOH WD, less likely [employer] infection given rapid improvement of MS prior to intubation, no nuchal rigidity -sedated, reassess MS after extubation. -avoid other sedatives-benzo, opioid for now #hepC ab +, newly found, viral load pending, chronic, stable #Ileus on KUB/CT abdomen, bowel remains not surgical, tube feeds started dvt ppx: HSQ gi ppx famotidine full code diet: tube feeds dispo: remains in critical condition in CCU VTE Prophylaxis: SCDs Resuscitation Status: CPR: Attempt Resuscitation Time spent 35min Lalo Golden MD Nov 03, 2016 14:19
--- NOTE | 2016-11-03 14:19 | PCM.PNMED ---
Subjective Date of Service Nov 03, 2016 Subjective NEPHROLOGY PROGRESS NOTE The patient continues to be intubated and sedated in the CCU. He continues to make good quantities of urine. ROS is not obtainable. Exam Vital Signs Vital Sign - Last Date Time Temp Pulse Resp B/P Pulse Ox O2 Delivery O2 Flow Rate FiO2 11/03/16 11:51 Ventilator 11/03/16 11:51 37.4 67 31 110/53 96 40 11/02/16 16:30 6.00 Intake and Output 11/02/16 11/02/16 11/03/16 Cumulative From/Thru 15:00 23:00 07:00 10/26/16 17:03 - 11/03/16 06:31 Intake Total 1011 ml 1516 ml 94428 ml Output Total 750 ml 1000 ml 87181 ml Balance 261 ml 516 ml 9726 ml Intake Oral 0 ml IV Total 1011 ml 1287 ml 15962 ml Tube Feeding 139 ml 556 ml Tube Irrigant 90 ml 391 ml Output Urine Total 750 ml 1000 ml 71748 ml Gastric Drainage Total 575 ml # Bowel Movements 2 Exam GEN: sedated, intubated, restrained HEENT: sclera inacteric NECK: right IJ in place RESP: diffuse crackles and rhonchi CV: irregularly irregular rhythm ABD: obese, soft : leiva in place EXT: no edema; paralyzed psych: sedated neuro: sedated IVs and Medications Medications Reviewed: Medications were reviewed in detail Lab and Diagnostics Result Diagram: 11/03/1643411/03/16434 X-Rays, CTs and MRIs PROCEDURE: CT ABDOMEN AND PELVIS WITHOUT CONTRAST ([id number]) IMPRESSION: 1. Bibasilar pneumonia. 2. Small loculated left pleural effusion with thickened rind, possibly indicating empyema. This is too small to safely aspirate percutaneously. 3. Cholelithiasis without evidence of cholecystitis. 4. Normal appendix. 5. Small hiatal hernia. Dictated by: Myke Gonzalez M.D. on 10/27/2016 at 20:52 Approved by: Myke Gonzalez M.D. on 10/27/2016 at 20:52 Assessment & Plan Acute kidney injury superimposed on chronic kidney disease of unknown stage -Secondary to ATN from septic shock -At this point the patient continues to make good urine so we will continue to monitor and not proceed with dialysis -However if the patient's Cr continues to trend up and reaches 10 even with good urine output we will initiate dialysis -Repeat UA -Urine eosinophils Severe Metabolic Acidosis secondary to AKASH, resolved Hypernatremia -Patient has a free water deficit at this point -His total daily needs are around 3.4 L including insensible losses. -Will start D5W @ 100 cc/hr and reassess tomorrow. -If the patient is better able to tolerate tube feeds, please feel free to reduce the amount of D5W by half and add more water to tube feeds. Hyperphosphatemia -Added on phos to today's labs -Likely it will be elevated given yesterday's labs and his worsening renal function -Will start Renvela Q8 if it can be crushed and placed into OG tube Addendum I have seen and examined this patient with the resident and I agreed with the findings, assessment and plan as outlined in the resident's note. Dr. Alan, pg [phone] VTE Prophylaxis: SCDs Resuscitation Status: CPR: Attempt Resuscitation Mahnaz Lua DO Nov 03, 2016 14:19 Antonietta Sigala MD Nov 03, 2016 22:04
[2016-11-03] MEDS ORDERED: Albumin 25% 50 GM in IV Premix 1 EACH IV ONE (15:00)
[2016-11-03] MEDS: Norepineph 8,000 mCg/250 mL NS 8,000 MCG in IV Premix 1 EACH IV SCH (15:17)
--- NOTE | 2016-11-03 17:00 | PCM.PNMED ---
Subjective Date of Service Nov 03, 2016 Subjective ICU/PULMONOLOGY PROGRESS NOTE This is a 61 year old male with history significant for alcoholism and CKD who presented on 10/26/2016 obtunded who later developed hypoxic respiratory failure , septic shock likely secondary to MRSA and group B strep pneumonia as well as ARDS The patient continues to be sedated and intubated. Overnight the patient continued to be febrile with Tmax 38.3c. ROS not obtainable. Exam Vital Signs Vital Sign - Last Date Time Temp Pulse Resp B/P Pulse Ox O2 Delivery O2 Flow Rate FiO2 11/03/16 10:22 66 105/50 96 40 11/03/16 07:40 Ventilator 11/03/16 07:40 37.4 36 11/02/16 16:30 6.00 Intake and Output 11/02/16 11/02/16 11/03/16 Cumulative From/Thru 15:00 23:00 07:00 10/26/16 17:03 - 11/03/16 06:31 Intake Total 1011 ml 1516 ml 00141 ml Output Total 750 ml 1000 ml 73904 ml Balance 261 ml 516 ml 9726 ml Intake Oral 0 ml IV Total 1011 ml 1287 ml 61873 ml Tube Feeding 139 ml 556 ml Tube Irrigant 90 ml 391 ml Output Urine Total 750 ml 1000 ml 81612 ml Gastric Drainage Total 575 ml # Bowel Movements 2 Exam GEN: sedated, intubated. HEENT: sclera Anicteric NECK: right IJ in place, . RESP: diffuse crackles and rhonchi CV: RRR ABD: obese, soft : leiva in place EXT: no edema; paralyzed, Right art line. : Leiva catheter in place. psych: sedated neuro: sedated IVs and Medications Medications Reviewed: Medications were reviewed in detail Lab and Diagnostics Result Diagram: 11/03/1643411/03/16434 X-Rays, CTs and MRIs PROCEDURE: CT ABDOMEN AND PELVIS WITHOUT CONTRAST ([id number]) IMPRESSION: 1. Bibasilar pneumonia. 2. Small loculated left pleural effusion with thickened rind, possibly indicating empyema. This is too small to safely aspirate percutaneously. 3. Cholelithiasis without evidence of cholecystitis. 4. Normal appendix. 5. Small hiatal hernia. Dictated by: Myke Gonzalez M.D. on 10/27/2016 at 20:52 Approved by: Myke Gonzalez M.D. on 10/27/2016 at 20:52 Chest x-ray on 11/03/2016: IMPRESSION: Pulmonary edema and or diffuse bilateral inflammatory process not significantly changed. Developing ARDS cannot be excluded. Dictated by: Bakari Bunch [facility] Interpreted: Ekaterina Carter MD on 11/03/2016 at 11:06 Transcribed by: NAHOMI on 11/03/2016 at 11:06 Assessment & Plan This is a 61 year old male with history significant for alcohol abuse and CKD who presented obtunded now complicated by hypoxic respiratory failure, ARDS, and severe sepsis likely secondary to MRSA pneumonia:. Acute Respiratory Distress Syndrome, ongoing - Pt decompensated 10/30/16 intubated by anesthesia with initial ABG's showing acidosis pH 7.1. - Attempting to keep pt as dry as possible in conjunction with nephrology -Patient is showing pattern of increased space on vent. Will further evaluate this with U/S LE to r/o DVT and U/S chest to evaluate for abscess. Acute hypoxic respiratory failure, intubated October 28. - Vent settings currently:; PEEP 12 and FiO2 40%. Patient is now off Nimbex. He continues on propofol 45 ml/hr and fentanyl 125 ml/hr. - Most recent ABG shows pH 7.323, PaCO2 44 PaO2 82.9, HCO3 22.2, at FiO2.40 PEEP 12 TV 420 RR 30 -Tube feeding with Nepro as patient has CKD and elevated phosphorous. -Continue with Budesonide. Septic shock secondary to pneumonia - Secondary to MRSA and GBS pneumonia, possible empyema based on CT abd/pelvis, high wbc/procalcitonin. U/S chest to evaluate for abscess. As patient is improving we will hold on chest CT w/o contrast (will consider again tomorrow). - ID has changed abx to Linezolid and Metronidazole. Patient previously received Zosyn for seven days and Ceftaroline for 5 days before being stopped on (11/03/2016). - Bronchoscopy 10/30/16 and samples sent for AFB, fungal, and bacterial cultures -Viral panel on bronchial washings was negative, AFB smear x3 negative, Sputum culture 10/29/2016 + for MRSA, Group B strep. -Patient continues on Levophed .05 mcg/kg/min. -Will give albumin 50g followed by albumin 25g BID. AKASH on CKD - Secondary to ATN from sepsis; resolving significantly with Cr from 8 down to jasmin of 4. Creatinine on 11/03/2016 7.27 (up from 6.86 on 11/02/2016). - Continues to maintain good urine output. - Nephrology consulted and appreciate Dr. Manzanares recommendations - Continue to perform serial CMP. Hyperphosphatemia -Phosphorous today 7.9. -Switched feeding tube formula to Nepro. Encephalopathy - Likely mixed metabolic encephalopathy with EtOH withdrawal -Unknown baseline. Elevated AST -AST on 11/03/2016 94. ALT 25. Possibly secondary to alcoholic hepatitis. -CMP in morning. Hepatitis C antibody positive - Viral load pending Macrocytic Anemia, acute -Likely secondary to alcoholism. -will continue to monitor Prophylaxis: SubQ heparin PPI FULL CODE VTE Prophylaxis: SCDs Resuscitation Status: CPR: Attempt Resuscitation Attending Statement The patient was seen and examined together with Dr. Collins on 11/03/2016 and I agree with the history, exam and plan as outlined in the note above. José Miguel Collins DO Nov 03, 2016 12:12 Niranjan Marie MD Dec 05, 2016 18:14
--- NOTE | 2016-11-03 17:44 | NUR ---
SEDATION/HEMODYNAMICS/RESPIRATORY Patient continues to require Propofol at 45 mcg/kg/min and Fentanyl at 75 mcg/hr for sedation, but Fentanyl is decreased from 125 mcg/hr at start of shift. Levophed infusing at 0.04 mcg/kg/min to maintain MAP >60, this is also decreased from 0.05 mcg/kg/min at start of shift. CVP has maintained between 10-14. Ventilator settings adjusted by Dr. Marie and RT, he appears to be tolerating current settings of 40% FiO2/10 PEEP/28 Rate/450 Vt. ABG to be repeated in the morning, vent settings can be adjusted at that time. Will continue to monitor vitals signs, sedation requirements and hemodynamics.
[2016-11-03] MEDS: Budesonide 0.5 mg/2 mL Inhalation Solution NEB SCH ×2 (18:24→20:30)
[2016-11-03] MEDS ORDERED: 0.9% Sodium Chloride 250 ML ONE (20:06)
[2016-11-03 21:34] LABS: APPEARANCE,URINE CLEAR (CLEAR,HAZY); COLOR,URINE STRAW (YELLOW); OCCULT BLOOD,URINE MODERATE (NEGATIVE); PH,URINE 6.5 (5.0-8.0); UROBILINOGEN,URINE NORMAL (NORMAL)
[2016-11-04] VITALS (11 sets, daily range): BP systolic 100–123; BP diastolic 51–61; PULSE 61–81; RESP 28–31; O2SAT 94–100
[2016-11-04] MEDS: Chlorhexidine 0.12% 15 mL Oral Solution MT SCH ×6 (00:03→20:13)
[2016-11-04] MEDS: Dextrose 5% 1,000 ML IV SCH (00:33)
[2016-11-04] MEDS: Propofol Inj 1,000,000 MCG in IV Premix 1 EACH IV SCH ×7 (00:33→20:13)
[2016-11-04] MEDS: Norepineph 8,000 mCg/250 mL NS 8,000 MCG in IV Premix 1 EACH IV SCH (00:33)
[2016-11-04 04:49] LABS: BASOPHILS % (AUTO) 0.4 % (0-3); EOSINOPHILS % (AUTO) 5.8 % (0-5); MONOCYTES % (AUTO) 5.3 % (4-12); Mean Corpuscular Hemoglobin 31.3 pg (27.0-35.0); Mean Corpuscular Volume 98.5 fL (81-100); NEUTROPHILS % (AUTO) 76.5 % (40-74); Platelet Count 243 bil/L (150-400)
--- NOTE | 2016-11-04 05:07 | ABG ---
DateTimeAnalyzed 05:04:00 -_ pH ____7.332 - 7.350 7.450 pCO2 ___37.0__ -mmHg 35.0 45.0 pO2 ___80.7__ -mmHg 69.0 116 HCO3- ___19.1__ -mmol/L 22.0 26.0 ABE ___-5.7__ -mmol/L -2.0 2.0 tHb ____9.4__ -g/dL O2Hb ___92.4__ -% COHb ____0.9__ -% MetHb ____1.5__ -% sO2 ___94.7__ -% 25.0 FIO2 ___21.0__ -% PEEP ___10.0__ -cmH2O Set_RR ___28.0__ -b/min Vt __450.0__ -L Drawn By MD - Date/Time Notified____ 05:07:00 -_ Spontaneous_RR ___30.0__ -b/min Oxygen Device 1 VENTILATOR - Notified By MD - Notified Whom RN K.SWAN - B 764 -mmHg tO2 ___12.3__ -Vol% Sukhdev test N/A -
[2016-11-04 05:12] LABS: Magnesium 2.4 mg/dL (1.6-2.6); Phosphorus 8.7 mg/dL (2.5-4.9)
[2016-11-04] MEDS: fentaNYL 2,500 mCg/250 mL 2,500 MCG in IV Premix 1 EACH IV PRN (06:39)
--- NOTE | 2016-11-04 07:08 | NUR ---
Sedation Propofol required to be titrated up around 0430 when patient began breathing in the 40s consistently. Fentanyl titrated from 50mcgs to 75mcgs/hr when patient begin grimacing at rest. Levophed titrated off for a while but turned on again at 0.02mcgs/kg/min when the propofol is turned up. Continue to monitor closely.
[2016-11-04] MEDS: Albuterol-Ipratropium 3 mL Inhalation Solution NEB SCH ×4 (07:27→20:08)
[2016-11-04] MEDS: Budesonide 0.5 mg/2 mL Inhalation Solution NEB SCH ×2 (07:33→20:08)
[2016-11-04] MEDS: Polyethylene Glycol (PEG) 17 Gm Powder PO SCH (08:30)
--- NOTE | 2016-11-04 08:48 | DRSVH ---
PROCEDURE: X-RAY CHEST ONE VIEW, PORTABLE ([id number]) INDICATIONS: ARDS TECHNIQUE: One view of the chest was acquired. COMPARISON: [facility], CR, XR CHEST 1VW (PORTABLE), 11/03/2016, 4:55. FINDINGS: Surgical changes and devices: Stable positioning of ETT and right IJ CVL. Nasogastric tube tip not w ell seen. Lungs and pleura: Diffuse, widespread bilateral pulmonary interstitial and air space opacities are p resent similar to prior examination. Small right pleural effusion Mediastinum: Mediastinal contours appear normal. Heart size is normal. Bones and chest wall: No suspicious bony lesions. Overlying soft tissues appear unremarkable. IMPRESSION: 1. Support lines and tubes as above. 2. Pulmonary edema and/or diffuse bilateral inflammatory process redemonstrated. ARDS cannot be excl uded. Dictated by: Bakari Bunch [facility] Interpreted: Gaby Nixon MD on 11/04/2016 at 8:48 Transcribed by: GAURAV on 11/04/2016 at 8:48 Approved by: Gaby Nixon M.D. on 11/04/2016 at 16:37
--- NOTE | 2016-11-04 09:02 | PROG NOTE ---
[address] [address] PROGRESS NOTE PATIENT: MERCED HOLDER : 1955 MR#: [id number] ADMIT: 10/26/2016 JOB ID: [id number] DATE: 11/04/2016 INFECTIOUS DISEASE FOLLOWUP NOTE: REASON FOR FOLLOWUP: MRSA and group B strep pneumonia in a ventilator-dependent patient. INTERVAL HISTORY: Overnight, the patient has slightly improved in the ICU. His ventilator has been weaned from 40 FiO2 and 12 of PEEP to 40 FiO2 and 10 of PEEP with preservation of his oxygenation status. His vasopressor agents have been weaned to very low levels, and there have been some attempts now to start to back off on his sedatives. This morning when his fentanyl and propofol were inadvertently turned off though the patient became agitated, so it is clear he is not yet ready for complete weaning from sedative agents. He has continued to be afebrile and to have a reasonable urine output even as he remains in renal failure. This case discussed extensively with the ICU nurse, as well as Dr. Marie of the ICU team, and radiographs reviewed with Dr. Marie. PHYSICAL EXAMINATION: Reveals an obese gentleman lying intubated and sedated in the ICU. He has now been afebrile for approximately 36 hours after spiking to 38.1 on the evening of the . Pulse 61, blood pressure 105/52, on low-dose norepinephrine, saturating 100% on 40 FiO2 and 10 of PEEP. Eyes without conjunctival change. Oral endotracheal tube and oral gastric tube in good position. Central line appears uninfected. Lungs more clear than yesterday with decreased rales and rhonchi, though still some rales especially at the right base. Cardiac tones without change. Abdomen soft and without evident mass or tenderness. Penis and scrotum appear normal. There is an erythematous, pustular appearing, about 1 cm lesion present on the right medial thigh which seems to be actually fading over time. The right lower extremity seems to be reasonably well perfused. The left lower extremity has a BKA, and the stump is well healed. LABORATORIES: Include white count 9400, platelet count 243,000. Creatinine 7.1, bilirubin 0.3. AST is now down to 58. Recent urinalysis without pyuria. Hep C viral load has come back at 185,000, so it is clear that he still has active hepatitis C, though it is a fairly low viral load. Bronchoscopy studies continue to come back and are negative. Sputum previously from the , of course, grew MRSA and group B strep. Today's chest x-ray shows some clearing, as opposed to x-rays done in the last couple of days. Note that he still has some degree of bilateral infiltrate. Ultrasound of the chest done yesterday shows a small, loculated right pleural effusion, otherwise negative. CT scan could not be done yesterday because of the patient's fairly high PEEP and other issues. IMPRESSION: This patient continues to slowly improve on continued aggressive therapy for the pathogens isolated from the respiratory tract. Yesterday, we switched to linezolid and Flagyl as our treatment for what appears to be a methicillin-resistant Staphylococcus aureus and/or group B streptococcal pneumonia. This was done because we wish to avoid vancomycin, and there is better data about linezolid for methicillin-resistant Staphylococcus aureus pneumonia than there is ceftaroline, which we were using previously. There is an issue about possible drug interaction with serotonin syndrome between fentanyl we are using here for sedation and linezolid but I discussed this with Pharmacy and the intensive care unit attending, and we all feel that this is a reasonable chance to take here in a patient whom we can closely observe in the intensive care unit. At this point, I suspect he will require at least another week of ongoing therapy with both [id number] Staphylococcus aureus and anti-anaerobe type drugs as we attempt to gradually wean him off the ventilator. RECOMMENDATIONS: 1. Will continue with linezolid and Flagyl. 2. Should the patient be extubated over the next few days he could be switched to, of course, the oral versions of both these drugs, as they are both readily absorbed and would not necessarily need to be given IV. 3. Should there be any sign of serotonin syndrome, the linezolid would need to be stopped, and I would switch back to ceftaroline 600 IV q.8 h. as our backup agent. 4. Note that I will be out of town for the next seven days but can be reached by telephone, text, or email about this or any other patient as needed. Note that I would strongly recommend that a total course of antibiotics probably be 2-3 weeks in this case and would maintain the patient on anti-MRSA and antistreptococcal therapy for at least the next week or two until my return on November 12.
[2016-11-04] MEDS: metroNIDAZOLE Inj 1,000 MG in IV Premix 1 EACH IV SCH ×2 (09:18→20:13)
[2016-11-04] MEDS: Pantoprazole 4 mg/mL 10 mL Inj IVPUSH SCH (09:18)
[2016-11-04] MEDS: Linezolid Inj 600 MG in IV Premix 1 EACH IV SCH ×2 (09:19→20:12)
[2016-11-04] MEDS: Multivit-Miner-Folic Acid-Iron Tablet PO SCH (09:19)
[2016-11-04] MEDS ORDERED: KCl 40 mEq/100 mL (CENTRAL) 20 MEQ in IV Premix 1 EACH IV ONE (09:25)
[2016-11-04] MEDS: Heparin 5,000 Unit/mL Inj SUBQ SCH ×2 (09:56→20:12)
[2016-11-04] MEDS: Thiamine Inj 100 MG in Dextrose 5% 50 ML IV SCH (09:56)
--- NOTE | 2016-11-04 10:35 | NUR ---
NUTRITION FOLLOW UP: ASSESS: 61 YO male admitted with confusion, weakness, falls, renal failure. Pt remains intubated. TF changed to Nepro due to elevated phosphorus. Received verbal orders to increase TF to goal rate today. Orders are in chart and RN aware. PMHX: Chronic renal insufficiency, pre-diabetes, alcoholism, BKA LABS: Reviewed. K 3.3, Bun 80, [employer] 7.10, Glu 121, phos 8.7, AST 58, ammonia 61, Alb 2.9 MEDS:Reviewed. Fentanyl, Pressors, Propofol @ 27 ml/hr (712 kcal/d) GI: BM x 1 (11/03 SKIN: Kevon 10 WT: 95.8 kg, BMI 31.8 kg/m2, IBW 70 kg, Admit Wt: 104.5 kg DIET: NPO ENTERAL FEEDING: Nepro @ 10ml/hr to provide 396kcal and 17g pro ESTIMATED NEEDS: Vent, BMI, BKA (-5% for BKA) Calories: 9833-1211 kcal/day (20-22 kcal/kg BW) Protein: 85-105g/day (1.2-1.5 g/kg IBW) NUTRITION DIAGNOSIS: 1) Inadequate oral intake related to decreased ability to consume sufficient energy as evidenced by current NPO status with enteral feeding at trickle rate - PERSISTS. NUTRITION INTERVENTION: 1) Recommend advancing enteral feeding, advancing 10 ml q 4 hrs to goal rate of 35 ml/hr. At goal TF will provide 1386 kcal (2098 kcal w/ propofol), 62 g protein; meeting 100% calorie, 73% protein needs. 2) Once pt tolerating TF at goal, recommend addition of 2 packets of Prosource BID to better meet pt's estimated protein needs. 3) Adjust goal rate based on daily propofol rate. MONITOR/EVALUATE: NPO/Vent, enteral feeding advance, GI, labs, wt, POC, nutrition status. Follow per high nutrition risk guidelines
--- NOTE | 2016-11-04 11:12 | NUR ---
Social Work Note: Continued Discharge Planning Data& Assessment: Per MD in morning rounds, pt remains on the vent and medically complex. Possible extubation date is unclear at this time. SW to continue to follow for any family needs and follow up with pt post extubation for discharge planning. SW to continue to follow. Plan: Pt remains on the vent. SW to continue to follow for any family needs and follow up with pt post extubation for discharge planning. SW to continue to follow for MD and PT recommendations and evaluations when appropriate. JANELLE Mckeon
--- NOTE | 2016-11-04 11:31 | PCM.PNMED ---
Subjective Date of Service Nov 04, 2016 Subjective NEPHROLOGY PROGRESS NOTE Patient continues to be in the CCU, intubated and sedated. ROS is not obtainable. Exam Vital Signs Vital Sign - Last Date Time Temp Pulse Resp B/P Pulse Ox O2 Delivery O2 Flow Rate FiO2 11/04/16 11:02 75 123/61 98 40 11/04/16 07:07 Ventilator 11/04/16 07:07 36.9 30 11/02/16 16:30 6.00 Intake and Output 11/03/16 11/03/16 11/04/16 Cumulative From/Thru 15:00 23:00 07:00 10/26/16 17:03 - 11/04/16 06:48 Intake Total 1762 ml 2269 ml 07727 ml Output Total 1000 ml 1100 ml 30159 ml Balance 762 ml 1169 ml 91331 ml Intake Oral 0 ml IV Total 1609 ml 2091 ml 09130 ml Tube Feeding 93 ml 118 ml 767 ml Tube Irrigant 60 ml 60 ml 511 ml Output Urine Total 1000 ml 1100 ml 53077 ml Gastric Drainage Total 575 ml # Bowel Movements 1 3 Exam GEN: sedated, intubated, restrained HEENT: sclera inacteric NECK: right IJ in place RESP: diffuse crackles and rhonchi CV: irregularly irregular rhythm ABD: obese, soft : leiva in place EXT: no edema; paralyzed psych: sedated neuro: sedated IVs and Medications Medications Reviewed: Medications were reviewed in detail Lab and Diagnostics Result Diagram: 11/04/16 0435 11/04/16 043 X-Rays, CTs and MRIs PROCEDURE: CT ABDOMEN AND PELVIS WITHOUT CONTRAST ([id number]) IMPRESSION: 1. Bibasilar pneumonia. 2. Small loculated left pleural effusion with thickened rind, possibly indicating empyema. This is too small to safely aspirate percutaneously. 3. Cholelithiasis without evidence of cholecystitis. 4. Normal appendix. 5. Small hiatal hernia. Dictated by: Myke Gonzalez M.D. on 10/27/2016 at 20:52 Approved by: Myke Gonzalez M.D. on 10/27/2016 at 20:52 Chest x-ray on 11/03/2016: IMPRESSION: Pulmonary edema and or diffuse bilateral inflammatory process not significantly changed. Developing ARDS cannot be excluded. Dictated by: Bakari SAMANIEGO Interpreted: Ekaterina Carter MD on 11/03/2016 at 11:06 Transcribed by: NAHOMI on 11/03/2016 at 11:06 Assessment & Plan Acute kidney injury superimposed on chronic kidney disease of unknown stage -Initial thought was that this was due to due ATN, however normally in a patient with ATN one would expect oliguria or anuria -Our patient however is obviously unable to concentrate urine, so while he is able to make good quantities of urine, this is really the first presentation of kidney failure -While his Cr is mildly better today it is likely worsened and this is just dilutional given his now replaced total body water deficit. -It is our concern that his Cr jasmin was a false number and he actually has a fairly significant CKD -We will obtain a renal US, and if his kidneys are severely atrophic, this will be suggestive of that -Repeat UA pending, please obtain -Urine eosinophils pending -We will also plan on proceeding with a temporary dialysis catheter tomorrow -Please stop tube feeds after midnight -We will initiate dialysis tomorrow given his catheter can be placed Severe Metabolic Acidosis secondary to AKASH, resolved Hypernatremia, resolved -Total body water deficit resolved. -Will stop D5W for now. -Continue to monitor -Patient is overall 11 L up. Hyperphosphatemia -Continues to worsen. -Stop Renvela and start Fosrenol per OG tube Hypokalemia -40 mEq KCl IV x 1, then would recheck Normocytic Normochromic Anemia -Likely multifactorial from anemia of CKD, iatrogenic from draws -Iron, TIBC We will continue to follow along with you. Addendum I have seen and examined this patient with the resident and I agreed with the findings, assessment and plan as outlined in the resident's note. Dr. Alan, pg [phone] VTE Prophylaxis: SCDs Resuscitation Status: CPR: Attempt Resuscitation Mahnaz Lua DO Nov 04, 2016 11:31 Antonietta Sigala MD Nov 05, 2016 07:38
[2016-11-04] MEDS: Lanthanum Carbonate 500 mg Chewable Tablet TUBE SCH ×2 (11:48→17:58)
--- NOTE | 2016-11-04 14:22 | PCM.PNMED ---
Subjective Date of Service Nov 04, 2016 Subjective remains intubated and sedated,respiratory status O2 requirement remains unchanged,afebrile Exam Vital Signs Vital Sign - Last Date Time Temp Pulse Resp B/P Pulse Ox O2 Delivery O2 Flow Rate FiO2 11/04/16 12:11 Ventilator 11/04/16 12:11 37.1 74 31 105/53 96 40 11/02/16 16:30 6.00 Intake and Output 11/03/16 11/03/16 11/04/16 Cumulative From/Thru 15:00 23:00 07:00 10/26/16 17:03 - 11/04/16 06:48 Intake Total 1762 ml 2269 ml 89157 ml Output Total 1000 ml 1100 ml 53602 ml Balance 762 ml 1169 ml 85988 ml Intake Oral 0 ml IV Total 1609 ml 2091 ml 56784 ml Tube Feeding 93 ml 118 ml 767 ml Tube Irrigant 60 ml 60 ml 511 ml Output Urine Total 1000 ml 1100 ml 05094 ml Gastric Drainage Total 575 ml # Bowel Movements 1 3 Exam sedated, vented on PRVC, no JVD, MMM, no LAD RRR, nl s1, s2 no mrg coarse BS anteriorly S,ND,NT,normoactive BS+ warm, no edema, pulses 2/2 s/p Lt BKA RIJ, leiva in place IVs and Medications Medications Reviewed: Medications were reviewed in detail Lab and Diagnostics Result Diagram: 11/04/165 11/04/16434 X-Rays, CTs and MRIs PROCEDURE: CT ABDOMEN AND PELVIS WITHOUT CONTRAST ([id number]) IMPRESSION: 1. Bibasilar pneumonia. 2. Small loculated left pleural effusion with thickened rind, possibly indicating empyema. This is too small to safely aspirate percutaneously. 3. Cholelithiasis without evidence of cholecystitis. 4. Normal appendix. 5. Small hiatal hernia. Dictated by: Myke Gonzalez M.D. on 10/27/2016 at 20:52 Approved by: Myke Gonzalez M.D. on 10/27/2016 at 20:52 Chest x-ray on 11/03/2016: IMPRESSION: Pulmonary edema and or diffuse bilateral inflammatory process not significantly changed. Developing ARDS cannot be excluded. Dictated by: Bakari SAMANIEGO Interpreted: Ekaterina Carter MD on 11/03/2016 at 11:06 Transcribed by: NAHOMI on 11/03/2016 at 11:06 chest US IMPRESSION: A small loculated right pleural effusion. Assessment & Plan Acute active and high-risk problems: # Acute respiratory failure with hypoxia -due to MRSA pneumonia /sepsis, pt was initially maintain airways with BiPAP, deteriorated 10/29-, intubated, pt remained on vent, improved oxygenation, still large secretion. -appreciate CCU team active management with airway management, cw vent bundle, remains FULL CODE per palliative care -chest US :small loculated right pleural effusion,probably not large enough for intervention/thoracentesis # septic shock secondary to MRSA pneumonia, possible empyema based on CT abd/ pelvis, high wbc/procalcitonin, MRSA+ on sputum, AFB so far ngtd, still on pressor. -appreciate ID recs on abx management, switched from zosyn, ceftaroline to linezolid/flagyl 11/03, FU finial BCX -off airborne iso as neg AFB multiple sets in sputum, bronchial lavage, Quantiferon indeterminate. -awaits chest CT which deferred initially given critical respiratory status, likely to obtain on the vent. -s/p trial of albumin per nephrology #AKASH on CKD, secondary to ATN from sepsis, resultant severe metabolic acidosis, hyperkalemia, UOP-non oligouric phase of ATN,not improving as sepsis clears. -nephrology plans to put HD catheter and start HD tomorrow, bicarb drip 10/26-12 7 AM acidosis resolved, resumed bicarb 10/30 as acidosis worsened -strict -I/O with leiva, daily wt, avoid renal toxin, replete K,Mg, -high phos,nephrology switched renelva to Fosenol # Encephalopathy Likely metabolic encephalopathy due to sepsis. out of window for ETOH WD, less likely SHADE HANGER infection given rapid improvement of MS prior to intubation, no nuchal rigidity -sedated, reassess MS after extubation. -avoid other sedatives-benzo, opioid for now # hepC ab +, newly found, viral load 185,070 chronic, stable # Ileus on KUB/CT abdomen, bowel remains not surgical, tube feeds started dvt ppx: HSQ gi ppx famotidine full code diet: tube feeds dispo: remains in critical condition in CCU VTE Prophylaxis: SCDs Resuscitation Status: CPR: Attempt Resuscitation Campbell Vazquez MD Nov 04, 2016 14:22
--- NOTE | 2016-11-04 16:10 | DRSVH ---
PROCEDURE: US RENAL SONOGRAM INDICATIONS: CKD TECHNIQUE: Real-time scanning was performed of the kidneys and bladder, with image documentation. COMPARISON: None. FINDINGS: Kidneys: Kidneys are normal in size. Right kidney measures 10.1 cm long; left kidney measures 12.3 cm long. Right renal cortical thickness is 1.3 cm; left renal cortical thickness is 1.3 cm. Renal c ortical echotexture is normal. No hydronephrosis or nephrolithiasis. No suspicious solid mass lesio ns. Left renal simple cyst measuring roughly 1.9 cm. Bladder: Richardson catheter decompresses the bladder. Miscellaneous: No free pelvic fluid. IMPRESSION: Left renal cyst. Dictated by: Bakari SAMANIEGO Interpreted: Gaby Nixon MD on 11/04/2016 at 16:09 Transcribed by: GAURAV on 11/04/2016 at 16:09 Approved by: Gaby Nixon M.D. on 11/04/2016 at 16:57
--- NOTE | 2016-11-04 17:01 | PCM.PNMED ---
Subjective Date of Service Nov 04, 2016 Subjective ICU/PULMONOLOGY PROGRESS NOTE This is a 61 year old male with history significant for alcoholism, CKD, and hepatitis c who presented on 10/26/2016 obtunded who later developed hypoxic respiratory failure, septic shock likely secondary to MRSA and group B strep pneumonia as well as ARDS The patient continues to be sedated and intubated. Overnight he was afebrile. ROS not obtainable. Exam Vital Signs Vital Sign - Last Date Time Temp Pulse Resp B/P Pulse Ox O2 Delivery O2 Flow Rate FiO2 11/04/16 12:11 Ventilator 11/04/16 12:11 37.1 74 31 105/53 96 40 11/02/16 16:30 6.00 Intake and Output 11/03/16 11/03/16 11/04/16 Cumulative From/Thru 15:00 23:00 07:00 10/26/16 17:03 - 11/04/16 06:48 Intake Total 1762 ml 2269 ml 96832 ml Output Total 1000 ml 1100 ml 89588 ml Balance 762 ml 1169 ml 04385 ml Intake Oral 0 ml IV Total 1609 ml 2091 ml 77168 ml Tube Feeding 93 ml 118 ml 767 ml Tube Irrigant 60 ml 60 ml 511 ml Output Urine Total 1000 ml 1100 ml 74057 ml Gastric Drainage Total 575 ml # Bowel Movements 1 3 Exam GEN: sedated, intubated. HEENT: sclera Anicteric NECK: right IJ in place, . RESP: Course breath sounds throughout. CV: Regular rate and rhythm. ABD: obese, soft : leiva in place EXT: no edema; paralyzed, Right art line. : Leiva catheter in place. psych: sedated neuro: sedated Lab and Diagnostics Result Diagram: 11/04/16 0435 11/04/16 043 X-Rays, CTs and MRIs PROCEDURE: CT ABDOMEN AND PELVIS WITHOUT CONTRAST ([id number]) IMPRESSION: 1. Bibasilar pneumonia. 2. Small loculated left pleural effusion with thickened rind, possibly indicating empyema. This is too small to safely aspirate percutaneously. 3. Cholelithiasis without evidence of cholecystitis. 4. Normal appendix. 5. Small hiatal hernia. Dictated by: Myke Gonzalez M.D. on 10/27/2016 at 20:52 Approved by: Myke Gonzalez M.D. on 10/27/2016 at 20:52 Chest x-ray on 11/03/2016: IMPRESSION: Pulmonary edema and or diffuse bilateral inflammatory process not significantly changed. Developing ARDS cannot be excluded. Dictated by: Bakari SAMANIEGO Interpreted: Ekaterina Carter MD on 11/03/2016 at 11:06 Transcribed by: NAHOMI on 11/03/2016 at 11:06 U/S lower extremity on 11/03/2016: IMPRESSION: No deep venous thrombosis identified within either the left or right lower extremities. Dictated by: Bakari SAMANIEGO Interpreted: Kika Crews MD on 11/03/2016 at 13:36 Transcribed by: RJ on 11/03/2016 at 13:36 Approved by: Kika Crews M.D. on 11/03/2016 at 13:50 U/S chest on 11/03/2016: IMPRESSION: A small loculated right pleural effusion. Dictated by: Bakari SAMANIEGO Interpreted: Kika Crews MD on 11/03/2016 at 13:36 Transcribed by: RJ on 11/03/2016 at 13:36 Approved by: Kika Crews M.D. on 11/03/2016 at 13:50 Assessment & Plan This is a 61 year old male with history significant for alcohol abuse, CKD, hepatitis C who presented obtunded now complicated by hypoxic respiratory failure, ARDS, and severe sepsis likely secondary to pneumonia (sputum culture grew MRSA and group b strep): Acute Respiratory Distress Syndrome, ongoing - Pt decompensated 10/30/16 intubated by anesthesia with initial ABG's showing acidosis pH 7.1. - Attempting to keep pt as dry as possible in conjunction with nephrology -Patient is showing pattern of space on vent. U/S of LE showed no DVT. U/ S of chest showed small loculated right pleural effusion (will talk to radiology about possible thoracentesis. -Discussed with nephrology and plan is to complete CT of chest/abdomen/pelvis with contrast tomorrow morning before dialysis. Acute hypoxic respiratory failure, intubated October 30. - Vent settings currently:; PEEP 10 and FiO2 40%. He continues on propofol propofol and fentanyl. We have done trials off of these and patient becomes agitated.. - Most recent ABG on 11/04/2016 pH 7.332, PaCO2 37 PaO2 80.7, HCO3 19.1, at FiO2.40 PEEP 10 TV 450 RR 28 -Tube feeding with Nepro as patient has CKD and elevated phosphorous. Intrathoracic upper airway obstruction: -Vent today still shows pattern of airway collapse during breaths although this is improved. -Continue with the budesonide and duonebs scheduled. Septic shock secondary to pneumonia - Secondary to MRSA and GBS pneumonia, possible empyema based on CT abd/pelvis, high wbc/procalcitonin. U/S chest showed small loculated right pleural effusion. As patient is improving we will hold on chest CT w/o contrast (will consider again tomorrow). - ID to continue Linezolid and Metronidazole (day 2). Patient previously received Zosyn for seven days and Ceftaroline for 5 days before being stopped on (11/03/2016). - Bronchoscopy 10/30/16 and samples sent for AFB, fungal, and bacterial cultures -Viral panel on bronchial washings was negative, AFB smear x3 negative, Sputum culture 10/29/2016 + for MRSA, Group B strep. -Patient continues on Levophed .02 mcg/kg/min which is a decrease from .05mcg/kg /min on 11/03/2016. -Albumin 50g given on 11/03/2016. AKASH on CKD -Last known labwork completed on 09/02/2016: BUN 26 Cr 2.60. On 04/19/2015: Cr 1.85 - Secondary to sepsis: Creatinine on 11/04/2016 7.10 (up from 6.86 on 2015). - Continues to maintain urine output. - Nephrology consulted and appreciate the recommendations: they are to order renal ultrasound, repeat UA, urine eosinophils, iron studies panel. -Temporary dialysis catheter tomorrow with plans for dialysis tomorrow. - Continue to perform serial CMP. Hypokalemia: -Replaced with 40meq KCL Hyperphosphatemia -Phosphorous today 8.7 -Feeding tube formula switched to Nepro on 11/03/2016. -Nephrology started Fosrenol. Encephalopathy - Likely mixed metabolic encephalopathy with EtOH withdrawal -Unknown baseline. Elevated AST -.Possibly secondary to alcoholic hepatitis. -CMP in morning. Hepatitis C antibody positive - Viral load [id number]. Macrocytic Anemia, acute -Likely secondary to alcoholism. -will continue to monitor Prophylaxis: SubQ heparin PPI FULL CODE VTE Prophylaxis: SCDs Resuscitation Status: CPR: Attempt Resuscitation Attending Statement The patient was seen and examined together with Dr. Collins on 11/04/2016 and I agree with the history, exam and plan as outlined in the note above. José Miguel Collins DO Nov 04, 2016 14:30 Niranjan Marie MD Dec 05, 2016 18:16
--- NOTE | 2016-11-04 18:29 | NUR ---
SEDATION/HEMODYNAMICS/RESPIRATORY/TUBE FEEDS Patient adequately sedated at start of shift, w/ 45 mcg/kg/min of Propofol and 75 mcg/hr of Fentanyl. Attempted to wean, but patient became increasingly anxious, w/ respirations in the 40s and thrashing of his head. Increased Propofol to 50 mcg/kg/min, w/ intermittent boluses to help w/ restlessness. Levophed had to be increased to 0.03 mcg/kg/min due to sedation requirement, and low BPs, but this was slowly decreased throughout the course of the day, now at 0.02 mcg/kg/min. No changes made to the ventilator settings today, and patient has tolerated well, as long as sedation is adequate. Tube feeds advanced by 10 mL/hr, but currently on hold for temporary HD catheter placement in the morning. Will continue to monitor vitals, sedation needs and respiratory status.
[2016-11-05] VITALS (11 sets, daily range): BP systolic 91–132; BP diastolic 41–63; PULSE 70–80; RESP 25–29; O2SAT 95–98
[2016-11-05] MEDS: Chlorhexidine 0.12% 15 mL Oral Solution MT SCH ×6 (00:30→21:13)
[2016-11-05] MEDS: Propofol Inj 1,000,000 MCG in IV Premix 1 EACH IV SCH ×5 (00:53→17:13)
[2016-11-05] MEDS: Lanthanum Carbonate 500 mg Chewable Tablet TUBE SCH ×2 (01:55→08:23)
[2016-11-05] MEDS ORDERED: 0.9% Sodium Chloride 250 ML ONE (03:33)
[2016-11-05 04:49] LABS: BASOPHILS % (AUTO) 0.4 % (0-3); EOSINOPHILS % (AUTO) 6.4 % (0-5); MONOCYTES % (AUTO) 6.3 % (4-12); Mean Corpuscular Hemoglobin 31.3 pg (27.0-35.0); Mean Corpuscular Volume 99.6 fL (81-100); NEUTROPHILS % (AUTO) 76.6 % (40-74); Platelet Count 304 bil/L (150-400)
[2016-11-05 05:40] LABS: Phosphorus 8.9 mg/dL (2.5-4.9); Unsaturated Iron Binding 98.1 ug/dL
--- NOTE | 2016-11-05 05:40 | NUR ---
Vent, Sedation, Vs as noted. Continues ventilated with sats mid 90s on 40% fio2 and 10 PEEP. No desaturations through the night. Propofol and fentanyl gtts unchanged at 50mcg/kg/min and 75mcg/h. Pt arouses to open eyes to stimulation. Does not follow commands or move arms spontaneously. Levophed gtt titrated up at times for random drops in blood pressure to high 80s systolic and currently at 0.03mcg/kg/min.
[2016-11-05] MEDS: Albuterol-Ipratropium 3 mL Inhalation Solution NEB SCH ×4 (08:00→20:12)
[2016-11-05] MEDS: Budesonide 0.5 mg/2 mL Inhalation Solution NEB SCH ×2 (08:00→20:12)
[2016-11-05] MEDS: Polyethylene Glycol (PEG) 17 Gm Powder PO SCH (08:05)
[2016-11-05] MEDS: Pantoprazole 4 mg/mL 10 mL Inj IVPUSH SCH (08:22)
[2016-11-05] MEDS: Linezolid Inj 600 MG in IV Premix 1 EACH IV SCH ×2 (08:22→21:13)
[2016-11-05] MEDS: Thiamine Inj 100 MG in Dextrose 5% 50 ML IV SCH (08:22)
[2016-11-05] MEDS: Heparin 5,000 Unit/mL Inj SUBQ SCH ×2 (08:22→21:13)
[2016-11-05] MEDS: Multivit-Miner-Folic Acid-Iron Tablet PO SCH (08:23)
[2016-11-05] MEDS: metroNIDAZOLE Inj 1,000 MG in IV Premix 1 EACH IV SCH ×2 (08:23→21:13)
[2016-11-05] MEDS ORDERED: Darbepoetin Alfa 60 mCg/0.3 mL Inj SUBQ ONE (09:50)
--- NOTE | 2016-11-05 10:30 | DRSVH ---
PROCEDURE: X-RAY CHEST ONE VIEW, PORTABLE ([id number]) INDICATIONS: Vent TECHNIQUE: One view of the chest was acquired. COMPARISON: [facility], US, US CHEST PLEURAL, 11/03/2016, 12:05. [facility] , CR, XR CHEST 1VW (PORTABLE), 11/03/2016, 4:55. [facility], CR, XR CHEST 1VW (PORTABLE) , 11/04/2016, 5:42. FINDINGS: Surgical changes and devices: The endotracheal tube nasogastric tube and right IJ central line are st able in position.. Lungs and pleura: Bilateral diffuse airspace opacities appear unchanged. There is a small right pleu ral effusion and tiny left effusion. Overall, there is no significant change. No pneumothorax. Mediastinum: Mediastinal contours appear normal. Heart size is normal. Bones and chest wall: No suspicious bony lesions. Overlying soft tissues appear unremarkable. IMPRESSION: Stable chest with persistent bilateral airspace opacities consistent with pneumonia. Dictated by: Kika Crews M.D. on 11/05/2016 at 10:28 Approved by: Kika Crews M.D. on 11/05/2016 at 10:28
[2016-11-05] MEDS: fentaNYL 2,500 mCg/250 mL 2,500 MCG in IV Premix 1 EACH IV PRN (11:12)
--- NOTE | 2016-11-05 14:41 | DRSVH ---
PROCEDURE: CT CHEST, ABDOMEN AND PELVIS WITHOUT CONTRAST ([id number]) INDICATIONS: Vent, FEVERS, ARDS TECHNIQUE: After the administration of oral contrast, 5 mm thick sections acquired from the lung apices to the s ymphysis pubis. 5 mm thick coronal and sagittal reformats acquired, with additional 7 mm coronal MIP reformats through the lungs. For radiation dose reduction, the following was used: automated expos ure control, adjustment of mA and/or kV according to patient size. COMPARISON: [facility], CT, CT ABD PELVIS WO CON, 10/27/2016, 20:24. FINDINGS: Image quality: Excellent. CHEST: Lungs and pleura: Patchy bilateral pneumonia pattern, right greater than left, with what appears to b e a small subpulmonic right pleural effusion measuring approximately 1.5 cm in maximal thickness. No pleural effusions or pneumothorax. Central and peripheral airways are patent are normal in caliber. Mediastinum: Heart size is normal. No pericardial effusion. No mediastinal adenopathy by CT size c riteria. Thoracic aorta and central pulmonary arteries are normal in size. Esophagus is normal in c aliber. No hiatal hernia. Presumed nasogastric tube extends into the gastric lumen, endotracheal tu be is in normal position. Chest wall: No axillary or supraclavicular adenopathy by size criteria. Thyroid gland is not well-v isualized. ABDOMEN: Solid organs: Liver and spleen are normal in size. Gallbladder appears normal except for several sm all layering calcifications consistent with gallstones. Pancreas is normal in contours. No adrenal nodules. Both kidneys are normal in size, without hydronephrosis or nephrolithiasis on the right but there is a slight degree of hydronephrosis and hydroureter on the left but this is not associated wi th a calculus involving the course of the left ureter.. Peritoneum and bowel: Small and large bowel loops are normal in caliber and wall thickness. No free fluid or air. Nodes and vessels: No retroperitoneal or mesenteric adenopathy by size criteria. Aorta and inferior vena cava are normal in size. Miscellaneous: No ventral hernias. PELVIS: Genitourinary: Bladder wall thickness is difficult to accurately assess due to a Richardson catheter pres ent draining the bladder lumen. Miscellaneous: No inguinal hernias or adenopathy. Bones: No suspicious bony lesions. No vertebral body compression fractures. IMPRESSION: Bilateral pneumonia which appears to have worsened, right left, with reference to the ear lier comparison CT from 10/27/16. Small posterior right pleural effusion, no suspicion for empyema by appearance. Slight hydronephrosis and hydroureter appears present on the left, but without associated ureteral st one. A Richardson catheter empties the bladder lumen. Normal appendix found. Through the abdomen and pelvis no inflammatory process is found. Dictated by: Dane Disla M.D. on 11/05/2016 at 14:40 Approved by: Dane Disla M.D. on 11/05/2016 at 14:40
[2016-11-05] MEDS: Dextrose 5% 1,000 ML IV SCH (15:03)
--- NOTE | 2016-11-05 15:24 | PCM.PNMED ---
Subjective Date of Service Nov 05, 2016 Subjective no new events,remains intubated and sedated Exam Vital Signs Vital Sign - Last Date Time Temp Pulse Resp B/P Pulse Ox O2 Delivery O2 Flow Rate FiO2 11/05/16 13:00 81 98/44 95 40 11/05/16 12:30 36.8 29 Mechanical Ventilator 6.00 Intake and Output 11/04/16 11/04/16 11/05/16 Cumulative From/Thru 15:00 23:00 07:00 10/26/16 17:03 - 11/05/16 05:39 Intake Total 1797 ml 57435 ml Output Total 1200 ml 89268 ml Balance 597 ml 24941 ml Intake Oral 0 ml IV Total 1570 ml 05589 ml Tube Feeding 167 ml 934 ml Tube Irrigant 60 ml 571 ml Output Urine Total 1200 ml 72905 ml Gastric Drainage Total 575 ml # Bowel Movements 2 5 Exam sedated, vented on PRVC, no JVD, MMM, no LAD RRR, nl s1, s2 no mrg coarse BS anteriorly S,ND,NT,normoactive BS+ warm, no edema, pulses 2/2 s/p Lt BKA RIJ, leiva in place IVs and Medications Medications Reviewed: Medications were reviewed in detail Lab and Diagnostics Result Diagram: 11/05/16 0400 11/05/16 0400 X-Rays, CTs and MRIs PROCEDURE: CT ABDOMEN AND PELVIS WITHOUT CONTRAST ([id number]) IMPRESSION: 1. Bibasilar pneumonia. 2. Small loculated left pleural effusion with thickened rind, possibly indicating empyema. This is too small to safely aspirate percutaneously. 3. Cholelithiasis without evidence of cholecystitis. 4. Normal appendix. 5. Small hiatal hernia. Dictated by: Myke Gonzalez M.D. on 10/27/2016 at 20:52 Approved by: Myke Gonzalez M.D. on 10/27/2016 at 20:52 Chest x-ray on 11/03/2016: IMPRESSION: Pulmonary edema and or diffuse bilateral inflammatory process not significantly changed. Developing ARDS cannot be excluded. Dictated by: Bakari SAMANIEGO Interpreted: Ekaterina Carter MD on 11/03/2016 at 11:06 Transcribed by: NAHOMI on 11/03/2016 at 11:06 U/S lower extremity on 11/03/2016: IMPRESSION: No deep venous thrombosis identified within either the left or right lower extremities. Dictated by: Bakari SAMANIEGO Interpreted: Kika Crews MD on 11/03/2016 at 13:36 Transcribed by: RJ on 11/03/2016 at 13:36 Approved by: Kika Crews M.D. on 11/03/2016 at 13:50 U/S chest on 11/03/2016: IMPRESSION: A small loculated right pleural effusion. Dictated by: Bakari SAMANIEGO Interpreted: Kika Crews MD on 11/03/2016 at 13:36 Transcribed by: RJ on 11/03/2016 at 13:36 Approved by: Kika Crews M.D. on 11/03/2016 at 13:50 CT abd/pelvis/chest IMPRESSION: Bilateral pneumonia which appears to have worsened, right left, with reference to the earlier comparison CT from 10/27/16. Small posterior right pleural effusion, no suspicion for empyema by appearance. Slight hydronephrosis and hydroureter appears present on the left, but without associated ureteral stone. A Leiva catheter empties the bladder lumen. Normal appendix found. Through the abdomen and pelvis no inflammatory process is found. Dictated by: Dane Disla M.D. on 11/05/2016 at 14:40 Assessment & Plan Acute active and high-risk problems: # Acute respiratory failure with hypoxia -due to MRSA pneumonia /sepsis, pt was initially maintain airways with BiPAP, deteriorated 10/29-8, intubated, pt remained on vent, improved oxygenation, still large secretion. -appreciate CCU team active management with airway management, cw vent bundle, remains FULL CODE per palliative care -chest US :small loculated right pleural effusion,probably not large enough for intervention/thoracentesis -CT C/A/P 11/05 :Bilateral pneumonia which appears to have worsened, right left , with reference to the earlier comparison CT from 10/27/16. Small posterior right pleural effusion, no suspicion for empyema by appearance. # septic shock secondary to MRSA pneumonia, continues to require pressor support - high wbc/procalcitonin, MRSA+ on sputum, AFB so far ngtd, still on pressor. -appreciate ID recs on abx management, switched from zosyn, ceftaroline to linezolid/flagyl 11/03, FU finial BCX -off airborne iso as neg AFB multiple sets in sputum, bronchial lavage, Quantiferon indeterminate. -awaits chest CT which deferred initially given critical respiratory status, likely to obtain on the vent. -s/p trial of albumin per nephrology # AKASH on CKD, secondary to ATN from sepsis, resultant severe metabolic acidosis , hyperkalemia, UOP-non oligouric phase of ATN,not improving as sepsis clears. -baseline creatinine reportedly mid 2's -nephrology plans to put HD catheter and start HD soon,following volume and electrolytes closely, bicarb drip 10/26-10/29 AM acidosis resolved, also received bicarb on 10/30 as acidosis worsened -strict -I/O with leiva, daily wt, avoid renal toxin, replete K,Mg, -high phos,nephrology switched renelva to Fosenol # Encephalopathy Likely metabolic encephalopathy due to sepsis. 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 -avoid other sedatives-benzo, opioid for now # hepC ab +, newly found, viral load 185,070 dvt ppx: HSQ gi ppx famotidine full code diet: tube feeds dispo: remains in critical condition in CCU VTE Prophylaxis: SCDs Resuscitation Status: CPR: Attempt Resuscitation Campbell Vazquez MD Nov 05, 2016 15:23
--- NOTE | 2016-11-05 15:56 | ABG ---
DateTimeAnalyzed 11:40:00 -_ pH ____7.286 - 7.350 7.450 pCO2 ___36.0__ -mmHg 35.0 45.0 pO2 111 -mmHg 69.0 116 HCO3- ___16.6__ -mmol/L 22.0 26.0 ABE ___-8.8__ -mmol/L -2.0 2.0 tHb ____9.0__ -g/dL O2Hb ___95.3__ -% COHb ____0.7__ -% MetHb ____1.6__ -% sO2 ___97.5__ -% 25.0 FIO2 ___40.0__ -% PRVC 28 - PEEP ___10.0__ -cmH2O Vt __450.0__ -L Drawn By GJ - Date/Time Notified____ 11:50:00 -_ Spontaneous_RR ___28.0__ -b/min Oxygen Device 1 VENTILATOR - Notified By GJ - Notified Whom ___DR. KENDREGEN - B 760 -mmHg tO2 ___12.2__ -Vol% Sukhdev test N/A -
--- NOTE | 2016-11-05 16:01 | NUR ---
NUTRITION FOLLOW UP: ASSESS: 61 YO male admitted with confusion, weakness, falls, renal failure. Pt remains intubated. TF changed to Nepro due to elevated phosphorus. TF is currently off today for procedures, but pt was tolerating TF at goal rate of 35 ML/hr. Pt will have temp tunnel cath and be started on dialysis soon. Unclear on wt status and pt is fluid positive about 12 L but wt has decreased 8 Kg since admit. RN to look into and clarify with MD. PMHX: Chronic renal insufficiency, pre-diabetes, alcoholism, BKA LABS: Reviewed. Na 145, BUN 80, Cr 6.86, Phos 8.9, Alb 2.7. MEDS:Reviewed. Fentanyl, Pressors, Propofol @ 27 ml/hr (712 kcal/d) GI: BM x 2 (11/04) WT: 95.9 kg. IBW 70 kg, Admit Wt: 104.5 kg (question wt accuracy as wt decreasing but pt is fluid positive) DIET: NPO ENTERAL FEEDING: Nepro @ 35 mL/hr ESTIMATED NEEDS: Vent, BMI, BKA (-5% for BKA) Calories: 0552-1357 kcal/day (20-22 kcal/kg BW) Protein: 55-80 g/day (0.8-1.2 g/kg IBW) NUTRITION DIAGNOSIS: 1) Inadequate oral intake related to decreased ability to consume sufficient energy as evidenced by current NPO status --PERSISTS, BUT IMPROVED PT ON TF. NUTRITION INTERVENTION: 1) Recommend restarting TF once pt has completed his procedures today at 35 mL/hr. TF providing 1386 kcal (2098 kcal w/ propofol), 62 g protein; 2.) Will add 1 packet prosource daily to better meet pt est. needs as prosource will provide an additional 11 g protein (73 g per day) 3) Adjust goal rate daily based on daily propofol rate. 4) If pt is started on dialysis and/or dry weight is clarified, recommend re-estimating energy and protein needs and adjusting TF/prosource as needed. MONITOR/EVALUATE: NPO/Vent, enteral feeding / prosource tolerance, labs, weights, nutrition status. Follow per high nutrition risk guidelines.
--- NOTE | 2016-11-05 17:07 | PCM.PNMED ---
Subjective Date of Service Nov 05, 2016 Subjective NEPHROLOGY PROGRESS NOTE Patient continues to be in the ICU, intubated and sedated. ROS is not obtainable. Exam Vital Signs Vital Sign - Last Date Time Temp Pulse Resp B/P Pulse Ox O2 Delivery O2 Flow Rate FiO2 11/05/16 08:30 Ventilator 11/05/16 08:30 36.8 79 29 100/50 97 40 11/05/16 08:30 6.00 Intake and Output 11/04/16 11/04/16 11/05/16 Cumulative From/Thru 14:59 22:59 06:59 10/26/16 17:03 - 11/05/16 05:39 Intake Total 1797 ml 77055 ml Output Total 1200 ml 06226 ml Balance 597 ml 03873 ml Intake Oral 0 ml IV Total 1570 ml 90597 ml Tube Feeding 167 ml 934 ml Tube Irrigant 60 ml 571 ml Output Urine Total 1200 ml 35325 ml Gastric Drainage Total 575 ml # Bowel Movements 2 5 Exam GEN: sedated, intubated, restrained HEENT: sclera inacteric NECK: right IJ in place RESP: diffuse crackles and rhonchi CV: irregularly irregular rhythm ABD: obese, soft : leiva in place EXT: no edema; paralyzed psych: sedated neuro: sedated IVs and Medications Medications Reviewed: Medications were reviewed in detail Lab and Diagnostics Result Diagram: 11/05/16 0400 11/05/16 0400 X-Rays, CTs and MRIs PROCEDURE: CT ABDOMEN AND PELVIS WITHOUT CONTRAST ([id number]) IMPRESSION: 1. Bibasilar pneumonia. 2. Small loculated left pleural effusion with thickened rind, possibly indicating empyema. This is too small to safely aspirate percutaneously. 3. Cholelithiasis without evidence of cholecystitis. 4. Normal appendix. 5. Small hiatal hernia. Dictated by: Myke Gonzalez M.D. on 10/27/2016 at 20:52 Approved by: Myke Gonzalez M.D. on 10/27/2016 at 20:52 Chest x-ray on 11/03/2016: IMPRESSION: Pulmonary edema and or diffuse bilateral inflammatory process not significantly changed. Developing ARDS cannot be excluded. Dictated by: Bakari SAMANIEGO Interpreted: Ekaterina Carter MD on 11/03/2016 at 11:06 Transcribed by: NAHOMI on 11/03/2016 at 11:06 U/S lower extremity on 11/03/2016: IMPRESSION: No deep venous thrombosis identified within either the left or right lower extremities. Dictated by: Bakari SAMANIEGO Interpreted: Kika Crews MD on 11/03/2016 at 13:36 Transcribed by: RJ on 11/03/2016 at 13:36 Approved by: Kika Crews M.D. on 11/03/2016 at 13:50 U/S chest on 11/03/2016: IMPRESSION: A small loculated right pleural effusion. Dictated by: Bakari SAMANIEGO Interpreted: Kika Crews MD on 11/03/2016 at 13:36 Transcribed by: RJ on 11/03/2016 at 13:36 Approved by: Kika Crews M.D. on 11/03/2016 at 13:50 Assessment & Plan Acute kidney injury superimposed on chronic kidney disease of unknown stage -Initial thought was that this was due to due ATN, however normally in a patient with ATN one would expect oliguria or anuria -Per CCU team patient's baseline Cr is around 2 which goes back our first line of thinking. -Repeat UA unrevealing -Urine eosinophils negative -As his Cr is better today will hold off on dialysis for now and continue to monitor Severe Metabolic Acidosis secondary to AKASH, ongoing Hypernatremia, ongoing -secondary to total body water deficit -Will again restart D5W -Continue to monitor -Patient is overall 11 L up. -Reassess in AM Hyperphosphatemia -Continues to worsen. -Will switch to calcium carbonate due to difficulty with using OG tube. Hypokalemia, resolved -continue to monitor Normocytic Normochromic Anemia secondary to anemia from CKD -Aranesp 60 mg x 1 We will continue to follow along with you. VTE Prophylaxis: SCDs Resuscitation Status: CPR: Attempt Resuscitation Mahnaz Lua DO Nov 05, 2016 11:46
--- NOTE | 2016-11-05 17:21 | NUR ---
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 Pt completed OG contrast prior to transfer to CT. Restarted TF at 1600. Gradually increasing Levophed throughout the day r/t BP's 80's/40's. Levophed currently at 0.08mcg/kg. Large loose dark brown stool. HD catheter with dialysis cancelled for today. Strict Q2 turning. Vent settings remain the same. Family at bedside.
[2016-11-05] MEDS: Norepineph 8,000 mCg/250 mL NS 8,000 MCG in IV Premix 1 EACH IV SCH (18:35)
[2016-11-06] VITALS (12 sets, daily range): BP systolic 110–149; BP diastolic 53–68; PULSE 69–88; RESP 28–31; O2SAT 96–100
[2016-11-06] MEDS: Chlorhexidine 0.12% 15 mL Oral Solution MT SCH ×6 (00:30→20:11)
[2016-11-06] MEDS: Dextrose 5% 1,000 ML IV SCH ×3 (02:08→12:20)
[2016-11-06] MEDS: Propofol Inj 1,000,000 MCG in IV Premix 1 EACH IV SCH ×7 (02:09→20:30)
[2016-11-06 04:46] LABS: BASOPHILS % (AUTO) 0.6 % (0-3); EOSINOPHILS % (AUTO) 6.5 % (0-5); MONOCYTES % (AUTO) 6.3 % (4-12); Mean Corpuscular Hemoglobin 31.2 pg (27.0-35.0); Mean Corpuscular Volume 99.3 fL (81-100); NEUTROPHILS % (AUTO) 71.7 % (40-74); Platelet Count 359 bil/L (150-400)
[2016-11-06 05:18] LABS: Magnesium 2.4 mg/dL (1.6-2.6); Phosphorus 9.1 mg/dL (2.5-4.9)
--- NOTE | 2016-11-06 05:45 | NUR ---
Vent, sedation, pressors Vs as noted. Continues ventilated with sats high 90s on 40% fio2. Peek pressures on vent up to 44 while on right side and 38-39 while on left. Sedation unchanged with propofol 50mcg/kg/min and Fentanyl 75mcg/h. Pt arouses to open eyes but does not follow commands. Levophed gtt increased once to 0.07mcg/kg/min for blood pressure 90/ and map 59. Tolerating tube feeds well.
--- NOTE | 2016-11-06 05:50 | ABG ---
DateTimeAnalyzed 05:46:26 -_ pH ____7.287 - 7.350 7.450 pCO2 ___35.0__ -mmHg 35.0 45.0 pO2 113 -mmHg 70.0 100 HCO3- ___16.7__ -mmol/L 22.0 26.0 ABE ___-9.1__ -mmol/L -2.0 2.0 tHb ____9.0__ -g/dL 12.0 18.0 O2Hb ___96.8__ -% 95.0 COHb ____0.5__ -% 1.5 MetHb ____0.8__ -% 0.4 1.5 sO2 ___98.1__ -% 25.0 FIO2 ___21.0__ -% PRVC 28 - PEEP ___10.0__ -cmH2O Vt __450.0__ -L Drawn By MD - Date/Time Notified____ 05:49:00 -_ Spontaneous_RR 28 -b/min Oxygen Device 1 VENTILATOR - Notified By MD - Notified Whom RN J.HERLICKSON - B 753 -mmHg K+ ____3.0__ -mmol/L tO2 ___12.5__ -Vol% Sukhdev test N/A -
[2016-11-06] MEDS: Norepineph 8,000 mCg/250 mL NS 8,000 MCG in IV Premix 1 EACH IV SCH (06:07)
--- NOTE | 2016-11-06 07:35 | PCM.PNMED ---
Subjective Date of Service Nov 05, 2016 Subjective ICU/PULMONOLOGY PROGRESS NOTE This is a 61 year old male with history significant for alcoholism, CKD, and hepatitis c who presented on 10/26/2016 obtunded who later developed hypoxic respiratory failure, septic shock likely secondary to MRSA and group B strep pneumonia as well as ARDS. He was intubated on 10/30/2016. The patient continues to be sedated and intubated. He has been afebrile over the last 48 hours. ROS not obtainable. Exam Vital Signs Vital Sign - Last Date Time Temp Pulse Resp B/P Pulse Ox O2 Delivery O2 Flow Rate FiO2 11/05/16 08:30 Ventilator 11/05/16 08:30 36.8 79 29 100/50 97 40 11/02/16 16:30 6.00 Intake and Output 11/04/16 11/04/16 11/05/16 Cumulative From/Thru 15:00 23:00 07:00 10/26/16 17:03 - 11/05/16 05:39 Intake Total 1797 ml 53285 ml Output Total 1200 ml 80665 ml Balance 597 ml 31074 ml Intake Oral 0 ml IV Total 1570 ml 59141 ml Tube Feeding 167 ml 934 ml Tube Irrigant 60 ml 571 ml Output Urine Total 1200 ml 05342 ml Gastric Drainage Total 575 ml # Bowel Movements 2 5 Exam GEN: sedated, intubated. HEENT: sclera Anicteric NECK: right IJ in place, . RESP: Course breath sounds throughout. CV: Regular rate and rhythm. No clicks, rubs, murmurs. ABD: obese, soft : leiva in place EXT: no edema; paralyzed, Right art line. : Leiva catheter in place. psych: sedated neuro: sedated IVs and Medications Medications Reviewed: Medications were reviewed in detail Lab and Diagnostics Result Diagram: 11/05/16 0400 11/05/16 040 X-Rays, CTs and MRIs PROCEDURE: CT ABDOMEN AND PELVIS WITHOUT CONTRAST ([id number]) IMPRESSION: 1. Bibasilar pneumonia. 2. Small loculated left pleural effusion with thickened rind, possibly indicating empyema. This is too small to safely aspirate percutaneously. 3. Cholelithiasis without evidence of cholecystitis. 4. Normal appendix. 5. Small hiatal hernia. Dictated by: Myke Gonzalez M.D. on 10/27/2016 at 20:52 Approved by: Myke Gonzalez M.D. on 10/27/2016 at 20:52 Chest x-ray on 11/03/2016: IMPRESSION: Pulmonary edema and or diffuse bilateral inflammatory process not significantly changed. Developing ARDS cannot be excluded. Dictated by: Bakari SAMANIEGO Interpreted: Ekaterina Carter MD on 11/03/2016 at 11:06 Transcribed by: NAHOMI on 11/03/2016 at 11:06 U/S lower extremity on 11/03/2016: IMPRESSION: No deep venous thrombosis identified within either the left or right lower extremities. Dictated by: Bakari SAMANIEGO Interpreted: Kika Crews MD on 11/03/2016 at 13:36 Transcribed by: RJ on 11/03/2016 at 13:36 Approved by: Kika Crews M.D. on 11/03/2016 at 13:50 U/S chest on 11/03/2016: IMPRESSION: A small loculated right pleural effusion. Dictated by: Bakari SAMANIEGO Interpreted: Kika Crews MD on 11/03/2016 at 13:36 Transcribed by: RJ on 11/03/2016 at 13:36 Approved by: Kika Crews M.D. on 11/03/2016 at 13:50 U/S retroperitoneal 11/04/2016: IMPRESSION: Left renal cyst. Dictated by: Bakari SAMANIEGO Interpreted: Gaby Nixon MD on 11/04/2016 at 16: 09 Transcribed by: GAURAV on 11/04/2016 at 16:09 Approved by: Gaby Nixon M.D. on 11/04/2016 at 16:57 Assessment & Plan This is a 61 year old male with history significant for alcohol abuse, CKD, hepatitis C who presented obtunded now complicated by hypoxic respiratory failure, ARDS, and severe sepsis likely secondary to pneumonia (sputum culture grew MRSA and group b strep), and acute kidney injury. Acute Respiratory Distress Syndrome, ongoing - Pt decompensated 10/30/16 intubated by anesthesia with initial ABG's showing acidosis pH 7.1. - Attempting to keep pt as dry as possible in conjunction with nephrology -Patient is showing pattern of space on vent. U/S of LE showed no DVT. U/ S of chest showed small loculated right pleural effusion. -CT of chest w/o contrast. CT of abdomen and pelvis with oral contrast. Patient will not be dialyzed today. Acute hypoxic respiratory failure, intubated October 30. - Vent settings currently:; PEEP 10 and FiO2 40%. He continues on propofol propofol and fentanyl. We have done trials off of these and patient becomes agitated. Will again try to wean today. - Most recent ABG on 11/04/2016 pH 7.332, PaCO2 37 PaO2 80.7, HCO3 19.1, at FiO2.40 PEEP 10 TV 450 RR 28. ABG for today is pending. -Tube feeding with Nepro as patient has CKD and elevated phosphorous. Intrathoracic upper airway obstruction: -Vent today still shows pattern of airway collapse during breaths although this is improved. -Continue with the budesonide and duonebs scheduled. Septic shock secondary to pneumonia - Secondary to MRSA and GBS pneumonia, possible empyema based on CT abd/pelvis, high wbc/procalcitonin. U/S chest showed small loculated right pleural effusion. - ID to continue Linezolid and Metronidazole (day 3). Patient previously received Zosyn for seven days and Ceftaroline for 5 days before being stopped on (11/03/2016). - Bronchoscopy 10/30/16 and samples sent for AFB, fungal, and bacterial cultures -Viral panel on bronchial washings was negative, AFB smear x3 negative, Sputum culture 10/29/2016 + for MRSA, Group B strep. -Patient continues on Levophed .03 mcg/kg/min, -Albumin 50g given on 11/03/2016. AKASH on CKD -Last known labwork completed on 09/02/2016: BUN 26 Cr 2.60. On 04/19/2015: Cr 1.85 - Secondary to sepsis: Creatinine on 11/05/2016 6.86. - Continues to maintain urine output. - Nephrology consulted and appreciate the recommendations: Renal ultrasound showed left renal cyst. -Nephrology will hold on temporary dialysis catheter and HD. - Continue to perform serial CMP. Hypokalemia, resolved -Potassium on 11/05/2016 3.6. Hyperphosphatemia -Phosphorous 8.9 today. -Feeding tube formula switched to Nepro on 11/03/2016. -Nephrology started Fosrenol. Encephalopathy - Likely mixed metabolic encephalopathy with EtOH withdrawal -Unknown baseline. Elevated AST -.Possibly secondary to alcoholic hepatitis. -CMP in morning. Hepatitis C antibody positive - Viral load [id number]. Macrocytic Anemia, acute -Likely secondary to alcoholism. -will continue to monitor Prophylaxis: SubQ heparin PPI FULL CODE VTE Prophylaxis: SCDs Resuscitation Status: CPR: Attempt Resuscitation Attending Statement The patient was seen and examined together with Dr. Collins on 11/05/2016 and I agree with the history, exam and plan as outlined in the note above. José Miguel Collins DO Nov 05, 2016 10:37 Niranjan Marie MD Dec 06, 2016 12:28
[2016-11-06] MEDS: Albuterol-Ipratropium 3 mL Inhalation Solution NEB SCH ×4 (08:00→20:49)
[2016-11-06] MEDS: Budesonide 0.5 mg/2 mL Inhalation Solution NEB SCH ×2 (08:00→20:49)
[2016-11-06] MEDS: Pantoprazole 4 mg/mL 10 mL Inj IVPUSH SCH (08:06)
[2016-11-06] MEDS: Linezolid Inj 600 MG in IV Premix 1 EACH IV SCH ×2 (08:07→16:03)
[2016-11-06] MEDS: Heparin 5,000 Unit/mL Inj SUBQ SCH ×2 (08:07→20:11)
[2016-11-06] MEDS: Polyethylene Glycol (PEG) 17 Gm Powder PO SCH (08:09)
[2016-11-06] MEDS: Multivit-Miner-Folic Acid-Iron Tablet PO SCH (08:09)
[2016-11-06] MEDS ORDERED: Dexamethasone Inj 10 MG in 0.9% Sodium Chloride-Pha MIX 50 ML IV ONE (09:10)
[2016-11-06] MEDS ORDERED: Dexamethasone 10 mg/mL Inj IV ONE (09:20)
[2016-11-06] MEDS ORDERED: Lidocaine PF 2% 10 mL Inj ONE (09:24)
[2016-11-06] MEDS ORDERED: Lidocaine Topical 2% 30 mL Jelly ONE (09:24)
--- NOTE | 2016-11-06 10:05 | DRSVH ---
PROCEDURE: X-RAY CHEST ONE VIEW, PORTABLE ([id number]) INDICATIONS: Vent, ARDS TECHNIQUE: One view of the chest was acquired. COMPARISON: [facility], CR, XR CHEST 1VW (PORTABLE), 11/05/2016, 8:26. FINDINGS: Surgical changes and devices: Stable position of ETT and right IJ CVL. Nasogastric tube tip is not w ell-seen on the current exam. Lungs and pleura: Persistent interstitial and bilateral air space opacities are present no significan t change from prior examination. Trace pleural effusions. No pneumothorax. Mediastinum: Mediastinal contours appear normal. Heart size is normal. Bones and chest wall: No suspicious bony lesions. Overlying soft tissues appear unremarkable. IMPRESSION: 1. No change in persistent bilateral interstitial and airspace opacities consistent with pulmonary ed odilon and/or diffuse bilateral inflammatory process. Dictated by: Bakari Bunch [facility] Interpreted: Ekaterina Carter MD on 11/06/2016 at 10:04 Transcribed by: NAHOMI on 11/06/2016 at 10:04 Approved by: Ekaterina Carter MD, PhD on 11/06/2016 at 17:10
--- NOTE | 2016-11-06 10:08 | DRSVH ---
PROCEDURE: X-RAY CHEST ONE VIEW, PORTABLE ([id number]) INDICATIONS: Vent. TECHNIQUE: One view of the chest was acquired. COMPARISON: [facility], CR, XR CHEST 1VW (PORTABLE), 11/06/2016, 5:02. FINDINGS: Surgical changes and devices: ET tube and central venous catheter stable in position. Lungs and pleura: No pleural effusions or pneumothorax. Increasing opacification of the lungs bilate rally suspicious for pulmonary edema. Mediastinum: Mediastinal contours appear normal. Heart size is normal. Bones and chest wall: No suspicious bony lesions. Overlying soft tissues appear unremarkable. IMPRESSION: Increasing bilateral lung opacification suspicious for pulmonary edema. Developing ARDS c annot be excluded. Please correlate with clinical data. Dictated by: Ekaterina Carter MD, PhD on 11/06/2016 at 10:06 Approved by: Ekaterina Carter MD, PhD on 11/06/2016 at 10:06
--- NOTE | 2016-11-06 10:08 | PROG NOTE ---
[address] [address] PROGRESS NOTE PATIENT: MERCED HOLDER : 1955 MR#: [id number] ADMIT: 10/26/2016 JOB ID: [id number] DATE: 11/06/2016 PROBLEM: Dyspnea. SUBJECTIVE: Called emergently by Respiratory Therapy, as the patient has shown a marked deterioration in his respiratory status. Peak pressures on the ventilator have increased markedly and his respiratory rate similarly has increased. OBJECTIVE: Respiratory rate 40. Blood pressure 109/50, though then dropped to 90/45. Sedated on a ventilator. Chest had almost absent inspiratory and expiratory breath sounds. There was a very soft inspiratory sound. Peak airway pressures were 48-50. As best I could tell, plateau seemed to be in the high 20s and low 30s. However, respiratory efforts precluded any meaningful assessment. Heart tones seemed normal. Abdomen was soft. The patient was suctioned with increasing aliquots of saline. No meaningful return was obtained with some thin whitish material. Stat chest x-ray showed increased opacification scattered throughout both lung navarrete. No pneumothorax. There was increased opacification in the right lower lung field possibly due to a lobar collapse. ADDITIONAL INFORMATION: Stat chest x-ray showed bilateral infiltrates. No evidence of pneumothorax. Endotracheal tube was in good position. Suctioning catheter was passed through the endotracheal tube. The endotracheal tube was patent. Re-evaluation showed presence of bilateral breath sounds albeit diminished. Relatively clear. Still marked use of the accessory muscles. Peak airway pressures, however, were still in the mid to high 40s. Unable to really ascertain what the plateau pressure was. ASSESSMENT: Apparent upper airway obstruction, intrathoracic in location. Discussed the situation with the patient's daughters who have standing as there is no DPOA and also with the patient's brother. Explained in detail the problem and that something needed to be done expeditiously to get his breathing controlled. Outlined bronchoscopy. Risks enumerated. All questions were answered. Both the brother and the daughters all consented to proceed. Numerous other family members were present at the time. PLAN: 1. Vent change, increase inspiratory time. This resulted in peak pressures in the mid 30s. 2. Bronchoscopy. ADDITIONAL TIME SPENT: 50 minutes. Addenda added by MARILY 11/07/16 at 8:12am
[2016-11-06] MEDS: metroNIDAZOLE Inj 1,000 MG in IV Premix 1 EACH IV SCH ×2 (10:11→20:10)
[2016-11-06] MEDS ORDERED: Lidocaine PF 2% 5 mL Inhalation Solution INHALATION ONE (10:30)
--- NOTE | 2016-11-06 11:53 | ENDO ---
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 SURGEON: Niranjan Marie MD. ANESTHESIA: Patient sedated on ventilator with fentanyl and propofol. Additionally given topical lidocaine. PREOPERATIVE DIAGNOSIS: Intrathoracic upper airway obstruction. POSTOPERATIVE DIAGNOSES: 1. Intrathoracic upper airway obstruction. 2. Marked erythema and edema of lobar airways, especially left upper lobe. Additionally, there was a goodly amount of white, relatively thin secretions, almost completely obstructing some of the lower airways. FINDINGS: 1. Marked erythema and edema of the lobar bronchi, especially left upper lobe bronchus and to some extent left lower lobe bronchus. 2. A goodly amount of clear secretions diffusely. DESCRIPTION OF PROCEDURE: The patient developed marked dyspnea, was tachypneic, hyperpneic with a marked use of the accessory muscles. Stat chest x-ray did not show any evidence of pneumothorax. Bronchoscopy was being undertaken in order to evaluate the airways for patency. The patient was already on a ventilator, being sedated with fentanyl and propofol. Consent previously obtained from family having outlined bronchoscopy, its risks and benefits. Daughters who have standing consented to proceed. Approximately 4 cc of 1% lidocaine was instilled into the airway through the endotracheal tube. Respiratory therapist present to assist with monitoring the ventilator as well as the patient's respiratory status. FiO2 was increased to 100%. PEEP was left at 10. The Olympus bronchoscope was passed through the endotracheal tube. The endotracheal tube was a bit low, maybe being 2 cm above the main yanely. The main yanely was moderately erythematous but not particularly edematous. Right mainstem bronchus was patent being mildly erythematous, moderately edematous. There were a goodly amount of clear, relatively thin secretions obstructing both the bronchus intermedius as well as the right upper lobe. These were easily removed. Right upper lobe bronchus was moderately erythematous and edematous as where was the distal bronchus intermedius, right middle lobe and right lower lobe bronchi. No marked obstruction of the airway was noted other than it being moderately narrowed. The left mainstem bronchus was mildly erythematous and edematous. Again, clear but rather copious thin secretions were seen obstructing to some extent the left lower lobe and more egregiously obstructing the left upper lobe. Secretions were easily removed. Underlying mucosa was erythematous and edematous to a moderate degree in the left lower lobe, more severely in the left upper lobe. Lavage did not produce any mucus plugs in either the left or the right bronchial tree. The patient tolerated the procedure reasonably well without any particular change in pulse, blood pressure or O2 saturation. The tip of the endotracheal tube was re-identified 2-3 cm above the main yanely. It was felt to be in acceptable position. SPECIMENS: Obtained bronchial washings from the left upper lobe were sent for Gram stain, C and S, as well as so fungal smear and culture. At this point, the care of the endotracheal tube and monitoring of the respiratory status and mechanical ventilation were assumed by the respiratory therapist.
[2016-11-06] MEDS: Thiamine Inj 100 MG in Dextrose 5% 50 ML IV SCH (12:18)
[2016-11-06 12:45] LABS: APPEARANCE,URINE HAZY (CLEAR,HAZY); COLOR,URINE STRAW (YELLOW); OCCULT BLOOD,URINE MODERATE (NEGATIVE); UROBILINOGEN,URINE NORMAL (NORMAL)
--- NOTE | 2016-11-06 13:15 | PCM.PNMED ---
Subjective Date of Service Nov 06, 2016 Subjective NEPHROLOGY PROGRESS NOTE The patient continues to be intubated and sedated in the CCU. The patient is become more difficult to ventilate and had another bronchoscopy today which did not reveal any etiology. Exam Vital Signs Vital Sign - Last Date Time Temp Pulse Resp B/P Pulse Ox O2 Delivery O2 Flow Rate FiO2 11/06/16 12:24 37.6 82 30 131/61 100 Mechanical Ventilator 11/06/16 08:00 40 11/05/16 16:30 6.00 Intake and Output 11/05/16 11/05/16 11/06/16 Cumulative From/Thru 15:00 23:00 07:00 10/26/16 17:03 - 11/06/16 05:43 Intake Total 999 ml 2165 ml 40953 ml Output Total 1400 ml 1850 ml 71813 ml Balance -401 ml 315 ml 19457 ml Intake Oral 0 ml IV Total 999 ml 2165 ml 63559 ml Tube Feeding 934 ml Tube Irrigant 571 ml Output Urine Total 1400 ml 1850 ml 75478 ml Gastric Drainage Total 575 ml # Bowel Movements 5 Exam GEN: sedated, intubated, restrained HEENT: sclera inacteric NECK: right IJ in place RESP: diffuse crackles and rhonchi CV: irregularly irregular rhythm ABD: obese, soft : leiva in place EXT: no edema; paralyzed psych: sedated neuro: sedated IVs and Medications Medications Reviewed: Medications were reviewed in detail Lab and Diagnostics Result Diagram: 11/06/16 0400 11/06/16 0400 X-Rays, CTs and MRIs PROCEDURE: CT ABDOMEN AND PELVIS WITHOUT CONTRAST ([id number]) IMPRESSION: 1. Bibasilar pneumonia. 2. Small loculated left pleural effusion with thickened rind, possibly indicating empyema. This is too small to safely aspirate percutaneously. 3. Cholelithiasis without evidence of cholecystitis. 4. Normal appendix. 5. Small hiatal hernia. Dictated by: Myke Gonzalez M.D. on 10/27/2016 at 20:52 Approved by: Myke Gonzalez M.D. on 10/27/2016 at 20:52 Chest x-ray on 11/03/2016: IMPRESSION: Pulmonary edema and or diffuse bilateral inflammatory process not significantly changed. Developing ARDS cannot be excluded. Dictated by: Bakari SAMANIEGO Interpreted: Ekaterina Carter MD on 11/03/2016 at 11:06 Transcribed by: NAHOMI on 11/03/2016 at 11:06 U/S lower extremity on 11/03/2016: IMPRESSION: No deep venous thrombosis identified within either the left or right lower extremities. Dictated by: Bakari SAMANIEGO Interpreted: Kika Crews MD on 11/03/2016 at 13:36 Transcribed by: RJ on 11/03/2016 at 13:36 Approved by: Kika Crews M.D. on 11/03/2016 at 13:50 U/S chest on 11/03/2016: IMPRESSION: A small loculated right pleural effusion. Dictated by: Bakari SAMANIEGO Interpreted: Kika Crews MD on 11/03/2016 at 13:36 Transcribed by: RJ on 11/03/2016 at 13:36 Approved by: Kika Crews M.D. on 11/03/2016 at 13:50 U/S retroperitoneal 11/04/2016: IMPRESSION: Left renal cyst. Dictated by: Bakari SAMANIEGO Interpreted: Gaby Nixon MD on 11/04/2016 at 16: 09 PROCEDURE: CT CHEST, ABDOMEN AND PELVIS WITHOUT CONTRAST ([id number]) IMPRESSION: Bilateral pneumonia which appears to have worsened, right left, with reference to the earlier comparison CT from 10/27/16. Small posterior right pleural effusion, no suspicion for empyema by appearance. Slight hydronephrosis and hydroureter appears present on the left, but without associated ureteral stone. A Leiva catheter empties the bladder lumen. Normal appendix found. Through the abdomen and pelvis no inflammatory process is found. Dictated by: Dane Disla M.D. on 11/05/2016 at 14:40 Assessment & Plan Acute kidney injury superimposed on chronic kidney disease of unknown stage -due to ATN -Per CCU team patient's baseline Cr is around 2 -Repeat UA unrevealing -Urine eosinophils negative -Cr continues to worsen and in light of his worsening respiratory status will go ahead and place temporary dialysis catheter and arrange for dialysis Severe Metabolic Acidosis secondary to AKASH, ongoing -Dialysis today Hypernatremia, resolved -secondary to total body water deficit -D5W -Continue to monitor -Patient is overall 12 L up. -Reassess in AM Hyperphosphatemia -Continues to worsen. -calcium carbonate due to difficulty with using OG tube Hypokalemia, resolved -continue to monitor Normocytic Normochromic Anemia secondary to anemia from CKD -Aranesp 60 mg x 1 given -Continue to monitor We will continue to follow along with you. VTE Prophylaxis: SCDs Resuscitation Status: CPR: Attempt Resuscitation Mahnaz Lua DO Nov 06, 2016 13:15 Antonietta Sigala MD Nov 06, 2016 16:45
--- NOTE | 2016-11-06 13:26 | PCM.PROC ---
Procedure Note Date of Service: Nov 06, 2016 Pre Procedure Diagnosis: Acute kidney injury on chronic kidney disease Post Procedure Diagnosis: Acute kidney injury on chronic kidney disease Procedure: Central Venous Catheter Placement, Femoral, Zhao Catheter Provider and Dry Cleaning Checker: Attending: Dr. Sigala Resident: Dr. Lua Indication for Procedure: Dialysis Procedural Analgesia: None, patient sedated and intubated already Procedure Details: A time-out was completed verifying correct patient, procedure, site, positioning , and special equipment if applicable. The patient was placed in a dependent position appropriate for central line placement based on the vein to be cannulated. The patients right groin was prepped and draped in sterile fashion. A dual lumen Zhao catheter was introduced into the the common femoral vein using the Seldinger technique and under ultrasound guidance. The catheter was threaded smoothly over the guide wire and appropriate blood return was obtained. The vein was dilated by two dilators. Each lumen of the catheter was evacuated of air and flushed with sterile saline. The catheter was then sutured in place to the skin and a sterile dressing applied. Perfusion to the extremity distal to the point of catheter insertion was checked and found to be adequate. Dr. Alan was present for the entire procedure. Estimated Blood Loss: 5 cc Post Procedure Plan: Dialysis Mahnaz Lua DO Nov 06, 2016 13:26 Antonietta Sigala MD Nov 06, 2016 16:45
[2016-11-06] MEDS ORDERED: 0.9% Sodium Chloride 250 ML ONE (14:30)
[2016-11-06] MEDS: fentaNYL 2,500 mCg/250 mL 2,500 MCG in IV Premix 1 EACH IV PRN (14:41)
--- NOTE | 2016-11-06 15:38 | NUR ---
Respiratory /Dialysis Pt had increased work of breathing, RT was called and stated that patients autopeep was 25. MD was notified and ordered a STAT bronch. Specimens sent to lab for testing. Vent settings adjusted by RT. Dexamethasone IV administered as ordered and Lidocane 2% inhalation administered as ordered by RT. Current vent settings: 50%, 10 PEEP, 28 RR, 450TV. New dialysis cath placed to R femoral artery this morning. Pt is currently dialyzing. Expected treatment time is 3 hours.
--- NOTE | 2016-11-06 15:49 | PCM.PNMED ---
Subjective Date of Service Nov 06, 2016 Subjective respiratory status worsen today,breathing over the vent,more secretions, requiring higher FIO2,bronchoscopy shows Marked erythema and edema of lobar airways, especially left upper lobe,significant thin secretion,sent for culture, continues to require pressor support,continues to have worsening of nonoliguric renal failure with acidosis Exam Vital Signs Vital Sign - Last Date Time Temp Pulse Resp B/P Pulse Ox O2 Delivery O2 Flow Rate FiO2 11/06/16 14:49 88 11/06/16 13:29 Ventilator 11/06/16 12:45 136/58 99 50 11/06/16 12:24 37.6 30 11/05/16 16:30 6.00 Intake and Output 11/05/16 11/05/16 11/06/16 Cumulative From/Thru 15:00 23:00 07:00 10/26/16 17:03 - 11/06/16 05:43 Intake Total 999 ml 2165 ml 95393 ml Output Total 1400 ml 1850 ml 41084 ml Balance -401 ml 315 ml 64776 ml Intake Oral 0 ml IV Total 999 ml 2165 ml 66160 ml Tube Feeding 934 ml Tube Irrigant 571 ml Output Urine Total 1400 ml 1850 ml 53584 ml Gastric Drainage Total 575 ml # Bowel Movements 5 Exam sedated, vented on PRVC, no JVD, MMM, no LAD RRR, nl s1, s2 no mrg coarse BS anteriorly S,ND,NT,normoactive BS+ warm, no edema, pulses 2/2 s/p Lt BKA RIJ, leiva in place IVs and Medications Medications Reviewed: Medications were reviewed in detail Lab and Diagnostics Result Diagram: 11/06/16 0400 11/06/16 0400 X-Rays, CTs and MRIs PROCEDURE: CT ABDOMEN AND PELVIS WITHOUT CONTRAST ([id number]) IMPRESSION: 1. Bibasilar pneumonia. 2. Small loculated left pleural effusion with thickened rind, possibly indicating empyema. This is too small to safely aspirate percutaneously. 3. Cholelithiasis without evidence of cholecystitis. 4. Normal appendix. 5. Small hiatal hernia. Dictated by: Myke Gonzalez M.D. on 10/27/2016 at 20:52 Approved by: Myke Gonzalez M.D. on 10/27/2016 at 20:52 Chest x-ray on 11/03/2016: IMPRESSION: Pulmonary edema and or diffuse bilateral inflammatory process not significantly changed. Developing ARDS cannot be excluded. Dictated by: Bakari SAMANIEGO Interpreted: Ekaterina Carter MD on 11/03/2016 at 11:06 Transcribed by: NAHOMI on 11/03/2016 at 11:06 U/S lower extremity on 11/03/2016: IMPRESSION: No deep venous thrombosis identified within either the left or right lower extremities. Dictated by: Bakari SAMANIEGO Interpreted: Kika Crews MD on 11/03/2016 at 13:36 Transcribed by: RJ on 11/03/2016 at 13:36 Approved by: Kika Crews M.D. on 11/03/2016 at 13:50 U/S chest on 11/03/2016: IMPRESSION: A small loculated right pleural effusion. Dictated by: Bakari SAMANIEGO Interpreted: Kika Crews MD on 11/03/2016 at 13:36 Transcribed by: RJ on 11/03/2016 at 13:36 Approved by: Kika Crews M.D. on 11/03/2016 at 13:50 U/S retroperitoneal 11/04/2016: IMPRESSION: Left renal cyst. Dictated by: Bakari SAMANIEGO Interpreted: Gaby Nixon MD on 11/04/2016 at 16: 09 PROCEDURE: CT CHEST, ABDOMEN AND PELVIS WITHOUT CONTRAST ([id number]) IMPRESSION: Bilateral pneumonia which appears to have worsened, right left, with reference to the earlier comparison CT from 10/27/16. Small posterior right pleural effusion, no suspicion for empyema by appearance. Slight hydronephrosis and hydroureter appears present on the left, but without associated ureteral stone. A Leiva catheter empties the bladder lumen. Normal appendix found. Through the abdomen and pelvis no inflammatory process is found. Dictated by: Dane Disla M.D. on 11/05/2016 at 14:40 Assessment & Plan Acute active and high-risk problems: # Acute respiratory failure with hypoxia/ARDS -due to MRSA pneumonia /sepsis, pt was initially maintained on BiPAP, deteriorated 10/29-8, intubated, pt remained on vent, worsened oxygenation today , still large secretion. -bronchoscopy 11/06 shows Marked erythema and edema of lobar airways, especially left upper lobe,significant thin secretion,sent for analysis -appreciate CCU team active management -chest US :small loculated right pleural effusion,probably not large enough for intervention/thoracentesis -CT C/A/P 11/05 :Bilateral pneumonia which appears to have worsened, right left , with reference to the earlier comparison CT from 10/27/16. Small posterior right pleural effusion, no suspicion for empyema by appearance. -pulm planning to give a trial of dexamethasone for intrathoracic airway obstruction # septic shock secondary to MRSA pneumonia, continues to require pressor support - high wbc/procalcitonin, MRSA+ on sputum, AFB so far ngtd, still on pressor. -appreciate ID recs on abx management, switched from zosyn, ceftaroline to linezolid/flagyl 11/03, FU finial BCX -off airborne iso as neg AFB multiple sets in sputum, bronchial lavage, Quantiferon indeterminate. -awaits chest CT which deferred initially given critical respiratory status, likely to obtain on the vent. -s/p trial of albumin per nephrology -new set of blood,respiratory secretions culture sent 11/06 # AKASH on CKD, secondary to ATN from sepsis, resultant severe metabolic acidosis , hyperkalemia, UOP-non oligouric phase of ATN,not improving as sepsis clears. -baseline creatinine reportedly mid 2's -nephrology plans to put HD catheter and start HD today, -strict -I/O with leiva, daily wt, avoid renal toxin, replete K,Mg, # metabolic acidosis -due to ARF and sepsis -management as above # Encephalopathy Likely metabolic encephalopathy due to sepsis. out of window for ETOH WD, less likely CHARCOAL BURNER BEEHIVE KILN infection given rapid improvement of MS prior to intubation, no nuchal rigidity -sedated, reassess MS after extubation. # hepC ab +, newly diagnosed, viral load 185,070 dvt ppx: HSQ gi ppx famotidine full code diet: tube feeds dispo: remains in critical condition in CCU VTE Prophylaxis: SCDs Resuscitation Status: CPR: Attempt Resuscitation Campbell Vazquez MD Nov 06, 2016 15:48
--- NOTE | 2016-11-06 16:15 | DRSVH ---
PROCEDURE: US VENOUS ARM DUPLEX UNILATERAL, LEFT INDICATIONS: Swelling left upper extremity. TECHNIQUE: Real-time imaging, as well as color and pulse Doppler interrogation, was performed of the left upper extremity deep veins from the inferior neck to the antecubital fossa. COMPARISON: None. FINDINGS: The internal jugular vein, visualized portions of the subclavian vein, axillary, and brach ial veins are free of intraluminal thrombus. Where physically possible, the veins are normally compr essible. Color and pulse Doppler demonstrate normal intraluminal flow, with expected phasicity and p ulsatility. Additional scanning of the cephalic and basilic veins of the superficial system demonstr ate occlusive thrombus within the left cephalic vein in the lower arm. IMPRESSION: Occlusive thrombus within the left cephalic vein within the lower arm. Jennyfer Phan RN given results by the gold charmer at 1415 hrs. 11/06/16. Dictated by: Bakari SAMANIEGO Interpreted: Ekaterina Carter MD on 11/06/2016 at 16:14 Transcribed by: NAHOMI on 11/06/2016 at 16:14 Approved by: Ekaterina Carter MD, PhD on 11/06/2016 at 17:09
--- NOTE | 2016-11-06 16:41 | NUR ---
NUTRITION FOLLOW UP: ASSESS: 61 YO male admitted with confusion, weakness, falls, renal failure. Pt remains intubated. Pt continues to tolerate Nepro at goal rate of 35 ml/hr. Dialysis was started today. PMHX: Chronic renal insufficiency, pre-diabetes, alcoholism, BKA LABS: Reviewed. K 3.3, CO2 16, BUN 80, Cr 7.17, Glu 134, Ca 9.1, Albumin 2.7, Phos 9.1 MEDS:Reviewed. Fentanyl, Pressors, Propofol @ 33.3 ml/hr (879 kcal/d) GI: BM x 2 (11/04) WT: 96.2 kg. IBW 70 kg, Admit Wt: 104.5 kg (question wt accuracy as wt decreasing but pt is fluid positive) DIET: NPO ENTERAL FEEDING: Nepro @ 35 mL/hr + 1 packet of prosource providing 1386 kcal (2265 kcal w/ propofol), 73 g protein, meeting ~100% of est needs ESTIMATED NEEDS: Dialysis, BMI, BKA (-5% for BKA) Calories: 7052-3400 kcal/day (22-25 kcal/kg BW) Protein: 85-140 g/day (1.2-2.0 g/kg IBW) NUTRITION DIAGNOSIS: 1) Inadequate oral intake related to decreased ability to consume sufficient energy as evidenced by current NPO status --PERSISTS, BUT IMPROVED PT ON TF. NUTRITION INTERVENTION: 1) Recommend continue Nepro @ 35 ml/hr 2) Will add one more packet of prosource daily to provide 85 g/d protein, meeting 100% of est protein needs. MONITOR/EVALUATE: NPO/Vent, Dialysis, TF, labs, weights, nutrition status. Follow per high nutrition risk guidelines.
--- NOTE | 2016-11-06 18:10 | NUR ---
Dialysis note: S/P catheter placement. 3 hrs tx. 3000 ml net UF. Right femoral catheter, dsg dry and intact. Pls see DTR for VS details, cont. on Levophed. Qb 250. Heparin prime given. On vent @ 50% FiO2, with sat in the 90's. Tolerated tx. Catheter flushed, heparin dwelled and secured.
[2016-11-06] MEDS: Dexamethasone 4 mg/mL Inj IVPUSH SCH (20:10)
[2016-11-06] MEDS ORDERED: Lidocaine PF 2% 5 mL Inhalation Solution INHALATION PRN (21:30)
[2016-11-06 22:33] LABS: Magnesium 1.9 mg/dL (1.6-2.6)
[2016-11-07] VITALS (13 sets, daily range): BP systolic 94–122; BP diastolic 50–62; PULSE 63–81; RESP 28–30; O2SAT 97–100
[2016-11-07] MEDS: Linezolid Inj 600 MG in IV Premix 1 EACH IV SCH ×3 (00:15→16:09)
[2016-11-07] MEDS: Dextrose 5% 1,000 ML IV SCH ×2 (00:15→12:13)
[2016-11-07] MEDS: Propofol Inj 1,000,000 MCG in IV Premix 1 EACH IV SCH ×6 (00:15→18:20)
[2016-11-07] MEDS: Chlorhexidine 0.12% 15 mL Oral Solution MT SCH ×6 (00:15→20:46)
[2016-11-07] MEDS ORDERED: 0.9% Sodium Chloride 1,000 ML ONE (03:49)
[2016-11-07 04:34] LABS: BASOPHILS % (AUTO) 0.4 % (0-3); EOSINOPHILS % (AUTO) 0.3 % (0-5); MONOCYTES % (AUTO) 7.4 % (4-12); Mean Corpuscular Hemoglobin 31.4 pg (27.0-35.0); Mean Corpuscular Volume 96.7 fL (81-100); NEUTROPHILS % (AUTO) 82.2 % (40-74); Platelet Count 367 bil/L (150-400)
[2016-11-07 04:47] LABS: INR 0.95 ratio
[2016-11-07 05:03] LABS: Magnesium 2.1 mg/dL (1.6-2.6); Phosphorus 6.6 mg/dL (2.5-4.9)
--- NOTE | 2016-11-07 06:00 | NUR ---
Vent, Sedation Continues ventilated with sats high 90s on 40% Fio2 without desats. Peek pressures better tonight. Sedation unchanged with Fentanyl 90mcg/h and Propofol 55mcg/kg/h. Pt opens eyes to stim but does not follow commands. Tolerating tube feeds well. FMS in place with small amount liquid brown stool. Richardson cath in place with 1450ml uop. Right groin HD cath secure.
[2016-11-07] MEDS ORDERED: Potassium Chloride 20 mEq/15 mL 15mL Oral Soln PO ONE (06:55)
--- NOTE | 2016-11-07 07:42 | PCM.PNMED ---
Subjective Date of Service Nov 06, 2016 Subjective ICU/PULMONOLOGY PROGRESS NOTE This is a 61 year old male with history significant for alcoholism, CKD, and hepatitis c who presented on 10/26/2016 obtunded who later developed hypoxic respiratory failure, septic shock likely secondary to MRSA and group B strep pneumonia as well as ARDS. Patient also has Acute kidney injury. He was intubated on 10/30/2016. The patient continues to be sedated and intubated. He has signs of worsening upper airway obstruction on vent as well as metabolic acidosis. He has been afebrile over the last 72 hours. ROS not obtainable. Exam Vital Signs Vital Sign - Last Date Time Temp Pulse Resp B/P Pulse Ox O2 Delivery O2 Flow Rate FiO2 11/06/16 08:30 37.3 86 28 117/59 98 Mechanical Ventilator 11/06/16 08:00 40 11/05/16 16:30 6.00 Intake and Output 11/05/16 11/05/16 11/06/16 Cumulative From/Thru 15:00 23:00 07:00 10/26/16 17:03 - 11/06/16 05:43 Intake Total 999 ml 2165 ml 57441 ml Output Total 1400 ml 1850 ml 81407 ml Balance -401 ml 315 ml 77805 ml Intake Oral 0 ml IV Total 999 ml 2165 ml 02376 ml Tube Feeding 934 ml Tube Irrigant 571 ml Output Urine Total 1400 ml 1850 ml 82860 ml Gastric Drainage Total 575 ml # Bowel Movements 5 Exam GEN: sedated, intubated. HEENT: sclera Anicteric NECK: right IJ in place, . RESP: Course breath sounds throughout. CV: Regular rate and rhythm. No clicks, rubs, murmurs. ABD: obese, soft : leiva in place EXT: no edema; paralyzed, Right art line. : Leiva catheter in place. psych: sedated neuro: sedated IVs and Medications Medications Reviewed: Medications were reviewed in detail Lab and Diagnostics Result Diagram: 11/06/1639911/06/16399 X-Rays, CTs and MRIs PROCEDURE: CT ABDOMEN AND PELVIS WITHOUT CONTRAST ([id number]) IMPRESSION: 1. Bibasilar pneumonia. 2. Small loculated left pleural effusion with thickened rind, possibly indicating empyema. This is too small to safely aspirate percutaneously. 3. Cholelithiasis without evidence of cholecystitis. 4. Normal appendix. 5. Small hiatal hernia. Dictated by: Myke Gonzalez M.D. on 10/27/2016 at 20:52 Approved by: Myke Gonzalez M.D. on 10/27/2016 at 20:52 Chest x-ray on 11/03/2016: IMPRESSION: Pulmonary edema and or diffuse bilateral inflammatory process not significantly changed. Developing ARDS cannot be excluded. Dictated by: Bakari SAMANIEGO Interpreted: Ekaterina Carter MD on 11/03/2016 at 11:06 Transcribed by: NAHOMI on 11/03/2016 at 11:06 U/S lower extremity on 11/03/2016: IMPRESSION: No deep venous thrombosis identified within either the left or right lower extremities. Dictated by: Bakari SAMANIEGO Interpreted: Kika Crews MD on 11/03/2016 at 13:36 Transcribed by: RJ on 11/03/2016 at 13:36 Approved by: Kika Crews M.D. on 11/03/2016 at 13:50 U/S chest on 11/03/2016: IMPRESSION: A small loculated right pleural effusion. Dictated by: Bakari SAMANIEGO Interpreted: Kika Crews MD on 11/03/2016 at 13:36 Transcribed by: RJ on 11/03/2016 at 13:36 Approved by: Kika Crews M.D. on 11/03/2016 at 13:50 U/S retroperitoneal 11/04/2016: IMPRESSION: Left renal cyst. Dictated by: Bakari SAMANIEGO Interpreted: Gaby Nixon MD on 11/04/2016 at 16: 09 Transcribed by: GAURAV on 11/04/2016 at 16:09 Approved by: Gaby Nixon M.D. on 11/04/2016 at 16:57 Assessment & Plan This is a 61 year old male with history significant for alcohol abuse, CKD, hepatitis C who presented obtunded now complicated by hypoxic respiratory failure, ARDS, and severe sepsis likely secondary to pneumonia (sputum culture grew MRSA and group b strep), and acute kidney injury on chronic kidney disease: Acute Respiratory Distress Syndrome, ongoing - Pt decompensated 10/30/16 intubated by anesthesia with initial ABG's showing acidosis pH 7.1. - Attempting to keep pt as dry as possible in conjunction with nephrology -Patient is showing pattern of space on vent. U/S of LE showed no DVT. U/ S of chest showed small loculated right pleural effusion. CT of chest w/o contrast and CT of abdomen with oral contrast showed worsening bilateral pneumonia, small posterior right pleural effusion, slight hydronephrosis and hydroureter on left. Acute hypoxic respiratory failure, intubated October 30. - Vent settings currently:; PEEP 10 and FiO2 40%. He continues on propofol and fentanyl. We have done trials off of these and patient becomes agitated. Will try to decrease sedation again today and possible pressure support trial. - Most recent ABG on 11/06/2016 pH 7.287, PaCO2 35, PaO2 113, HCO3 16.7, at FiO2.40 PEEP 10 TV 450 RR 30. Shows metabolic acidosis. -Tube feeding with Nepro as patient has CKD and elevated phosphorous. Tube feeding at goal of 35. Intrathoracic upper airway obstruction: -Vent today still shows pattern of airway collapse during breaths and this is worsening. -Continue with the budesonide and Duonebs scheduled. -Will add Dexamethasone 10mg once followed by 6mg BID. Septic shock secondary to pneumonia - Secondary to MRSA and GBS pneumonia. Procalcitonin continues to be elevated althought improved. - ID to continue Linezolid and Metronidazole (day 4). Patient previously received Zosyn for seven days and Ceftaroline for 5 days before being stopped on (11/03/2016). - Bronchoscopy 10/30/16 and samples sent for AFB, fungal, and bacterial cultures -Viral panel on bronchial washings was negative, AFB smear x3 negative, Sputum culture 10/29/2016 + for MRSA, Group B strep. -Over last 24 hours patient has increased Levophed from .03 mcg/kg/min to .07 mcg/kg/min. -Albumin 50g given on 11/03/2016. -Vigileo ordered. -Additional labwork ordered to evaluate for superimposed infection including urinalysis, blood culture, sputum culture, and procalcitonin. AKASH on CKD: -Last known labwork completed on 09/02/2016: BUN 26 Cr 2.60. On 04/19/2015: Cr 1.85 - Secondary to sepsis: Creatinine on 11/06/2016 7.1. - Continues to maintain urine output. - Renal ultrasound showed left renal cyst. -Due to worsening fluid status will speak to nephrology concerning possible dialysis vs. Lasix. - Continue to perform serial CMP. Left upper extremity swelling: -Ultrasound of left upper extremity ordered. Hypokalemia, resolved -Potassium on 11/06/2016 3.3. Hyperphosphatemia -Phosphorous 9.1 today. -Feeding tube formula switched to Nepro on 11/03/2016. -If dialysis is completed today. Encephalopathy - Likely mixed metabolic encephalopathy with EtOH withdrawal -Unknown baseline. Elevated AST, resolved: -.PT/INR in am to evaluate liver function. -CMP in morning. Hepatitis C antibody positive - Viral load [id number]. Macrocytic Anemia, acute -Likely secondary to alcoholism. -will continue to monitor Prophylaxis: SubQ heparin PPI FULL CODE VTE Prophylaxis: SCDs Resuscitation Status: CPR: Attempt Resuscitation Attending Statement The patient was seen and examined together with Dr. Collins on 11/06/2016 and I agree with the history, exam and plan as outlined in the note above. José Miguel Collins DO Nov 06, 2016 11:10 Niranjan Marie MD Dec 05, 2016 18:24
[2016-11-07] MEDS: Budesonide 0.5 mg/2 mL Inhalation Solution NEB SCH ×2 (07:56→20:13)
[2016-11-07] MEDS: Albuterol-Ipratropium 3 mL Inhalation Solution NEB SCH ×4 (07:56→20:12)
[2016-11-07] MEDS ORDERED: Heparin 25K Unit/500mL 0.45 NS 25,000 UNIT in IV Premix 1 EACH IV ONE (08:15)
[2016-11-07] MEDS: Polyethylene Glycol (PEG) 17 Gm Powder PO SCH (08:30)
[2016-11-07] MEDS: Pantoprazole 4 mg/mL 10 mL Inj IVPUSH SCH (08:35)
[2016-11-07] MEDS: metroNIDAZOLE Inj 1,000 MG in IV Premix 1 EACH IV SCH ×2 (08:36→23:33)
--- NOTE | 2016-11-07 09:15 | DRSVH ---
PROCEDURE: X-RAY CHEST ONE VIEW, PORTABLE ([id number]) INDICATIONS: Vent TECHNIQUE: One view of the chest was acquired. COMPARISON: [facility], CR, XR CHEST 1VW (PORTABLE), 11/06/2016, 9:23. FINDINGS: Surgical changes and devices: Stable positioning of ETT, nasogastric tube and right IJ CVL. Lungs and pleura: Diffuse, widespread bilateral pulmonary interstitial and air space opacities are p resent similar to prior examination. No change in small pleural effusions. No pneumothorax. Mediastinum: Mediastinal contours appear normal. Heart size is normal. Bones and chest wall: No suspicious bony lesions. Overlying soft tissues appear unremarkable. IMPRESSION: 1. Stable support lines and tubes. 2. Aside from technique differences, no significant change in bilateral pulmonary opacities consisten t with pulmonary edema and/or diffuse bilateral pneumonia. Developing ARDS cannot be excluded. 3. Small bilateral pleural effusions. Dictated by: Bakari GOFFA Interpreted: Ekaterina Carter MD on 11/07/2016 at 9:14 Transcribed by: NAHOMI on 11/07/2016 at 9:14 Approved by: Ekaterina Carter MD, PhD on 11/07/2016 at 16:37
[2016-11-07] MEDS: Thiamine Inj 100 MG in Dextrose 5% 50 ML IV SCH (09:36)
[2016-11-07] MEDS: Multivit-Miner-Folic Acid-Iron Tablet PO SCH (09:36)
[2016-11-07] MEDS: Norepineph 8,000 mCg/250 mL NS 8,000 MCG in IV Premix 1 EACH IV SCH (09:38)
[2016-11-07] MEDS: Dexamethasone 4 mg/mL Inj IVPUSH SCH ×2 (09:38→20:46)
[2016-11-07] MEDS ORDERED: 0.9% Sodium Chloride 250 ML ONE (10:56)
--- NOTE | 2016-11-07 11:42 | ABG ---
DateTimeAnalyzed 11:37:00 -_ pH ____7.356 - 7.350 7.450 pCO2 ___35.7__ -mmHg 35.0 45.0 pO2 109 -mmHg 69.0 116 HCO3- ___19.5__ -mmol/L 22.0 26.0 ABE ___-4.9__ -mmol/L -2.0 2.0 tHb ___12.7__ -g/dL O2Hb ___95.5__ -% COHb ____0.7__ -% MetHb ____1.5__ -% sO2 ___97.6__ -% 25.0 FIO2 ___40.0__ -% PRVC 28 - PEEP ____9.0__ -cmH2O Vt __450.0__ -L Drawn By gj - Date/Time Notified____ 11:42:00 -_ Spontaneous_RR ___28.0__ -b/min Oxygen Device 1 VENTILATOR - Notified By gj - Notified Whom _SCHWARTZ - B 761 -mmHg tO2 ___17.1__ -Vol% Sukhdev test N/A -
[2016-11-07] MEDS: Dexmedetomidine 400 mCg/100 mL NS Premix IV SCH ×2 (12:11→21:57)
[2016-11-07] MEDS: fentaNYL 2,500 mCg/250 mL 2,500 MCG in IV Premix 1 EACH IV PRN (12:15)
--- NOTE | 2016-11-07 13:38 | PCM.PNMED ---
Subjective Date of Service Nov 07, 2016 Subjective NEPHROLOGY PROGRESS NOTE The patient continues to be in the ICU, intubated and sedated. The patient had dialysis initiated yesterday which resulted in significantly easier ventilation of the patient per the ICU team. ROS is not obtainable. Exam Vital Signs Vital Sign - Last Date Time Temp Pulse Resp B/P Pulse Ox O2 Delivery O2 Flow Rate FiO2 11/07/16 12:05 81 11/07/16 12:05 37.3 30 112/54 98 Mechanical Ventilator 40 11/05/16 16:30 6.00 Intake and Output 11/06/16 11/06/16 11/07/16 Cumulative From/Thru 15:00 23:00 07:00 10/26/16 17:03 - 11/07/16 05:21 Intake Total 2936 ml 2603 ml 47684 ml Output Total 3000 ml 2200 ml 1500 ml 16040 ml Balance -3000 ml 736 ml 1103 ml 63994 ml Intake Oral 0 ml IV Total 2548 ml 2134 ml 08545 ml Tube Feeding 358 ml 414 ml 1706 ml Tube Irrigant 30 ml 55 ml 656 ml Output Urine Total 1800 ml 1450 ml 22638 ml Stool Total 400 ml 50 ml 450 ml Gastric Drainage Total 575 ml Ultrafiltrate 3000 ml 3000 ml # Bowel Movements 1 6 Exam GEN: sedated, intubated, restrained HEENT: sclera inacteric NECK: right IJ in place RESP: diffuse crackles and rhonchi CV: irregularly irregular rhythm ABD: obese, soft : leiva in place, R femoral Zhao catheter in place EXT: no edema; paralyzed psych: sedated neuro: sedated IVs and Medications Medications Reviewed: Medications were reviewed in detail Lab and Diagnostics Result Diagram: 11/07/16 0400 11/07/16 0400 X-Rays, CTs and MRIs PROCEDURE: CT ABDOMEN AND PELVIS WITHOUT CONTRAST ([id number]) IMPRESSION: 1. Bibasilar pneumonia. 2. Small loculated left pleural effusion with thickened rind, possibly indicating empyema. This is too small to safely aspirate percutaneously. 3. Cholelithiasis without evidence of cholecystitis. 4. Normal appendix. 5. Small hiatal hernia. Dictated by: Myke Gonzalez M.D. on 10/27/2016 at 20:52 Approved by: Myke Gonzalez M.D. on 10/27/2016 at 20:52 Chest x-ray on 11/03/2016: IMPRESSION: Pulmonary edema and or diffuse bilateral inflammatory process not significantly changed. Developing ARDS cannot be excluded. Dictated by: Bakari SAMANIEGO Interpreted: Ekaterina Carter MD on 11/03/2016 at 11:06 Transcribed by: NAHOMI on 11/03/2016 at 11:06 U/S lower extremity on 11/03/2016: IMPRESSION: No deep venous thrombosis identified within either the left or right lower extremities. Dictated by: Bakari SAMANIEGO Interpreted: Kika Crews MD on 11/03/2016 at 13:36 Transcribed by: RJ on 11/03/2016 at 13:36 Approved by: Kika Crews M.D. on 11/03/2016 at 13:50 U/S chest on 11/03/2016: IMPRESSION: A small loculated right pleural effusion. Dictated by: Bakari SAMANIEGO Interpreted: Kika Crews MD on 11/03/2016 at 13:36 Transcribed by: RJ on 11/03/2016 at 13:36 Approved by: Kika Crews M.D. on 11/03/2016 at 13:50 U/S retroperitoneal 11/04/2016: IMPRESSION: Left renal cyst. Dictated by: Bakari SAMANIEGO Interpreted: Gaby Nixon MD on 11/04/2016 at 16: 09 Transcribed by: GAURAV on 11/04/2016 at 16:09 Approved by: Gaby Nixon M.D. on 11/04/2016 at 16:57 Assessment & Plan Acute kidney injury superimposed on chronic kidney disease of unknown stage -due to ATN -Per CCU team patient's baseline Cr is around 2 -Dialysis initiated yesterday with good response -patient much more easy to ventilate today per CCU team -plan to dialyze again today and again tomorrow -plan to dialyze up to 3 L given blood pressure tolerance. -patient is overall 11 L up still Severe Metabolic Acidosis secondary to AKASH, resolved Hypervolemic Hypernatremia, resolved -secondary to total body water deficit -D5W stopped -Continue to monitor -Patient is overall 11 L up. -Reassess in AM Hyperphosphatemia -improved with dialysis. -calcium carbonate Hypokalemia Normocytic Normochromic Anemia secondary to anemia from CKD -Aranesp 60 mg x 1 given -Continue to monitor We will continue to follow along with you. VTE Prophylaxis: SCDs Resuscitation Status: CPR: Attempt Resuscitation Mahnaz Lua DO Nov 07, 2016 13:38
--- NOTE | 2016-11-07 15:23 | PCM.PNMED ---
Subjective Date of Service Nov 07, 2016 Subjective breathing and O 2 requirement unchanged,started on HD yesterday 11/06,removed 3 L ,he also had UOP 3.5L/24h.balance -2L,having diarrhea,c.dif sent.continues to require pressor .JACEY cephalic vein clot noted,initially started on heparin drip and stopped by ICU team Exam Vital Signs Vital Sign - Last Date Time Temp Pulse Resp B/P Pulse Ox O2 Delivery O2 Flow Rate FiO2 11/07/16 13:00 74 113/55 99 40 11/07/16 12:05 37.3 30 Mechanical Ventilator 11/05/16 16:30 6.00 Intake and Output 11/06/16 11/06/16 11/07/16 Cumulative From/Thru 15:00 23:00 07:00 10/26/16 17:03 - 11/07/16 05:21 Intake Total 2936 ml 2603 ml 96858 ml Output Total 3000 ml 2200 ml 1500 ml 40294 ml Balance -3000 ml 736 ml 1103 ml 90079 ml Intake Oral 0 ml IV Total 2548 ml 2134 ml 82935 ml Tube Feeding 358 ml 414 ml 1706 ml Tube Irrigant 30 ml 55 ml 656 ml Output Urine Total 1800 ml 1450 ml 98196 ml Stool Total 400 ml 50 ml 450 ml Gastric Drainage Total 575 ml Ultrafiltrate 3000 ml 3000 ml # Bowel Movements 1 6 Exam GEN: sedated, intubated.responds to pain,moves all extremities to pain HEENT: sclera Anicteric NECK: right IJ in place, . RESP: Course breath sounds throughout. CV: Regular rate and rhythm. No clicks, rubs, murmurs. ABD: obese, soft,flexseal in place with watery diarrhea : leiva in place EXT: no edema; paralyzed, Right art line. : Leiva catheter in place. psych: sedated neuro: sedated IVs and Medications Medications Reviewed: Medications were reviewed in detail Lab and Diagnostics Result Diagram: 11/07/1639911/07/16399 X-Rays, CTs and MRIs PROCEDURE: CT ABDOMEN AND PELVIS WITHOUT CONTRAST ([id number]) IMPRESSION: 1. Bibasilar pneumonia. 2. Small loculated left pleural effusion with thickened rind, possibly indicating empyema. This is too small to safely aspirate percutaneously. 3. Cholelithiasis without evidence of cholecystitis. 4. Normal appendix. 5. Small hiatal hernia. Dictated by: Myke Gonzalez M.D. on 10/27/2016 at 20:52 Approved by: Myke Gonzalez M.D. on 10/27/2016 at 20:52 Chest x-ray on 11/03/2016: IMPRESSION: Pulmonary edema and or diffuse bilateral inflammatory process not significantly changed. Developing ARDS cannot be excluded. Dictated by: Bakari SAMANIEGO Interpreted: Ekaterina Carter MD on 11/03/2016 at 11:06 Transcribed by: NAHOMI on 11/03/2016 at 11:06 U/S lower extremity on 11/03/2016: IMPRESSION: No deep venous thrombosis identified within either the left or right lower extremities. Dictated by: Bakari SAMANIEGO Interpreted: Kika Crews MD on 11/03/2016 at 13:36 Transcribed by: RJ on 11/03/2016 at 13:36 Approved by: Kika Crews M.D. on 11/03/2016 at 13:50 U/S chest on 11/03/2016: IMPRESSION: A small loculated right pleural effusion. Dictated by: Bakari SAMANIEGO Interpreted: Kika Crews MD on 11/03/2016 at 13:36 Transcribed by: RJ on 11/03/2016 at 13:36 Approved by: Kika Crews M.D. on 11/03/2016 at 13:50 U/S retroperitoneal 11/04/2016: IMPRESSION: Left renal cyst. Dictated by: Bakari SAMANIEGO Interpreted: Gaby Nixon MD on 11/04/2016 at 16: 09 Transcribed by: GAURAV on 11/04/2016 at 16:09 Approved by: Gaby Nixon M.D. on 11/04/2016 at 16:57 Assessment & Plan # Acute respiratory failure with hypoxia/ARDS -due to MRSA pneumonia /sepsis, pt was initially maintained on BiPAP, deteriorated 10/29-, intubated, pt remained on vent, worsened oxygenation today , still large secretion. -bronchoscopy 11/06 shows Marked erythema and edema of lobar airways, especially left upper lobe,significant thin secretion,sent for analysis -appreciate CCU team active management -chest US :small loculated right pleural effusion,probably not large enough for intervention/thoracentesis -CT C/A/P 11/05 :Bilateral pneumonia which appears to have worsened, right left , with reference to the earlier comparison CT from 10/27/16. Small posterior right pleural effusion, no suspicion for empyema by appearance. -on dexamethasone 6mg iv bid for intrathoracic airway obstruction -dialysis initiated and hopefully will help with weaning vent ,pulm trying to wean PEEP and eventually wean vent # septic shock secondary to MRSA pneumonia, continues to require pressor support - high wbc/procalcitonin, MRSA+ on sputum, AFB so far ngtd, still on pressor. -appreciate ID recs on abx management, switched from zosyn, ceftaroline to linezolid/flagyl 11/03, repeat BCX sent on 11/06,will follow up -off airborne iso as neg AFB multiple sets in sputum, bronchial lavage, Quantiferon indeterminate. -new set of blood,respiratory secretions culture sent 11/06 # AKASH on CKD, secondary to ATN from sepsis, resultant severe metabolic acidosis , hyperkalemia, UOP-non oligouric phase of ATN -baseline creatinine reportedly mid 2's -started on HD 11/06,he also had UOP of 3.5L /24h,will get HD today again -strict -I/O with leiva, daily wt, avoid renal toxin, replete K,Mg, # metabolic acidosis -due to ARF and sepsis -management as above # LUE swelling -due to cepahlic vein thrombosis -no indication fo Ac,continue to monitor -heparin ppx # Encephalopathy -metabolic encephalopathy due to sepsis. # watery diarrhea -c.dif pending # hepC ab +, newly diagnosed, viral load 185,070 # Hyperphosphatemia -improved with dialysis. -calcium carbonate # Normocytic Normochromic Anemia secondary to anemia from CKD -Aranesp 60 mg x 1 given -Continue to monitor VTE Prophylaxis: SCDs Resuscitation Status: CPR: Attempt Resuscitation Campbell Vazquez MD Nov 07, 2016 15:23
--- NOTE | 2016-11-07 17:25 | NUR ---
Social Work: Continued Discharge Planning D: Pt discussed in CCU rounds. Pt remains on the vent with no anticipated time for possible extubation. Pt was started on hemodialysis yesterday. Pt tolerating tube feeds. A: Pt who previously was I. P: MEDICAL LABORATORY SCIENTIST continues to follow along with pt's care and will assist with safe discharge planning once pt is extubated and appropriate for assessment. JANELLE Braxton
--- NOTE | 2016-11-07 18:48 | NUR ---
Sedation After consulting with attending wafer machine operator patient was started on Precedex drip late morning. After about 1.5h propofol and fentanyl drips were gradually decreased please refer to CCU flow sheet for drip titrations details. On previous days with attempts to decrease sedation and pain IV medication patient would became agitated with increased peek pressures and unable to breath in synchronized manner with his ventilator. Patient remained stable and did not become agitated so far today- continue assessment.
[2016-11-07] MEDS: Heparin 5,000 Unit/mL Inj SUBQ SCH (20:46)
--- NOTE | 2016-11-07 23:20 | NUR ---
Dialysis note: 3 1/2 hrs tx. 2000 ml net UF. Right femoral catheter, dsg dry and intact. Pls see DTR for VS details, cont. on Norepi gtt. Qb 300. Heparin prime given. On vent @ 40% FiO2, with sat in the 90's. Tolerated tx. Catheter flushed, heparin dwelled and secured.
[2016-11-08] VITALS (12 sets, daily range): BP systolic 93–132; BP diastolic 45–66; PULSE 61–72; RESP 24–28; O2SAT 96–99
[2016-11-08] MEDS: Propofol Inj 1,000,000 MCG in IV Premix 1 EACH IV SCH ×5 (01:17→23:46)
[2016-11-08] MEDS: Linezolid Inj 600 MG in IV Premix 1 EACH IV SCH ×3 (01:19→16:29)
[2016-11-08] MEDS: Chlorhexidine 0.12% 15 mL Oral Solution MT SCH ×6 (01:19→20:42)
--- NOTE | 2016-11-08 03:13 | NUR ---
P) Cardiac/Respiratory/fever/GI Pt.'s cardiac rhythm sinus with an intermittent IVCD, Lungs with coarse breath sounds, suctioning clear to white phlegm from ET tube. Pt. with moderate fever tonight, T-max so far 37.6c orally. Tolerating tube feeding well with minimal residuals, continues with very runny diarrhea, loose and brown, FMS in place. I) Passive cooling measures, turning q2h, and floating heels. Pt. tracking with eyes but not following commands, verbal reorientation seems to calm him somewhat. E) Currently resting quietly with eyes closed.
[2016-11-08 04:48] LABS: BASOPHILS % (AUTO) 0.6 % (0-3); EOSINOPHILS % (AUTO) 0.6 % (0-5); MONOCYTES % (AUTO) 6.3 % (4-12); Mean Corpuscular Hemoglobin 31.5 pg (27.0-35.0); Mean Corpuscular Volume 97.8 fL (81-100); NEUTROPHILS % (AUTO) 78.4 % (40-74); Platelet Count 365 bil/L (150-400)
[2016-11-08 05:11] LABS: Magnesium 1.8 mg/dL (1.6-2.6); Phosphorus 3.7 mg/dL (2.5-4.9)
--- NOTE | 2016-11-08 05:51 | ABG ---
DateTimeAnalyzed 05:47:00 -_ pH ____7.450 - 7.350 7.450 pCO2 ___34.9__ -mmHg 35.0 45.0 pO2 ___96.8__ -mmHg 69.0 116 HCO3- ___23.9__ -mmol/L 22.0 26.0 ABE ____0.6__ -mmol/L -2.0 2.0 tHb ____8.9__ -g/dL O2Hb ___95.3__ -% COHb ____1.0__ -% MetHb ____1.3__ -% sO2 ___97.5__ -% 25.0 FIO2 ___40.0__ -% PEEP ____9.0__ -cmH2O Set_RR ___28.0__ -b/min Vt __450.0__ -L Drawn By af - Date/Time Notified____ 05:51:00 -_ Spontaneous_RR ___30.0__ -b/min Oxygen Device 1 VENTILATOR - Notified By af - Notified Whom ____nurse - B 765 -mmHg tO2 ___12.1__ -Vol% Sukhdev test N/A -
--- NOTE | 2016-11-08 07:53 | DRSVH ---
PROCEDURE: X-RAY CHEST ONE VIEW, PORTABLE ([id number]) INDICATIONS: Vent TECHNIQUE: One view of the chest was acquired. COMPARISON: [facility], CR, XR CHEST 1VW (PORTABLE), 11/07/2016, 2:00. FINDINGS: Surgical changes and devices: Endotracheal tube, right-sided central venous catheter are unchanged. Lungs and pleura: There are persistent bilateral opacities more prominent in the right base without s ignificant interval change. There is blunting of the left costophrenic angle, unchanged. Mediastinum: Mediastinal contours appear normal. Heart size is normal. Bones and chest wall: No suspicious bony lesions. Overlying soft tissues appear unremarkable. IMPRESSION: Stable appearance of bibasilar opacities more prominent in the right as well as trace lef t effusion. Opacities are suggestive of focal edema versus pneumonia. Dictated by: Gaby Nixon M.D. on 11/08/2016 at 7:51 Approved by: Gaby Nixon M.D. on 11/08/2016 at 7:51
[2016-11-08] MEDS: Albuterol-Ipratropium 3 mL Inhalation Solution NEB SCH ×4 (08:00→20:51)
[2016-11-08] MEDS: Heparin 5,000 Unit/mL Inj SUBQ SCH ×2 (08:01→20:43)
[2016-11-08] MEDS: Pantoprazole 4 mg/mL 10 mL Inj IVPUSH SCH (08:01)
[2016-11-08] MEDS: Dexamethasone 4 mg/mL Inj IVPUSH SCH ×2 (08:01→20:42)
[2016-11-08] MEDS: Thiamine Inj 100 MG in Dextrose 5% 50 ML IV SCH (08:02)
[2016-11-08] MEDS: metroNIDAZOLE Inj 1,000 MG in IV Premix 1 EACH IV SCH ×2 (08:02→20:42)
[2016-11-08] MEDS: Polyethylene Glycol (PEG) 17 Gm Powder PO SCH (08:02)
[2016-11-08] MEDS: Multivit-Miner-Folic Acid-Iron Tablet PO SCH (08:03)
[2016-11-08] MEDS: Dexmedetomidine 400 mCg/100 mL NS Premix IV SCH ×2 (08:04→14:40)
[2016-11-08] MEDS: Insulin Human REGular 300 Unit/3 mL Inj SUBQ SCH ×3 (08:06→20:45)
[2016-11-08] MEDS: Budesonide 0.5 mg/2 mL Inhalation Solution NEB SCH ×2 (08:27→20:51)
[2016-11-08] MEDS ORDERED: Potassium Chloride 20 mEq/15 mL 15mL Oral Soln PO ONE ×2 (08:35→17:00)
--- NOTE | 2016-11-08 10:23 | NUR ---
NUTRITION FOLLOW UP: ASSESS: 61 YO male admitted with confusion, weakness, falls, renal failure. Pt remains intubated with acute respiratory failure with hypoxia/ARDS due to MRSA pneumonia /sepsis. Pt. was initially maintained on BiPAP, deteriorated 10/29-, intubated. Oxygenation not improved, with large amounts of secretions. Bronchoscopy 11/06 shows marked erythema and edema of lobar airways, especially left upper lobe. Pt continues to tolerate enteral feeding at goal rate; dialysis initiated 11/06. Nutrient needs recalculated today due to increased needs. PMHX: Chronic renal insufficiency, pre-diabetes, alcoholism, BKA. LABS: Reviewed. K+ 3.2, BUN 32, Cr 2.73, Glu 211, Alb 2.9. MEDS:Reviewed. Insulin, Precedex, Norepi, thiamine, MVI. Propofol rate decreasing; currently 25 ml/hr, providing 660 lipid kcal. GI: Watery diarrhea reported today via FMS. WT: 91.3 kg, BMI 30.0 kg/m2. IBW 70 kg, Admit Wt: 104.5 kg. Fluid status questionable. DIET: NPO . ENTERAL FEEDING: Nepro @ 35 mL/hr + 2 packets of ProSource providing 1386 kcal (2046 kcal w/ propofol), 84 g protein, meeting low end of nutrient needs. ESTIMATED NEEDS: Dialysis, BMI, BKA (-5% for BKA): Calories: 2169 - 2602 kcal/day (25 - 30 kcal/kg BW) Protein: 85-140 g/day (1.2-2.0 g/kg IBW) NUTRITION DIAGNOSIS: 1) Inadequate oral intake related to decreased ability to consume sufficient energy as evidenced by current NPO / vent status - IMPROVED WITH ENTERAL FEEDING. NUTRITION INTERVENTION: 1) Recommend advance goal rate enteral feeding to 40 ml/hr and increase liquid protein to 3 packets per day, providing 1584 kcal (2244 with propofol), 104 g protein, sufficient to meet mid-range nutrient needs. MONITOR/EVALUATE: NPO/Vent status, Dialysis status, enteral feeding advance / tolerance, labs, weights, nutrition status. Follow per high nutrition risk guidelines.
--- NOTE | 2016-11-08 13:04 | PROG NOTE ---
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 Hypoxemic respiratory failure. 2. Pneumonia with MRSA and beta Streptococcus group B. 3. Acute on chronic renal failure. 4. Agitation. 5. Hypokalemia. 6. Hepatitis C. 7. ARDS. 8. Intrathoracic upper airway obstruction. 9. Alcohol abuse. SUBJECTIVE: None. OBJECTIVE: Temperature 37.4 with T-max being 37.6, pulse of 60 to 72, respiratory rate at 24-28 with ventilator set at 24, blood pressure 112/56 though has been as low as 93/49, O2 sat on FiO2 of 40%, PEEP of 9 is 98%. I and O shows 2.3 liters in, urine output 1 L, ultrafiltrate 2 L. General appearance: Seems awake. Eyes open. Nursing indicates he is agitated during oral care. Chest with fair breath sounds bilaterally. A few scattered crackles. Somewhat diminished breath sounds at the left base laterally. With a tidal volume of 450, rate of 28, peak inspiratory pressure 32, plateau 21. Unable to register PEEP. Heart: Somewhat distant tones. Heart tones seem normal. Abdomen is soft. A few bowel tones noted. Soft. Nondistended. Extremities: No pretibial edema. LABORATORY DATA: [place] [address], with a moderate neutrophilia. Hemoglobin 8.6 and stable. Platelet count 365,000 and stable. Sodium 140, potassium 3.2 being monitored by the renal service. Chloride 102, CO2 is 23, BUN down to 32, creatinine down to 2.7. Calcium 8.7, phosphorus 3.7, magnesium 1.8. Transaminases are normal. Total protein 7, albumin 2.9. Bronchoscopy washings of November 06, 2016 show moderate polys. Scant normal amalia. Blood cultures negative x24 hours x2. Stool for occult blood negative. C. difficile pending. Chest x-ray pretty much unchanged. Tubes in good position. There are bilateral interstitial infiltrates throughout both lung navarrete, maybe more prominent at the right base. Arterial blood gases on FiO2 of 40%, PEEP of 9, respiratory rate set at 24, with the patient breathing at 28, at a tidal volume of 450 shows a pO2 of 96, pCO2 of 34, pH of 7.45. It was at that time that the respiratory rate was decreased to 24, though the patient continues to breathe at about 28. Flow volume loop continues to show the expiratory airway to be patent at a PEEP of 9, whereas it seems to have dynamic compression with obstruction at a PEEP of 8. ASSESSMENT: 1. Acute respiratory distress syndrome secondary to pneumonia. Pneumonia seems to be improving. Two repeat cultures of the lung have not shown any evidence of persistence of the infection or superimposed superinfection. Continues to have problems with his lung. Doing better with the dialysis as they have taken off 5 L in the past two days and he continues to urinate. We will continue the removal of fluid. Still with some increased interstitial markings. Whether due to fluid or whether due to infection is unclear. Bronchoscopy shows polys persisting in the bronchoscopy washings, moderate in quantity. No evidence of improvement in the airway. We have been able to take the PEEP down from 14 to the current level of 9; however, still having problems. Hopefully with the continuation of the steroids, which have induced hyperglycemia, along with removal of fluid, that will resolve itself. 2. Intrathoracic upper airway obstruction. As above. 3. Renal failure. Dialysis is progressing. Taking off fluid. Parameters showing good response to dialysis. 4. Enteral feeding continues apace. No particular problems. 5. Hyperglycemia induced by the dexamethasone. Insulin has been added to his regimen. 6. Hypokalemia. Will leave that to the renal folks as he will be getting dialysis again today. That can be repleted according to their wishes. 7. Agitation. Seemingly doing better. He at least is not fighting us continuously. Does respond aggressively to interventions but overall doing reasonably well with the dexmedetomidine and being able to lower the propofol. Will continue this regimen for the moment, hopefully being able to lower the propofol and maybe raise the dexmedetomidine as the day progresses. PLAN: 1. Continue current regimen. 2. Potassium repletion. 3. Insulin. TIME: Time spent so far in critical care 42 minutes.
--- NOTE | 2016-11-08 13:35 | PCM.PNMED ---
Subjective Date of Service Nov 08, 2016 Subjective HD x2, BP is on the low side. K 3.2. respiratory status has improved with HD. Exam Vital Signs Vital Sign - Last Date Time Temp Pulse Resp B/P Pulse Ox O2 Delivery O2 Flow Rate FiO2 11/08/16 12:02 71 95/45 98 40 11/08/16 11:37 37.3 27 Mechanical Ventilator 11/05/16 16:30 6.00 Intake and Output 11/07/16 11/07/16 11/08/16 Cumulative From/Thru 15:00 23:00 07:00 10/26/16 17:03 - 11/08/16 06:45 Intake Total 2152 ml 2312 ml 05957 ml Output Total 3850 ml 1425 ml 91075 ml Balance -1698 ml 887 ml 53371 ml Intake Oral 0 ml IV Total 1550 ml 1648 ml 48174 ml Tube Feeding 372 ml 484 ml 2562 ml Tube Irrigant 230 ml 180 ml 1066 ml Output Urine Total 1600 ml 1075 ml 51588 ml Stool Total 250 ml 350 ml 1050 ml Gastric Drainage Total 575 ml Ultrafiltrate 2000 ml 5000 ml # Bowel Movements 6 Exam GEN: sedated, intubated, restrained HEENT: sclera inacteric NECK: right IJ in place RESP: diffuse crackles and rhonchi CV: irregularly irregular rhythm ABD: obese, soft : leiva in place, R femoral Zhao catheter in place EXT: no edema; paralyzed psych: sedated neuro: sedated Lab and Diagnostics Result Diagram: 11/08/16 0420 11/08/16 0420 X-Rays, CTs and MRIs PROCEDURE: CT ABDOMEN AND PELVIS WITHOUT CONTRAST ([id number]) IMPRESSION: 1. Bibasilar pneumonia. 2. Small loculated left pleural effusion with thickened rind, possibly indicating empyema. This is too small to safely aspirate percutaneously. 3. Cholelithiasis without evidence of cholecystitis. 4. Normal appendix. 5. Small hiatal hernia. Dictated by: Myke Gonzalez M.D. on 10/27/2016 at 20:52 Approved by: Myke Gonzalez M.D. on 10/27/2016 at 20:52 Chest x-ray on 11/03/2016: IMPRESSION: Pulmonary edema and or diffuse bilateral inflammatory process not significantly changed. Developing ARDS cannot be excluded. Dictated by: Bakari SAMANIEGO Interpreted: Ekaterina Carter MD on 11/03/2016 at 11:06 Transcribed by: NAHOMI on 11/03/2016 at 11:06 U/S lower extremity on 11/03/2016: IMPRESSION: No deep venous thrombosis identified within either the left or right lower extremities. Dictated by: Bakari SAMANIEGO Interpreted: Kika Crews MD on 11/03/2016 at 13:36 Transcribed by: RJ on 11/03/2016 at 13:36 Approved by: Kika Crews M.D. on 11/03/2016 at 13:50 U/S chest on 11/03/2016: IMPRESSION: A small loculated right pleural effusion. Dictated by: Bakari SAMANIEGO Interpreted: Kika Crews MD on 11/03/2016 at 13:36 Transcribed by: RJ on 11/03/2016 at 13:36 Approved by: Kika Crews M.D. on 11/03/2016 at 13:50 U/S retroperitoneal 11/04/2016: IMPRESSION: Left renal cyst. Dictated by: Bakari SAMANIEGO Interpreted: Gaby Nixon MD on 11/04/2016 at 16: 09 Transcribed by: GAURAV on 11/04/2016 at 16:09 Approved by: Gaby Nixon M.D. on 11/04/2016 at 16:57 Assessment & Plan 1. Acute kidney injury superimposed on chronic kidney disease of unknown stage - due to ATN. - HD x 2, stable. 2. Severe Metabolic Acidosis secondary to AKASH, resolved 3. Hyperphosphatemia -improved with dialysis. -calcium carbonate 4. Hypokalemia Normocytic Normochromic Anemia secondary to anemia from CKD -Aranesp 60 mg x 1 given -Continue to monitor Plan: hold HD today, rec KCL solution 40 meq BID. repeat BMP. will reassess the need for HD on the daily basis. VTE Prophylaxis: SCDs Resuscitation Status: CPR: Attempt Resuscitation nAtonietta Sigala MD Nov 08, 2016 13:35
--- NOTE | 2016-11-08 13:53 | PCM.PNMED ---
Subjective Date of Service Nov 08, 2016 Subjective breathing and O 2 requirement unchanged,started on HD 11/06,removed 5 L in 2 days ,he also had UOP 3L/24h.balance -595,having diarrhea,c.dif negative.continues to require pressor .started on Dexmedetomidine ,lowering propofol rate to 25, continued on fentanyl 60 Exam Vital Signs Vital Sign - Last Date Time Temp Pulse Resp B/P Pulse Ox O2 Delivery O2 Flow Rate FiO2 11/08/16 12:02 71 95/45 98 40 11/08/16 11:37 37.3 27 Mechanical Ventilator 11/05/16 16:30 6.00 Intake and Output 11/07/16 11/07/16 11/08/16 Cumulative From/Thru 15:00 23:00 07:00 10/26/16 17:03 - 11/08/16 06:45 Intake Total 2152 ml 2312 ml 41407 ml Output Total 3850 ml 1425 ml 13249 ml Balance -1698 ml 887 ml 75694 ml Intake Oral 0 ml IV Total 1550 ml 1648 ml 98758 ml Tube Feeding 372 ml 484 ml 2562 ml Tube Irrigant 230 ml 180 ml 1066 ml Output Urine Total 1600 ml 1075 ml 24440 ml Stool Total 250 ml 350 ml 1050 ml Gastric Drainage Total 575 ml Ultrafiltrate 2000 ml 5000 ml # Bowel Movements 6 Exam GEN: sedated, intubated.responds to pain,moves all extremities to pain HEENT: sclera Anicteric NECK: right IJ in place, . RESP: Course breath sounds throughout. CV: Regular rate and rhythm. No clicks, rubs, murmurs. ABD: obese, soft,flexseal in place with watery diarrhea : leiva in place EXT: no edema; paralyzed, Right art line. : Leiva catheter in place. psych: sedated neuro: sedated IVs and Medications Medications Reviewed: Medications were reviewed in detail Lab and Diagnostics Result Diagram: 11/08/1641911/08/16419 X-Rays, CTs and MRIs PROCEDURE: CT ABDOMEN AND PELVIS WITHOUT CONTRAST ([id number]) IMPRESSION: 1. Bibasilar pneumonia. 2. Small loculated left pleural effusion with thickened rind, possibly indicating empyema. This is too small to safely aspirate percutaneously. 3. Cholelithiasis without evidence of cholecystitis. 4. Normal appendix. 5. Small hiatal hernia. Dictated by: Myke Gonzalez M.D. on 10/27/2016 at 20:52 Approved by: Myke Gonzalez M.D. on 10/27/2016 at 20:52 Chest x-ray on 11/03/2016: IMPRESSION: Pulmonary edema and or diffuse bilateral inflammatory process not significantly changed. Developing ARDS cannot be excluded. Dictated by: Bakari SAMANIEGO Interpreted: Ekaterina Carter MD on 11/03/2016 at 11:06 Transcribed by: NAHOMI on 11/03/2016 at 11:06 U/S lower extremity on 11/03/2016: IMPRESSION: No deep venous thrombosis identified within either the left or right lower extremities. Dictated by: Bakari SAMANIEGO Interpreted: Kika Crews MD on 11/03/2016 at 13:36 Transcribed by: RJ on 11/03/2016 at 13:36 Approved by: Kika Crews M.D. on 11/03/2016 at 13:50 U/S chest on 11/03/2016: IMPRESSION: A small loculated right pleural effusion. Dictated by: Bakari SAMANIEGO Interpreted: Kika Crews MD on 11/03/2016 at 13:36 Transcribed by: RJ on 11/03/2016 at 13:36 Approved by: Kika Crews M.D. on 11/03/2016 at 13:50 U/S retroperitoneal 11/04/2016: IMPRESSION: Left renal cyst. Dictated by: Bakari SAMANIEGO Interpreted: Gaby Nixon MD on 11/04/2016 at 16: 09 Transcribed by: GAURAV on 11/04/2016 at 16:09 Approved by: Gaby Nixon M.D. on 11/04/2016 at 16:57 Assessment & Plan # Acute respiratory failure with hypoxia/ARDS -due to MRSA pneumonia /sepsis, pt was initially maintained on BiPAP, deteriorated 10/29-, intubated, pt remained on vent, unchanged oxygenation today , still large secretion. -bronchoscopy 11/06 shows Marked erythema and edema of lobar airways, especially left upper lobe,significant thin secretion,sent for analysis -appreciate CCU team active management -chest US :small loculated right pleural effusion,probably not large enough for intervention/thoracentesis -CT C/A/P 11/05 :Bilateral pneumonia which appears to have worsened, right left , with reference to the earlier comparison CT from 10/27/16. Small posterior right pleural effusion, no suspicion for empyema by appearance. -on dexamethasone 6mg iv bid for intrathoracic airway obstruction -dialysis initiated and hopefully will help with weaning vent ,pulm weaning PEEP from 14 to 9 -current drips : fentanyl 60mcg/h,propofol 25mcg/kg/m,dexmedetomidine 0.4mcg/kg/ h,norepi 0.02mcg/kg/m # septic shock secondary to MRSA pneumonia, continues to require pressor support - high initial wbc/procalcitonin, MRSA+ on sputum, AFB so far ngtd, still on pressor. -appreciate ID recs on abx management, switched from zosyn, ceftaroline to linezolid/flagyl 11/03, repeat BCX sent on 11/06 NGTD -off airborne iso as neg AFB multiple sets in sputum, bronchial lavage, Quantiferon indeterminate. -new set of blood,respiratory secretions culture sent 11/06,unrevealing so far # AKASH on CKD, secondary to ATN from sepsis, resultant severe metabolic acidosis , hyperkalemia, UOP-non oligouric phase of ATN -baseline creatinine reportedly mid 2's -started on HD 11/06,had alos on 11/07 ,he also has good UOP -strict -I/O with leiva, daily wt, avoid renal toxin, replete K,Mg, # metabolic acidosis -due to ARF and sepsis -management as above # LUE swelling -due to cepahlic vein thrombosis -no indication fo Ac,continue to monitor -heparin ppx # Encephalopathy -metabolic encephalopathy due to sepsis. # watery diarrhea -c.dif negative # hepC ab +, newly diagnosed, viral load 185,070 # Hyperphosphatemia -improved with dialysis. -calcium carbonate # Normocytic Normochromic Anemia secondary to anemia from CKD -Aranesp 60 mg x 1 given -Continue to monitor # hyperglycemia -due to setroid -sliding scale q6h VTE Prophylaxis: SCDs Resuscitation Status: CPR: Attempt Resuscitation Campbell Vazquez MD Nov 08, 2016 13:53
[2016-11-08] MEDS: Norepineph 8,000 mCg/250 mL NS 8,000 MCG in IV Premix 1 EACH IV SCH (14:25)
[2016-11-08] MEDS: fentaNYL 2,500 mCg/250 mL 2,500 MCG in IV Premix 1 EACH IV PRN (14:25)
[2016-11-08] MEDS ORDERED: 0.9% Sodium Chloride 250 ML ONE (14:30)
--- NOTE | 2016-11-08 19:07 | NUR ---
Sedation/vent Sedation: propofol at 25 mcg/kg/m and fentanyl to60 mcg/h- patient able to open his eyes to verbal or to the touch. Patient was able to move his arms, right leg and left BKA but not able to follow commends yet. Ventilator changes today: FIO2 decrease to 35% , RR decreased to 24 breaths per min, PEEP remained at 9 and TV at 450- changes were made by attending division order analyst based on am ABG results- please refer to EMR for details. Oxygen saturation remained 96-99% after changes were made. Patient was breathing with ventilator at the rate of 24 and up to 28 breaths per min- MD aware
[2016-11-09] VITALS (13 sets, daily range): BP systolic 97–122; BP diastolic 54–79; PULSE 65–77; RESP 24–27; O2SAT 95–100
[2016-11-09] MEDS: Chlorhexidine 0.12% 15 mL Oral Solution MT SCH ×6 (01:15→20:38)
[2016-11-09] MEDS: Linezolid Inj 600 MG in IV Premix 1 EACH IV SCH ×3 (01:15→16:14)
[2016-11-09] MEDS: Dexmedetomidine 400 mCg/100 mL NS Premix IV SCH ×3 (03:09→20:38)
[2016-11-09] MEDS: Insulin Human REGular 300 Unit/3 mL Inj SUBQ SCH ×4 (03:12→20:30)
[2016-11-09] MEDS: Propofol Inj 1,000,000 MCG in IV Premix 1 EACH IV SCH ×4 (04:17→20:41)
[2016-11-09 06:36] LABS: BASOPHILS % (AUTO) 0.7 % (0-3); EOSINOPHILS % (AUTO) 0.2 % (0-5); MONOCYTES % (AUTO) 8.4 % (4-12); Mean Corpuscular Hemoglobin 31.4 pg (27.0-35.0); Mean Corpuscular Volume 93.4 fL (81-100); NEUTROPHILS % (AUTO) 74.6 % (40-74); Platelet Count 356 bil/L (150-400)
[2016-11-09 07:10] LABS: Magnesium 1.9 mg/dL (1.6-2.6); Phosphorus 5.1 mg/dL (2.5-4.9)
--- NOTE | 2016-11-09 07:18 | NUR ---
P) Fever/LOC Pt. initially agitated and anxious, but making more eye contact and occasionally smiled, still does not follow directions. Febrile again last night, T-max 37.6. I) Passive cooling measures, meds per 's orders, turning q2h and floating heel and stump. E) Resting quietly with eyes closed, still fights oral care.
[2016-11-09] MEDS ORDERED: 0.9% Sodium Chloride 250 ML ONE (07:22)
[2016-11-09] MEDS: Pantoprazole 4 mg/mL 10 mL Inj IVPUSH SCH (07:41)
[2016-11-09] MEDS: Thiamine Inj 100 MG in Dextrose 5% 50 ML IV SCH (07:42)
[2016-11-09] MEDS: Multivit-Miner-Folic Acid-Iron Tablet PO SCH (07:42)
[2016-11-09] MEDS: Dexamethasone 4 mg/mL Inj IVPUSH SCH ×2 (07:42→20:38)
[2016-11-09] MEDS: Heparin 5,000 Unit/mL Inj SUBQ SCH ×2 (07:42→20:38)
[2016-11-09] MEDS: Polyethylene Glycol (PEG) 17 Gm Powder PO SCH (07:42)
[2016-11-09] MEDS: metroNIDAZOLE Inj 1,000 MG in IV Premix 1 EACH IV SCH ×2 (07:43→20:38)
[2016-11-09] MEDS: Albuterol-Ipratropium 3 mL Inhalation Solution NEB SCH ×4 (09:00→20:13)
[2016-11-09] MEDS: Budesonide 0.5 mg/2 mL Inhalation Solution NEB SCH ×2 (09:00→20:13)
--- NOTE | 2016-11-09 09:15 | ABG ---
DateTimeAnalyzed 09:09:00 -_ pH ____7.334 - 7.350 7.450 pCO2 ___33.5__ -mmHg 35.0 45.0 pO2 ___87.3__ -mmHg 69.0 116 HCO3- ___17.3__ -mmol/L 22.0 26.0 ABE ___-7.3__ -mmol/L -2.0 2.0 tHb ____9.3__ -g/dL O2Hb ___93.9__ -% COHb ____0.9__ -% MetHb ____1.5__ -% sO2 ___96.2__ -% 25.0 FIO2 ___35.0__ -% PEEP ____9.0__ -cmH2O Set_RR ___24.0__ -b/min Drawn By KBB - Date/Time Notified____ 09:15:00 -_ Oxygen Device 1 VENTILATOR - Notified By KBB - B 770 -mmHg tO2 ___12.4__ -Vol% Sukhdev test N/A -
--- NOTE | 2016-11-09 11:10 | DRSVH ---
PROCEDURE: X-RAY CHEST ONE VIEW, PORTABLE ([id number]) INDICATIONS: Vent TECHNIQUE: One view of the chest was acquired. COMPARISON: [facility], CR, XR CHEST 1VW (PORTABLE), 11/08/2016, 3:42. FINDINGS: Surgical changes and devices: Endotracheal tube with the tip projecting 5 cm above the yanely. Right central venous catheter with the tip unchanged probably in the upper SVC. Enteric tube with the tip p rojecting in the stomach. Lungs and pleura: No pleural effusions or pneumothorax. Low lung volumes and scattered ill-defined g roundglass opacities. Mediastinum: Mediastinal contours appear normal. Heart size is normal. Bones and chest wall: No suspicious bony lesions. Overlying soft tissues appear unremarkable. IMPRESSION: Low lung volumes and bilateral increasing ill-defined and groundglass opacities suggestive of pulmona ry edema although cannot exclude superimposed infection/aspiration; recommend clinical correlation Grossly unchanged support equipment. Dictated by: Lamin Burroughs M.D. on 11/09/2016 at 11:08 Approved by: Lamin Burroughs M.D. on 11/09/2016 at 11:08
[2016-11-09] MEDS ORDERED: Potassium Chloride 20 mEq/15 mL 15mL Oral Soln TUBE ONE (13:05)
--- NOTE | 2016-11-09 13:34 | PCM.PNMED ---
Subjective Date of Service Nov 09, 2016 Subjective no acute issue overnight. remain on sedation and full vent support. good UOP. K 3.6 today. Exam Vital Signs Vital Sign - Last Date Time Temp Pulse Resp B/P Pulse Ox O2 Delivery O2 Flow Rate FiO2 11/09/16 13:10 66 112/54 98 35 11/09/16 11:53 36.8 25 Mechanical Ventilator 11/05/16 16:30 6.00 Intake and Output 11/08/16 11/08/16 11/09/16 Cumulative From/Thru 15:00 23:00 07:00 10/26/16 17:03 - 11/09/16 06:49 Intake Total 1850 ml 2450 ml 99412 ml Output Total 700 ml 1850 ml 52265 ml Balance 1150 ml 600 ml 24414 ml Intake Oral 0 ml IV Total 1205 ml 1820 ml 05765 ml Tube Feeding 385 ml 475 ml 3422 ml Tube Irrigant 260 ml 155 ml 1481 ml Output Urine Total 650 ml 1350 ml 38102 ml Stool Total 50 ml 500 ml 1600 ml Gastric Drainage Total 575 ml Ultrafiltrate 5000 ml # Bowel Movements 6 Exam GEN: sedated, intubated, restrained HEENT: sclera inacteric NECK: right IJ in place RESP: diffuse crackles and rhonchi CV: Regularly irregular rhythm ABD: obese, soft : leiva in place, R femoral Zhao catheter in place, secured, no discharge. EXT: no edema; paralyzed psych: sedated neuro: sedated Lab and Diagnostics Result Diagram: 11/09/16 0600 11/09/16 0600 X-Rays, CTs and MRIs PROCEDURE: CT ABDOMEN AND PELVIS WITHOUT CONTRAST ([id number]) IMPRESSION: 1. Bibasilar pneumonia. 2. Small loculated left pleural effusion with thickened rind, possibly indicating empyema. This is too small to safely aspirate percutaneously. 3. Cholelithiasis without evidence of cholecystitis. 4. Normal appendix. 5. Small hiatal hernia. Dictated by: Myke Gonzalez M.D. on 10/27/2016 at 20:52 Approved by: Myke Gonzalez M.D. on 10/27/2016 at 20:52 Chest x-ray on 11/03/2016: IMPRESSION: Pulmonary edema and or diffuse bilateral inflammatory process not significantly changed. Developing ARDS cannot be excluded. Dictated by: Bakari SAMANIEGO Interpreted: Ekaterina Carter MD on 11/03/2016 at 11:06 Transcribed by: NAHOMI on 11/03/2016 at 11:06 U/S lower extremity on 11/03/2016: IMPRESSION: No deep venous thrombosis identified within either the left or right lower extremities. Dictated by: Bakari SAMANIEGO Interpreted: Kika Crews MD on 11/03/2016 at 13:36 Transcribed by: RJ on 11/03/2016 at 13:36 Approved by: Kika Crews M.D. on 11/03/2016 at 13:50 U/S chest on 11/03/2016: IMPRESSION: A small loculated right pleural effusion. Dictated by: Bakari SAMANIEGO Interpreted: Kika Crews MD on 11/03/2016 at 13:36 Transcribed by: RJ on 11/03/2016 at 13:36 Approved by: Kika Crews M.D. on 11/03/2016 at 13:50 U/S retroperitoneal 11/04/2016: IMPRESSION: Left renal cyst. Dictated by: Bakari SAMANIEGO Interpreted: Gaby Nixon MD on 11/04/2016 at 16: 09 Transcribed by: GAURAV on 11/04/2016 at 16:09 Approved by: Gaby Nixon M.D. on 11/04/2016 at 16:57 Assessment & Plan 1. Acute kidney injury superimposed on chronic kidney disease of unknown stage - due to ATN. - HD x 2, stable. 2. Severe Metabolic Acidosis secondary to AKASH, resolved 3. Hyperphosphatemia -improved with dialysis. -calcium carbonate 4. Hypokalemia 5. Normocytic Normochromic Anemia secondary to anemia from CKD -Aranesp 60 mg x 1 given -Continue to monitor Plan: arrange for HD in am for 4 hr, UF 1-2 L. add KCL solution 20 meq x 1. VTE Prophylaxis: SCDs Resuscitation Status: CPR: Attempt Resuscitation Antonietta Sigala MD Nov 09, 2016 13:34
--- NOTE | 2016-11-09 14:01 | PROG NOTE ---
[address] [address] PROGRESS NOTE PATIENT: MERCED HOLDER : 1955 MR#: [id number] ADMIT: 10/26/2016 JOB ID: [id number] DATE: 11/09/2016 PULMONARY CRITICAL CARE FOLLOWUP NOTE: PROBLEM LIST: 1. Hypoxemic respiratory failure. 2. Pneumonia with MRSA and Streptococcus group B. 3. Acute on chronic renal failure. 4. Agitation. 5. Hyperkalemia. 6. Hepatitis C. 7. ARDS. 8. Intrathoracic upper airway obstruction. 9. Alcohol abuse. SUBJECTIVE: None. OBJECTIVE: Temperature 37.2 with T-max being 37.6. Pulse mid 60s. Respiratory rate 24 with ventilator set at 24. Blood pressure 101/54, as low as 97/54, with a MAP of 68. With norepinephrine at 0.01 mcg/kg per minute blood pressure 140/70 with a MAP of 92. O2 sat on FiO2 of 35%, PEEP of 9, is 98% to 100%. I and O shows 4.1 liters in, 2.1 liters out, with urine representing 1.7 L of the 2.1 liters out. General appearance: Sedated on ventilator. Chest: Fairly good breath sounds bilaterally. Maybe somewhat slightly diminished on the right compared to the left. With tidal volume of 450, PEEP of 9, peak inspiratory pressure is 31, plateau is 28. PEEP is set at 9, measured at 9. Heart: Somewhat distant tones. Heart tones seem normal. Abdomen: Soft. Generous in size. Some bowel tones noted. Extremities: No cyanosis or pretibial edema. Left stump looks good. LABORATORY DATA: Shows a white count of 8800, down from 10,800 yesterday. Relatively normal differential. Hemoglobin 8.1, down from 8.6 yesterday. Platelet count 356,000 and stable. Sodium 143, potassium 3.6, chloride 107, CO2 is 18, BUN 60, creatinine 4.1, up from 2.73 yesterday. Calcium 8.7 with an albumin of 2.8. Phosphorus mildly elevated at 5.1 with upper limits of normal being 4.9, up from yesterday's value of 3.7. Magnesium 1.9. Transaminases are normal. Albumin 2.8. Lipase moderately elevated at 150. Chest x-ray to my eye shows increasing infiltrate on both upper lobes, significantly more so on the left. Bronchoscopy washings to date are not growing anything specifically. Gram stain shows moderate polys but only normal amalia growing. Fungal studies still pending. In the meantime, ventilator loops show relatively normal exhalation without evidence of obstruction at a PEEP of 9. However, with a PEEP of 8 it becomes significant, with almost each breath showing significant obstruction. Arterial blood gases on FiO2 of 35, PEEP of 9, shows a pO2 of 87, pCO2 of 33, pH of 7.33. ASSESSMENT: 1. Acute respiratory distress syndrome. Oxygenation improving. No particular problems with significant acid-base abnormalities. However, we continue to have a compromised upper airway with dynamic compression evidenced on bronchoscopy which persists with monitoring his inspiratory and expiratory loops. Unfortunately we need to continue the PEEP of 9 to stent the airway open. Hopefully between continuing to make him fluid negative and the steroids that may help. 2. Pneumonia. Not growing anything out specifically at this time. Initial cultures with MRSA and group B strep have subsequently been negative, suggesting effective antibiosis. Will speak with Infectious Disease about the possibly of discontinuing antibiotics in the upcoming few days. 3. Renal failure. Significant rise in his BUN and creatinine. We have a stool that is negative for occult blood; however, will recheck hemoglobin as it seems that there is a somewhat inordinate rise in his BUN and creatinine. May be due to the steroids, but am concerned about some blood in his gut. Hemoglobin dropped a half a gram, which may be dilutional but may represent a bit of bleeding. 4. Relative hypotension. Has a borderline blood pressure. Pressors with MAP running at 62 mmHg. Although not terribly low, I think a better blood pressure given his liver, kidney, and perhaps brain issues, would be a better fit for him. His abdomen is soft and I do not think he has developed abdominal hypertension. Do not want to particularly give him more fluids given the swelling in the airway and the positive fluid balance for the moment. 5. Acute on chronic renal failure. Will discuss potassium replacement as well as the possible need for dialysis later today and maybe tomorrow. Would like to get a bit more fluid off him in the interim. 6. Sedation. Got a bit more propofol while last night for sedation. Would like to use the dexmedetomidine in preference to the propofol. Concern is about his relative bradycardia. Currently pulse is in the mid 60s and would prefer to use the dexmedetomidine to the propofol. Triglycerides were somewhat elevated, possibly due to the propofol. PLAN: 1. Recheck hemoglobin and lytes later this afternoon. 2. Continue current ventilator settings. 3. Continue tube feeding. 4. Will utilize low-dose pressors to keep the blood pressure at a somewhat higher level. 5. Discussed the current situation with the family. Brought them up to date to today's findings as well as concerns. Discussed the potential plan. TIME: Time spent so far in critical care is 55 minutes.
--- NOTE | 2016-11-09 15:12 | NUR ---
Social Work: Continued Discharge Planning D: Pt discussed in morning rounds. Pt is not improving. Pt may require LTAC facility as it does not appear pt is moving towards extubation. MD is going to speak with pulmonology and the family about this. INFORMATION SYSTEMS SECURITY MANAGER left message for [facility] requesting referral be made on Thursday morning for this pt. Pt is straight [facility] Medicaid. A: Pt who remains vented and sedated. P: Possible transfer to [place]; INFORMATION SYSTEMS SECURITY MANAGER to follow up with [employer] to confirm referral was made. JANELLE Braxton
[2016-11-09] MEDS: Norepineph 8,000 mCg/250 mL NS 8,000 MCG in IV Premix 1 EACH IV SCH (15:17)
--- NOTE | 2016-11-09 15:57 | PCM.PNMED ---
Subjective Date of Service Nov 09, 2016 Subjective Remains intubated and sedated, no new events. Norepi was weaned off overnight, restarted in the morning Exam Vital Signs Vital Sign - Last Date Time Temp Pulse Resp B/P Pulse Ox O2 Delivery O2 Flow Rate FiO2 11/09/16 13:10 66 112/54 98 35 11/09/16 11:53 36.8 25 Mechanical Ventilator 11/05/16 16:30 6.00 Intake and Output 11/08/16 11/08/16 11/09/16 Cumulative From/Thru 15:00 23:00 07:00 10/26/16 17:03 - 11/09/16 06:49 Intake Total 1850 ml 2450 ml 33273 ml Output Total 700 ml 1850 ml 74511 ml Balance 1150 ml 600 ml 26500 ml Intake Oral 0 ml IV Total 1205 ml 1820 ml 71734 ml Tube Feeding 385 ml 475 ml 3422 ml Tube Irrigant 260 ml 155 ml 1481 ml Output Urine Total 650 ml 1350 ml 91051 ml Stool Total 50 ml 500 ml 1600 ml Gastric Drainage Total 575 ml Ultrafiltrate 5000 ml # Bowel Movements 6 Exam GEN: sedated, intubated.responds to pain,moves all extremities to pain HEENT: sclera Anicteric NECK: right IJ in place, . RESP: Course breath sounds throughout. CV: Regular rate and rhythm. No clicks, rubs, murmurs. ABD: obese, soft,flexseal in place with watery diarrhea : leiva in place EXT: no edema; paralyzed, Right art line. : Leiva catheter in place. psych: sedated neuro: sedated IVs and Medications Medications Reviewed: Medications were reviewed in detail Lab and Diagnostics Result Diagram: 11/09/16 0600 11/09/16 0600 X-Rays, CTs and MRIs PROCEDURE: CT ABDOMEN AND PELVIS WITHOUT CONTRAST ([id number]) IMPRESSION: 1. Bibasilar pneumonia. 2. Small loculated left pleural effusion with thickened rind, possibly indicating empyema. This is too small to safely aspirate percutaneously. 3. Cholelithiasis without evidence of cholecystitis. 4. Normal appendix. 5. Small hiatal hernia. Dictated by: Myke Gonzalez M.D. on 10/27/2016 at 20:52 Approved by: Myke Gonzalez M.D. on 10/27/2016 at 20:52 Chest x-ray on 11/03/2016: IMPRESSION: Pulmonary edema and or diffuse bilateral inflammatory process not significantly changed. Developing ARDS cannot be excluded. Dictated by: Bakari SAMANIEGO Interpreted: Ekaterina Carter MD on 11/03/2016 at 11:06 Transcribed by: NAHOMI on 11/03/2016 at 11:06 U/S lower extremity on 11/03/2016: IMPRESSION: No deep venous thrombosis identified within either the left or right lower extremities. Dictated by: Bakari SAMANIEGO Interpreted: Kika Crews MD on 11/03/2016 at 13:36 Transcribed by: RJ on 11/03/2016 at 13:36 Approved by: Kika Crews M.D. on 11/03/2016 at 13:50 U/S chest on 11/03/2016: IMPRESSION: A small loculated right pleural effusion. Dictated by: Bakari SAMANIEGO Interpreted: Kika Crews MD on 11/03/2016 at 13:36 Transcribed by: RJ on 11/03/2016 at 13:36 Approved by: Kika Crews M.D. on 11/03/2016 at 13:50 U/S retroperitoneal 11/04/2016: IMPRESSION: Left renal cyst. Dictated by: Bakari SAMANIEGO Interpreted: Gaby Nixon MD on 11/04/2016 at 16: 09 Transcribed by: GAURAV on 11/04/2016 at 16:09 Approved by: Gaby Nixon M.D. on 11/04/2016 at 16:57 Assessment & Plan # Acute respiratory failure with hypoxia/ARDS -due to MRSA pneumonia /sepsis, pt was initially maintained on BiPAP, deteriorated 10/29-, intubated, pt remained on vent, unchanged oxygenation today , still large secretion. -bronchoscopy 11/06 shows Marked erythema and edema of lobar airways, especially left upper lobe,significant thin secretion,sent for analysis -appreciate CCU team active management -chest US :small loculated right pleural effusion,probably not large enough for intervention/thoracentesis -CT C/A/P 11/05 :Bilateral pneumonia which appears to have worsened, right left , with reference to the earlier comparison CT from 10/27/16. Small posterior right pleural effusion, no suspicion for empyema by appearance. -on dexamethasone 6mg iv bid for intrathoracic airway obstruction -dialysis initiated and hopefully will help with weaning vent ,pulm weaned PEEP from 14 to 9, -current drips : fentanyl 60mcg/h,propofol 25mcg/kg/m,dexmedetomidine 0.4mcg/kg/ h,norepi 0.02mcg/kg/m # septic shock secondary to MRSA pneumonia, continues to require pressor support - high initial wbc/procalcitonin, MRSA+ on sputum, AFB so far ngtd, still on pressor. -appreciate ID recs on abx management, switched from zosyn, ceftaroline to linezolid/flagyl 11/03, repeat BCX sent on 11/06 NGTD -off airborne iso as neg AFB multiple sets in sputum, bronchial lavage, Quantiferon indeterminate. -new set of blood,respiratory secretions culture sent 11/06,unrevealing so far # AKASH on CKD, secondary to ATN from sepsis, resultant severe metabolic acidosis , hyperkalemia, UOP-non oligouric phase of ATN -baseline creatinine reportedly mid 2's -started on HD 11/06,had also on 11/07 ,he also has good UOP,HD tmrw -strict -I/O with leiva, daily wt, avoid renal toxin, replete K,Mg, # metabolic acidosis -due to ARF and sepsis -management as above # LUE swelling -duplex: cepahlic vein thrombosis -no indication fo Ac,continue to monitor -heparin ppx # Encephalopathy -metabolic encephalopathy due to sepsis. # watery diarrhea -c.dif negative # hepC ab +, newly diagnosed, viral load 185,070 # Hyperphosphatemia -improved with dialysis. -calcium carbonate # Normocytic Normochromic Anemia secondary to anemia from CKD -Aranesp 60 mg x 1 given -Continue to monitor # hyperglycemia -due to setroid -sliding scale q6h Disposition: Remains critical. VTE Prophylaxis: SCDs Resuscitation Status: CPR: Attempt Resuscitation Campbell Vazquez MD Nov 09, 2016 15:57
[2016-11-09] MEDS: fentaNYL 2,500 mCg/250 mL 2,500 MCG in IV Premix 1 EACH IV PRN (16:28)
--- NOTE | 2016-11-09 17:53 | PCM.PNMED ---
Subjective Date of Service Nov 07, 2016 Subjective ICU/PULMONOLOGY PROGRESS NOTE This is a 61 year old male with history significant for alcoholism, CKD, and hepatitis c who presented on 10/26/2016 obtunded who later developed hypoxic respiratory failure, septic shock likely secondary to MRSA and group B strep pneumonia as well as ARDS. Patient also has Acute kidney injury. He was intubated on 10/30/2016. The patient continues to be sedated and intubated. Upper airway obstruction is improving today on the vent. He has been afebrile four days. ROS not obtainable. Exam Vital Signs Vital Sign - Last Date Time Temp Pulse Resp B/P Pulse Ox O2 Delivery O2 Flow Rate FiO2 11/07/16 08:32 36.9 81 30 105/51 98 Mechanical Ventilator 40 11/05/16 16:30 6.00 Intake and Output 11/06/16 11/06/16 11/07/16 Cumulative From/Thru 15:00 23:00 07:00 10/26/16 17:03 - 11/07/16 05:21 Intake Total 2936 ml 2603 ml 26419 ml Output Total 3000 ml 2200 ml 1500 ml 49480 ml Balance -3000 ml 736 ml 1103 ml 64977 ml Intake Oral 0 ml IV Total 2548 ml 2134 ml 94723 ml Tube Feeding 358 ml 414 ml 1706 ml Tube Irrigant 30 ml 55 ml 656 ml Output Urine Total 1800 ml 1450 ml 28753 ml Stool Total 400 ml 50 ml 450 ml Gastric Drainage Total 575 ml Ultrafiltrate 3000 ml 3000 ml # Bowel Movements 1 6 Exam GEN: sedated, intubated. HEENT: sclera Anicteric NECK: right IJ in place, . RESP: Course breath sounds throughout. CV: Regular rate and rhythm. No clicks, rubs, murmurs. ABD: obese, soft : leiva in place EXT: Edema left upper extremity; paralyzed, Right art line. : Leiva catheter in place. psych: sedated neuro: sedated IVs and Medications Medications Reviewed: Medications were reviewed in detail Lab and Diagnostics Result Diagram: 11/07/1639911/07/16399 X-Rays, CTs and MRIs PROCEDURE: CT ABDOMEN AND PELVIS WITHOUT CONTRAST ([id number]) IMPRESSION: 1. Bibasilar pneumonia. 2. Small loculated left pleural effusion with thickened rind, possibly indicating empyema. This is too small to safely aspirate percutaneously. 3. Cholelithiasis without evidence of cholecystitis. 4. Normal appendix. 5. Small hiatal hernia. Dictated by: Myke Gonzalez M.D. on 10/27/2016 at 20:52 Approved by: Myke Gonzalez M.D. on 10/27/2016 at 20:52 Chest x-ray on 11/03/2016: IMPRESSION: Pulmonary edema and or diffuse bilateral inflammatory process not significantly changed. Developing ARDS cannot be excluded. Dictated by: Bakari SAMANIEGO Interpreted: Ekaterina Carter MD on 11/03/2016 at 11:06 Transcribed by: NAHOMI on 11/03/2016 at 11:06 U/S lower extremity on 11/03/2016: IMPRESSION: No deep venous thrombosis identified within either the left or right lower extremities. Dictated by: Bakari SAMANIEGO Interpreted: Kika Crews MD on 11/03/2016 at 13:36 Transcribed by: RJ on 11/03/2016 at 13:36 Approved by: Kika Crews M.D. on 11/03/2016 at 13:50 U/S chest on 11/03/2016: IMPRESSION: A small loculated right pleural effusion. Dictated by: Bakari SAMANIEGO Interpreted: Kika Crews MD on 11/03/2016 at 13:36 Transcribed by: RJ on 11/03/2016 at 13:36 Approved by: Kika Crews M.D. on 11/03/2016 at 13:50 U/S retroperitoneal 11/04/2016: IMPRESSION: Left renal cyst. Dictated by: Bakari SAMANIEGO Interpreted: Gaby Nixon MD on 11/04/2016 at 16: 09 Transcribed by: GAURAV on 11/04/2016 at 16:09 Approved by: Gaby Nixon M.D. on 11/04/2016 at 16:57 U/S left upper extremity 11/07/2016: IMPRESSION: Occlusive thrombus within the left cephalic vein within the lower arm. Jennyfer Phan RN given results by the finishing tunnel operator at 1415 hrs. 11/06/16. Dictated by: Bakari SAMANIEGO Interpreted: Ekaterina Carter MD on 11/06/2016 at 16:14 Transcribed by: NAHOMI on 11/06/2016 at 16:14 Approved by: Ekaterina Carter MD, PhD on 11/06/2016 at 17:09 Assessment & Plan This is a 61 year old male with history significant for alcohol abuse, CKD, hepatitis C who presented obtunded now complicated by hypoxic respiratory failure, ARDS, and severe sepsis likely secondary to pneumonia (sputum culture grew MRSA and group b strep), and acute kidney injury on chronic kidney disease: Acute Respiratory Distress Syndrome, ongoing - Pt decompensated 10/30/16 intubated by anesthesia with initial ABG's showing acidosis pH 7.1. - Attempting to keep pt as dry as possible in conjunction with nephrology -Patient is showing pattern of space on vent. U/S of LE showed no DVT. U/ S of chest showed small loculated right pleural effusion. CT of chest w/o contrast and CT of abdomen with oral contrast showed worsening bilateral pneumonia, small posterior right pleural effusion, slight hydronephrosis and hydroureter on left. Acute hypoxic respiratory failure, intubated October 30. - Vent settings currently:; PEEP 10 and FiO2 40%. He continues on propofol and fentanyl. We have done trials off of these and patient becomes agitated. Will try to decrease sedation again today and possible pressure support trial. - Most recent ABG on 11/06/2016 pH 7.287, PaCO2 35, PaO2 113, HCO3 16.7, at FiO2.40 PEEP 10 TV 450 RR 30. Shows metabolic acidosis. -Tube feeding with Nepro as patient has CKD. Tube feeding at goal of 35. Intrathoracic upper airway obstruction: -Vent today is improved showing decreased airway collapse. This is status post emergency bronchoscopy on 11/06/2016 where airway showed increased secretions, erythema, and edema. -Continue with the budesonide and Duonebs scheduled. -Lidocaine inhaled PRN. -Dexamethasone 6mg BID. Septic shock secondary to pneumonia - Secondary to MRSA and GBS pneumonia. Procalcitonin continues to be elevated although improved. - ID to continue Linezolid and Metronidazole (day 6). Patient previously received Zosyn for seven days and Ceftaroline for 5 days before being stopped on (11/03/2016). - Bronchoscopy 11/06/2016: sputum cultures pending. -Viral panel on bronchial washings was negative, AFB smear x3 negative, Sputum culture 10/29/2016 + for MRSA, Group B strep. -Over last 24 hours patient has decreased Levophed from .07 mcg/kg/min to .03 mcg/kg/min. -Albumin 50g given on 11/03/2016. -Additional labwork ordered to evaluate for superimposed infection including urinalysis, blood culture, sputum culture, AKASH on CKD: -Last known labwork completed on 09/02/2016: BUN 26 Cr 2.60. On 04/19/2015: Cr 1.85 - Patient had HD yesterday with 3 liters off. HD planned for today. - Continues to maintain urine output. - Renal ultrasound showed left renal cyst. Cephalic vein thrombus left upper extremity: -Superficial vein thrombosis. Will hold on anticoagulation. Hypokalemia, resolved -Potassium on 11/07/2016 3.1. Hyperphosphatemia -Phosphorous 6.6 after dialysis -Feeding tube formula switched to Nepro on 11/03/2016. -If dialysis is completed today. Encephalopathy - Likely mixed metabolic encephalopathy with EtOH withdrawal -Unknown baseline. Elevated AST, resolved: -.PT/INR in am to evaluate liver function. -CMP in morning. Hepatitis C antibody positive - Viral load [id number]. Macrocytic Anemia, acute -Likely secondary to alcoholism. -will continue to monitor Prophylaxis: SubQ heparin PPI FULL CODE VTE Prophylaxis: SCDs Resuscitation Status: CPR: Attempt Resuscitation Attending Statement The patient was seen and examined together with Dr. Collins on 11/07/2016 and I agree with the history, exam and plan as outlined in the note above. José Miguel Collins DO Nov 07, 2016 10:01 Niranjan Marie MD Dec 06, 2016 12:53
--- NOTE | 2016-11-09 18:27 | NUR ---
Sedation/vent Sedation: propofol at 25 mcg/kg/m and fentanyl to60 mcg/h- patient able to open his eyes to verbal or to the touch. Patient was able to move his arms, right leg and left BKA but not able to follow commends yet. Ventilator changes today: FIO2 decrease to 35% , RR decreased to 24 breaths per min, PEEP remained at 9 and TV at 450- changes were made by attending premium representative based on am ABG results- please refer to EMR for details. Oxygen saturation remained 96-99% after changes were made. Patient was breathing with ventilator at the rate of 24 and up to 28 breaths per min- MD aware.
[2016-11-10] VITALS (16 sets, daily range): BP systolic 103–127; BP diastolic 51–69; PULSE 61–74; RESP 12–26; O2SAT 35–99
[2016-11-10] MEDS: Linezolid Inj 600 MG in IV Premix 1 EACH IV SCH ×3 (00:13→18:24)
[2016-11-10] MEDS: Chlorhexidine 0.12% 15 mL Oral Solution MT SCH ×6 (00:13→20:30)
[2016-11-10] MEDS: Propofol Inj 1,000,000 MCG in IV Premix 1 EACH IV SCH ×2 (00:24→09:37)
[2016-11-10] MEDS: Insulin Human REGular 300 Unit/3 mL Inj SUBQ SCH ×4 (03:26→20:45)
[2016-11-10 03:42] LABS: BASOPHILS % (AUTO) 0.8 % (0-3); EOSINOPHILS % (AUTO) 0.6 % (0-5); MONOCYTES % (AUTO) 5.4 % (4-12); Mean Corpuscular Hemoglobin 31.5 pg (27.0-35.0); Mean Corpuscular Volume 99.6 fL (81-100); NEUTROPHILS % (AUTO) 77.3 % (40-74); Platelet Count 347 bil/L (150-400)
[2016-11-10 03:53] LABS: Phosphorus 6.6 mg/dL (2.5-4.9)
--- NOTE | 2016-11-10 04:21 | ABG ---
DateTimeAnalyzed 04:17:00 -_ pH ____7.319 - 7.350 7.450 pCO2 ___32.1__ -mmHg 35.0 45.0 pO2 113 -mmHg 69.0 116 HCO3- ___16.0__ -mmol/L 22.0 26.0 ABE ___-8.8__ -mmol/L -2.0 2.0 tHb ____8.0__ -g/dL O2Hb ___95.2__ -% COHb ____0.8__ -% MetHb ____1.7__ -% sO2 ___97.6__ -% 25.0 FIO2 ___35.0__ -% Drawn By af - Date/Time Notified____ 04:20:00 -_ Oxygen Device 1 VENTILATOR - Notified By af - Notified Whom ____Nurse - B 758 -mmHg tO2 ___.9__ -Vol% OrderingPhysicianInitials bak - Sukhdev test N/A -
--- NOTE | 2016-11-10 06:38 | NUR ---
sedation/activity; Pt was move to CCU-LUBNA bed with rotation. pt tolerated transfer well and was placed in continuous rotation. Pt around 2300 was getting restless and propofol was increased to 35mcg. Propofol was decreased and pt was easily aroused with voice.
[2016-11-10] MEDS: Heparin 5,000 Unit/mL Inj SUBQ SCH ×2 (08:28→20:26)
[2016-11-10] MEDS: Polyethylene Glycol (PEG) 17 Gm Powder PO SCH (08:30)
[2016-11-10] MEDS: metroNIDAZOLE Inj 1,000 MG in IV Premix 1 EACH IV SCH ×2 (08:30→20:27)
--- NOTE | 2016-11-10 08:43 | DRSVH ---
PROCEDURE: X-RAY CHEST ONE VIEW, PORTABLE ([id number]) INDICATIONS: ARDS, pneumonia, fluid overload TECHNIQUE: One view of the chest was acquired. COMPARISON: [facility], CR, XR CHEST 1VW (PORTABLE), 11/09/2016, 4:53. FINDINGS: Surgical changes and devices: There is an endotracheal tube that ends approximately 4.5 cm above the yanely. There is a right internal jugular central line that ends approximately at the junction of the innominate veins. There is an NG tube into the stomach. monitor worker leads are seen over the ches t. Lungs and pleura: Since the previous film is thought to be some increased patchy density at the right base consistent with worsening pneumonia or ARDS. No change is appreciated in the left chest. Mediastinum: Mediastinal contours appear normal. Heart size is normal. Bones and chest wall: No suspicious bony lesions. Overlying soft tissues appear unremarkable. IMPRESSION: Question slight worsening right base patchy density and no change elsewhere in the chest patient with pneumonia and ARDS. Dictated by: Yunior Nicole M.D. on 11/10/2016 at 8:41 Approved by: Yunior Nicole M.D. on 11/10/2016 at 8:41
[2016-11-10] MEDS: Albuterol-Ipratropium 3 mL Inhalation Solution NEB SCH ×3 (09:20→20:46)
[2016-11-10] MEDS: Budesonide 0.5 mg/2 mL Inhalation Solution NEB SCH (09:20)
[2016-11-10] MEDS: Multivit-Miner-Folic Acid-Iron Tablet PO SCH (09:33)
[2016-11-10] MEDS ORDERED: Albumin 25% 12.5 Gm 50 mL IV ONE (09:55)
--- NOTE | 2016-11-10 10:24 | NUR ---
Spoke with Samantha clinical liaison at [facility] and she will need to get an authorization for this patient, she will also need to get approval from director of either [facility] in order to formally accept patient. She explained if patient is acute in both vent and dialysis the chance is better for him to be accepted. Faxed referral to her with vent settings [phone]. She will have acceptance answer by this afternoon, [facility] Auth can take 24-48 hours. Spoke with medical records coordinator at [facility] and they can take vent patients but they can not take vent and dialysis. They can do both entities separately but not together. [phone] Updated and LICENSED INSURANCE SALES AGENT
--- NOTE | 2016-11-10 10:55 | PCM.PNMED ---
Subjective Date of Service Nov 10, 2016 Subjective ICU/PULMONOLOGY PROGRESS NOTE This is a 61 year old male with history significant for alcoholism, CKD, and hepatitis c who presented on 10/26/2016 obtunded who later developed hypoxic respiratory failure, septic shock likely secondary to MRSA and group B strep pneumonia as well as ARDS. Patient also has Acute kidney injury on chronic kidney disease. He was intubated on 10/30/2016. The patient continues to be sedated and intubated. Upper airway obstruction is improving today on the vent. He continues to be afebrile. ROS not obtainable. Exam Vital Signs Vital Sign - Last Date Time Temp Pulse Resp B/P Pulse Ox O2 Delivery O2 Flow Rate FiO2 11/10/16 09:20 80 105/51 98 35 11/10/16 07:32 37.1 26 Mechanical Ventilator 11/05/16 16:30 6.00 Intake and Output 11/09/16 11/09/16 11/10/16 Cumulative From/Thru 15:00 23:00 07:00 10/26/16 17:03 - 11/10/16 05:48 Intake Total 1721 ml 2109 ml 85488 ml Output Total 750 ml 1600 ml 43559 ml Balance 971 ml 509 ml 53401 ml Intake Oral 0 ml IV Total 1091 ml 1374 ml 65808 ml Tube Feeding 370 ml 515 ml 4307 ml Tube Irrigant 260 ml 220 ml 1961 ml Output Urine Total 700 ml 1400 ml 28715 ml Stool Total 50 ml 200 ml 1850 ml Gastric Drainage Total 575 ml Ultrafiltrate 5000 ml # Bowel Movements 6 Exam GEN: sedated, intubated. HEENT: sclera Anicteric NECK: right IJ in place, . RESP: Course breath sounds throughout. CV: Regular rate and rhythm. No clicks, rubs, murmurs. ABD: obese, soft : leiva in place EXT: Edema left upper extremity, Right art line. : Leiva catheter in place. psych: sedated neuro: sedated Lab and Diagnostics Result Diagram: 11/10/16 0320 11/10/16 0320 X-Rays, CTs and MRIs PROCEDURE: CT ABDOMEN AND PELVIS WITHOUT CONTRAST ([id number]) IMPRESSION: 1. Bibasilar pneumonia. 2. Small loculated left pleural effusion with thickened rind, possibly indicating empyema. This is too small to safely aspirate percutaneously. 3. Cholelithiasis without evidence of cholecystitis. 4. Normal appendix. 5. Small hiatal hernia. Dictated by: Myke Gonzalez M.D. on 10/27/2016 at 20:52 Approved by: Myke Gonzalez M.D. on 10/27/2016 at 20:52 Chest x-ray on 11/03/2016: IMPRESSION: Pulmonary edema and or diffuse bilateral inflammatory process not significantly changed. Developing ARDS cannot be excluded. Dictated by: Bakari SAMANIEGO Interpreted: Ekaterina Carter MD on 11/03/2016 at 11:06 Transcribed by: NAHOMI on 11/03/2016 at 11:06 U/S lower extremity on 11/03/2016: IMPRESSION: No deep venous thrombosis identified within either the left or right lower extremities. Dictated by: Bakari SAMANIEGO Interpreted: Kika Crews MD on 11/03/2016 at 13:36 Transcribed by: RJ on 11/03/2016 at 13:36 Approved by: Kika Crews M.D. on 11/03/2016 at 13:50 U/S chest on 11/03/2016: IMPRESSION: A small loculated right pleural effusion. Dictated by: Bakari SAMANIEGO Interpreted: Kika Crews MD on 11/03/2016 at 13:36 Transcribed by: RJ on 11/03/2016 at 13:36 Approved by: Kika Crews M.D. on 11/03/2016 at 13:50 U/S retroperitoneal 11/04/2016: IMPRESSION: Left renal cyst. Dictated by: Bakari SAMANIEGO Interpreted: Gaby Nixon MD on 11/04/2016 at 16: 09 Transcribed by: GAURAV on 11/04/2016 at 16:09 Approved by: Gaby Nixon M.D. on 11/04/2016 at 16:57 U/S left upper extremity 11/07/2016: IMPRESSION: Occlusive thrombus within the left cephalic vein within the lower arm. Jennyfer Phan RN given results by the environmental law professor at 1415 hrs. 11/06/16. Dictated by: Bakari SAMANIEGO Interpreted: Ekaterina Carter MD on 11/06/2016 at 16:14 Transcribed by: NAHOMI on 11/06/2016 at 16:14 Approved by: Ekaterina Carter MD, PhD on 11/06/2016 at 17:09 Assessment & Plan This is a 61 year old male with history significant for alcohol abuse, CKD, hepatitis C who presented obtunded now complicated by hypoxic respiratory failure, ARDS, and severe sepsis likely secondary to pneumonia (sputum culture grew MRSA and group b strep), and acute kidney injury on chronic kidney disease: Acute Respiratory Distress Syndrome, ongoing - Pt decompensated 10/30/16 intubated by anesthesia with initial ABG's showing acidosis pH 7.1. - Attempting to keep pt as dry as possible in conjunction with nephrology -CT of chest w/o contrast and CT of abdomen with oral contrast on 11/05/2016 showed worsening bilateral pneumonia, small posterior right pleural effusion, slight hydronephrosis and hydroureter on left. Acute hypoxic respiratory failure, intubated October 30. - Vent settings currently:; PEEP 5 and FiO2 35%. He continues on propofol, fentanyl, precedex. Pressure support trial today. -Tube feeding with Nepro as patient has CKD. Tube feeding at goal of 40. Agitation: -We have started to come down on the propofol, fentanyl, and Precedex. Some concern about bradycardia with the Precedex and we will continue to monitor this. -Will add Olanzapine 5mg BID for agitation/'delirium. Intrathoracic upper airway obstruction: -Vent today is improved showing decreased airway collapse on inspiratory and expiratory loops. This is status post emergency bronchoscopy on 11/06/2016 where airway showed increased secretions, erythema, and edema. -Continue with the Duonebs scheduled. Stop Budesonide. -Lidocaine inhaled PRN. -Will decrease Dexamethasone to 3mg BID. Septic shock secondary to pneumonia - Secondary to MRSA and GBS pneumonia. Procalcitonin continues to lower. He continues to be afebrile. - ID to continue Linezolid and Metronidazole (day 8). Will continue for 10 days as this is MRSA pneumonia (reevaluate after 10 days). Patient previously received Zosyn for seven days and Ceftaroline for 5 days before being stopped on (11/03/2016). - Bronchoscopy 11/06/2016: sputum cultures negative -On 10/29/2016: Viral panel on bronchial washings was negative, AFB smear x3 negative, Sputum culture + for MRSA, Group B strep. -Levophed was discontinued on 10/30/2016 and pressures are stable. AKASH on CKD: -Last known labwork completed on 09/02/2016: BUN 26 Cr 2.60. On 04/19/2015: Cr 1.85 - Patient continues on HD today. - Continues to maintain urine output. - Renal ultrasound showed left renal cyst. Cephalic vein thrombus left upper extremity: -Superficial vein thrombosis. Will hold on anticoagulation. Hypokalemia, resolved -Potassium 3.8 today. Hyperphosphatemia -Patient continues on dialysis. Encephalopathy - Likely mixed metabolic encephalopathy with EtOH withdrawal -Unknown baseline. Elevated AST, resolved: Hepatitis C antibody positive - Viral load [id number]. Macrocytic Anemia, acute -Likely secondary to alcoholism. -will continue to monitor Prophylaxis: SubQ heparin PPI FULL CODE VTE Prophylaxis: SCDs Resuscitation Status: CPR: Attempt Resuscitation José Miguel Collins DO Nov 10, 2016 10:50
--- NOTE | 2016-11-10 11:10 | NUR ---
NUTRITION FOLLOW UP: ASSESS: 61 YO male admitted with confusion, weakness, falls, renal failure. Pt remains intubated with acute respiratory failure with hypoxia/ARDS due to MRSA pneumonia /sepsis. Pt. was initially maintained on BiPAP, deteriorated 10/29-, intubated. Pt continues to tolerate enteral feeding at goal rate; dialysis initiated 11/06. Pt to have dialysis today and PTS trial. PMHX: Chronic renal insufficiency, pre-diabetes, alcoholism, BKA. LABS: Reviewed. CO2 16, Bun 75, electrocardiographic technician 4.87, Glu 229, phos 6.6, alb 2.8 MEDS: Reviewed. Insulin, Precedex, Norepi, thiamine, MVI. Propofol currently 20ml/hr providing ~528kcal/day GI: 550ml output via FMS WT: 103kg, BMI 34.7 kg/m2. IBW 70 kg, Admit Wt: 104.5 kg, adj bw:77kg DIET: NPO . ENTERAL FEEDING: Nepro @ 40 mL/hr + 3 packets of ProSource providing 1584 kcal (2112 kcal w/ propofol), 104 g protein, meeting 100% estimated needs ESTIMATED NEEDS: Dialysis, BMI, BKA: Calories:1730-0477 kcal/day (25 - 30 kcal/kg Adj BW) Protein: 85-140 g/day (1.2-2.0 g/kg IBW) Fluids: 1000-1200ml/day NUTRITION DIAGNOSIS: 1) Inadequate oral intake related to decreased ability to consume sufficient energy as evidenced by current NPO / vent status - IMPROVED WITH ENTERAL FEEDING. 2) Increased nutrient needs related to increased demand for nutrients as evidence by pt on dialysis--PERSISTS NUTRITION INTERVENTION: 1) Continue TF @40 ml/hr and 1 packet prosouce TID, providing 1584 kcal (2112 with propofol), 104 g protein, sufficient to meet 100% estimated needs. MONITOR/EVALUATE: NPO/Vent status, Dialysis status, enteral feeding tolerance, meds, labs, weights, nutrition status. Follow per high nutrition risk guidelines.
--- NOTE | 2016-11-10 11:31 | PCM.PNMED ---
Subjective Date of Service Nov 10, 2016 Subjective The patient is well-known to me from multiple previous evaluations. His urine output has improved somewhat however he remains nonoliguric renal failure. Health she remains on ventilatory dependent. His blood pressure has been fair and he is tolerating his tube feedings. Exam Vital Signs Vital Sign - Last Date Time Temp Pulse Resp B/P Pulse Ox O2 Delivery O2 Flow Rate FiO2 11/10/16 09:20 80 105/51 98 35 11/10/16 08:02 Ventilator 11/10/16 07:32 37.1 26 11/05/16 16:30 6.00 Intake and Output 11/09/16 11/09/16 11/10/16 Cumulative From/Thru 15:00 23:00 07:00 10/26/16 17:03 - 11/10/16 05:48 Intake Total 1721 ml 2109 ml 45678 ml Output Total 750 ml 1600 ml 44333 ml Balance 971 ml 509 ml 67774 ml Intake Oral 0 ml IV Total 1091 ml 1374 ml 12173 ml Tube Feeding 370 ml 515 ml 4307 ml Tube Irrigant 260 ml 220 ml 1961 ml Output Urine Total 700 ml 1400 ml 26945 ml Stool Total 50 ml 200 ml 1850 ml Gastric Drainage Total 575 ml Ultrafiltrate 5000 ml # Bowel Movements 6 Exam Patient is sedated and on a ventilator. Neck is supple without adenopathy thyromegaly or jugular venous distention. Lungs were clear to auscultation though somewhat diminished bilaterally. Heart was tachycardic but no murmur was noted. Abdomen was mildly distended with diminished bowel sounds. There were some mild tympany to percussion but no tenderness rebound guarding masses or hepatosplenomegaly is noted. Extremities she has a clubbing cyanosis or edema. Lab and Diagnostics Result Diagram: 11/10/16 0320 11/10/16 0320 X-Rays, CTs and MRIs PROCEDURE: CT ABDOMEN AND PELVIS WITHOUT CONTRAST ([id number]) IMPRESSION: 1. Bibasilar pneumonia. 2. Small loculated left pleural effusion with thickened rind, possibly indicating empyema. This is too small to safely aspirate percutaneously. 3. Cholelithiasis without evidence of cholecystitis. 4. Normal appendix. 5. Small hiatal hernia. Dictated by: Myke Gonzalez M.D. on 10/27/2016 at 20:52 Approved by: Myke Gonzalez M.D. on 10/27/2016 at 20:52 Chest x-ray on 11/03/2016: IMPRESSION: Pulmonary edema and or diffuse bilateral inflammatory process not significantly changed. Developing ARDS cannot be excluded. Dictated by: Bakari SAMANIEGO Interpreted: Ekaterina Carter MD on 11/03/2016 at 11:06 Transcribed by: NAHOMI on 11/03/2016 at 11:06 U/S lower extremity on 11/03/2016: IMPRESSION: No deep venous thrombosis identified within either the left or right lower extremities. Dictated by: Bakari SAMANIEGO Interpreted: Kika Crews MD on 11/03/2016 at 13:36 Transcribed by: RJ on 11/03/2016 at 13:36 Approved by: Kika Crews M.D. on 11/03/2016 at 13:50 U/S chest on 11/03/2016: IMPRESSION: A small loculated right pleural effusion. Dictated by: Bakari SAMANIEGO Interpreted: Kika Crews MD on 11/03/2016 at 13:36 Transcribed by: RJ on 11/03/2016 at 13:36 Approved by: Kika Crews M.D. on 11/03/2016 at 13:50 U/S retroperitoneal 11/04/2016: IMPRESSION: Left renal cyst. Dictated by: Bakari SAMANIEGO Interpreted: Gaby Nixon MD on 11/04/2016 at 16: 09 Transcribed by: GAURAV on 11/04/2016 at 16:09 Approved by: Gaby Nixon M.D. on 11/04/2016 at 16:57 U/S left upper extremity 11/07/2016: IMPRESSION: Occlusive thrombus within the left cephalic vein within the lower arm. Jennyfer Phan RN given results by the line erector apprentice at 1415 hrs. 11/06/16. Dictated by: Bakari SAMANIEGO Interpreted: Ekaterina Carter MD on 11/06/2016 at 16:14 Transcribed by: NAHOMI on 11/06/2016 at 16:14 Approved by: Ekaterina Carter MD, PhD on 11/06/2016 at 17:09 Assessment & Plan Impression #1 acute tubular necrosis #2 hypertension with hypertensive heart disease and hypertensive nephrosclerosis chemistry metabolic acidosis Recommendation #1 he is scheduled to have a 3-1/2 hour dialysis treatment today with possibly 1-2 L of fluid removed. At this point I would like to hold back on his dialysis for the next several days to see if he continues to have improvement in his renal indices. VTE Prophylaxis: SCDs Resuscitation Status: CPR: Attempt Resuscitation Humphrey Gonzalez DO Nov 10, 2016 11:31
[2016-11-10] MEDS: Pantoprazole 4 mg/mL 10 mL Inj IVPUSH SCH (11:54)
[2016-11-10] MEDS: Dexmedetomidine 400 mCg/100 mL NS Premix IV SCH ×2 (11:57→18:28)
--- NOTE | 2016-11-10 12:11 | PCM.PNMED ---
Subjective Date of Service Nov 10, 2016 Subjective Pulmonary Critical Care PN S. No critical events over noc. Appears to tolerate SBT with / and will advance as tolerates in hope to liberate from vent soon. Finished dialysis earlier today. Nods to questions and follows simple commands. Exam Vital Signs Vt on SBT approx 1000ml SpO2 97% on 0.35 Net I/O positive 13 L since admission Vital Sign - Last Date Time Temp Pulse Resp B/P Pulse Ox O2 Delivery O2 Flow Rate FiO2 11/10/16 11:28 72 118/68 99 35 11/10/16 08:02 Ventilator 11/10/16 07:32 37.1 26 11/05/16 16:30 6.00 Intake and Output 11/09/16 11/09/16 11/10/16 Cumulative From/Thru 15:00 23:00 07:00 10/26/16 17:03 - 11/10/16 05:48 Intake Total 1721 ml 2109 ml 86495 ml Output Total 750 ml 1600 ml 41634 ml Balance 971 ml 509 ml 20345 ml Intake Oral 0 ml IV Total 1091 ml 1374 ml 39679 ml Tube Feeding 370 ml 515 ml 4307 ml Tube Irrigant 260 ml 220 ml 1961 ml Output Urine Total 700 ml 1400 ml 50297 ml Stool Total 50 ml 200 ml 1850 ml Gastric Drainage Total 575 ml Ultrafiltrate 5000 ml # Bowel Movements 6 Neuro Face symmetric, Gaze conjugate. Moves UE's purposefully Lungs Decreased BS bilat, coarse rales diffusely, No wheezes CV RRR, distant HTs, no m/g/r Abd soft, Nl BT's Ext 1+ edema RLE, s/p Lt AKA. IVs and Medications Medications Reviewed: Medications were reviewed in detail Lab and Diagnostics Result Diagram: 11/10/16 0320 11/10/16 0320 X-Rays, CTs and MRIs PROCEDURE: CT ABDOMEN AND PELVIS WITHOUT CONTRAST ([id number]) IMPRESSION: 1. Bibasilar pneumonia. 2. Small loculated left pleural effusion with thickened rind, possibly indicating empyema. This is too small to safely aspirate percutaneously. 3. Cholelithiasis without evidence of cholecystitis. 4. Normal appendix. 5. Small hiatal hernia. Dictated by: Myke Gonzalez M.D. on 10/27/2016 at 20:52 Approved by: Myke Gonzalez M.D. on 10/27/2016 at 20:52 Chest x-ray on 11/03/2016: IMPRESSION: Pulmonary edema and or diffuse bilateral inflammatory process not significantly changed. Developing ARDS cannot be excluded. Dictated by: Bakari SAMANIEGO Interpreted: Ekaterina Carter MD on 11/03/2016 at 11:06 Transcribed by: NAHOMI on 11/03/2016 at 11:06 U/S lower extremity on 11/03/2016: IMPRESSION: No deep venous thrombosis identified within either the left or right lower extremities. Dictated by: Bakari SAMANIEGO Interpreted: Kika Crews MD on 11/03/2016 at 13:36 Transcribed by: RJ on 11/03/2016 at 13:36 Approved by: Kika Crews M.D. on 11/03/2016 at 13:50 U/S chest on 11/03/2016: IMPRESSION: A small loculated right pleural effusion. Dictated by: Bakari SAMANIEGO Interpreted: Kika Crews MD on 11/03/2016 at 13:36 Transcribed by: JR on 11/03/2016 at 13:36 Approved by: Kika Crews M.D. on 11/03/2016 at 13:50 U/S retroperitoneal 11/04/2016: IMPRESSION: Left renal cyst. Dictated by: Bakari SAMANIEGO Interpreted: Gaby Nixon MD on 11/04/2016 at 16: 09 Transcribed by: GAURAV on 11/04/2016 at 16:09 Approved by: Gaby Nixon M.D. on 11/04/2016 at 16:57 U/S left upper extremity 11/07/2016: IMPRESSION: Occlusive thrombus within the left cephalic vein within the lower arm. Jennyfer Phan RN given results by the professor of literature at 1415 hrs. 11/06/16. Dictated by: Bakari SAMANIEGO Interpreted: Ekaterina Carter MD on 11/06/2016 at 16:14 Transcribed by: NAHOMI on 11/06/2016 at 16:14 Approved by: Ekaterina Carter MD, PhD on 11/06/2016 at 17:09 Assessment & Plan Impression 1 AKASH, nonoliguric, d/t acute tubular necrosis 2 Acute respiratory failure, Vent day # 11 3 Severe sepsis, resolve 4 CAP MRSA and GBS, day #8 Linezolid and Flagyl, Had been on Zosyn and Ceftaroline earlier 5 Hep C 6 Delirium 7 H/O HTN 8 Alcoholism PLAN Olanzapine, attempt to wean Propofol SBT .SAT TF's Complete min 10 days Linezolid for MRSA PNA Routine ICU prophylaxis VTE Prophylaxis: SCDs Resuscitation Status: CPR: Attempt Resuscitation Time spent 35 minutes critical care time exclusive of shared time and procedures as of this note Miguel Bolton MD Nov 10, 2016 12:10
[2016-11-10] MEDS: OLANZapine Zydis ODT 5 mg Tablet PO SCH ×2 (12:28→20:30)
--- NOTE | 2016-11-10 12:51 | ABG ---
DateTimeAnalyzed 12:46:07 -_ pH ____7.424 - 7.350 7.450 pCO2 ___34.7__ -mmHg 35.0 45.0 pO2 ___92.1__ -mmHg 70.0 100 HCO3- ___22.7__ -mmol/L 22.0 26.0 ABE ___-1.6__ -mmol/L -2.0 2.0 tHb ____8.2__ -g/dL 12.0 18.0 O2Hb ___96.1__ -% 95.0 COHb ____0.8__ -% 1.5 MetHb ____0.7__ -% 0.4 1.5 sO2 ___97.6__ -% 25.0 FIO2 ___35.0__ -% Pressure_Support ____5.0__ -cmH2O PEEP ____5.0__ -cmH2O Drawn By [facility] - Date/Time Notified____ 12:51:00 -_ Notified By [facility] - Notified Whom Bolton, Miguel MD -_ B 760 -mmHg K+ ____2.8__ -mmol/L tO2 ___11.2__ -Vol%
[2016-11-10] MEDS ORDERED: 0.9% Sodium Chloride 250 ML ONE (12:54)
--- NOTE | 2016-11-10 13:38 | NUR ---
Dialysis note: 3 1/2 hr rxd tx, completed 2 hr 50 min r/t clotting system. Dr. Gonzalez notified. Net UF 150mL. NS bolus of 250 mL for BP support, 300 mL rinse back, total UF 695. Accessed right femoral cath, dsg changed CHG, chloroprep; I reversed limbs and repositioned pt to maintain QB. Albumin 25% 50 mL given r/t hypotension of 90/54. Pt still making urine. Pt was intubated but would open eyes and respond to voice or touch. Site secured with Heparin 1000 dwell and caps.
--- NOTE | 2016-11-10 14:21 | NUR ---
Patient extubated after meeting weaning criteria on for 1.5 hours. Placed on 5lpm NC. No issues notes.
[2016-11-10] MEDS ORDERED: fentaNYL-PF 50 mCg/mL 2 mL Inj IVPUSH PRN (15:00)
[2016-11-10] MEDS: Norepineph 8,000 mCg/250 mL NS 8,000 MCG in IV Premix 1 EACH IV SCH (15:17)
--- NOTE | 2016-11-10 15:26 | PCM.PNMED ---
Subjective Date of Service Nov 10, 2016 Subjective Slowly improving, norepinephrine stopped yesterday, blood pressure stable, PEEP weaned down to 5 today, tolerated pressure support 5 / 5, eventually extubated to nasal cannula. Exam Vital Signs Vital Sign - Last Date Time Temp Pulse Resp B/P Pulse Ox O2 Delivery O2 Flow Rate FiO2 11/10/16 14:19 74 18 123/63 98 Nasal Cannula 4.00 11/10/16 12:35 37.3 11/10/16 11:28 35 Intake and Output 11/09/16 11/09/16 11/10/16 Cumulative From/Thru 15:00 23:00 07:00 10/26/16 17:03 - 11/10/16 05:48 Intake Total 1721 ml 2109 ml 90308 ml Output Total 750 ml 1600 ml 89283 ml Balance 971 ml 509 ml 07770 ml Intake Oral 0 ml IV Total 1091 ml 1374 ml 25202 ml Tube Feeding 370 ml 515 ml 4307 ml Tube Irrigant 260 ml 220 ml 1961 ml Output Urine Total 700 ml 1400 ml 01005 ml Stool Total 50 ml 200 ml 1850 ml Gastric Drainage Total 575 ml Ultrafiltrate 5000 ml # Bowel Movements 6 Exam Gen. patient is lying in hospital bed,moderate respiratory distress HEENT: Head is normocephalic atraumatic, Pupils equal and reactive, extraocular movements intact, Lungs ronchi all over Heart regular rate and rhythm without murmurs gallops or rubs Abdomen distended ,soft nontender without hepatosplenomegaly Extremities pulses are present dorsalis pedis posterior tibialis and radial. Skin is warm and dry there are no rashes,left BKA Psych alert Neuro cranial nerves II through XII are grossly intact Lymph: There is no lymphadenopathy appreciated in the cervical supra infraclavicular regions : no leiva IVs and Medications Medications Reviewed: Medications were reviewed in detail Lab and Diagnostics Result Diagram: 11/10/16 0320 11/10/16 0320 X-Rays, CTs and MRIs PROCEDURE: CT ABDOMEN AND PELVIS WITHOUT CONTRAST ([id number]) IMPRESSION: 1. Bibasilar pneumonia. 2. Small loculated left pleural effusion with thickened rind, possibly indicating empyema. This is too small to safely aspirate percutaneously. 3. Cholelithiasis without evidence of cholecystitis. 4. Normal appendix. 5. Small hiatal hernia. Dictated by: Myke Gonzalez M.D. on 10/27/2016 at 20:52 Approved by: Myke Gonzalez M.D. on 10/27/2016 at 20:52 Chest x-ray on 11/03/2016: IMPRESSION: Pulmonary edema and or diffuse bilateral inflammatory process not significantly changed. Developing ARDS cannot be excluded. Dictated by: Bakari SAMANIEGO Interpreted: Ekaterina Carter MD on 11/03/2016 at 11:06 Transcribed by: NAHOMI on 11/03/2016 at 11:06 U/S lower extremity on 11/03/2016: IMPRESSION: No deep venous thrombosis identified within either the left or right lower extremities. Dictated by: Bakari SAMANIEGO Interpreted: Kika Crews MD on 11/03/2016 at 13:36 Transcribed by: RJ on 11/03/2016 at 13:36 Approved by: Kika Crews M.D. on 11/03/2016 at 13:50 U/S chest on 11/03/2016: IMPRESSION: A small loculated right pleural effusion. Dictated by: Bakari SAMANIEGO Interpreted: Kika Crews MD on 11/03/2016 at 13:36 Transcribed by: RJ on 11/03/2016 at 13:36 Approved by: Kika Crews M.D. on 11/03/2016 at 13:50 U/S retroperitoneal 11/04/2016: IMPRESSION: Left renal cyst. Dictated by: Bakari SAMANIEGO Interpreted: Gaby Nixon MD on 11/04/2016 at 16: 09 Transcribed by: GAURAV on 11/04/2016 at 16:09 Approved by: Gaby Nixon M.D. on 11/04/2016 at 16:57 U/S left upper extremity 11/07/2016: IMPRESSION: Occlusive thrombus within the left cephalic vein within the lower arm. Jennyfer Phan RN given results by the over short and damage clerk at 1415 hrs. 11/06/16. Dictated by: Bakari SAMANIEGO Interpreted: Ekaterina Carter MD on 11/06/2016 at 16:14 Transcribed by: NAHOMI on 11/06/2016 at 16:14 Approved by: Ekaterina Carter MD, PhD on 11/06/2016 at 17:09 Assessment & Plan # Acute respiratory failure with hypoxia/ARDS ,improving -due to MRSA pneumonia /sepsis, pt was initially maintained on BiPAP, deteriorated 10/29-8, intubated 10/30 ,EXTUBATED 11/10 -bronchoscopy 11/06 shows Marked erythema and edema of lobar airways, especially left upper lobe,significant thin secretion,sent for analysis -appreciate CCU team active management -chest US :small loculated right pleural effusion,probably not large enough for intervention/thoracentesis -CT C/A/P 11/05 :Bilateral pneumonia which appears to have worsened, right left , with reference to the earlier comparison CT from 10/27/16. Small posterior right pleural effusion, no suspicion for empyema by appearance. -on dexamethasone 6mg iv bid for intrathoracic airway obstruction,pulm lowered dose to 6mg daily # septic shock requiring pressor support secondary to MRSA pneumonia,resolved -norepi stopped on 11/09,has been on and off pressor for about 10 days - high initial wbc/procalcitonin, MRSA+ on sputum, AFB so far ngtd, still on pressor. -on linezolid/flagyl started on 11/03,initially treated with switched from zosyn, ceftaroline.may stop antibiotics in the next 24-48 hrs,will ask ID -new set of blood,respiratory secretions culture sent 11/06,unrevealing so far # AKASH on CKD requiring initiation of HD , secondary to ATN from sepsis, resultant severe metabolic acidosis, hyperkalemia, UOP-non oligouric phase of ATN -baseline creatinine reportedly mid 2's -started on HD 11/06,had also on 11/07 ,he also has good UOP,HD today # metabolic acidosis -due to ARF and sepsis -management as above # LUE swelling -duplex: left cephalic vein thrombosis -no indication fo Ac,continue to monitor,may consider repeating duplex if swelling persists -heparin ppx # Encephalopathy ,resolved -metabolic encephalopathy due to sepsis. # watery diarrhea ,improving -c.dif negative # hepC ab +, diagnosed on current admission, viral load 185,070 -outpatient GI or ID referral # Hyperphosphatemia -improved with dialysis. -calcium carbonate # Normocytic Normochromic Anemia secondary to anemia from CKD -Aranesp 60 mg x 1 given -Continue to monitor # hyperglycemia -due to setroid, -sliding scale q6h,glucose 229 today ,steroid dose lowered ,hopefully glucose will be better Disposition: may need SNF recovery,SW aware of plan and will send referral to SNFs VTE Prophylaxis: SCDs Resuscitation Status: CPR: Attempt Resuscitation Campbell Vazquez MD Nov 10, 2016 15:25
--- NOTE | 2016-11-10 18:35 | NUR ---
Cognition/respiration/pain Patient resting quietly with eyes open. No reported pain at this time. Oriented to person, and place. Precedex titrated down to 0.4mcg/kg/min. Lungs clear in upper lung navarrete, diminished bases. Respirations unlabored & even. Maintaining oxygen saturation >92% on 2.5L 02 per NC. Scant, clear to white oral secretions. SR per staff physical therapist. Normotensive. Family at bedside.
[2016-11-10] MEDS: Dexamethasone 4 mg/mL Inj IVPUSH SCH (20:26)
[2016-11-11] VITALS (11 sets, daily range): BP systolic 121–141; BP diastolic 67–75; PULSE 69–87; RESP 14–22; O2SAT 93–98
[2016-11-11] MEDS: Linezolid Inj 600 MG in IV Premix 1 EACH IV SCH ×2 (00:04→08:51)
[2016-11-11] MEDS: Chlorhexidine 0.12% 15 mL Oral Solution MT SCH ×7 (00:04→23:21)
[2016-11-11] MEDS: Dexmedetomidine 400 mCg/100 mL NS Premix IV SCH (03:32)
[2016-11-11] MEDS: Insulin Human REGular 300 Unit/3 mL Inj SUBQ SCH ×4 (03:40→20:30)
[2016-11-11 03:54] LABS: BASOPHILS % (AUTO) 0.6 % (0-3); EOSINOPHILS % (AUTO) 0.5 % (0-5); MONOCYTES % (AUTO) 7.3 % (4-12); Mean Corpuscular Hemoglobin 31.4 pg (27.0-35.0); Mean Corpuscular Volume 96.4 fL (81-100); NEUTROPHILS % (AUTO) 73.6 % (40-74); Platelet Count 378 bil/L (150-400)
[2016-11-11 04:21] LABS: Magnesium 1.8 mg/dL (1.6-2.6); Phosphorus 4.8 mg/dL (2.5-4.9)
--- NOTE | 2016-11-11 07:21 | NUR ---
Agitation Pt confused, with intermittent agitation through the night, on precedex gtt @ 0.4 mcg/kg/hr, DC'd Rt radial art line,tip intact, tele SR with no ectopy, BP stable, sp02 >96% on 2 LPM via NC, leiva drained with adequate uo, fms drained with 350cc brownish-green stool, bilateral soft wrist restraints on.
[2016-11-11] MEDS: Albuterol-Ipratropium 3 mL Inhalation Solution NEB SCH ×4 (08:29→20:30)
[2016-11-11] MEDS: Multivit-Miner-Folic Acid-Iron Tablet PO SCH (08:30)
[2016-11-11] MEDS: Polyethylene Glycol (PEG) 17 Gm Powder PO SCH (08:30)
[2016-11-11] MEDS: Pantoprazole 4 mg/mL 10 mL Inj IVPUSH SCH (08:51)
[2016-11-11] MEDS: Dexamethasone 4 mg/mL Inj IVPUSH SCH ×2 (08:52→20:48)
[2016-11-11] MEDS: Heparin 5,000 Unit/mL Inj SUBQ SCH ×2 (08:53→20:48)
[2016-11-11] MEDS: OLANZapine Zydis ODT 5 mg Tablet PO SCH ×2 (08:53→20:48)
--- NOTE | 2016-11-11 09:19 | NUR ---
NUTRITION FOLLOW UP: ASSESS: 61 YO male admitted with confusion, weakness, falls, renal failure. Pt. was initially maintained on BiPAP, deteriorated 10/29-, intubated. TF was tolerated at goal, now on hold. Pt continues to require dialysis. Pt was extubated 11/10. ST to evaluate pt today. Pt continues to be a bit confused after extubation PMHX: Chronic renal insufficiency, pre-diabetes, alcoholism, BKA. LABS: Reviewed. Bun 62, County [place] 4.14, Glu 106, Alb 2.8 MEDS: Reviewed. thiamine, MVI. GI: 600ml output via FMS 11/10 WT: 100.6kg, BMI 33.7kg/m2. IBW 70 kg, Admit Wt: 104.5 kg, adj bw:77kg DIET: NPO . ENTERAL FEEDING: --ON HOLD---Nepro @ 40 mL/hr + 3 packets of ProSource providing 1584 kcal (2112 kcal w/ propofol), 104 g protein, meeting 100% estimated needs RE-ESTIMATED NEEDS: Dialysis, BMI, BKA (-5% of BKA): Calories:2090-2375kal/day (22-25kcal/kg) Protein: 80-130 g/day (1.2-2.0 g/kg IBW) Fluids: 1000-1200ml/day NUTRITION DIAGNOSIS: 1) Inadequate oral intake related to decreased ability to consume sufficient energy as evidenced by current NPO / vent status - IMPROVED WITH ENTERAL FEEDING. 2) Increased nutrient needs related to increased demand for nutrients as evidence by pt on dialysis--PERSISTS NUTRITION INTERVENTION: 1.) Advance diet per ST 2.) If pt does not pass ST eval, recommend re-start TF. Recommend Nepro @55 ml/hr to provide 2178kcal and 98g pro (100% estimated needs) MONITOR/EVALUATE: ST eval, re-start TF?, meds, labs, weights, nutrition status. Follow per high nutrition risk guidelines.
--- NOTE | 2016-11-11 09:38 | PCM.PNMED ---
Subjective Date of Service Nov 11, 2016 Subjective ICU/PULMONOLOGY PROGRESS NOTE This is a 61 year old male with history significant for alcoholism, CKD, and hepatitis c who presented on 10/26/2016 obtunded who later developed hypoxic respiratory failure, septic shock likely secondary to MRSA and group B strep pneumonia as well as ARDS. Patient also has Acute kidney injury on chronic kidney disease. He was intubated on 10/30/2016 and extubated on 11/10/2016. The patient is confused. He is oriented to person only. He continues to be afebrile. Exam Vital Signs Vital Sign - Last Date Time Temp Pulse Resp B/P Pulse Ox O2 Delivery O2 Flow Rate FiO2 11/11/16 08:29 72 14 98 Nasal Cannula 3.00 11/11/16 04:00 36.5 121/72 11/10/16 11:28 35 Intake and Output 11/10/16 11/10/16 11/11/16 Cumulative From/Thru 15:00 23:00 07:00 10/26/16 17:03 - 11/11/16 06:31 Intake Total 1053 ml 962 ml 97904 ml Output Total 150 ml 2050 ml 1750 ml 91345 ml Balance -150 ml -997 ml -788 ml 23594 ml Intake Oral 0 ml 0 ml IV Total 726 ml 962 ml 54475 ml Tube Feeding 247 ml 4554 ml Tube Irrigant 80 ml 2041 ml Output Urine Total 1650 ml 1400 ml 62359 ml Stool Total 400 ml 2250 ml Urine/Stool Mix 350 ml 350 ml Gastric Drainage Total 575 ml Ultrafiltrate 150 ml 5150 ml # Bowel Movements 6 Exam GEN: Patient is resting and confused. HEENT: sclera Anicteric NECK: right IJ in place, . RESP: Course breath sounds throughout. CV: Regular rate and rhythm. No clicks, rubs, murmurs. ABD: obese, soft, nontender. : leiva in place EXT: Edema left upper extremity, Right art line. : Leiva catheter in place. psych: Oriented to person but no place or time. Lab and Diagnostics Result Diagram: 11/11/16 03411/11/16 034 X-Rays, CTs and MRIs PROCEDURE: CT ABDOMEN AND PELVIS WITHOUT CONTRAST ([id number]) IMPRESSION: 1. Bibasilar pneumonia. 2. Small loculated left pleural effusion with thickened rind, possibly indicating empyema. This is too small to safely aspirate percutaneously. 3. Cholelithiasis without evidence of cholecystitis. 4. Normal appendix. 5. Small hiatal hernia. Dictated by: Myke Gonzalez M.D. on 10/27/2016 at 20:52 Approved by: Myke Gonzalez M.D. on 10/27/2016 at 20:52 Chest x-ray on 11/03/2016: IMPRESSION: Pulmonary edema and or diffuse bilateral inflammatory process not significantly changed. Developing ARDS cannot be excluded. Dictated by: Bakari SAMANIEGO Interpreted: Ekaterina Carter MD on 11/03/2016 at 11:06 Transcribed by: NAHOMI on 11/03/2016 at 11:06 U/S lower extremity on 11/03/2016: IMPRESSION: No deep venous thrombosis identified within either the left or right lower extremities. Dictated by: Bakari SAMANIEGO Interpreted: Kika Crews MD on 11/03/2016 at 13:36 Transcribed by: RJ on 11/03/2016 at 13:36 Approved by: Kika Crews M.D. on 11/03/2016 at 13:50 U/S chest on 11/03/2016: IMPRESSION: A small loculated right pleural effusion. Dictated by: Bakari SAMANIEGO Interpreted: Kika Crews MD on 11/03/2016 at 13:36 Transcribed by: RJ on 11/03/2016 at 13:36 Approved by: Kika Crews M.D. on 11/03/2016 at 13:50 U/S retroperitoneal 11/04/2016: IMPRESSION: Left renal cyst. Dictated by: Bakari SAMANIEGO Interpreted: Gaby Nixon MD on 11/04/2016 at 16: 09 Transcribed by: GAURAV on 11/04/2016 at 16:09 Approved by: Gaby Nixon M.D. on 11/04/2016 at 16:57 U/S left upper extremity 11/07/2016: IMPRESSION: Occlusive thrombus within the left cephalic vein within the lower arm. Jennyfer Phan RN given results by the cage unloader at 1415 hrs. 11/06/16. Dictated by: Bakari SAMANIEGO Interpreted: Ekaterina Carter MD on 11/06/2016 at 16:14 Transcribed by: NAHOMI on 11/06/2016 at 16:14 Approved by: Ekaterina Carter MD, PhD on 11/06/2016 at 17:09 Assessment & Plan This is a 61 year old male with history significant for alcohol abuse, CKD, hepatitis C who presented obtunded which was then complicated by hypoxic respiratory failure, ARDS, and severe sepsis likely secondary to pneumonia ( sputum culture grew MRSA and group b strep), and acute kidney injury on chronic kidney disease: Acute Respiratory Distress Syndrome, resolved: - Pt decompensated 10/30/16 intubated by anesthesia. Extubated on 11/10/2016. On 2 liters of oxygen and maintaining O2 sats. - Attempting to keep pt as dry as possible in conjunction with nephrology. -CT of chest w/o contrast and CT of abdomen with oral contrast on 11/05/2016 showed worsening bilateral pneumonia, small posterior right pleural effusion, slight hydronephrosis and hydroureter on left. Acute hypoxic respiratory failure, intubated October 30. - Patient currently on 2 liters O2 by NC. -Tube feeding with Nepro as patient has CKD. Tube feeding at goal of 40. -Goal is to ambulate patient. Barriers include leiva and fecal management system. Agitation: -Patient has weaned off Precedex. -Olanzapine 5mg BID for agitation/'delirium. Consider stopping this medication tomorrow. -Patient does take opiate pain medications at home and this could be a possible reason for agitation. Consider switching to oral pain medications once patient is not NPO. Intrathoracic upper airway obstruction: -Continue with the Duonebs scheduled. Budesonide stopped. -Lidocaine inhaled PRN. -Dexamethasone to 3mg BID. Septic shock secondary to pneumonia, resolved: - Secondary to MRSA and GBS pneumonia. Procalcitonin continues to lower. He continues to be afebrile. - Will stop Linezolid and Metronidazole. He has had 14 days of antibiotics. Patient previously received Zosyn for seven days and Ceftaroline for 5 days before being stopped on (11/03/2016). - Bronchoscopy 11/06/2016: sputum cultures negative -On 10/29/2016: Viral panel on bronchial washings was negative, AFB smear x3 negative, Sputum culture + for MRSA, Group B strep. -Levophed was discontinued on 10/30/2016 and pressures are stable. AKASH on CKD: -Last known labwork completed on 09/02/2016: BUN 26 Cr 2.60. On 04/19/2015: Cr 1.85 - Last HD on 11/10/2016. Femoral catheter to be removed today. -Nephrology to continue evaluation of Cr and need of additional HD. - Continues to maintain urine output. - Renal ultrasound showed left renal cyst. -Consider IV fluids to avoid hypovolemia and worsening kidney injury. Cephalic vein thrombus left upper extremity: -Superficial vein thrombosis. Will hold on anticoagulation. Hypokalemia, resolved Hyperphosphatemia, resolved: Encephalopathy - Likely mixed metabolic encephalopathy with EtOH withdrawal -Unknown baseline. Elevated AST, resolved: Hepatitis C antibody positive - Viral load [id number]. Macrocytic Anemia, acute -Likely secondary to alcoholism. -will continue to monitor Pulmonology/ICU team is signing off. Prophylaxis: SubQ heparin PPI FULL CODE VTE Prophylaxis: SCDs Resuscitation Status: CPR: Attempt Resuscitation José Miguel Collins DO Nov 11, 2016 09:08
--- NOTE | 2016-11-11 10:10 | NUR ---
Called and left message with [facility] and let her know patient has been extubated and we would like to have them review patient as soon as possible. Updated MANAGER DELI
[2016-11-11] MEDS: metroNIDAZOLE Inj 1,000 MG in IV Premix 1 EACH IV SCH (10:40)
[2016-11-11] MEDS: fentaNYL-PF 50 mCg/mL 2 mL Inj IVPUSH PRN ×4 (11:40→23:18)
--- NOTE | 2016-11-11 12:13 | PCM.PNMED ---
Subjective Date of Service Nov 11, 2016 Subjective NEPHROLOGY PROGRESS NOTE The patient was successfully extubated yesterday and has been oxygenating well. He is confused and only oriented to self. He denies any pain this morning but says he does not feel well. Nephrology attending: Patient was seen and examined with the internal medicine resident. He continues to have good urine output and his lab remained stable. I would like to continue to closely follow his intake, output, blood pressure, and laboratory parameters. The temporary dialysis catheter has been in place for 5 days and I will attempt have that removed with the tip cultured. Impression #1 acute tubular necrosis secondary to sepsis which appears to be resolving #2 chronic kidney disease with baseline creatinine of approximately 2.8#3 hypertension with hypertensive heart disease hypertension nephrosclerosis. 4 metabolic acidosis. Exam Vital Signs Vital Sign - Last Date Time Temp Pulse Resp B/P Pulse Ox O2 Delivery O2 Flow Rate FiO2 11/11/16 11:53 72 18 96 Nasal Cannula 3.00 11/11/16 09:11 37.0 133/75 11/10/16 11:28 35 Intake and Output 11/10/16 11/10/16 11/11/16 Cumulative From/Thru 15:00 23:00 07:00 10/26/16 17:03 - 11/11/16 06:31 Intake Total 1053 ml 962 ml 54018 ml Output Total 150 ml 2050 ml 1750 ml 94517 ml Balance -150 ml -997 ml -788 ml 46355 ml Intake Oral 0 ml 0 ml IV Total 726 ml 962 ml 70355 ml Tube Feeding 247 ml 4554 ml Tube Irrigant 80 ml 2041 ml Output Urine Total 1650 ml 1400 ml 98469 ml Stool Total 400 ml 2250 ml Urine/Stool Mix 350 ml 350 ml Gastric Drainage Total 575 ml Ultrafiltrate 150 ml 5150 ml # Bowel Movements 6 Exam GEN: in no acute distress, laying in a hospital bed, alert, oriented to self. HEENT: sclera inacteric, mouth dry NECK: right IJ in place without evidence of bleeding RESP: diffuse crackles and rhonchi CV: irregularly irregular rhythm ABD: obese, soft : leiva in place, R femoral Zhao catheter in place EXT: no edema, L BKA, noted since admission psych: oriented to self only neuro: moves all extremities spontaneously, CN 2-12 intact grossly. IVs and Medications Medications Reviewed: Medications were reviewed in detail Lab and Diagnostics Result Diagram: 11/11/16 0340 11/11/16 0340 X-Rays, CTs and MRIs PROCEDURE: CT ABDOMEN AND PELVIS WITHOUT CONTRAST ([id number]) IMPRESSION: 1. Bibasilar pneumonia. 2. Small loculated left pleural effusion with thickened rind, possibly indicating empyema. This is too small to safely aspirate percutaneously. 3. Cholelithiasis without evidence of cholecystitis. 4. Normal appendix. 5. Small hiatal hernia. Dictated by: Myke Gonzalez M.D. on 10/27/2016 at 20:52 Approved by: Myke Gonzlaez M.D. on 10/27/2016 at 20:52 Chest x-ray on 11/03/2016: IMPRESSION: Pulmonary edema and or diffuse bilateral inflammatory process not significantly changed. Developing ARDS cannot be excluded. Dictated by: Bakari SAMANIEGO Interpreted: Ekaterina Carter MD on 11/03/2016 at 11:06 Transcribed by: NAHOMI on 11/03/2016 at 11:06 U/S lower extremity on 11/03/2016: IMPRESSION: No deep venous thrombosis identified within either the left or right lower extremities. Dictated by: Bakari SAMANIEGO Interpreted: Kika Crews MD on 11/03/2016 at 13:36 Transcribed by: RJ on 11/03/2016 at 13:36 Approved by: Kika Crews M.D. on 11/03/2016 at 13:50 U/S chest on 11/03/2016: IMPRESSION: A small loculated right pleural effusion. Dictated by: Bakari SAMANIEGO Interpreted: Kika Crews MD on 11/03/2016 at 13:36 Transcribed by: RJ on 11/03/2016 at 13:36 Approved by: Kika Crews M.D. on 11/03/2016 at 13:50 U/S retroperitoneal 11/04/2016: IMPRESSION: Left renal cyst. Dictated by: Bakari SAMANIEGO Interpreted: Gaby Nixon MD on 11/04/2016 at 16: 09 Transcribed by: GAURAV on 11/04/2016 at 16:09 Approved by: Gaby Nixon M.D. on 11/04/2016 at 16:57 U/S left upper extremity 11/07/2016: IMPRESSION: Occlusive thrombus within the left cephalic vein within the lower arm. Jennyfer Phan RN given results by the results technician at 1415 hrs. 11/06/16. Dictated by: Bakari Bunch RRA Interpreted: Ekaterina Carter MD on 11/06/2016 at 16:14 Transcribed by: NAHOMI on 11/06/2016 at 16:14 Approved by: Ekaterina Carter MD, PhD on 11/06/2016 at 17:09 Assessment & Plan Acute kidney injury superimposed on chronic kidney disease of unknown stage -due to ATN -Per CCU team patient's baseline Cr is around 2 -extubated yesterday and doing reasonbly well -will remove Zhao catheter today -Cr 4.14 today, which is post-dialysis, will await a more accurate representation tomorrow -No plan for further dialysis at this point, will continue to monitor -Patient continues to have good urine output Severe Metabolic Acidosis secondary to AKASH, resolved Hypervolemic Hypernatremia, resolved Hyperphosphatemia -improved with dialysis -calcium carbonate continuing Hypokalemia Normocytic Normochromic Anemia secondary to anemia from CKD -Aranesp 60 mg x 1 given -Continue to monitor We will continue to follow along with you. VTE Prophylaxis: SCDs Resuscitation Status: CPR: Attempt Resuscitation Mahnaz Lua DO Nov 11, 2016 12:13 Humphrey Gonzalez DO Nov 11, 2016 13:54
--- NOTE | 2016-11-11 13:48 | NUR ---
Femoral dialysis catheter Femoral dialysis catheter removed by senior java engineer. Vaseline gauze/ 2X2/ tagaderm. Pressure held zonia 5 mins. No blood oozing noted
[2016-11-11] MEDS: Norepineph 8,000 mCg/250 mL NS 8,000 MCG in IV Premix 1 EACH IV SCH (15:17)
[2016-11-11] MEDS ORDERED: 0.9% Sodium Chloride 250 ML ONE (15:26)
--- NOTE | 2016-11-11 15:34 | PCM.PNMED ---
Subjective Date of Service Nov 11, 2016 Subjective extubated,alert and oriented x1,afebrile Exam Vital Signs Vital Sign - Last Date Time Temp Pulse Resp B/P Pulse Ox O2 Delivery O2 Flow Rate FiO2 11/11/16 12:00 36.5 77 17 141/69 96 Nasal Cannula 1.00 11/10/16 11:28 35 Intake and Output 11/10/16 11/10/16 11/11/16 Cumulative From/Thru 15:00 23:00 07:00 10/26/16 17:03 - 11/11/16 06:31 Intake Total 1053 ml 962 ml 56143 ml Output Total 150 ml 2050 ml 1750 ml 39465 ml Balance -150 ml -997 ml -788 ml 89096 ml Intake Oral 0 ml 0 ml IV Total 726 ml 962 ml 79288 ml Tube Feeding 247 ml 4554 ml Tube Irrigant 80 ml 2041 ml Output Urine Total 1650 ml 1400 ml 69419 ml Stool Total 400 ml 2250 ml Urine/Stool Mix 350 ml 350 ml Gastric Drainage Total 575 ml Ultrafiltrate 150 ml 5150 ml # Bowel Movements 6 Exam Gen. patient is lying in hospital bed,moderate respiratory distress HEENT: Head is normocephalic atraumatic, Pupils equal and reactive, extraocular movements intact, Lungs ronchi all over Heart regular rate and rhythm without murmurs gallops or rubs Abdomen distended ,soft nontender without hepatosplenomegaly Extremities pulses are present dorsalis pedis posterior tibialis and radial. Skin is warm and dry there are no rashes,left BKA Psych alert Neuro cranial nerves II through XII are grossly intact Lymph: There is no lymphadenopathy appreciated in the cervical supra infraclavicular regions : no leiva IVs and Medications Medications Reviewed: Medications were reviewed in detail Lab and Diagnostics Result Diagram: 11/11/16 0340 11/11/16 034 X-Rays, CTs and MRIs PROCEDURE: CT ABDOMEN AND PELVIS WITHOUT CONTRAST ([id number]) IMPRESSION: 1. Bibasilar pneumonia. 2. Small loculated left pleural effusion with thickened rind, possibly indicating empyema. This is too small to safely aspirate percutaneously. 3. Cholelithiasis without evidence of cholecystitis. 4. Normal appendix. 5. Small hiatal hernia. Dictated by: Myke Gonzalez M.D. on 10/27/2016 at 20:52 Approved by: Myke Gonzalez M.D. on 10/27/2016 at 20:52 Chest x-ray on 11/03/2016: IMPRESSION: Pulmonary edema and or diffuse bilateral inflammatory process not significantly changed. Developing ARDS cannot be excluded. Dictated by: Bakari SAMANIEGO Interpreted: Ekaterina Carter MD on 11/03/2016 at 11:06 Transcribed by: NAHOMI on 11/03/2016 at 11:06 U/S lower extremity on 11/03/2016: IMPRESSION: No deep venous thrombosis identified within either the left or right lower extremities. Dictated by: Bakari SAMANIEGO Interpreted: Kika Crews MD on 11/03/2016 at 13:36 Transcribed by: RJ on 11/03/2016 at 13:36 Approved by: Kika Crews M.D. on 11/03/2016 at 13:50 U/S chest on 11/03/2016: IMPRESSION: A small loculated right pleural effusion. Dictated by: Bakari SAMANIEGO Interpreted: Kika Crews MD on 11/03/2016 at 13:36 Transcribed by: RJ on 11/03/2016 at 13:36 Approved by: Kika Crews M.D. on 11/03/2016 at 13:50 U/S retroperitoneal 11/04/2016: IMPRESSION: Left renal cyst. Dictated by: Bakari SAMANIEGO Interpreted: Gaby Nixon MD on 11/04/2016 at 16: 09 Transcribed by: GAURAV on 11/04/2016 at 16:09 Approved by: Gaby Nixon M.D. on 11/04/2016 at 16:57 U/S left upper extremity 11/07/2016: IMPRESSION: Occlusive thrombus within the left cephalic vein within the lower arm. Jennyfer Phan RN given results by the airport control operator at 1415 hrs. 11/06/16. Dictated by: Bakari SAMANIEGO Interpreted: Ekaterina Carter MD on 11/06/2016 at 16:14 Transcribed by: NAHOMI on 11/06/2016 at 16:14 Approved by: Ekaterina Carter MD, PhD on 11/06/2016 at 17:09 Assessment & Plan # Acute respiratory failure with hypoxia/ARDS ,improving -due to MRSA pneumonia /sepsis, pt was initially maintained on BiPAP, deteriorated 10/29-, intubated 10/30 ,EXTUBATED 11/10 -bronchoscopy 11/06 shows Marked erythema and edema of lobar airways, especially left upper lobe,significant thin secretion,sent for analysis -appreciate CCU team active management -CT C/A/P 11/05 :Bilateral pneumonia which appears to have worsened, right left , with reference to the earlier comparison CT from 10/27/16. Small posterior right pleural effusion, no suspicion for empyema by appearance. -on dexamethasone 6mg iv daily for intrathoracic airway obstruction, # septic shock requiring pressor support secondary to MRSA pneumonia,resolved -norepi stopped on 11/09,has been on and off pressor for about 10 days - high initial wbc/procalcitonin, MRSA+ on sputum, AFB so far ngtd, still on pressor. -was on linezolid/flagyl started on 11/03,initially treated with switched from zosyn, ceftaroline. 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 # watery diarrhea ,improving -c.dif negative # hepC ab +, diagnosed on current admission, viral load 185,070 -outpatient GI or ID referral # Hyperphosphatemia -improved with dialysis. -calcium carbonate # Normocytic Normochromic Anemia secondary to anemia from CKD -Aranesp 60 mg x 1 given -Continue to monitor # hyperglycemia -due to setroid, -sliding scale q6h ,steroid dose lowered ,hopefully glucose will be better Disposition: may need SNF eventually ,SW aware of plan and will send referral to SNFs VTE Prophylaxis: SCDs Resuscitation Status: CPR: Attempt Resuscitation Campbell Vazquez MD Nov 11, 2016 15:33 Campbell Vazquez MD Nov 11, 2016 15:33
--- NOTE | 2016-11-11 17:27 | NUR ---
Evaluation completed. Please go to "Notes" then click on "Assessments and Notes" (bottom left corner of screen). Then select appropriate discipline tab on top of screen.
[2016-11-12] VITALS (11 sets, daily range): BP systolic 139–155; BP diastolic 77–88; PULSE 77–93; RESP 16–24; O2SAT 92–99
[2016-11-12] MEDS: Chlorhexidine 0.12% 15 mL Oral Solution MT SCH ×3 (03:25→12:05)
[2016-11-12] MEDS: Insulin Human REGular 300 Unit/3 mL Inj SUBQ SCH ×4 (03:30→20:30)
[2016-11-12 03:54] LABS: Mean Corpuscular Hemoglobin 31.1 pg (27.0-35.0); Mean Corpuscular Volume 97.4 fL (81-100); Platelet Count 386 bil/L (150-400)
[2016-11-12 04:12] LABS: Phosphorus 5.5 mg/dL (2.5-4.9)
[2016-11-12 04:54] LABS: MONOCYTES % (AUTO) 7 % (4-12); NEUTROPHILS % (AUTO) 77 % (40-74)
[2016-11-12 04:55] LABS: BASOPHILS % (AUTO) 1 % (0-3); EOSINOPHILS % (AUTO) 1 % (0-5)
--- NOTE | 2016-11-12 06:49 | NUR ---
Mentation Improved mentation throughout the night, pt more alert, oriented to name and place, confused w/ time, restless, given ativan 1 mg IV with minimal effect. pt c/o general body aches, given fentanyl 50 mcg IV, pain relieved, leiva drained with adequate uo, FMS draining with liquid stool. vital signs stable. switched to PCC status w/ tele @ 0530.
[2016-11-12] MEDS: Albuterol-Ipratropium 3 mL Inhalation Solution NEB SCH ×3 (08:15→20:14)
[2016-11-12] MEDS: OLANZapine Zydis ODT 5 mg Tablet PO SCH (08:30)
[2016-11-12] MEDS: Multivit-Miner-Folic Acid-Iron Tablet PO SCH (08:30)
[2016-11-12] MEDS: Polyethylene Glycol (PEG) 17 Gm Powder PO SCH (08:30)
[2016-11-12] MEDS: fentaNYL-PF 50 mCg/mL 2 mL Inj IVPUSH PRN (09:04)
[2016-11-12] MEDS: Dexamethasone 4 mg/mL Inj IVPUSH SCH ×2 (09:05→20:48)
[2016-11-12] MEDS: Heparin 5,000 Unit/mL Inj SUBQ SCH ×2 (09:05→20:48)
[2016-11-12] MEDS: Pantoprazole 4 mg/mL 10 mL Inj IVPUSH SCH (09:05)
[2016-11-12] MEDS ORDERED: Potassium Chloride Inj 20 MEQ in Dextrose 5% 250 ML IV ONE (09:35)
[2016-11-12] MEDS: Dextrose 5% 0.45% NaCl 1,000 ML IV SCH ×2 (10:23→20:47)
--- NOTE | 2016-11-12 13:58 | NUR ---
Called and spoke with admissions for [facility], they do not currently have an open bed. They will review patient today and let us know whether they can clinically accept. project coordinator rn is working remotely and can be reached at [phone]. But early next week is expected bed opening. Updated GAS TRANSFER OPERATOR
--- NOTE | 2016-11-12 14:14 | PCM.PNMED ---
Subjective Date of Service Nov 12, 2016 Subjective NEPHROLOGY PROGRESS NOTE The patient seems more alert and oriented today. He was downgraded from CCU status last night. He was placed on strict NPO by speech therapy. He notes back pain and is eager to be discharged. Attending nephrology note: Patient's mental status remains quite poor. It is difficult to engage him in any type of meaningful conversation. His intake and output for the last 24 hours for 1566 in and 3350 out of which 2750 with urine output. He is beginning to develop some hypernatremia and I would strongly recommend replacement of his fluid losses. He appears to be in diuretic phase of acute tubular necrosis and at this point we need to closely follow the potassium, magnesium, and phosphorus. We also need to continue his IV hydration and closely follow his other lab. I have seen the patient and examined him with the internal medicine resident and findings are otherwise in the Exam Vital Signs Vital Sign - Last Date Time Temp Pulse Resp B/P Pulse Ox O2 Delivery O2 Flow Rate FiO2 11/12/16 08:30 36.9 84 24 155/88 95 Room Air 11/11/16 16:56 3.00 11/10/16 11:28 35 Intake and Output 11/11/16 11/11/16 11/12/16 Cumulative From/Thru 15:00 23:00 07:00 10/26/16 17:03 - 11/12/16 05:39 Intake Total 604 ml 107 ml 00788 ml Output Total 1550 ml 1350 ml 70166 ml Balance -946 ml -1243 ml 9302 ml Intake Oral 0 ml 0 ml IV Total 604 ml 107 ml 39848 ml Tube Feeding 4554 ml Tube Irrigant 2041 ml Output Urine Total 1350 ml 1250 ml 69735 ml Stool Total 200 ml 100 ml 2550 ml Urine/Stool Mix 350 ml Gastric Drainage Total 575 ml Ultrafiltrate 5150 ml # Bowel Movements 6 Exam GEN: in no acute distress, laying in a hospital bed, alert, oriented to self. HEENT: sclera inacteric, mouth dry NECK: right IJ in place without evidence of bleeding RESP: diffuse crackles and rhonchi CV: irregularly irregular rhythm ABD: obese, soft : leiva in place EXT: no edema, L BKA, noted since admission psych: oriented to self only neuro: moves all extremities spontaneously, CN 2-12 intact grossly. IVs and Medications Medications Reviewed: Medications were reviewed in detail Lab and Diagnostics Result Diagram: 11/12/16 0330 11/12/16 0330 X-Rays, CTs and MRIs PROCEDURE: CT ABDOMEN AND PELVIS WITHOUT CONTRAST ([id number]) IMPRESSION: 1. Bibasilar pneumonia. 2. Small loculated left pleural effusion with thickened rind, possibly indicating empyema. This is too small to safely aspirate percutaneously. 3. Cholelithiasis without evidence of cholecystitis. 4. Normal appendix. 5. Small hiatal hernia. Dictated by: Myke Gonzalez M.D. on 10/27/2016 at 20:52 Approved by: Myke Gonzalez M.D. on 10/27/2016 at 20:52 Chest x-ray on 11/03/2016: IMPRESSION: Pulmonary edema and or diffuse bilateral inflammatory process not significantly changed. Developing ARDS cannot be excluded. Dictated by: Bakari SAMANIEGO Interpreted: Ekaterina Carter MD on 11/03/2016 at 11:06 Transcribed by: NAHOMI on 11/03/2016 at 11:06 U/S lower extremity on 11/03/2016: IMPRESSION: No deep venous thrombosis identified within either the left or right lower extremities. Dictated by: Bakari SAMANIEGO Interpreted: Kika Crews MD on 11/03/2016 at 13:36 Transcribed by: RJ on 11/03/2016 at 13:36 Approved by: Kika Crews M.D. on 11/03/2016 at 13:50 U/S chest on 11/03/2016: IMPRESSION: A small loculated right pleural effusion. Dictated by: Bakari SAMANIEGO Interpreted: Kika Crews MD on 11/03/2016 at 13:36 Transcribed by: RJ on 11/03/2016 at 13:36 Approved by: Kika Crews M.D. on 11/03/2016 at 13:50 U/S retroperitoneal 11/04/2016: IMPRESSION: Left renal cyst. Dictated by: Bakari SAMANIEGO Interpreted: Gaby Nixon MD on 11/04/2016 at 16: 09 Transcribed by: GAURAV on 11/04/2016 at 16:09 Approved by: Gaby Nixon M.D. on 11/04/2016 at 16:57 U/S left upper extremity 11/07/2016: IMPRESSION: Occlusive thrombus within the left cephalic vein within the lower arm. Jennyfer Phan RN given results by the health technician hearing at 1415 hrs. 11/06/16. Dictated by: Bakari Bunch RRA Interpreted: Ekaterina Carter MD on 11/06/2016 at 16:14 Transcribed by: NAHOMI on 11/06/2016 at 16:14 Approved by: Ekaterina Carter MD, PhD on 11/06/2016 at 17:09 Assessment & Plan Acute kidney injury superimposed on chronic kidney disease of unknown stage -due to ATN -Per CCU team patient's baseline Cr is around 2 -extubated yesterday and doing reasonably well -Zhao catheter removed yesterday -Today's Cr worse at 5.08 -Patient continues to have good urine output -Will hold off on dialysis for now and continue to monitor Severe Metabolic Acidosis secondary to AKASH, resolved Hypervolemic Hypernatremia, ongoing -Patient has now had tube feeds stopped and has been placed NPO by speech therapy -Will start D51/2NS at 100 cc/hr Hyperphosphatemia -improved with dialysis -calcium carbonate cannot be given due to NPO status Hypokalemia -20 mEq KCl IV with recheck, cautious replacement due to renal failure Normocytic Normochromic Anemia secondary to anemia from CKD -Aranesp 60 mg x 1 given -Continue to monitor We will continue to follow along with you. VTE Prophylaxis: SCDs Resuscitation Status: CPR: Attempt Resuscitation Mahnaz Lua DO Nov 12, 2016 10:44 Humphrey Gonzalez DO Nov 12, 2016 15:36
--- NOTE | 2016-11-12 15:17 | NUR ---
Evaluation completed. Please go to "Notes" then click on "Assessments and Notes" (bottom left corner of screen). Then select appropriate discipline tab on top of screen.
--- NOTE | 2016-11-12 15:29 | NUR ---
NUTRITION FOLLOW UP: ASSESS: 61 YO male admitted with confusion, weakness, falls, renal failure. Pt. was initially maintained on BiPAP, deteriorated 10/29-, intubated. Pt was extubated 11/10. Nephrology continues to follow for dialysis. Pt's mentation continues to slowly clear. Per ST, pt has been placed on a stimulation diet but pt continues to need redirection and pt is very weak. Pt may benefit from supplemental nutrition support to help with rehab and gaining strength back. PMHX: Chronic renal insufficiency, pre-diabetes, alcoholism, BKA. LABS: Reviewed. Na 145, K 3.0, Bun 70, Physician Internist 5.08, Glu 109, phos 5.5, Alb 3.2 MEDS: Reviewed. thiamine, MVI. GI: 200ml output via FMS 11/11 WT: 100.1kg, BMI 33.6kg/m2. IBW 70 kg, Admit Wt: 104.5 kg, adj bw:77kg DIET: Stimulation, no PO yet RE-ESTIMATED NEEDS: Dialysis, BMI, BKA (-5% of BKA): Calories:2090-2375kal/day (22-25kcal/kg) Protein: 80-130 g/day (1.2-2.0 g/kg IBW) NUTRITION DIAGNOSIS: 1) Inadequate oral intake related to decreased ability to consume sufficient energy as evidenced by current NPO / vent status---DIET ADVC TODAY, NO PO YET 2) Increased nutrient needs related to increased demand for nutrients as evidence by pt on dialysis--PERSISTS NUTRITION INTERVENTION: 1.) Advance diet per ST. Once diet advanced past Stimulation, will evaluate pt for need for high kcal/pro snacks & supps. 2.) Will monitor for PO tolerance on diet. If he is not able to tolerate stim diet well due to weakness, pt may benefit from nutrition support to help with rehab and to gain back his strength. Recommend Nepro @55 ml/hr to provide 2178kcal and 98g pro (100% estimated needs) MONITOR/EVALUATE: ST, diet tolerance, re-start TF?, labs, weight, nutrition status. Follow per high nutrition risk guidelines.
--- NOTE | 2016-11-12 15:37 | PCM.PNMED ---
Subjective Date of Service Nov 12, 2016 Subjective pt was more lucid, oriented per RN AAOx2 ativan given for restlessness, worked well fantanyl given for bodyache, Exam Vital Signs Vital Sign - Last Date Time Temp Pulse Resp B/P Pulse Ox O2 Delivery O2 Flow Rate FiO2 11/12/16 11:30 36.7 82 20 144/82 94 Room Air 11/11/16 16:56 3.00 11/10/16 11:28 35 Intake and Output 11/11/16 11/11/16 11/12/16 Cumulative From/Thru 15:00 23:00 07:00 10/26/16 17:03 - 11/12/16 05:39 Intake Total 604 ml 107 ml 61001 ml Output Total 1550 ml 1350 ml 84947 ml Balance -946 ml -1243 ml 9302 ml Intake Oral 0 ml 0 ml IV Total 604 ml 107 ml 96721 ml Tube Feeding 4554 ml Tube Irrigant 2041 ml Output Urine Total 1350 ml 1250 ml 90676 ml Stool Total 200 ml 100 ml 2550 ml Urine/Stool Mix 350 ml Gastric Drainage Total 575 ml Ultrafiltrate 5150 ml # Bowel Movements 6 Exam NAD, AAOx1-2 slurred speech RRR,nl S1 s2 no mrg CTAB ,no w,c S,ND,NT,BS+ warm, no edema IVs and Medications Medications Reviewed: Medications were reviewed in detail Lab and Diagnostics Result Diagram: 11/12/16 0330 11/12/16 0330 X-Rays, CTs and MRIs PROCEDURE: CT ABDOMEN AND PELVIS WITHOUT CONTRAST ([id number]) IMPRESSION: 1. Bibasilar pneumonia. 2. Small loculated left pleural effusion with thickened rind, possibly indicating empyema. This is too small to safely aspirate percutaneously. 3. Cholelithiasis without evidence of cholecystitis. 4. Normal appendix. 5. Small hiatal hernia. Dictated by: Myke Gonzalez M.D. on 10/27/2016 at 20:52 Approved by: Myke Gonzalez M.D. on 10/27/2016 at 20:52 Chest x-ray on 11/03/2016: IMPRESSION: Pulmonary edema and or diffuse bilateral inflammatory process not significantly changed. Developing ARDS cannot be excluded. Dictated by: Bakari Bunch RRA Interpreted: Ekaterina Carter MD on 11/03/2016 at 11:06 Transcribed by: NAHOMI on 11/03/2016 at 11:06 U/S lower extremity on 11/03/2016: IMPRESSION: No deep venous thrombosis identified within either the left or right lower extremities. Dictated by: Bakari SAMANIEGO Interpreted: Kika Crews MD on 11/03/2016 at 13:36 Transcribed by: RJ on 11/03/2016 at 13:36 Approved by: Kika Crews M.D. on 11/03/2016 at 13:50 U/S chest on 11/03/2016: IMPRESSION: A small loculated right pleural effusion. Dictated by: Bakari SAMANIEGO Interpreted: Kika Crews MD on 11/03/2016 at 13:36 Transcribed by: RJ on 11/03/2016 at 13:36 Approved by: Kika Crews M.D. on 11/03/2016 at 13:50 U/S retroperitoneal 11/04/2016: IMPRESSION: Left renal cyst. Dictated by: Bakari SAMANIEGO Interpreted: Gaby Nixon MD on 11/04/2016 at 16: 09 Transcribed by: GAURAV on 11/04/2016 at 16:09 Approved by: Gaby Nixon M.D. on 11/04/2016 at 16:57 U/S left upper extremity 11/07/2016: IMPRESSION: Occlusive thrombus within the left cephalic vein within the lower arm. Jennyfer Phan RN given results by the stencil maker at 1415 hrs. 11/06/16. Dictated by: Bakari SAMANIEGO Interpreted: Ekaterina Carter MD on 11/06/2016 at 16:14 Transcribed by: NAHOMI on 11/06/2016 at 16:14 Approved by: Ekaterina Carter MD, PhD on 11/06/2016 at 17:09 Assessment & Plan acute, active #Encephalopathy, ICU delirium, initially likely from metabolic encephalopathy due to sepsis. improving as clinically improved but not at baseline. 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 Small posterior right pleural effusion, no suspicion for empyema by appearance. -on dexamethasone taper, 3mg bid today for intrathoracic airway obstruction, # AKASH on CKD requiring initiation of HD , secondary to ATN from sepsis, resultant severe metabolic acidosis, hyperkalemia, UOP-non oligouric phase of ATN -baseline creatinine reportedly mid 2's -started on HD 11/06,had also on 11/07 ,he also has good UOP, -nephrology removed HD catheter, no further dialysis. chronic, stable, resolved # septic shock requiring pressor support secondary to MRSA pneumonia,resolved -norepi stopped on 11/09,has been on and off pressor for about 10 days - high initial wbc/procalcitonin, MRSA+ on sputum, AFB so far ngtd, still on pressor. -was on linezolid/flagyl started on 11/03,initially treated with switched from zosyn, ceftaroline. stopped all antibiotics 11/11 -new set of blood,respiratory secretions culture sent 11/06,unrevealing so far # metabolic acidosis due to ARF and sepsis # LUE swelling, duplex: left cephalic vein thrombosis, no indication fo Ac, continue to monitor,may consider repeating duplex if swelling persists # watery diarrhea ,improving, c.dif negative # hepC ab +, diagnosed on current admission, viral load 185,070, outpatient GI or ID referral # Hyperphosphatemia, improved with dialysis, calcium carbonate # Normocytic Normochromic Anemia secondary to anemia from CKD, s/p Aranesp 60 mg x 1 given, Continue to monitor # hyperglycemia, due to setroid, sliding scale q6h ,steroid dose lowered , hopefully glucose will be better Disposition:PT/OT, likely SNF dvt ppx: HSQ gi ppx: stop PPI no Ix. diet: s/s eval Full code VTE Prophylaxis: SCDs Resuscitation Status: CPR: Attempt Resuscitation Time spent 35min Lalo Golden MD Nov 12, 2016 15:37
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
--- NOTE | 2016-11-12 16:38 | NUR ---
Transfer to 1001 Pt from [facility] 2001 to 1001 at 1640. Report taken from CATE Mendoza. Pt has triple lumen IJ on R side with IVF infusing. Richardson patent and draining to gravity; on telemetry; L BKA with prosthetic placed in closet. Pt is propped on pillows and not on a specialty bed. Oral care performed upon arrival; pt unable to clear throat. Pt is alert to self but has confusion and does not answer questions appropriately or follow commands. Will monitor closely.
[2016-11-12] MEDS: Mupirocin 2% 22 Gm Ointment TOPICAL SCH (20:30)
--- NOTE | 2016-11-12 21:45 | PROG NOTE ---
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 INTERVAL HISTORY: When I last saw this patient a week ago he was still on the ventilator and struggling with ongoing ventilator dependent respiratory failure as well as some hypotension and acute renal failure. Since that time, the patient has been successfully extubated and moved to the [place]. His mental status has improved greatly and this evening he is able to carry on limited conversation with me and seems quite appropriate, though he continues to require face mask oxygen. The patient states his shortness of breath is much improved and that he has minimal cough. He has no additional fevers or chills. He is continuing to produce fair amounts of urine through the Richardson catheter but until recently required ongoing dialysis because of continued renal failure. PHYSICAL EXAMINATION: Reveals an obese gentleman lying supine in his hospital bed. Temperature 36.9, pulse 86, respiratory rate 20, blood pressure 143/88. He is saturating well on his face mask oxygen this evening. He has been afebrile now for greater than one week. The patient's oral cavity is essentially unremarkable. His lungs are notable for some crackles at the bases but much, much improved over when I last auscultated him a week ago. Cardiac tones: Regular rate and rhythm. Abdomen: Obese, soft, and nontender. LABORATORIES: Include white count currently 12,400 with 74% segs. Creatinine is 5.08. LFTs normal. Procalcitonin the was 1.16, down from 31 on admission. Serologic studies include positive hep C with a viral load of 185,000. Hep C genotype 1A. QuantiFERON Gold indeterminate. Follow-up MRSA screen of the nares was done yesterday and I just called the micro lab. It is negative. All other micro studies since his initial MRSA and group B strep back on October 29 from sputum have all been negative. IMAGING: Most recent imaging includes a chest x-ray done the which shows continued ARDS. IMPRESSION: This patient has demonstrated a remarkable improvement over the last week or so. He is no longer ventilated and has been off vasopressors. He has nonoliguric renal failure and there is a plan to hold dialysis for a bit and see what happens with respect to his renal function. His mental status is also much improved and at this point he appears relatively uninfected. RECOMMENDATIONS: 1. I note that all antibiotics were stopped yesterday and given his long course of treatment, I think that is appropriate. 2. Respiratory isolation can be dropped for this patient as his MRSA pneumonia is essentially gone and a MRSA swab of the nares is negative. 3. ID will go ahead and sign off on this case at this time. Please do not hesitate to call if there are additional questions or issues.
[2016-11-13] VITALS (12 sets, daily range): BP systolic 125–163; BP diastolic 75–93; PULSE 77–90; RESP 16–22; O2SAT 93–99
[2016-11-13] MEDS: Insulin Human REGular 300 Unit/3 mL Inj SUBQ SCH ×4 (01:53→20:30)
--- NOTE | 2016-11-13 03:46 | NUR ---
Mentation/Activity Patient seems more alert to situation as the shift progresses. Able to answer some questions. Speech remains very mumbled. Confused about where he's at, stating a half way house. When reminded he's at the hospital, patient replies, "oh yeah, thats what I meant." Pleasant and cooperative with care. Incontinent of bowel, resulting in a bed change. Being turned [id number] with two person max assist. Calmoseptine applied to gluts and scrotum during brief change. Richardson patent and draining per gravity. No s/sx of pain, FELDT score=0. Will continue Q1hour rounding.
[2016-11-13 05:20] LABS: BASOPHILS % (AUTO) 0.4 % (0-3); EOSINOPHILS % (AUTO) 0.4 % (0-5); MONOCYTES % (AUTO) 5.3 % (4-12); Mean Corpuscular Hemoglobin 31.9 pg (27.0-35.0); Mean Corpuscular Volume 97.7 fL (81-100); NEUTROPHILS % (AUTO) 76.5 % (40-74); Platelet Count 353 bil/L (150-400)
[2016-11-13 05:47] LABS: Magnesium 2.1 mg/dL (1.6-2.6)
[2016-11-13] MEDS: Dextrose 5% 0.45% NaCl 1,000 ML IV SCH ×3 (06:22→23:01)
[2016-11-13] MEDS: Albuterol-Ipratropium 3 mL Inhalation Solution NEB SCH ×4 (07:23→21:17)
[2016-11-13] MEDS ORDERED: KCl 40 mEq/D5W 500 mL 40 MEQ in IV Premix 1 EACH IV STA (07:41)
[2016-11-13] MEDS: Polyethylene Glycol (PEG) 17 Gm Powder PO SCH (08:30)
[2016-11-13] MEDS: Mupirocin 2% 22 Gm Ointment TOPICAL SCH ×2 (08:30→20:30)
[2016-11-13] MEDS: Heparin 5,000 Unit/mL Inj SUBQ SCH ×2 (09:01→20:31)
[2016-11-13] MEDS: Multivit-Miner-Folic Acid-Iron Tablet PO SCH (09:02)
[2016-11-13] MEDS: Dexamethasone 4 mg/mL Inj IVPUSH SCH (09:03)
--- NOTE | 2016-11-13 11:06 | DRSVH ---
PROCEDURE: X-RAY CHEST ONE VIEW, PORTABLE ([id number]) INDICATIONS: monitor resolution of pneumonia/congestion TECHNIQUE: One view of the chest was acquired. COMPARISON: [facility], CR, XR CHEST 1VW (PORTABLE), 11/09/2016, 4:53. [facility], CR, XR CHEST 1VW (PORTABLE), 11/10/2016, 4:21. FINDINGS: Surgical changes and devices: Right IJ central line projecting to the area of SVT. Lungs and pleura: Persistent bilateral airspace and interstitial infiltrates. Probable small pleural effusions. Overall, there is minimal interval change. No pneumothorax. Mediastinum: Mediastinal contours appear normal. Heart size is normal. Bones and chest wall: No suspicious bony lesions. Overlying soft tissues appear unremarkable. IMPRESSION: Persistent bilateral airspace and interstitial infiltrates and small pleural effusions, c onsistent with bilateral pneumonia and/or pulmonary edema. Dictated by: Kika Crews M.D. on 11/13/2016 at 11:05 Approved by: Kika Crews M.D. on 11/13/2016 at 11:05
--- NOTE | 2016-11-13 11:49 | PCM.PNMED ---
Subjective Date of Service Nov 13, 2016 Subjective NEPHROLOGY PROGRESS NOTE No acute events overnight. Ongoing confusion. Patient is unsure of where he is. Complains of back pain. Attending note: Patient was seen and examined with the internal medicine resident. Concerned that the patient's diuretic phase of his acute kidney injury and were not keeping up adequately with his fluid losses. We have already written for some aggressive IV hydration when need to closely follow his lab and urinalysis. We may need to replace another dialysis catheter and do another dialysis treatment on him in the near future. Exam Vital Signs Vital Sign - Last Date Time Temp Pulse Resp B/P Pulse Ox O2 Delivery O2 Flow Rate FiO2 11/13/16 08:00 84 11/13/16 07:23 20 93 Room Air 11/13/16 04:30 37.2 163/93 11/11/16 16:56 3.00 11/10/16 11:28 35 Intake and Output 11/12/16 11/12/16 11/13/16 Cumulative From/Thru 15:00 23:00 07:00 10/26/16 17:03 - 11/13/16 06:23 Intake Total 1060 ml 1166 ml 89183 ml Output Total 1200 ml 07991 ml Balance -140 ml 1166 ml 51804 ml Intake Oral 0 ml IV Total 1060 ml 1166 ml 18559 ml Tube Feeding 4554 ml Tube Irrigant 2041 ml Output Urine Total 1200 ml 54525 ml Stool Total 2550 ml Urine/Stool Mix 350 ml Gastric Drainage Total 575 ml Ultrafiltrate 5150 ml # Bowel Movements 1 7 Exam GEN: in no acute distress, laying in a hospital bed, alert, oriented to self. HEENT: sclera inacteric, mouth dry NECK: right IJ in place without evidence of bleeding RESP: diffuse crackles and rhonchi CV: irregularly irregular rhythm ABD: obese, soft : leiva in place EXT: no edema, L BKA, noted since admission psych: oriented to self only neuro: moves all extremities spontaneously, CN 2-12 intact grossly. IVs and Medications Medications Reviewed: Medications were reviewed in detail Lab and Diagnostics Result Diagram: 11/13/1644911/13/16449 X-Rays, CTs and MRIs PROCEDURE: CT ABDOMEN AND PELVIS WITHOUT CONTRAST ([id number]) IMPRESSION: 1. Bibasilar pneumonia. 2. Small loculated left pleural effusion with thickened rind, possibly indicating empyema. This is too small to safely aspirate percutaneously. 3. Cholelithiasis without evidence of cholecystitis. 4. Normal appendix. 5. Small hiatal hernia. Dictated by: Myke Gonzalez M.D. on 10/27/2016 at 20:52 Approved by: Myke Gonzalez M.D. on 10/27/2016 at 20:52 Chest x-ray on 11/03/2016: IMPRESSION: Pulmonary edema and or diffuse bilateral inflammatory process not significantly changed. Developing ARDS cannot be excluded. Dictated by: Bakari SAMANIEGO Interpreted: Ekaterina Carter MD on 11/03/2016 at 11:06 Transcribed by: NAHOMI on 11/03/2016 at 11:06 U/S lower extremity on 11/03/2016: IMPRESSION: No deep venous thrombosis identified within either the left or right lower extremities. Dictated by: Bakari SAMANIEGO Interpreted: Kika Crews MD on 11/03/2016 at 13:36 Transcribed by: RJ on 11/03/2016 at 13:36 Approved by: Kika Crews M.D. on 11/03/2016 at 13:50 U/S chest on 11/03/2016: IMPRESSION: A small loculated right pleural effusion. Dictated by: Bakari SAMANIEGO Interpreted: Kika Crews MD on 11/03/2016 at 13:36 Transcribed by: RJ on 11/03/2016 at 13:36 Approved by: Kika Crews M.D. on 11/03/2016 at 13:50 U/S retroperitoneal 11/04/2016: IMPRESSION: Left renal cyst. Dictated by: Bakari SAMANIEGO Interpreted: Gaby Nixon MD on 11/04/2016 at 16: 09 Transcribed by: GAURAV on 11/04/2016 at 16:09 Approved by: Gaby Nixon M.D. on 11/04/2016 at 16:57 U/S left upper extremity 11/07/2016: IMPRESSION: Occlusive thrombus within the left cephalic vein within the lower arm. Jennyfer Phan RN given results by the circuit manager at 1415 hrs. 11/06/16. Dictated by: Bakari SAMANIEGO Interpreted: Ekaterina Carter MD on 11/06/2016 at 16:14 Transcribed by: NAHOMI on 11/06/2016 at 16:14 Approved by: Ekaterina Carter MD, PhD on 11/06/2016 at 17:09 Assessment & Plan Acute kidney injury superimposed on chronic kidney disease of unknown stage -due to ATN -Per CCU team patient's baseline Cr is around 2 -s/p dialysis -Today's Cr worse at 6.21 -Patient continues to have significant urine output -Will hold off on dialysis for now and continue to monitor Anion Gap Metabolic Acidosis -Secondary to renal failure -AG of 19 -Will likely continue unless patient's kidneys improve or he goes on chronic dialysis Hypervolemic Hypernatremia, ongoing -Patient has now had tube feeds stopped and has been placed NPO by speech therapy -1 L 1/2 NS over 3 hrs -strongly recommend replacing NG tube and restarting tube feeds with free water flushes if the patient continues to be NPO -he will likely continue to have free water deficits without any PO intake as he is currently Hyperphosphatemia -improved with dialysis -calcium carbonate cannot be given due to NPO status Hypokalemia -40 mEq KCl IV with recheck Normocytic Normochromic Anemia secondary to anemia from CKD -Aranesp 60 mg x 1 given -Continue to monitor We will continue to follow along with you. VTE Prophylaxis: SCDs VTE Mechanical Devices: Intermittant Pneumatic CD Resuscitation Status: CPR: Attempt Resuscitation Mahnaz Lua DO Nov 13, 2016 10:58 Humphrey Gonzalez DO Nov 13, 2016 13:17
--- NOTE | 2016-11-13 13:45 | NUR ---
Pt refused PO intake for meals and trials with PRODUCE LABORER today. Recommend artificial nutrition, as pt is not demonstrating endurance or strength for adequate PO intake at this time. Discussed with nursing and RD. PRODUCE LABORER will continue to follow.
--- NOTE | 2016-11-13 15:02 | PCM.PNMED ---
Subjective Date of Service Nov 13, 2016 Subjective Patient is in bed confused, not alert and oriented 3. He complains of generalized pains and aches is not able to localize pain to any particular debility. Patient states the pain is tolerable he also mentioned that at home he was on opioids for pain. In the hospital opioids were held this patient had acute metabolic encephalopathy. Patient was transferred from PCU to a regular floor to continue his treatment. Overall he is improving his sepsis improved he finished his antibiotic therapy. Patient still has acute renal failure which is worsening now. His creatinine today is worsening, he has hypokalemia which is also worsening. Nephrology is following the patient. His blood pressure is mildly elevated, he has mild leukocytosis, hemoglobin is decreased but stable. Exam Vital Signs Vital Sign - Last Date Time Temp Pulse Resp B/P Pulse Ox O2 Delivery O2 Flow Rate FiO2 11/13/16 11:28 81 22 98 Room Air 11/13/16 09:37 36.6 155/87 11/11/16 16:56 3.00 11/10/16 11:28 35 Intake and Output 11/12/16 11/12/16 11/13/16 Cumulative From/Thru 15:00 23:00 07:00 10/26/16 17:03 - 11/13/16 06:23 Intake Total 1060 ml 1166 ml 73466 ml Output Total 1200 ml 50884 ml Balance -140 ml 1166 ml 80539 ml Intake Oral 0 ml IV Total 1060 ml 1166 ml 63769 ml Tube Feeding 4554 ml Tube Irrigant 2041 ml Output Urine Total 1200 ml 27133 ml Stool Total 2550 ml Urine/Stool Mix 350 ml Gastric Drainage Total 575 ml Ultrafiltrate 5150 ml # Bowel Movements 1 7 Exam GENERAL: Alert, not in severe distress, cooperative, confused HEAD: atraumatic, normocephalic, no bruises. EYES: LISETTE, EOMI, anicteric, able to fully open and close eyelids SKIN: Skin color normal, turgor normal. No visible rashes EAR, NOSE, MOUTH, THROAT: Lips, oral mucosa, tongue gums, oropharynx are moist , pink, no lesions. Ears normal appearance, no lesions. NECK: supple, d; ROM normal. RESPIRATORY: Lungs clear to auscultation. Good diaphragmatic excursion. CARDIAC: normal S1 and S2; no rubs, murmurs, or gallops; regular rate and rhythm ABDOMEN: Abdomen soft, non-tender. BS normal. No masses or organomegaly. MUSCULOSKELETAL: ROM full, muscles are not tender EXTREMITIES: nopitting edema in LE, no deformities, clubbing or skin discoloration. NEURO: Alert, oriented X 1, Sensation grossly intact., Cranial nerves II-XII intact, Grossly normal motor function. PULSES: 2+ radial, 2+ dorsalis pedis, 2+ carotid REVIEW OF SYSTEMS: GENERAL: + malaise, no fevers., SEE HPI HEENT: Negative for frequent or significant headaches NECK: Negative for lumps, goiter, pain and significant neck swelling RESPIRATORY: Negative for cough, wheezing or shortness of breath. CARDIOVASCULAR: Negative for chest pain, leg swelling or palpitations. GI: Negative for abdominal discomfort, blood in stools or black stools or change in bowel habits : No history of dysuria, frequency or incontinence. MUSCULOSKELETAL: Negative for joint pain or swelling, back pain or muscle pain. SKIN: Negative for lesions, rash, and itching. All other reviewed and negative other than HPI. Lab and Diagnostics Result Diagram: 11/13/16 0450 11/13/16 045 X-Rays, CTs and MRIs PROCEDURE: X-RAY CHEST ONE VIEW, PORTABLE ([id number]) INDICATIONS: monitor resolution of pneumonia/congestion TECHNIQUE: One view of the chest was acquired. COMPARISON: [facility], CR, XR CHEST 1VW (PORTABLE), 11/09/2016, 4 :53. [facility], CR, XR CHEST 1VW (PORTABLE), 11/10/2016, 4:21. FINDINGS: Surgical changes and devices: Right IJ central line projecting to the area of SVT. Lungs and pleura: Persistent bilateral airspace and interstitial infiltrates. Probable small pleural effusions. Overall, there is minimal interval change. No pneumothorax. Mediastinum: Mediastinal contours appear normal. Heart size is normal. Bones and chest wall: No suspicious bony lesions. Overlying soft tissues appear unremarkable. IMPRESSION: Persistent bilateral airspace and interstitial infiltrates and small pleural effusions, consistent with bilateral pneumonia and/or pulmonary edema. PROCEDURE: CT ABDOMEN AND PELVIS WITHOUT CONTRAST ([id number]) IMPRESSION: 1. Bibasilar pneumonia. 2. Small loculated left pleural effusion with thickened rind, possibly indicating empyema. This is too small to safely aspirate percutaneously. 3. Cholelithiasis without evidence of cholecystitis. 4. Normal appendix. 5. Small hiatal hernia. Dictated by: Myke Gonzalez M.D. on 10/27/2016 at 20:52 Approved by: Myke Gonzalez M.D. on 10/27/2016 at 20:52 Chest x-ray on 11/03/2016: IMPRESSION: Pulmonary edema and or diffuse bilateral inflammatory process not significantly changed. Developing ARDS cannot be excluded. Dictated by: Bakari SAMANIEGO Interpreted: Ekaterina Carter MD on 11/03/2016 at 11:06 Transcribed by: NAHOMI on 11/03/2016 at 11:06 U/S lower extremity on 11/03/2016: IMPRESSION: No deep venous thrombosis identified within either the left or right lower extremities. Dictated by: Bakari SAMANIEGO Interpreted: Kika Crews MD on 11/03/2016 at 13:36 Transcribed by: RJ on 11/03/2016 at 13:36 Approved by: Kika Crews M.D. on 11/03/2016 at 13:50 U/S chest on 11/03/2016: IMPRESSION: A small loculated right pleural effusion. Dictated by: Bakari SAMANIEGO Interpreted: Kika Crews MD on 11/03/2016 at 13:36 Transcribed by: RJ on 11/03/2016 at 13:36 Approved by: Kika Crews M.D. on 11/03/2016 at 13:50 U/S retroperitoneal 11/04/2016: IMPRESSION: Left renal cyst. Dictated by: Bakari SAMANIEGO Interpreted: Gaby Nixon MD on 11/04/2016 at 16: 09 Transcribed by: GAURAV on 11/04/2016 at 16:09 Approved by: Gaby Nixon M.D. on 11/04/2016 at 16:57 U/S left upper extremity 11/07/2016: IMPRESSION: Occlusive thrombus within the left cephalic vein within the lower arm. Jennyfer Phan RN given results by the commercial account executive at 1415 hrs. 11/06/16. Dictated by: Bakari SAMANIEGO Interpreted: Ekaterina Carter MD on 11/06/2016 at 16:14 Transcribed by: NAHOMI on 11/06/2016 at 16:14 Approved by: Ekaterina Carter MD, PhD on 11/06/2016 at 17:09 Assessment & Plan Acute metabolic encephalopathy - improving slowly, not under control; patient is awake, follows commands but is confused. As for now patient has poor oral intake, I do not think that putting NG tube in and restraining/sedating him so he does not pull it out is going to be a good solution for his nutrition. We should avoid benzodiazepines, antipsychotics, opioids if possible. 1:1 frequent oral feeding with small portions, high protein/calory should be encourage. Another good option would be short term TPN as patient is OK with IVF and medications. I will also decrease his dexamethasone to 1.5 mg daily ARF, Anion Gap Metabolic Acidosis - worsening - nephrology following Plan - c/w IVF - check BNP Hypokalemia - worsening - IV KCL - monitor Hypernatremia - stable - c/w IVF Sepsis. Pneumonia, MRSA in sputum - improved- CXR significant for b/l infiltrates - finished course of antibiotics Plan - will recheck procalcitonin Normocytic Normochromic Anemia - stable -Aranesp 60 mg x 1 given -Continue to monitor DVT prophylaxis - Heparin sq VTE Prophylaxis: SCDs VTE Mechanical Devices: Intermittant Pneumatic CD Resuscitation Status: CPR: Attempt Resuscitation Kane Mo MD Nov 13, 2016 15:02
--- NOTE | 2016-11-13 15:03 | NUR ---
NUTRITION FOLLOW UP: ASSESS: 61 YO male admitted with confusion, weakness, falls, renal failure. Pt.intubated 10/30, successfully extubated 11/10. Nephrology continues to follow for dialysis. Pt's mentation continues to slowly clear. Pt was placed in stimulation diet 11/12 however pt has been refusing PO intake and he has refused ST eval 11/13. Pt has been without adequate nutrition x3 days. Pt would greatly benefit from NGT placement for nutrition support. [place] team paged with recommendation for re-starting TF. PMHX: Chronic renal insufficiency, pre-diabetes, alcoholism, BKA. LABS: Reviewed. Na 149, K 2.8, Bun 72, Tv News Director 6.21, Glu 124, phos 6.0, Alb 3.3 MEDS: Reviewed. thiamine, MVI. GI: BMx1 11/12 WT: 94.1kg, BMI 31.5kg/m2. IBW 70 kg, Admit Wt: 104.5 kg, adj bw:77kg DIET: Stimulation, pt refusing PO intake and ST eval RE-ESTIMATED NEEDS: Dialysis, BMI, BKA (-5% of BKA): Calories:2090-2375kal/day (22-25kcal/kg) Protein: 80-130 g/day (1.2-2.0 g/kg IBW) Fluids: 1500-2000ml/day or per nephrology NUTRITION DIAGNOSIS: 1) Inadequate oral intake related to decreased ability to consume sufficient energy as evidenced by current NPO / vent status---PERSISTS, pt refusing PO 2) Increased nutrient needs related to increased demand for nutrients as evidence by pt on dialysis--PERSISTS NUTRITION INTERVENTION: 1.) Strongly recommend NGT placement and re-starting nutrition support. Pt would greatly benefit from nutrition support to help with rehab and to gain back his strength. Recommend Nepro @55 ml/hr to provide 2277kcal and 102g pro (100% estimated needs) . Start TF at 15ml/hr and advance by 10ml q 6 hrs until reach goal rate. Flush 30ml q 4 hrs if on IVF. If IVF stopped, flush 75ml q 3 hrs or per nephrology. MONITOR/EVALUATE: ST, diet tolerance, re-start TF?, labs, weight, nutrition status. Follow per high nutrition risk guidelines.
--- NOTE | 2016-11-13 16:50 | NUR ---
COGNITION Patient is alert to self, but disoriented to place and time but seems to be an improvement from days previously. Knew he was in a hospital like setting. Davy bed alarm on for safety. Needs 2 person assist for bed mobility, repositioning and turning Q2H. Incontinent of BM, brief changed. Richardson catheter patent and draining clear yellow urine. Diet upgraded to stimulation with 1:1 assist. Only ate a few spoonfuls of applesauce all day. Continue to monitor on hourly rounding.
[2016-11-13] MEDS ORDERED: Ondansetron 2 mg/mL 2 mL Inj IVPUSH PRN (20:40)
[2016-11-14] VITALS (12 sets, daily range): BP systolic 123–140; BP diastolic 79–85; PULSE 57–89; RESP 16–22; O2SAT 93–100
[2016-11-14] MEDS: Insulin Human REGular 300 Unit/3 mL Inj SUBQ SCH ×4 (02:30→20:30)
--- NOTE | 2016-11-14 03:10 | NUR ---
RESTLESSNESS/PAIN pt was restless this shift. he continuously tried to get up to the edge of the bed saying he wanted to get in the chair. he also said that he was hurting. per report narcotics are being avoided to try and see if it would clear up his confusion. tylenol was given which was mildly helpful but pt was still restless. he would try and pull himself to the edge of the bed but would become extremely SOB with the activity. it was explained to pt that he needed to stay in bed tonight but that physical therapy would continue to work with him to build up his strength. however pts short term memory is poor and he would forget and attempt to get out of bed again. a sitter was brought to sit with him. the sitter said that the pt had a very large loose BM and afterwards he no longer tried to get out of bed. he has been repositioned frequently for comfort and he was helped to find things on TV that were distracting to him. pt has been oriented to self and place this shift. he follows conversations well and responds appropriately. he does however have short term memory limitations. and also at times would tell stories that were out of place and time, such as saying he "went home today and showered and changed his clothes". pt no longer restless and not attempting to get out of bed. will continue to evaluate. care continues.
[2016-11-14] MEDS: Albuterol-Ipratropium 3 mL Inhalation Solution NEB SCH ×4 (07:27→19:24)
[2016-11-14] MEDS: Multivit-Miner-Folic Acid-Iron Tablet PO SCH (07:46)
[2016-11-14] MEDS: Heparin 5,000 Unit/mL Inj SUBQ SCH ×2 (07:48→20:39)
[2016-11-14] MEDS: Dexamethasone 4 mg/mL Inj IVPUSH SCH (07:50)
[2016-11-14] MEDS: Mupirocin 2% 22 Gm Ointment TOPICAL SCH ×2 (07:53→20:37)
[2016-11-14] MEDS: Polyethylene Glycol (PEG) 17 Gm Powder PO SCH (08:30)
[2016-11-14 09:36] LABS: Magnesium 1.9 mg/dL (1.6-2.6); Phosphorus 6.8 mg/dL (2.5-4.9)
[2016-11-14] MEDS: Dextrose 5% 0.45% NaCl 1,000 ML IV SCH ×2 (10:13→20:31)
[2016-11-14] MEDS ORDERED: Sodium Chloride LOK Flush 10 mL Syringe IVFLUSH PRN ×2 (12:30)
--- NOTE | 2016-11-14 14:24 | NUR ---
NUTRITION FOLLOW UP: ASSESS: 61 YO male admitted with confusion, weakness, falls, renal failure. Pt.intubated 10/30, successfully extubated 11/10. Nephrology continues to follow for dialysis. Pt's mentation continues to slowly clear. Pt was placed in stimulation diet 11/12; however pt was refusing PO intake until last night, when he ate 100% stimulation tray. He has been without adequate nutrition x 4 D. Pt would greatly benefit from NGT placement for nutrition support. Unsigned enteral feeding orders placed in chart for MD authorization. PMHX: Chronic renal insufficiency, pre-diabetes, alcoholism, BKA. LABS: Reviewed. Na 146, K+ 3.0, Chloride 112, CO2 16, BUN 66, Cr 6.32, Glu 119, Phos 6.8. MEDS: Reviewed. Thiamine, MVI, Haldol, insulin. GI: BM x 3 today. WT: 92.0 kg, BMI 30.0 kg/m2. IBW 70 kg, Admit Wt: 104.5 kg, adj bw:77kg DIET: Stimulation. PO intake 100% x 1 tray. RE-ESTIMATED NEEDS: Dialysis, BMI, BKA (-5% of BKA): Calories:2090-2375kal/day (22-25kcal/kg) Protein: 80-130 g/day (1.2-2.0 g/kg IBW) Fluids: 1500-2000ml/day or per nephrology NUTRITION DIAGNOSIS: 1) Inadequate oral intake related to decreased ability to consume sufficient energy as evidenced by current NPO status - SLIGHTLY IMPROVED WITH STIMULATION DIET. 2) Increased nutrient needs related to increased demand for nutrients as evidence by pt on dialysis - PERSISTS. NUTRITION INTERVENTION: 1) Strongly recommend NGT placement and re-starting nutrition support. Pt would greatly benefit from nutrition support to help with rehab and to gain back his strength. Recommend Nepro @55 ml/hr to provide 2277kcal and 102g pro (100% estimated needs) . Start enteral feeding at 15ml/hr and advance by 10ml q 6 hrs until reach goal rate. Flush 30ml q 4 hrs if on IVF. If IVF stopped, flush 75ml q 3 hrs or per nephrology. MONITOR/EVALUATE: ST, diet tolerance, enteral feeding restart, labs, weight, nutrition status. Follow per high nutrition risk guidelines.
--- NOTE | 2016-11-14 15:08 | PCM.PNMED ---
Subjective Date of Service Nov 14, 2016 Subjective NEPHROLOGY PROGRESS NOTE Ongoing confusion, especially at night. Exam Vital Signs Vital Sign - Last Date Time Temp Pulse Resp B/P Pulse Ox O2 Delivery O2 Flow Rate FiO2 11/14/16 14:02 36.5 76 18 140/79 96 Room Air 11/11/16 16:56 3.00 11/10/16 11:28 35 Intake and Output 11/13/16 11/13/16 11/14/16 Cumulative From/Thru 15:00 23:00 07:00 10/26/16 17:03 - 11/14/16 05:45 Intake Total 0 ml 2519 ml 1850 ml 46115 ml Output Total 1150 ml 800 ml 950 ml 75404 ml Balance -1150 ml 1719 ml 900 ml 51298 ml Intake Oral 0 ml 354 ml 50 ml 404 ml IV Total 2165 ml 1800 ml 42005 ml Tube Feeding 4554 ml Tube Irrigant 2041 ml Output Urine Total 1150 ml 800 ml 950 ml 13782 ml Stool Total 2550 ml Urine/Stool Mix 350 ml Gastric Drainage Total 575 ml Ultrafiltrate 5150 ml # Bowel Movements 1 3 11 IVs and Medications Medications Reviewed: Medications were reviewed in detail Lab and Diagnostics Result Diagram: 11/13/16 0450 11/14/16 0852 X-Rays, CTs and MRIs PROCEDURE: X-RAY CHEST ONE VIEW, PORTABLE ([id number]) INDICATIONS: monitor resolution of pneumonia/congestion TECHNIQUE: One view of the chest was acquired. COMPARISON: [facility], CR, XR CHEST 1VW (PORTABLE), 11/09/2016, 4 :53. [facility], CR, XR CHEST 1VW (PORTABLE), 11/10/2016, 4:21. FINDINGS: Surgical changes and devices: Right IJ central line projecting to the area of SVT. Lungs and pleura: Persistent bilateral airspace and interstitial infiltrates. Probable small pleural effusions. Overall, there is minimal interval change. No pneumothorax. Mediastinum: Mediastinal contours appear normal. Heart size is normal. Bones and chest wall: No suspicious bony lesions. Overlying soft tissues appear unremarkable. IMPRESSION: Persistent bilateral airspace and interstitial infiltrates and small pleural effusions, consistent with bilateral pneumonia and/or pulmonary edema. PROCEDURE: CT ABDOMEN AND PELVIS WITHOUT CONTRAST ([id number]) IMPRESSION: 1. Bibasilar pneumonia. 2. Small loculated left pleural effusion with thickened rind, possibly indicating empyema. This is too small to safely aspirate percutaneously. 3. Cholelithiasis without evidence of cholecystitis. 4. Normal appendix. 5. Small hiatal hernia. Dictated by: Myke Gonzalez M.D. on 10/27/2016 at 20:52 Approved by: Myke Gonzalez M.D. on 10/27/2016 at 20:52 Chest x-ray on 11/03/2016: IMPRESSION: Pulmonary edema and or diffuse bilateral inflammatory process not significantly changed. Developing ARDS cannot be excluded. Dictated by: Bakari SAMANIEGO Interpreted: Ekaterina Carter MD on 11/03/2016 at 11:06 Transcribed by: NAHOMI on 11/03/2016 at 11:06 U/S lower extremity on 11/03/2016: IMPRESSION: No deep venous thrombosis identified within either the left or right lower extremities. Dictated by: Bakari SAMANIEGO Interpreted: Kika Crews MD on 11/03/2016 at 13:36 Transcribed by: RJ on 11/03/2016 at 13:36 Approved by: Kika Crews M.D. on 11/03/2016 at 13:50 U/S chest on 11/03/2016: IMPRESSION: A small loculated right pleural effusion. Dictated by: Bakari SAMANIEGO Interpreted: Kika Crews MD on 11/03/2016 at 13:36 Transcribed by: RJ on 11/03/2016 at 13:36 Approved by: Kika Crews M.D. on 11/03/2016 at 13:50 U/S retroperitoneal 11/04/2016: IMPRESSION: Left renal cyst. Dictated by: Bakari SAMANIEGO Interpreted: Gaby Nixon MD on 11/04/2016 at 16: 09 Transcribed by: GAURAV on 11/04/2016 at 16:09 Approved by: Gaby Nixon M.D. on 11/04/2016 at 16:57 U/S left upper extremity 11/07/2016: IMPRESSION: Occlusive thrombus within the left cephalic vein within the lower arm. Jennyfer Phan RN given results by the train operations supervisor at 1415 hrs. 11/06/16. Dictated by: Bakari SAMANIEGO Interpreted: Ekaterina Carter MD on 11/06/2016 at 16:14 Transcribed by: NAHOMI on 11/06/2016 at 16:14 Approved by: Ekaterina Carter MD, PhD on 11/06/2016 at 17:09 Assessment & Plan Acute kidney injury superimposed on chronic kidney disease of unknown stage -due to ATN -Per CCU team patient's baseline Cr is around 2 -s/p dialysis -Cr continues to worsen -Likely he will need to be a oil heaterman dialysis patient -Will monitor for a few more days but ultimately plan to place a tunnel catheter Anion Gap Metabolic Acidosis -Secondary to renal failure -Will likely continue unless patient's kidneys improve or he goes on chronic dialysis Hypervolemic Hypernatremia, ongoing -Patient has now had tube feeds stopped and has been placed NPO by speech therapy -strongly recommend replacing NG tube and restarting tube feeds with free water flushes if the patient continues to be NPO -he will likely continue to have free water deficits without any PO intake as he is currently Hyperphosphatemia -improved with dialysis -calcium carbonate cannot be given due to NPO status Hypokalemia -ongoing replacement Normocytic Normochromic Anemia secondary to anemia from CKD -Aranesp 60 mg x 1 given -Continue to monitor We will continue to follow along with you. VTE Prophylaxis: SCDs VTE Mechanical Devices: Intermittant Pneumatic CD Resuscitation Status: CPR: Attempt Resuscitation Mahnaz Lua DO Nov 14, 2016 15:08
--- NOTE | 2016-11-14 16:40 | PCM.PNMED ---
Subjective Date of Service Nov 14, 2016 Subjective Very confused. Denies dyspnea or severe chest or abdomen pain. ROS not otherwise obtainable. Exam Vital Signs Vital Sign - Last Date Time Temp Pulse Resp B/P Pulse Ox O2 Delivery O2 Flow Rate FiO2 11/14/16 14:02 36.5 76 18 140/79 96 Room Air 11/11/16 16:56 3.00 11/10/16 11:28 35 Intake and Output 11/13/16 11/13/16 11/14/16 Cumulative From/Thru 15:00 23:00 07:00 10/26/16 17:03 - 11/14/16 05:45 Intake Total 0 ml 2519 ml 1850 ml 93319 ml Output Total 1150 ml 800 ml 950 ml 30080 ml Balance -1150 ml 1719 ml 900 ml 79920 ml Intake Oral 0 ml 354 ml 50 ml 404 ml IV Total 2165 ml 1800 ml 99784 ml Tube Feeding 4554 ml Tube Irrigant 2041 ml Output Urine Total 1150 ml 800 ml 950 ml 77154 ml Stool Total 2550 ml Urine/Stool Mix 350 ml Gastric Drainage Total 575 ml Ultrafiltrate 5150 ml # Bowel Movements 1 3 11 Exam NAD. Oriented to person and place. Normal skull Right IJ Lungs with scattered rhonchi CV RRR Abdomen Soft. No edema Moves all extremities. IVs and Medications Medications Reviewed: Medications were reviewed in detail Lab and Diagnostics Result Diagram: 11/13/16 0450 11/14/16 0852 X-Rays, CTs and MRIs PROCEDURE: X-RAY CHEST ONE VIEW, PORTABLE ([id number]) INDICATIONS: monitor resolution of pneumonia/congestion TECHNIQUE: One view of the chest was acquired. COMPARISON: [facility], CR, XR CHEST 1VW (PORTABLE), 11/09/2016, 4 :53. [facility], CR, XR CHEST 1VW (PORTABLE), 11/10/2016, 4:21. FINDINGS: Surgical changes and devices: Right IJ central line projecting to the area of SVT. Lungs and pleura: Persistent bilateral airspace and interstitial infiltrates. Probable small pleural effusions. Overall, there is minimal interval change. No pneumothorax. Mediastinum: Mediastinal contours appear normal. Heart size is normal. Bones and chest wall: No suspicious bony lesions. Overlying soft tissues appear unremarkable. IMPRESSION: Persistent bilateral airspace and interstitial infiltrates and small pleural effusions, consistent with bilateral pneumonia and/or pulmonary edema. PROCEDURE: CT ABDOMEN AND PELVIS WITHOUT CONTRAST ([id number]) IMPRESSION: 1. Bibasilar pneumonia. 2. Small loculated left pleural effusion with thickened rind, possibly indicating empyema. This is too small to safely aspirate percutaneously. 3. Cholelithiasis without evidence of cholecystitis. 4. Normal appendix. 5. Small hiatal hernia. Dictated by: Myke Gonzalez M.D. on 10/27/2016 at 20:52 Approved by: Myke Gonzalez M.D. on 10/27/2016 at 20:52 Chest x-ray on 11/03/2016: IMPRESSION: Pulmonary edema and or diffuse bilateral inflammatory process not significantly changed. Developing ARDS cannot be excluded. Dictated by: Bakari SAMANIEGO Interpreted: Ekaterina Carter MD on 11/03/2016 at 11:06 Transcribed by: NAHOMI on 11/03/2016 at 11:06 U/S lower extremity on 11/03/2016: IMPRESSION: No deep venous thrombosis identified within either the left or right lower extremities. Dictated by: Bakari SAMANIEGO Interpreted: Kika Crews MD on 11/03/2016 at 13:36 Transcribed by: RJ on 11/03/2016 at 13:36 Approved by: Kika Crews M.D. on 11/03/2016 at 13:50 U/S chest on 11/03/2016: IMPRESSION: A small loculated right pleural effusion. Dictated by: Bakari SAMANIEGO Interpreted: Kika Crews MD on 11/03/2016 at 13:36 Transcribed by: RJ on 11/03/2016 at 13:36 Approved by: Kika Crews M.D. on 11/03/2016 at 13:50 U/S retroperitoneal 11/04/2016: IMPRESSION: Left renal cyst. Dictated by: Bakari SAMANIEGO Interpreted: Gaby Nixon MD on 11/04/2016 at 16: 09 Transcribed by: GAURAV on 11/04/2016 at 16:09 Approved by: Gaby Nixon M.D. on 11/04/2016 at 16:57 U/S left upper extremity 11/07/2016: IMPRESSION: Occlusive thrombus within the left cephalic vein within the lower arm. Jennyfer Phan RN given results by the otr owner operator truck driver at 1415 hrs. 11/06/16. Dictated by: Bakari Bunch RRA Interpreted: Ekaterina Carter MD on 11/06/2016 at 16:14 Transcribed by: NAHOMI on 11/06/2016 at 16:14 Approved by: Ekaterina Carter MD, PhD on 11/06/2016 at 17:09 Assessment & Plan 1. Acute kidney injury superimposed on chronic kidney disease of unknown stage. 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 2. Anion Gap Metabolic Acidosis. POA -Secondary to renal failure -Will likely continue unless patient's kidneys improve or he goes on chronic dialysis 3. Metabolic encephalopathy. Follow clinically. No obvious infection currently. 4. Hyperphosphatemia -improved with dialysis -calcium carbonate cannot be given due to NPO status 5. Hypokalemia -ongoing replacement We will continue to follow along with you. Pain Evaluation: Adequate Pain Control VTE Prophylaxis: SCDs VTE Mechanical Devices: Intermittant Pneumatic CD Resuscitation Status: CPR: Attempt Resuscitation Time spent 30 minutes Sukhdev Stern MD Nov 14, 2016 16:40
[2016-11-14] MEDS: Potassium Chloride 20 mEq/15 mL 15mL Oral Soln PO SCH ×2 (16:53→20:35)
--- NOTE | 2016-11-14 17:28 | NUR ---
PLAN OF CARE UPDATE Patient worked with PT today, poorly tolerated as he was not able to stand and support his own weight. Agitated, and restless this am resulting in fall. Patient moved to different room and sitter obtained as patient remains agitated and restless. Medication crushed in applesauce. IJ replaced with peripheral IV.
[2016-11-15] VITALS (13 sets, daily range): BP systolic 128–158; BP diastolic 82–96; PULSE 71–92; RESP 16–20; O2SAT 93–99
[2016-11-15] MEDS: Insulin Human REGular 300 Unit/3 mL Inj SUBQ SCH ×4 (02:28→19:50)
--- NOTE | 2016-11-15 04:19 | NUR ---
Mentation/ Pain Pt. is able to hold a conversation at times. Pt. is very excited about [facility] today, otherwise this RN could not make much of what the pt. was trying to tell me. Pt. reported pain earlier this shift. PO Tylenol administered. Pt. is now sleeping. Will continue to monitor.
[2016-11-15] MEDS: Dextrose 5% 0.45% NaCl 1,000 ML IV SCH ×2 (06:10→15:56)
[2016-11-15] MEDS: Albuterol-Ipratropium 3 mL Inhalation Solution NEB SCH ×4 (08:02→19:30)
--- NOTE | 2016-11-15 08:17 | NUR ---
Critical value for creatinine Lab called with critical value for creatinine of 6.[address] Cruz. Dr Stern returned page at 0816 and said no new orders were needed at this time.
[2016-11-15] MEDS: Heparin 5,000 Unit/mL Inj SUBQ SCH ×2 (09:22→20:17)
[2016-11-15] MEDS: Multivit-Miner-Folic Acid-Iron Tablet PO SCH (09:24)
[2016-11-15] MEDS: Mupirocin 2% 22 Gm Ointment TOPICAL SCH ×2 (09:24→20:17)
[2016-11-15] MEDS: Polyethylene Glycol (PEG) 17 Gm Powder PO SCH (09:24)
[2016-11-15] MEDS: Dexamethasone 4 mg/mL Inj IVPUSH SCH (09:24)
--- NOTE | 2016-11-15 13:36 | PCM.PNMED ---
Subjective Date of Service Nov 15, 2016 Subjective Some nausea. Dry cough. No dyspnea. No chest pain or dyspnea. Feels weak. Some back tenderness after fall yesterday. No skin rash. Exam Vital Signs Vital Sign - Last Date Time Temp Pulse Resp B/P Pulse Ox O2 Delivery O2 Flow Rate FiO2 11/15/16 12:18 81 16 94 Room Air 11/15/16 10:07 36.9 139/87 11/11/16 16:56 3.00 11/10/16 11:28 35 Intake and Output 11/14/16 11/14/16 11/15/16 Cumulative From/Thru 15:00 23:00 07:00 10/26/16 17:03 - 11/15/16 06:47 Intake Total 1417 ml 500 ml 13537 ml Output Total 1600 ml 1450 ml 78229 ml Balance -183 ml -950 ml 22546 ml Intake Oral 200 ml 500 ml 1104 ml IV Total 1217 ml 75808 ml Tube Feeding 4554 ml Tube Irrigant 2041 ml Output Urine Total 1600 ml 1450 ml 64530 ml Stool Total 2550 ml Urine/Stool Mix 350 ml Gastric Drainage Total 575 ml Ultrafiltrate 5150 ml # Bowel Movements 0 2 13 Exam NAD, fluent speech Normal skull Anicteric sclera Lungs clear, normal effort Heart RRR, No murmur Abdomen soft, NT No edema Normal radial pulses. Right IV removed. Left BKA. Good right pedal pulses. Thinks it is 1997. IVs and Medications Medications Reviewed: Medications were reviewed in detail Lab and Diagnostics Result Diagram: 11/13/16 0450 11/15/16 0523 X-Rays, CTs and MRIs PROCEDURE: X-RAY CHEST ONE VIEW, PORTABLE ([id number]) INDICATIONS: monitor resolution of pneumonia/congestion TECHNIQUE: One view of the chest was acquired. COMPARISON: [facility], CR, XR CHEST 1VW (PORTABLE), 11/09/2016, 4 :53. [facility], CR, XR CHEST 1VW (PORTABLE), 11/10/2016, 4:21. FINDINGS: Surgical changes and devices: Right IJ central line projecting to the area of SVT. Lungs and pleura: Persistent bilateral airspace and interstitial infiltrates. Probable small pleural effusions. Overall, there is minimal interval change. No pneumothorax. Mediastinum: Mediastinal contours appear normal. Heart size is normal. Bones and chest wall: No suspicious bony lesions. Overlying soft tissues appear unremarkable. IMPRESSION: Persistent bilateral airspace and interstitial infiltrates and small pleural effusions, consistent with bilateral pneumonia and/or pulmonary edema. PROCEDURE: CT ABDOMEN AND PELVIS WITHOUT CONTRAST ([id number]) IMPRESSION: 1. Bibasilar pneumonia. 2. Small loculated left pleural effusion with thickened rind, possibly indicating empyema. This is too small to safely aspirate percutaneously. 3. Cholelithiasis without evidence of cholecystitis. 4. Normal appendix. 5. Small hiatal hernia. Dictated by: Myke Gonzalez M.D. on 10/27/2016 at 20:52 Approved by: Myke Gonzalez M.D. on 10/27/2016 at 20:52 Chest x-ray on 11/03/2016: IMPRESSION: Pulmonary edema and or diffuse bilateral inflammatory process not significantly changed. Developing ARDS cannot be excluded. Dictated by: Bakari SAMANIEGO Interpreted: Ekaterina Carter MD on 11/03/2016 at 11:06 Transcribed by: NAHOMI on 11/03/2016 at 11:06 U/S lower extremity on 11/03/2016: IMPRESSION: No deep venous thrombosis identified within either the left or right lower extremities. Dictated by: Bakari SAMANIEGO Interpreted: Kika Crews MD on 11/03/2016 at 13:36 Transcribed by: RJ on 11/03/2016 at 13:36 Approved by: Kika Crews M.D. on 11/03/2016 at 13:50 U/S chest on 11/03/2016: IMPRESSION: A small loculated right pleural effusion. Dictated by: Bakari SAMANIEGO Interpreted: Kika Crews MD on 11/03/2016 at 13:36 Transcribed by: RJ on 11/03/2016 at 13:36 Approved by: Kika Crews M.D. on 11/03/2016 at 13:50 U/S retroperitoneal 11/04/2016: IMPRESSION: Left renal cyst. Dictated by: Bakari SAMANIEGO Interpreted: Gaby Nixon MD on 11/04/2016 at 16: 09 Transcribed by: GAURAV on 11/04/2016 at 16:09 Approved by: Gaby Nixon M.D. on 11/04/2016 at 16:57 U/S left upper extremity 11/07/2016: IMPRESSION: Occlusive thrombus within the left cephalic vein within the lower arm. Jennyfer Phan RN given results by the veterans employment representative at 1415 hrs. 11/06/16. Dictated by: Bakari Bunch RRA Interpreted: Ekaterina Carter MD on 11/06/2016 at 16:14 Transcribed by: NAHOMI on 11/06/2016 at 16:14 Approved by: Ekaterina Carter MD, PhD on 11/06/2016 at 17:09 Assessment & Plan 1. Acute kidney injury superimposed on chronic kidney disease of unknown stage. POA -due to ATN Patient's baseline Cr is around 2 -s/p dialysis -Cr continues to worsen -Likely he will need to be a intermediate frame tender dialysis patient -Being followed by renal. 2. Anion Gap Metabolic Acidosis. POA -Secondary to renal failure -Will likely continue unless patient's kidneys improve or he goes on chronic dialysis 3. Metabolic encephalopathy. Follow clinically. No obvious infection currently. Slow improvement. 4. Hyperphosphatemia. Stable. -improved with dialysis -calcium carbonate cannot be given due to NPO status 5. Hypokalemia, persistent. -ongoing replacement 6. Pneumonia, POA. Improved.He has finished course of antibiotics at this point. No further fevers. He will need discharge to SNF when improved. Pain Evaluation: Adequate Pain Control (30) VTE Prophylaxis: SCDs VTE Mechanical Devices: Intermittant Pneumatic CD Resuscitation Status: CPR: Attempt Resuscitation Time spent 30 minutes Sukhdev Stern MD Nov 15, 2016 13:36
--- NOTE | 2016-11-15 15:02 | NUR ---
NUTRITION FOLLOW UP: ASSESS: 61 YO male admitted with confusion, weakness, falls, renal failure. Pt.intubated 10/30, successfully extubated 11/10. Nephrology continues to follow for dialysis. Pt's mentation continues to slowly clear. Pt was placed in stimulation diet 11/12; however pt was refusing PO intake until 11/13 dinner, when he ate 100% stimulation tray. His diet was advanced today to pureed, honey thick liquids. He is tolerating bites - 100% trays. He has been without adequate nutrition x 5 D. In the event PO intake does not consistently exceed 50% trays, pt would greatly benefit from NGT placement for nutrition support. Unsigned enteral feeding orders placed in chart for MD authorization. PMHX: Chronic renal insufficiency, pre-diabetes, alcoholism, BKA. LABS: Reviewed. Chloride 111, CO2 12, BUN 58, Cr 6.12, Glu 112. MEDS: Reviewed. Thiamine, MVI, Haldol, insulin. GI: BM x 2 today. WT: 91.6 kg, BMI 30.0 kg/m2. IBW 70 kg, Admit Wt: 104.5 kg, adj bw:77kg DIET: Pureed, honey thick liquids. PO intake bites - 100% trays, 1:1 feeding assistance required. RE-ESTIMATED NEEDS: Dialysis, BMI, BKA (-5% of BKA): Calories:2090-2375kal/day (22-25kcal/kg) Protein: 80-130 g/day (1.2-2.0 g/kg IBW) Fluids: 1500-2000ml/day or per nephrology NUTRITION DIAGNOSIS: 1) Inadequate oral intake related to decreased ability to consume sufficient energy as evidenced by current NPO status - SLIGHTLY IMPROVED. 2) Increased nutrient needs related to increased demand for nutrients as evidence by pt on dialysis - PERSISTS. NUTRITION INTERVENTION: 1) In the event PO intake not consistently greater than 50% trays, recommend NGT placement and re-starting nutrition support. Pt would greatly benefit from nutrition support to help with rehab and to gain back his strength. Recommend Nepro @55 ml/hr to provide 2277kcal and 102g pro (100% estimated needs) . Start enteral feeding at 15ml/hr and advance by 10ml q 6 hrs until reach goal rate. Flush 30ml q 4 hrs if on IVF. If IVF stopped, flush 75ml q 3 hrs or per nephrology. MONITOR/EVALUATE: ST, diet tolerance, enteral feeding restart, labs, weight, nutrition status. Follow per high nutrition risk guidelines.
[2016-11-16] VITALS (13 sets, daily range): BP systolic 121–163; BP diastolic 82–93; PULSE 60–95; RESP 16–22; O2SAT 95–100
[2016-11-16] MEDS: Dextrose 5% 0.45% NaCl 1,000 ML IV SCH ×3 (01:42→21:01)
--- NOTE | 2016-11-16 02:13 | NUR ---
Mentation Pt. has been confused at times trying to get out of bed. Calm reassurance was given, and reminded him that if pt. needs to get out of bed, nurse assistance is necessary. Pt. seems to reorient better tonight. Will continue to monitor.
[2016-11-16] MEDS: Insulin Human REGular 300 Unit/3 mL Inj SUBQ SCH ×5 (02:30→20:07)
--- NOTE | 2016-11-16 03:41 | NUR ---
Low blood sugar Pt. had a blood sugar of 94 earlier this shift. This RN was worried of it going down, so this RN encouraged pt. to drink more orange juice with honey thick consistency. Pt. drank over 120 mls, but was resisting at first, as he wanted to be changed. Blood sugar was re-checked, and was 105. Pt. has showed no s/s of hypoglycemia all night. paged just to make aware. Will continue to monitor. Will also try to encourage PO intake as prescribed.
[2016-11-16] MEDS: Albuterol-Ipratropium 3 mL Inhalation Solution NEB SCH ×5 (06:00→21:04)
[2016-11-16] MEDS: Dexamethasone 4 mg/mL Inj IVPUSH SCH (07:44)
[2016-11-16] MEDS: Heparin 5,000 Unit/mL Inj SUBQ SCH ×2 (07:45→20:06)
[2016-11-16] MEDS: Mupirocin 2% 22 Gm Ointment TOPICAL SCH ×2 (07:45→19:59)
[2016-11-16] MEDS: Polyethylene Glycol (PEG) 17 Gm Powder PO SCH (08:29)
[2016-11-16] MEDS: Multivit-Miner-Folic Acid-Iron Tablet PO SCH (09:22)
--- NOTE | 2016-11-16 11:23 | PCM.PNMED ---
Subjective Date of Service Nov 16, 2016 Subjective Patient is in bed confused, not alert and oriented 3. Overall he is improving , his sepsis improved, he finished his antibiotic therapy. Patient still has acute renal failure, nephrology following. His blood pressure is mildly elevated , leukocytosis improved, hemoglobin is decreased but stable. Exam Vital Signs Vital Sign - Last Date Time Temp Pulse Resp B/P Pulse Ox O2 Delivery O2 Flow Rate FiO2 11/16/16 10:25 88 11/16/16 07:59 18 98 Room Air 11/16/16 07:08 36.9 163/93 11/11/16 16:56 3.00 11/10/16 11:28 35 Intake and Output 11/15/16 11/15/16 11/16/16 Cumulative From/Thru 15:00 23:00 07:00 10/26/16 17:03 - 11/16/16 05:38 Intake Total 2597 ml 1097 ml 61955 ml Output Total 740 ml 29322 ml Balance 1857 ml 1097 ml 18298 ml Intake Oral 250 ml 1354 ml IV Total 2347 ml 1097 ml 95555 ml Tube Feeding 4554 ml Tube Irrigant 2041 ml Output Urine Total 740 ml 94938 ml Stool Total 2550 ml Urine/Stool Mix 350 ml Gastric Drainage Total 575 ml Ultrafiltrate 5150 ml # Bowel Movements 1 14 Exam GENERAL: Alert, not in severe distress,confused HEAD: atraumatic, normocephalic, no bruises. EYES: LISETTE, EOMI, anicteric SKIN: Skin color normal, turgor normal. No visible rashes EAR, NOSE, MOUTH, THROAT: Lips, oral mucosa, tongue are moist, pink, no lesions. Ears normal appearance, no lesions. NECK: supple, d; ROM normal. RESPIRATORY: Lungs clear to auscultation. Good diaphragmatic excursion. CARDIAC: normal S1 and S2; no rubs, murmurs, or gallops; regular rhythm ABDOMEN: Abdomen soft, non-tender. BS normal. No masses or organomegaly. MUSCULOSKELETAL: ROM full, muscles are not tender EXTREMITIES: no pitting edema in LE, no deformities, clubbing or skin discoloration. NEURO: Alert, oriented X 1, Cranial nerves II-XII intact, Grossly normal motor function. PULSES: 2+ radial, 2+ carotid REVIEW OF SYSTEMS: GENERAL: + malaise, no fevers., SEE HPI HEENT: Negative for frequent or significant headaches NECK: Negative for lumps, goiter, pain and significant neck swelling RESPIRATORY: Negative for cough, wheezing or shortness of breath. CARDIOVASCULAR: Negative for chest pain, leg swelling or palpitations. GI: Negative for abdominal discomfort, blood in stools or black stools or change in bowel habits : No history of dysuria, frequency or incontinence. MUSCULOSKELETAL: Negative for joint pain or swelling, back pain or muscle pain. SKIN: Negative for lesions, rash, and itching. All other reviewed and negative other than HPI. IVs and Medications Medications Reviewed: Medications were reviewed in detail Lab and Diagnostics Result Diagram: 11/13/16 0450 11/15/16 0523 X-Rays, CTs and MRIs PROCEDURE: X-RAY CHEST ONE VIEW, PORTABLE ([id number]) INDICATIONS: monitor resolution of pneumonia/congestion TECHNIQUE: One view of the chest was acquired. COMPARISON: [facility], CR, XR CHEST 1VW (PORTABLE), 11/09/2016, 4 :53. [facility], CR, XR CHEST 1VW (PORTABLE), 11/10/2016, 4:21. FINDINGS: Surgical changes and devices: Right IJ central line projecting to the area of SVT. Lungs and pleura: Persistent bilateral airspace and interstitial infiltrates. Probable small pleural effusions. Overall, there is minimal interval change. No pneumothorax. Mediastinum: Mediastinal contours appear normal. Heart size is normal. Bones and chest wall: No suspicious bony lesions. Overlying soft tissues appear unremarkable. IMPRESSION: Persistent bilateral airspace and interstitial infiltrates and small pleural effusions, consistent with bilateral pneumonia and/or pulmonary edema. PROCEDURE: CT ABDOMEN AND PELVIS WITHOUT CONTRAST ([id number]) IMPRESSION: 1. Bibasilar pneumonia. 2. Small loculated left pleural effusion with thickened rind, possibly indicating empyema. This is too small to safely aspirate percutaneously. 3. Cholelithiasis without evidence of cholecystitis. 4. Normal appendix. 5. Small hiatal hernia. Dictated by: Myke Gonzalez M.D. on 10/27/2016 at 20:52 Approved by: Myke Gonzalez M.D. on 10/27/2016 at 20:52 Chest x-ray on 11/03/2016: IMPRESSION: Pulmonary edema and or diffuse bilateral inflammatory process not significantly changed. Developing ARDS cannot be excluded. Dictated by: Bakari SAMANIEGO Interpreted: Ekaterina Carter MD on 11/03/2016 at 11:06 Transcribed by: NAHOMI on 11/03/2016 at 11:06 U/S lower extremity on 11/03/2016: IMPRESSION: No deep venous thrombosis identified within either the left or right lower extremities. Dictated by: Bakari SAMANIEGO Interpreted: Kika Crews MD on 11/03/2016 at 13:36 Transcribed by: RJ on 11/03/2016 at 13:36 Approved by: Kika Crews M.D. on 11/03/2016 at 13:50 U/S chest on 11/03/2016: IMPRESSION: A small loculated right pleural effusion. Dictated by: Bakari SAMANIEGO Interpreted: Kika Crews MD on 11/03/2016 at 13:36 Transcribed by: RJ on 11/03/2016 at 13:36 Approved by: Kika Crews M.D. on 11/03/2016 at 13:50 U/S retroperitoneal 11/04/2016: IMPRESSION: Left renal cyst. Dictated by: Bakari SAMANIEGO Interpreted: Gaby Nixon MD on 11/04/2016 at 16: 09 Transcribed by: GAURAV on 11/04/2016 at 16:09 Approved by: Gaby Nixon M.D. on 11/04/2016 at 16:57 U/S left upper extremity 11/07/2016: IMPRESSION: Occlusive thrombus within the left cephalic vein within the lower arm. Jennyfer Phan RN given results by the pipelayer at 1415 hrs. 11/06/16. Dictated by: Bakari SAMANIEGO Interpreted: Ekaterina Carter MD on 11/06/2016 at 16:14 Transcribed by: NAHOMI on 11/06/2016 at 16:14 Approved by: Ekaterina aCrter MD, PhD on 11/06/2016 at 17:09 Assessment & Plan Acute metabolic encephalopathy - improving slowly, not under control; patient is awake, follows commands but is confused. We should avoid benzodiazepines, antipsychotics, opioids if possible. 1:1 frequent oral feeding with small portions, high protein/calory should be encourage. I will d/c his dexamethasone today and monitor ARF, Anion Gap Metabolic Acidosis - stable - nephrology following Plan - c/w curent meds, bicarb HTN - BP elevated - I will start him on 5 mf of Amlodipine PO Hypokalemia - improved - monitor Hypernatremia - improved Sepsis. Pneumonia, MRSA in sputum - improved- CXR significant for b/l infiltrates - finished course of antibiotics Normocytic Normochromic Anemia - stable -Continue to monitor DVT prophylaxis - Heparin sq VTE Prophylaxis: Sub-Q Heparin (Unfractionated), SCDs VTE Mechanical Devices: Intermittant Pneumatic CD Resuscitation Status: CPR: Attempt Resuscitation Kane Mo MD Nov 16, 2016 11:23
--- NOTE | 2016-11-16 12:13 | NUR ---
Respiratory Pt stopped Tx before it was finished, about half, stated "I'm done".
--- NOTE | 2016-11-16 13:44 | PCM.PNMED ---
Subjective Date of Service Nov 16, 2016 Subjective confused at times overall improved. good UOP but kidney function remains poor. Exam Vital Signs Vital Sign - Last Date Time Temp Pulse Resp B/P Pulse Ox O2 Delivery O2 Flow Rate FiO2 11/16/16 12:00 82 22 97 Room Air 11/16/16 11:33 36.8 153/85 11/11/16 16:56 3.00 11/10/16 11:28 35 Intake and Output 11/15/16 11/15/16 11/16/16 Cumulative From/Thru 14:59 22:59 06:59 10/26/16 17:03 - 11/16/16 05:38 Intake Total 2597 ml 1097 ml 14784 ml Output Total 740 ml 45547 ml Balance 1857 ml 1097 ml 64946 ml Intake Oral 250 ml 1354 ml IV Total 2347 ml 1097 ml 89914 ml Tube Feeding 4554 ml Tube Irrigant 2041 ml Output Urine Total 740 ml 66438 ml Stool Total 2550 ml Urine/Stool Mix 350 ml Gastric Drainage Total 575 ml Ultrafiltrate 5150 ml # Bowel Movements 1 14 Lab and Diagnostics Result Diagram: 11/13/16 0450 11/15/16 0523 X-Rays, CTs and MRIs PROCEDURE: X-RAY CHEST ONE VIEW, PORTABLE ([id number]) INDICATIONS: monitor resolution of pneumonia/congestion TECHNIQUE: One view of the chest was acquired. COMPARISON: [facility], CR, XR CHEST 1VW (PORTABLE), 11/09/2016, 4 :53. [facility], CR, XR CHEST 1VW (PORTABLE), 11/10/2016, 4:21. FINDINGS: Surgical changes and devices: Right IJ central line projecting to the area of SVT. Lungs and pleura: Persistent bilateral airspace and interstitial infiltrates. Probable small pleural effusions. Overall, there is minimal interval change. No pneumothorax. Mediastinum: Mediastinal contours appear normal. Heart size is normal. Bones and chest wall: No suspicious bony lesions. Overlying soft tissues appear unremarkable. IMPRESSION: Persistent bilateral airspace and interstitial infiltrates and small pleural effusions, consistent with bilateral pneumonia and/or pulmonary edema. PROCEDURE: CT ABDOMEN AND PELVIS WITHOUT CONTRAST ([id number]) IMPRESSION: 1. Bibasilar pneumonia. 2. Small loculated left pleural effusion with thickened rind, possibly indicating empyema. This is too small to safely aspirate percutaneously. 3. Cholelithiasis without evidence of cholecystitis. 4. Normal appendix. 5. Small hiatal hernia. Dictated by: Myke Gonzalez M.D. on 10/27/2016 at 20:52 Approved by: Myke Gonzalez M.D. on 10/27/2016 at 20:52 Chest x-ray on 11/03/2016: IMPRESSION: Pulmonary edema and or diffuse bilateral inflammatory process not significantly changed. Developing ARDS cannot be excluded. Dictated by: Bakari SAMANIEGO Interpreted: Ekaterina Carter MD on 11/03/2016 at 11:06 Transcribed by: NAHOMI on 11/03/2016 at 11:06 U/S lower extremity on 11/03/2016: IMPRESSION: No deep venous thrombosis identified within either the left or right lower extremities. Dictated by: Bakari SAMANIEGO Interpreted: Kika Crews MD on 11/03/2016 at 13:36 Transcribed by: RJ on 11/03/2016 at 13:36 Approved by: Kika Crews M.D. on 11/03/2016 at 13:50 U/S chest on 11/03/2016: IMPRESSION: A small loculated right pleural effusion. Dictated by: Bakari SAMANIEGO Interpreted: Kika Crews MD on 11/03/2016 at 13:36 Transcribed by: RJ on 11/03/2016 at 13:36 Approved by: Kika Crews M.D. on 11/03/2016 at 13:50 U/S retroperitoneal 11/04/2016: IMPRESSION: Left renal cyst. Dictated by: Bakari SAMANIEGO Interpreted: Gaby Nixon MD on 11/04/2016 at 16: 09 Transcribed by: GAURAV on 11/04/2016 at 16:09 Approved by: Gaby Nixon M.D. on 11/04/2016 at 16:57 U/S left upper extremity 11/07/2016: IMPRESSION: Occlusive thrombus within the left cephalic vein within the lower arm. Jennyfer Phan RN given results by the layout man at 1415 hrs. 11/06/16. Dictated by: Bakari SAMANIEGO Interpreted: Ekaterina Carter MD on 11/06/2016 at 16:14 Transcribed by: NAHOMI on 11/06/2016 at 16:14 Approved by: Ekaterina Carter MD, PhD on 11/06/2016 at 17:09 Assessment & Plan 1. Acute kidney injury superimposed on chronic kidney disease of unknown stage - due to ATN - repeat labs in am to determine whether he will need chronic HD. 2. Anion Gap Metabolic Acidosis - continue NaHCO3. 3. Sepsis, resolved. 4. Normocytic Normochromic Anemia secondary to anemia from CKD - will give another dose of aranesp in am. VTE Prophylaxis: Sub-Q Heparin (Unfractionated), SCDs VTE Mechanical Devices: Intermittant Pneumatic CD Resuscitation Status: CPR: Attempt Resuscitation Antonietta Sigala MD Nov 16, 2016 13:44
--- NOTE | 2016-11-16 17:55 | NUR ---
Pt had family in room and refused med.
--- NOTE | 2016-11-16 22:07 | NUR ---
Pain: pt. c/o headache, tylenol given, pt. repositioned in bed, sitting up.
[2016-11-17] VITALS (13 sets, daily range): BP systolic 124–177; BP diastolic 63–87; PULSE 70–98; RESP 16–21; O2SAT 95–99
[2016-11-17 06:38] LABS: BASOPHILS % (AUTO) 1.1 % (0-3); EOSINOPHILS % (AUTO) 6.7 % (0-5); MONOCYTES % (AUTO) 7.1 % (4-12); Mean Corpuscular Hemoglobin 32.7 pg (27.0-35.0); Mean Corpuscular Volume 98.7 fL (81-100); NEUTROPHILS % (AUTO) 65.4 % (40-74); Platelet Count 219 bil/L (150-400)
--- NOTE | 2016-11-17 07:34 | PCM.PNMED ---
Subjective Date of Service Nov 17, 2016 Subjective Patient is moderately confused. He tells me he has pain all over that worsened as the day progressed, nursing as far as we can figure state that perhaps it is in the upper quadrant. He denies chest pain, dyspnea, nausea vomiting Exam Vital Signs Vital Sign - Last Date Time Temp Pulse Resp B/P Pulse Ox O2 Delivery O2 Flow Rate FiO2 11/17/16 04:47 Supplement Oxygen 11/17/16 04:07 36.9 70 20 177/63 95 11/11/16 16:56 3.00 Intake and Output 11/16/16 11/16/16 11/17/16 Cumulative From/Thru 15:00 23:00 07:00 10/26/16 17:03 - 11/17/16 05:13 Intake Total 250 ml 250 ml 2341 ml 37329 ml Output Total 1900 ml 1200 ml 800 ml 81955 ml Balance -1650 ml -950 ml 1541 ml 11549 ml Intake Oral 250 ml 250 ml 0 ml 1854 ml IV Total 2341 ml 57271 ml Tube Feeding 4554 ml Tube Irrigant 2041 ml Output Urine Total 1900 ml 1200 ml 800 ml 39115 ml Stool Total 2550 ml Urine/Stool Mix 350 ml Gastric Drainage Total 575 ml Ultrafiltrate 5150 ml # Bowel Movements 2 16 Exam Gen.- heavyset male and O 3 no apparent distress. Eyes- open conjunctiva clear, pupils equal nonicteric ENT- ears normal, nose normal Neck- supple/trach midline CVS- RRR no murmur or gallop Lungs CTA GI- NABS/NT soft Musc- moving 4 s/p R BKA Neuro- cranial nerves II through XII intact to gross examination, nonfocal Skin- warm and dry Psych- pleasant and appropriate, patient is a bit disheveled but otherwise easily re-oriented 3 IVs and Medications Medications Reviewed: Medications were reviewed in detail Lab and Diagnostics Result Diagram: 11/17/1652411/17/16524 X-Rays, CTs and MRIs PROCEDURE: X-RAY CHEST ONE VIEW, PORTABLE ([id number]) INDICATIONS: monitor resolution of pneumonia/congestion TECHNIQUE: One view of the chest was acquired. COMPARISON: [facility], CR, XR CHEST 1VW (PORTABLE), 11/09/2016, 4 :53. [facility], CR, XR CHEST 1VW (PORTABLE), 11/10/2016, 4:21. FINDINGS: Surgical changes and devices: Right IJ central line projecting to the area of SVT. Lungs and pleura: Persistent bilateral airspace and interstitial infiltrates. Probable small pleural effusions. Overall, there is minimal interval change. No pneumothorax. Mediastinum: Mediastinal contours appear normal. Heart size is normal. Bones and chest wall: No suspicious bony lesions. Overlying soft tissues appear unremarkable. IMPRESSION: Persistent bilateral airspace and interstitial infiltrates and small pleural effusions, consistent with bilateral pneumonia and/or pulmonary edema. PROCEDURE: CT ABDOMEN AND PELVIS WITHOUT CONTRAST ([id number]) IMPRESSION: 1. Bibasilar pneumonia. 2. Small loculated left pleural effusion with thickened rind, possibly indicating empyema. This is too small to safely aspirate percutaneously. 3. Cholelithiasis without evidence of cholecystitis. 4. Normal appendix. 5. Small hiatal hernia. Dictated by: Myke Gonzalez M.D. on 10/27/2016 at 20:52 Approved by: Myke Gonzalez M.D. on 10/27/2016 at 20:52 Chest x-ray on 11/03/2016: IMPRESSION: Pulmonary edema and or diffuse bilateral inflammatory process not significantly changed. Developing ARDS cannot be excluded. Dictated by: Bakari SAMANIEGO Interpreted: Ekaterina Carter MD on 11/03/2016 at 11:06 Transcribed by: NAHOMI on 11/03/2016 at 11:06 U/S lower extremity on 11/03/2016: IMPRESSION: No deep venous thrombosis identified within either the left or right lower extremities. Dictated by: Bakari SAMANIEGO Interpreted: Kika Crews MD on 11/03/2016 at 13:36 Transcribed by: RJ on 11/03/2016 at 13:36 Approved by: Kika Crews M.D. on 11/03/2016 at 13:50 U/S chest on 11/03/2016: IMPRESSION: A small loculated right pleural effusion. Dictated by: Bakari SAMANIEGO Interpreted: Kika Crews MD on 11/03/2016 at 13:36 Transcribed by: RJ on 11/03/2016 at 13:36 Approved by: Kika Crews M.D. on 11/03/2016 at 13:50 U/S retroperitoneal 11/04/2016: IMPRESSION: Left renal cyst. Dictated by: Bakari SAMANIEGO Interpreted: Gaby Nixon MD on 11/04/2016 at 16: 09 Transcribed by: GAURAV on 11/04/2016 at 16:09 Approved by: Gaby Nixon M.D. on 11/04/2016 at 16:57 U/S left upper extremity 11/07/2016: IMPRESSION: Occlusive thrombus within the left cephalic vein within the lower arm. Jennyfer Phan RN given results by the shareholder at 1415 hrs. 11/06/16. Dictated by: Bakari SAMANIEGO Interpreted: Ekaterina Carter MD on 11/06/2016 at 16:14 Transcribed by: NAHOMI on 11/06/2016 at 16:14 Approved by: Ekaterina Carter MD, PhD on 11/06/2016 at 17:09 Assessment & Plan 61-year-old male 10/26 admitted for MRSA pneumonia who was intubated until . Extubated has been confused since being treated for HTN with dialysis with renal following. 11/17 he complains of pain all over and reports that he was part of a pain clinic previously. I will judiciously resume some low-dose narcotics gabapentin is out of the question as our NSAIDs given his renal failure. 0. Generalized pain judicious use of narcotics. 1. AKASH?CKD?3-4?. POA, due to ATN. Per CCU team patient's baseline Cr is around 2, s/p dialysis, Cr continues to worsen. Likely he will need to be a intermediate dialysis patient. Follow with renal. 2. Anion Gap Metabolic Acidosis. POA- Secondary to renal failure, Will likely continue unless patient's kidneys improve or he goes on chronic dialysis 3. Metabolic encephalopathy. Follow clinically. No obvious infection currently. Judicious use of narcotics 4. Hyperphosphatemia- -improved with dialysis, calcium carbonate 5. Hypokalemia-ongoing replacement 6. Weakness-PT consult pending 11/17. We need to start mobilizing this patient. We will continue to follow along with you. Pain Evaluation: Adequate Pain Control VTE Prophylaxis: SCDs VTE Mechanical Devices: Intermittant Pneumatic CD Resuscitation Status: CPR: Attempt Resuscitation Time spent 35 minutes Pain Evaluation: Pain not Controlled VTE Prophylaxis: Sub-Q Heparin (Unfractionated), SCDs VTE Mechanical Devices: Intermittant Pneumatic CD Resuscitation Status: CPR: Attempt Resuscitation Robert Hoffman MD Nov 17, 2016 07:34
[2016-11-17] MEDS: Albuterol-Ipratropium 3 mL Inhalation Solution NEB SCH ×4 (07:39→20:12)
[2016-11-17] MEDS ORDERED: Darbepoetin Alfa 60 mCg/0.3 mL Inj SUBQ ONE (08:00)
[2016-11-17] MEDS: Insulin Human REGular 300 Unit/3 mL Inj SUBQ SCH ×3 (08:30→20:30)
[2016-11-17] MEDS: Multivit-Miner-Folic Acid-Iron Tablet PO SCH (09:03)
[2016-11-17] MEDS: Polyethylene Glycol (PEG) 17 Gm Powder PO SCH (09:05)
[2016-11-17] MEDS: Mupirocin 2% 22 Gm Ointment TOPICAL SCH ×2 (09:05→20:56)
[2016-11-17] MEDS: Dextrose 5% 0.45% NaCl 1,000 ML IV SCH ×2 (09:05→18:41)
[2016-11-17] MEDS: Heparin 5,000 Unit/mL Inj SUBQ SCH ×2 (09:06→20:54)
--- NOTE | 2016-11-17 11:06 | NUR ---
Labs not drawn Received call from lab, they were unable to draw labs for this patient, 2 technicians tried, asked that I contact IV therapy for them to draw the labs. I contacted Brenden with IV therapy, he stated he would come down to draw the labs.
--- NOTE | 2016-11-17 12:15 | NUR ---
PT Frank Active/Not Seen Called PT to find out if patient has been seen or if he will be seen today, was told the schedule is very busy and there is no guarantee he will be seen today. I stated patient has not been out of bed in about 4 days, and staff is concerned with trying to get him out of bed safely without being seen by PT first, but patient does want to get out of bed. Was told they would check to see which therapist is assigned to this patient and call me back. Addendum: 11/17/16 at 1531 by SONG ARAIZA RN Patient had stated he had not been out in about 4 days, however, per PT notes, patient has been out of bed on the previous day.
--- NOTE | 2016-11-17 12:28 | PCM.PNMED ---
Subjective Date of Service Nov 17, 2016 Subjective Pt with nonoliguric ATN, kidney remains poor. He has been on IVF for hydration. Exam Vital Signs Vital Sign - Last Date Time Temp Pulse Resp B/P Pulse Ox O2 Delivery O2 Flow Rate FiO2 11/17/16 11:40 81 18 98 Room Air 11/17/16 07:54 36.7 145/87 11/11/16 16:56 3.00 Intake and Output 11/16/16 11/16/16 11/17/16 Cumulative From/Thru 15:00 23:00 07:00 10/26/16 17:03 - 11/17/16 05:13 Intake Total 250 ml 250 ml 2341 ml 72602 ml Output Total 1900 ml 1200 ml 800 ml 81830 ml Balance -1650 ml -950 ml 1541 ml 88463 ml Intake Oral 250 ml 250 ml 0 ml 1854 ml IV Total 2341 ml 56398 ml Tube Feeding 4554 ml Tube Irrigant 2041 ml Output Urine Total 1900 ml 1200 ml 800 ml 07742 ml Stool Total 2550 ml Urine/Stool Mix 350 ml Gastric Drainage Total 575 ml Ultrafiltrate 5150 ml # Bowel Movements 2 16 Exam GEN: in no acute distress, laying in a hospital bed, alert, oriented to self, place, not to time. HEENT: sclera inacteric, mouth dry RESP: diffuse crackles and rhonchi CV: irregularly irregular rhythm ABD: obese, soft : leiva in place EXT: no edema, L BKA, noted since admission psych: oriented to self only neuro: moves all extremities spontaneously, CN 2-12 intact grossly. Lab and Diagnostics Result Diagram: 11/17/1652411/17/16524 X-Rays, CTs and MRIs PROCEDURE: X-RAY CHEST ONE VIEW, PORTABLE ([id number]) INDICATIONS: monitor resolution of pneumonia/congestion TECHNIQUE: One view of the chest was acquired. COMPARISON: [facility], CR, XR CHEST 1VW (PORTABLE), 11/09/2016, 4 :53. [facility], CR, XR CHEST 1VW (PORTABLE), 11/10/2016, 4:21. FINDINGS: Surgical changes and devices: Right IJ central line projecting to the area of SVT. Lungs and pleura: Persistent bilateral airspace and interstitial infiltrates. Probable small pleural effusions. Overall, there is minimal interval change. No pneumothorax. Mediastinum: Mediastinal contours appear normal. Heart size is normal. Bones and chest wall: No suspicious bony lesions. Overlying soft tissues appear unremarkable. IMPRESSION: Persistent bilateral airspace and interstitial infiltrates and small pleural effusions, consistent with bilateral pneumonia and/or pulmonary edema. PROCEDURE: CT ABDOMEN AND PELVIS WITHOUT CONTRAST ([id number]) IMPRESSION: 1. Bibasilar pneumonia. 2. Small loculated left pleural effusion with thickened rind, possibly indicating empyema. This is too small to safely aspirate percutaneously. 3. Cholelithiasis without evidence of cholecystitis. 4. Normal appendix. 5. Small hiatal hernia. Dictated by: Myke Gonzalez M.D. on 10/27/2016 at 20:52 Approved by: Myke Gonzalez M.D. on 10/27/2016 at 20:52 Chest x-ray on 11/03/2016: IMPRESSION: Pulmonary edema and or diffuse bilateral inflammatory process not significantly changed. Developing ARDS cannot be excluded. Dictated by: Bakari SAMANIEGO Interpreted: Ekaterina Carter MD on 11/03/2016 at 11:06 Transcribed by: NAHOMI on 11/03/2016 at 11:06 U/S lower extremity on 11/03/2016: IMPRESSION: No deep venous thrombosis identified within either the left or right lower extremities. Dictated by: Bakari SAMANIEGO Interpreted: Kika Crews MD on 11/03/2016 at 13:36 Transcribed by: RJ on 11/03/2016 at 13:36 Approved by: Kika Crews M.D. on 11/03/2016 at 13:50 U/S chest on 11/03/2016: IMPRESSION: A small loculated right pleural effusion. Dictated by: Bakari SAMANIEGO Interpreted: Kika Crews MD on 11/03/2016 at 13:36 Transcribed by: RJ on 11/03/2016 at 13:36 Approved by: Kika Crews M.D. on 11/03/2016 at 13:50 U/S retroperitoneal 11/04/2016: IMPRESSION: Left renal cyst. Dictated by: Bakari SAMANIEGO Interpreted: Gaby Nixon MD on 11/04/2016 at 16: 09 Transcribed by: GAURAV on 11/04/2016 at 16:09 Approved by: Gaby Nixon M.D. on 11/04/2016 at 16:57 U/S left upper extremity 11/07/2016: IMPRESSION: Occlusive thrombus within the left cephalic vein within the lower arm. Jennyfer Phan RN given results by the pinion staker at 1415 hrs. 11/06/16. Dictated by: Bakari Bunch RRA Interpreted: Ekaterina Carter MD on 11/06/2016 at 16:14 Transcribed by: NAHOMI on 11/06/2016 at 16:14 Approved by: Ekaterina Carter MD, PhD on 11/06/2016 at 17:09 Assessment & Plan 1. Acute kidney injury superimposed on chronic kidney disease of unknown stage - due to ATN - poor kidney function. 2. Anion Gap Metabolic Acidosis - continue NaHCO3. 3. Sepsis, resolved. 4. Normocytic Normochromic Anemia secondary to anemia from CKD 5. Chronic hepatitis C infection. Plan: Tunneled cath placement in am. Resume HD after catheter placement. VTE Prophylaxis: Sub-Q Heparin (Unfractionated), SCDs VTE Mechanical Devices: Intermittant Pneumatic CD Resuscitation Status: CPR: Attempt Resuscitation Antonietta Sigala MD Nov 17, 2016 12:27
--- NOTE | 2016-11-17 12:29 | NUR ---
Pain/Labs not drawn Contacted Dr. Hoffman with the following cook page: Patient is complaining of 9/10 right flank pain, currently only has Tylenol PO q6 h ordered. Also, lab and IV therapy unable to draw labs. Please advise of any changes. Thank you. Deysi MOLINA
[2016-11-17] MEDS ORDERED: HYDROmorphone 0.5 mg/0.5 mL iSecure Syringe IVPUSH ONE (12:55)
--- NOTE | 2016-11-17 13:56 | NUR ---
Called admissions at [facility] and they are unable to accommodate patient due to insurance and level of needs. Updated [employer]
--- NOTE | 2016-11-17 15:00 | NUR ---
Social Work: Continued Discharge Planning Data & Assessment: EMR Reviewed. Patient is a 61 y/o male that admitted due to AKASH per H&P. Per Antonietta Garcia note on 11/17 the plan is for Tunneled cath placement in am. And Resume HD after catheter placement. Patient has a PT evaluation pending. SW spoke with patients daughter Manolo Vega to discuss discharge planning. Patients daughter states that patient lives at home with his girlfriend, Leanna Puga, and she will be at home with the patient 15/06. Patients daughter states that she will also be able to provide assistance in the home if needed. SW will apply for expedited BLUE for the patient. SW will continue to follow and assist patient throughout stay. Plan: Pt to likely discharge home with and BLUE vs. self pay SNF. PT evaluation is pending. Pt's daughter is supportive. SW will continue to follow and assist patient throughout stay. Marva Ludwig, ARIA, ACM
[2016-11-17 18:05] LABS: INR 0.96 ratio
[2016-11-18] VITALS (7 sets, daily range): BP systolic 116–132; BP diastolic 77–79; PULSE 76–93; RESP 16–20; O2SAT 94–97
[2016-11-18] MEDS: Insulin Human REGular 300 Unit/3 mL Inj SUBQ SCH ×4 (02:30→20:30)
--- NOTE | 2016-11-18 05:05 | NUR ---
Mentation Pt. is often confused at times. Pt. asks "can I bum a smoke off of you?". This RN reminded him that he is in the hospital, that this person is a RN, and we have a strict no-smoking policy. Pt. then had a brief moment of clarity. Pt. was asking for fluids all shift, despite multiple reminders that pt. was NPO for procedure today.
[2016-11-18] MEDS: Dextrose 5% 0.45% NaCl 1,000 ML IV SCH ×2 (06:01→15:35)
[2016-11-18] MEDS: Albuterol-Ipratropium 3 mL Inhalation Solution NEB SCH ×3 (07:16→19:46)
--- NOTE | 2016-11-18 07:20 | PCM.PNMED ---
Subjective Date of Service Nov 18, 2016 Subjective Pain is adequately controlled but he feels a little out of sorts. He is on bit worried about the catheter placement that is supposed to happen today. Denies chest pain, dyspnea, nausea vomiting Exam Vital Signs Vital Sign - Last Date Time Temp Pulse Resp B/P Pulse Ox O2 Delivery O2 Flow Rate FiO2 11/18/16 07:16 86 16 96 Room Air 11/18/16 03:14 36.7 128/79 Intake and Output 11/17/16 11/17/16 11/18/16 Cumulative From/Thru 15:00 23:00 07:00 10/26/16 17:03 - 11/18/16 06:04 Intake Total 2007 ml 1334 ml 67022 ml Output Total 1450 ml 1550 ml 08704 ml Balance 557 ml -216 ml 10862 ml Intake Oral 900 ml 300 ml 3054 ml IV Total 1107 ml 1034 ml 63724 ml Tube Feeding 4554 ml Tube Irrigant 2041 ml Output Urine Total 1450 ml 1550 ml 82756 ml Stool Total 2550 ml Urine/Stool Mix 350 ml Gastric Drainage Total 575 ml Ultrafiltrate 5150 ml # Bowel Movements 1 0 17 Exam Gen.: Obese male of descent sitting up at the bedside no apparent distress Eyes: Open, conjunctivae clear no scleral icterus noted pupils equal HEENT: Ears normal, nose normal Neck: Trachea midline supple CVS: RRR no murmur or gallop Lungs: CTA no accessory muscle usage no evidence of respiratory distress Abdomen: Soft NABS/NT Musc: Moving 4 Neuro: Cranial 2 through 12 intact to gross examination, nonfocal Skin: Warm and dry Psych: Patient pleasant and appropriate however easily confused, needs to be constantly reoriented to the fact that he is in the hospital, is asking to "bun smokes" Lab and Diagnostics Result Diagram: 11/17/16 0525 11/18/16 0448 X-Rays, CTs and MRIs PROCEDURE: X-RAY CHEST ONE VIEW, PORTABLE ([id number]) INDICATIONS: monitor resolution of pneumonia/congestion TECHNIQUE: One view of the chest was acquired. COMPARISON: [facility], CR, XR CHEST 1VW (PORTABLE), 11/09/2016, 4 :53. [facility], CR, XR CHEST 1VW (PORTABLE), 11/10/2016, 4:21. FINDINGS: Surgical changes and devices: Right IJ central line projecting to the area of SVT. Lungs and pleura: Persistent bilateral airspace and interstitial infiltrates. Probable small pleural effusions. Overall, there is minimal interval change. No pneumothorax. Mediastinum: Mediastinal contours appear normal. Heart size is normal. Bones and chest wall: No suspicious bony lesions. Overlying soft tissues appear unremarkable. IMPRESSION: Persistent bilateral airspace and interstitial infiltrates and small pleural effusions, consistent with bilateral pneumonia and/or pulmonary edema. PROCEDURE: CT ABDOMEN AND PELVIS WITHOUT CONTRAST ([id number]) IMPRESSION: 1. Bibasilar pneumonia. 2. Small loculated left pleural effusion with thickened rind, possibly indicating empyema. This is too small to safely aspirate percutaneously. 3. Cholelithiasis without evidence of cholecystitis. 4. Normal appendix. 5. Small hiatal hernia. Dictated by: Myke Gonzalez M.D. on 10/27/2016 at 20:52 Approved by: Myke Gonzalez M.D. on 10/27/2016 at 20:52 Chest x-ray on 11/03/2016: IMPRESSION: Pulmonary edema and or diffuse bilateral inflammatory process not significantly changed. Developing ARDS cannot be excluded. Dictated by: Bakari SAMANIEGO Interpreted: Ekaterina Carter MD on 11/03/2016 at 11:06 Transcribed by: NAHOMI on 11/03/2016 at 11:06 U/S lower extremity on 11/03/2016: IMPRESSION: No deep venous thrombosis identified within either the left or right lower extremities. Dictated by: Bakari SAMANIEGO Interpreted: Kika Crews MD on 11/03/2016 at 13:36 Transcribed by: RJ on 11/03/2016 at 13:36 Approved by: Kika Crews M.D. on 11/03/2016 at 13:50 U/S chest on 11/03/2016: IMPRESSION: A small loculated right pleural effusion. Dictated by: Bakari SAMANIEGO Interpreted: Kika Crews MD on 11/03/2016 at 13:36 Transcribed by: RJ on 11/03/2016 at 13:36 Approved by: Kika Crews M.D. on 11/03/2016 at 13:50 U/S retroperitoneal 11/04/2016: IMPRESSION: Left renal cyst. Dictated by: Bakari SAMANIEGO Interpreted: Gaby Nixon MD on 11/04/2016 at 16: 09 Transcribed by: GAURAV on 11/04/2016 at 16:09 Approved by: Gaby Nixon M.D. on 11/04/2016 at 16:57 U/S left upper extremity 11/07/2016: IMPRESSION: Occlusive thrombus within the left cephalic vein within the lower arm. Jennyfer Phan RN given results by the blending tank helper at 1415 hrs. 11/06/16. Dictated by: Bakari SAMANIEGO Interpreted: Ekaterina Carter MD on 11/06/2016 at 16:14 Transcribed by: NAHOMI on 11/06/2016 at 16:14 Approved by: Ekaterina Carter MD, PhD on 11/06/2016 at 17:09 Assessment & Plan 61-year-old male 10/26 admitted for MRSA pneumonia who was intubated until . Extubated has been confused since being treated for HTN with dialysis with renal following. 11/17 he complains of pain all over and reports that he was part of a pain clinic previously. I will judiciously resume some low-dose narcotics gabapentin is out of the question as our NSAIDs given his renal failure. DVT left upper extremity- documented by Doppler 11/07 with indicate patient needs 3-6 months of anticoagulation therapy which is complicated because of his renal failure. Currently I would not anticoagulate him given pending procedures but will need to discuss this with treating team Generalized pain/acute on chronic- judicious use of narcotics. Seems to be controlling his symptoms without too much aggravating his encephalopathy AKASH?CKD?3-4?. Likely he will need to be a intermission coordinator dialysis patient. Follow with renal. Creatinine is up to 6.8 today it is worsening, renal is arranging for tunnel cath for dialysis. Renal notes noted thank you proceed with biopsy and tunnel cath as indicated please advise me when starting anticoagulation will be safe for I will try and contact you. Anion Gap Metabolic Acidosis. POA- Secondary to renal failure, Will likely continue unless patient's kidneys improve or he goes on chronic dialysis Metabolic encephalopathy. Follow clinically. No obvious infection currently. Judicious use of narcotics. We will request speech to do moca as I would not be surprised if this patient is severely impaired. His baseline status is not clear. Hyperphosphatemia- -improved with dialysis, calcium carbonate Hypokalemia-ongoing replacement as needed with monitoring Weakness-PT consult pending 11/17. We need to start mobilizing this patient. Prophylaxis: DVT-SCDs, GI-None Disposition-patient is a full code it is not clear what home is for him whether he actually has one at this point in time it does not seem like this patient could return to independent living Medically complex patient at high risk for complications VTE Prophylaxis: Sub-Q Heparin (Unfractionated), SCDs VTE Mechanical Devices: Intermittant Pneumatic CD Resuscitation Status: CPR: Attempt Resuscitation Robert Hoffman MD Nov 18, 2016 07:20
[2016-11-18] MEDS: Multivit-Miner-Folic Acid-Iron Tablet PO SCH (11:08)
[2016-11-18] MEDS: Polyethylene Glycol (PEG) 17 Gm Powder PO SCH (11:08)
[2016-11-18] MEDS: Mupirocin 2% 22 Gm Ointment TOPICAL SCH ×2 (11:09→21:38)
[2016-11-18] MEDS: Heparin 5,000 Unit/mL Inj SUBQ SCH ×2 (11:09→21:37)
--- NOTE | 2016-11-18 11:57 | NUR ---
Restless/forgetful/delayed answering of questions Patient restless this am squirming allover bed wanting to get up. Pt reminded he was not allowed to get up by himself related to safely and fall risk. Davy bed alarm on for monitoring. Pt was assisted up to recliner chair thi9s mid morning and seems content being in it. Pt is very forgetful and answers most questions very slowly .
--- NOTE | 2016-11-18 12:31 | PCM.PNMED ---
Subjective Date of Service Nov 18, 2016 Subjective Cryoglobulin came back positive. His kidney function remains poor. Exam Vital Signs Vital Sign - Last Date Time Temp Pulse Resp B/P Pulse Ox O2 Delivery O2 Flow Rate FiO2 11/18/16 10:18 86 11/18/16 07:16 16 96 Room Air 11/18/16 03:14 36.7 128/79 Intake and Output 11/17/16 11/17/16 11/18/16 Cumulative From/Thru 15:00 23:00 07:00 10/26/16 17:03 - 11/18/16 06:04 Intake Total 2007 ml 1334 ml 22619 ml Output Total 1450 ml 1550 ml 52591 ml Balance 557 ml -216 ml 50946 ml Intake Oral 900 ml 300 ml 3054 ml IV Total 1107 ml 1034 ml 62761 ml Tube Feeding 4554 ml Tube Irrigant 2041 ml Output Urine Total 1450 ml 1550 ml 93131 ml Stool Total 2550 ml Urine/Stool Mix 350 ml Gastric Drainage Total 575 ml Ultrafiltrate 5150 ml # Bowel Movements 1 0 17 Exam GEN: in no acute distress, laying in a hospital bed, alert, oriented to self, place, not to time. HEENT: PERRLA, atraumatic, mouth dry RESP: CTA, no wheezing, no rhonchi. CV: RRR, no M/R/G. ABD: obese, soft, NT, Nd, no HSM. : leiva in place EXT: no edema, L BKA. ' Lab and Diagnostics Result Diagram: 11/17/16 0525 11/18/16 0448 X-Rays, CTs and MRIs PROCEDURE: X-RAY CHEST ONE VIEW, PORTABLE ([id number]) INDICATIONS: monitor resolution of pneumonia/congestion TECHNIQUE: One view of the chest was acquired. COMPARISON: [facility], CR, XR CHEST 1VW (PORTABLE), 11/09/2016, 4 :53. [facility], CR, XR CHEST 1VW (PORTABLE), 11/10/2016, 4:21. FINDINGS: Surgical changes and devices: Right IJ central line projecting to the area of SVT. Lungs and pleura: Persistent bilateral airspace and interstitial infiltrates. Probable small pleural effusions. Overall, there is minimal interval change. No pneumothorax. Mediastinum: Mediastinal contours appear normal. Heart size is normal. Bones and chest wall: No suspicious bony lesions. Overlying soft tissues appear unremarkable. IMPRESSION: Persistent bilateral airspace and interstitial infiltrates and small pleural effusions, consistent with bilateral pneumonia and/or pulmonary edema. PROCEDURE: CT ABDOMEN AND PELVIS WITHOUT CONTRAST ([id number]) IMPRESSION: 1. Bibasilar pneumonia. 2. Small loculated left pleural effusion with thickened rind, possibly indicating empyema. This is too small to safely aspirate percutaneously. 3. Cholelithiasis without evidence of cholecystitis. 4. Normal appendix. 5. Small hiatal hernia. Dictated by: Myke Gonzalez M.D. on 10/27/2016 at 20:52 Approved by: Myke Gonzalez M.D. on 10/27/2016 at 20:52 Chest x-ray on 11/03/2016: IMPRESSION: Pulmonary edema and or diffuse bilateral inflammatory process not significantly changed. Developing ARDS cannot be excluded. Dictated by: Bakari SAMANIEGO Interpreted: Ekaterina Carter MD on 11/03/2016 at 11:06 Transcribed by: NAHOMI on 11/03/2016 at 11:06 U/S lower extremity on 11/03/2016: IMPRESSION: No deep venous thrombosis identified within either the left or right lower extremities. Dictated by: Bakari SAMANIEGO Interpreted: Kika Crews MD on 11/03/2016 at 13:36 Transcribed by: RJ on 11/03/2016 at 13:36 Approved by: Kika Crews M.D. on 11/03/2016 at 13:50 U/S chest on 11/03/2016: IMPRESSION: A small loculated right pleural effusion. Dictated by: Bakari SAMANIEGO Interpreted: Kika Crews MD on 11/03/2016 at 13:36 Transcribed by: RJ on 11/03/2016 at 13:36 Approved by: Kika Crews M.D. on 11/03/2016 at 13:50 U/S retroperitoneal 11/04/2016: IMPRESSION: Left renal cyst. Dictated by: Bakari SAMANIEGO Interpreted: Gaby Nxion MD on 11/04/2016 at 16: 09 Transcribed by: GAURAV on 11/04/2016 at 16:09 Approved by: Gaby Nixon M.D. on 11/04/2016 at 16:57 U/S left upper extremity 11/07/2016: IMPRESSION: Occlusive thrombus within the left cephalic vein within the lower arm. Jennyfer Phan RN given results by the control board operator at 1415 hrs. 11/06/16. Dictated by: Bakari Bunch RRA Interpreted: Ekaterina Carter MD on 11/06/2016 at 16:14 Transcribed by: NAHOMI on 11/06/2016 at 16:14 Approved by: Ekaterina Carter MD, PhD on 11/06/2016 at 17:09 Assessment & Plan 1. Acute kidney injury superimposed on chronic kidney disease of unknown stage - cryoglobulin came back positive with h/o hepatitis C infection. - There is no improvement in kidney function thus far. 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 - will arrange for tunneled cath placement. - uncertain if kidney biopsy would change our management at this point. Risks outweigh benefits. - He will need to be treated for hepatitis C infection. 2. Anion Gap Metabolic Acidosis - continue NaHCO3. 3. Sepsis, resolved. 4. Normocytic Normochromic Anemia secondary to anemia from CKD 5. Chronic hepatitis C infection. VTE Prophylaxis: Sub-Q Heparin (Unfractionated), SCDs VTE Mechanical Devices: Intermittant Pneumatic CD Resuscitation Status: CPR: Attempt Resuscitation Antonietta Sigala MD Nov 18, 2016 12:31
--- NOTE | 2016-11-18 14:20 | NUR ---
NUTRITION FOLLOW UP: ASSESS: 61 YO male admitted with confusion, weakness, falls, renal failure. Pt intubated 10/30, successfully extubated 11/10. Nephrology continues to follow for dialysis. Confusion continues. Pt now NPO. Plan for kidney biopsy and tunneled cath placement. PMHX: Chronic renal insufficiency, pre-diabetes, alcoholism, BKA. LABS: BUN 42, Cr 6.82, Phos 7.0 MEDS: Reviewed. MVI, PhosLo, Senna, Miralax. GI: BM x 2 (11/17). WT: 90.7 kg, BMI 30.4 kg/m2. IBW 70 kg, Admit Wt: 104.5 kg, adj bw:77 kg DIET: NPO. Previous PO on Pureed 25-75%. RE-ESTIMATED NEEDS: Dialysis, BMI, BKA (-5% of BKA): Calories:2090-2375kal/day (22-25kcal/kg) Protein: 80-130 g/day (1.2-2.0 g/kg IBW) Fluids: 1741-8960 ml/day or per nephrology NUTRITION DIAGNOSIS: 1) Inadequate oral intake related to decreased ability to consume sufficient energy as evidenced by current NPO status - PERSISTS.. 2) Increased nutrient needs related to increased demand for nutrients as evidence by pt on dialysis - PERSISTS. NUTRITION INTERVENTION: 1) Will await timely advancement of diet. 2) If pt remains NPO after procedures recommend NGT placement and re-starting nutrition support. Pt would greatly benefit from nutrition support to help with rehab and to gain back his strength. Recommend Nepro @55 ml/hr to provide 2277kcal and 102g pro (100% estimated needs) . Start enteral feeding at 15ml/hr and advance by 10ml q 6 hrs until reach goal rate. Flush 30ml q 4 hrs if on IVF. If IVF stopped, flush 75ml q 3 hrs or per nephrology. MONITOR/EVALUATE: ST, NPO status, diet advance, TF restart, labs, wt, nutrition status. Follow per high nutrition risk guidelines.
[2016-11-18] MEDS ORDERED: Alum-Mag Hydrox-Simeth 30 mL Suspension ONE (15:48)
[2016-11-18] MEDS ORDERED: Alum-Mag Hydrox-Simeth 30 mL Suspension PO ONE (17:55)
--- NOTE | 2016-11-18 20:13 | NUR ---
Chest pain Patient complained of chest at 1520 this afternoon. Patient asked to describe but was unable to given accurate description was holding his hand across to mid to right upper chest wall. Dr informed stat ekg taken Sinus Rhythm no ectopy noted and telemetry monitoring stated same. Vitals taken Bp 129/80 HR 84 room air 98, patient rated 7-8/10 pain when asked for a numerical value. Patient given nitro 0.[address]'s order and 02-2l placed at this time, vitals 134/81 Hr 83 , Bp went to 124/74 Hr 95 after nitro. Pt very vague on whether nitro helpful or not. Pt with disorientation t/o day and difficult to get answers from. Vitals remained stable and eventually patient with no further complaint and napping . Patient did have some nausea and retching no emesis as well during this but patient had also had oral pain med for severe headache prior to this. Addendum: 11/18/16 at 2020 by SHELL MORELAND RN Afternnon pepcid not given as patient had had mylanta and was having nausea and retching .
[2016-11-19] VITALS (14 sets, daily range): BP systolic 100–132; BP diastolic 72–86; PULSE 64–89; RESP 12–20; O2SAT 92–100
[2016-11-19] MEDS: Dextrose 5% 0.45% NaCl 1,000 ML IV SCH ×2 (01:35→11:35)
[2016-11-19] MEDS: Insulin Human REGular 300 Unit/3 mL Inj SUBQ SCH ×4 (02:30→20:30)
--- NOTE | 2016-11-19 06:00 | NUR ---
Leiva d/c during this shift Day shift RN on 11/18 had not pulled leiva due to chest pain that needed to be addressed first. Leiva was d/c this shift. Pt. tolerated procedure well. 10 ml of saline was taken out of balloon. Will continue to monitor.
--- NOTE | 2016-11-19 07:47 | NUR ---
Unwitnessed Fall [place] alarm was ringing, and this RN went right into room to help pt. Unfournately, pt. already slipped off bed, and was on floor. This was unwitnessed. Sitter was in other room with other pt. Pt. stated "I wanted to crawl to chair". Pt. helped back onto bed, and inspected. No injury noted. Davy alarm back in place, and eQMM filled out, and paged.
[2016-11-19] MEDS: Albuterol-Ipratropium 3 mL Inhalation Solution NEB SCH (08:25)
[2016-11-19] MEDS: Mupirocin 2% 22 Gm Ointment TOPICAL SCH ×2 (08:30→21:05)
[2016-11-19] MEDS: Polyethylene Glycol (PEG) 17 Gm Powder PO SCH (08:30)
[2016-11-19] MEDS: Heparin 5,000 Unit/mL Inj SUBQ SCH ×2 (08:30→21:05)
[2016-11-19] MEDS: Multivit-Miner-Folic Acid-Iron Tablet PO SCH (08:30)
[2016-11-19] MEDS ORDERED: fentaNYL-PF 50 mCg/mL 2 mL Inj ONE (11:18)
[2016-11-19] MEDS ORDERED: 0.9% Sodium Chloride 1,000 ML ONE (11:19)
[2016-11-19] MEDS ORDERED: Heparin 1,000 Unit/mL 10 mL Inj ONE (11:28)
--- NOTE | 2016-11-19 11:55 | DRSVH ---
PROCEDURE: CV TUNNEL CATH PLCMNT 1. Sonographic guidance for venous access. 2. Conscious sedation for 32 minutes. 3. Right internal jugular vein tunneled hemodialysis catheter placement. 4. Fluoroscopic guidance for catheter placement. INDICATIONS: ESRD TECHNIQUE: The indications, alternatives, benefits, risks, and complications of the procedure were e xplained to the patient and any family members present. Informed written consent was obtained and pl aced in the chart. The patient was brought to the angiography suite, and conscious sedation was admi nistered intravenously by senior care staff, while continuous cardiorespiratory monitoring was pe rformed. Maximum sterile barrier technique was employed per standard protocol, including hand hygiene, cap, ma sk, sterile gown and gloves, and 2% chlorhexidine. Sterile ultrasound probe cover was also utilized. 1% lidocaine was used for local anaesthesia. Under sonographic guidance, the right internal jugular vein was accessed with a Micropuncture set. An 0.035J wire was advanced into the vena cava. Subcuta neous tunnel was created within the right anterior chest wall, through which a 14.5 [place] double lum en tunneled hemodialysis catheter was advanced. Following sequential venotomy tract dilation, the ca theter was advanced through the peel-away sheath and the tip was placed at the cavoatrial junction. Peel-away sheath was removed. Adequate flow was obtained through both lumens of the catheter. The v enotomy was closed with Vicryl, and the catheter was fastened to the skin with Ticron. Both lumens w ere flushed with heparinized saline. The patient tolerated the procedure without difficulty and was in stable condition at the conclusion of the procedure. COMPARISON: None. FINDINGS: The right internal jugular vein is patent by ultrasound. Fluoroscopic imaging demonstrates tip of th e catheter at the cavoatrial junction. IMPRESSION: Right internal jugular vein tunneled hemodialysis catheter placement using sonographic and fluoroscop ic guidance. Dictated by: Myke Gonzalez M.D. on 11/19/2016 at 11:54 Approved by: Myke Gonzalez M.D. on 11/19/2016 at 11:54
--- NOTE | 2016-11-19 12:23 | PCM.PNMED ---
Subjective Date of Service Nov 19, 2016 Subjective confused at times. had another episode of floor, unwitnessed. NPO for tunneled cath placement today. Exam Vital Signs Vital Sign - Last Date Time Temp Pulse Resp B/P Pulse Ox O2 Delivery O2 Flow Rate FiO2 11/19/16 12:05 80 18 132/82 95 Room Air 11/19/16 12:00 36.7 Intake and Output 11/18/16 11/18/16 11/19/16 Cumulative From/Thru 15:00 23:00 07:00 10/26/16 17:03 - 11/19/16 06:38 Intake Total 520 ml 600 ml 35604 ml Output Total 1400 ml 1450 ml 47212 ml Balance -880 ml -850 ml 12738 ml Intake Oral 520 ml 450 ml 4024 ml IV Total 150 ml 95749 ml Tube Feeding 4554 ml Tube Irrigant 2041 ml Output Urine Total 1400 ml 1450 ml 53273 ml Stool Total 2550 ml Urine/Stool Mix 350 ml Gastric Drainage Total 575 ml Ultrafiltrate 5150 ml # Bowel Movements 11 23 18 Exam GEN: in no acute distress, laying in a hospital bed, alert, oriented to self, place, not to time. HEENT: PERRLA, atraumatic, mouth dry RESP: CTA, no wheezing, no rhonchi. CV: RRR, no M/R/G. ABD: obese, soft, NT, Nd, no HSM. : leiva in place EXT: no edema, L BKA. Lab and Diagnostics Result Diagram: 11/17/16 0525 11/18/16 0448 X-Rays, CTs and MRIs PROCEDURE: X-RAY CHEST ONE VIEW, PORTABLE ([id number]) INDICATIONS: monitor resolution of pneumonia/congestion TECHNIQUE: One view of the chest was acquired. COMPARISON: [facility], CR, XR CHEST 1VW (PORTABLE), 11/09/2016, 4 :53. [facility], CR, XR CHEST 1VW (PORTABLE), 11/10/2016, 4:21. FINDINGS: Surgical changes and devices: Right IJ central line projecting to the area of SVT. Lungs and pleura: Persistent bilateral airspace and interstitial infiltrates. Probable small pleural effusions. Overall, there is minimal interval change. No pneumothorax. Mediastinum: Mediastinal contours appear normal. Heart size is normal. Bones and chest wall: No suspicious bony lesions. Overlying soft tissues appear unremarkable. IMPRESSION: Persistent bilateral airspace and interstitial infiltrates and small pleural effusions, consistent with bilateral pneumonia and/or pulmonary edema. PROCEDURE: CT ABDOMEN AND PELVIS WITHOUT CONTRAST ([id number]) IMPRESSION: 1. Bibasilar pneumonia. 2. Small loculated left pleural effusion with thickened rind, possibly indicating empyema. This is too small to safely aspirate percutaneously. 3. Cholelithiasis without evidence of cholecystitis. 4. Normal appendix. 5. Small hiatal hernia. Dictated by: Myke Gonzalez M.D. on 10/27/2016 at 20:52 Approved by: Myke Gonzalez M.D. on 10/27/2016 at 20:52 Chest x-ray on 11/03/2016: IMPRESSION: Pulmonary edema and or diffuse bilateral inflammatory process not significantly changed. Developing ARDS cannot be excluded. Dictated by: Bakari SAMANIEGO Interpreted: Ekaterina Carter MD on 11/03/2016 at 11:06 Transcribed by: NAHOMI on 11/03/2016 at 11:06 U/S lower extremity on 11/03/2016: IMPRESSION: No deep venous thrombosis identified within either the left or right lower extremities. Dictated by: Bakari SAMANIEGO Interpreted: Kika Crews MD on 11/03/2016 at 13:36 Transcribed by: RJ on 11/03/2016 at 13:36 Approved by: Kika Crews M.D. on 11/03/2016 at 13:50 U/S chest on 11/03/2016: IMPRESSION: A small loculated right pleural effusion. Dictated by: Bakari SAMANIEGO Interpreted: Kika Crews MD on 11/03/2016 at 13:36 Transcribed by: RJ on 11/03/2016 at 13:36 Approved by: Kika Crews M.D. on 11/03/2016 at 13:50 U/S retroperitoneal 11/04/2016: IMPRESSION: Left renal cyst. Dictated by: Bakari SAMANIEGO Interpreted: Gaby Nixon MD on 11/04/2016 at 16: 09 Transcribed by: GAURAV on 11/04/2016 at 16:09 Approved by: Gaby Nxion M.D. on 11/04/2016 at 16:57 U/S left upper extremity 11/07/2016: IMPRESSION: Occlusive thrombus within the left cephalic vein within the lower arm. Jennyfer Phan RN given results by the poultry service technician at 1415 hrs. 11/06/16. Dictated by: Bakari Bunch RRA Interpreted: Ekaterina Carter MD on 11/06/2016 at 16:14 Transcribed by: NAHOMI on 11/06/2016 at 16:14 Approved by: Ekaterina Catrer MD, PhD on 11/06/2016 at 17:09 Assessment & Plan 1. Acute kidney injury superimposed on chronic kidney disease of unknown stage - cryoglobulin came back positive with h/o hepatitis C infection. - There is no improvement in kidney function thus far. 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 - will arrange for tunneled cath placement. - uncertain if kidney biopsy would change our management at this point. Risks outweigh benefits. - He will need to be treated for hepatitis C infection. 2. Anion Gap Metabolic Acidosis - continue NaHCO3. 3. Sepsis, resolved. 4. Normocytic Normochromic Anemia secondary to anemia from CKD 5. Chronic hepatitis C infection. Plan: Tunneled cath placement today. arrange for HD at [facility]. Disposition as per primary team. VTE Prophylaxis: Sub-Q Heparin (Unfractionated), SCDs VTE Mechanical Devices: Intermittant Pneumatic CD Resuscitation Status: CPR: Attempt Resuscitation Antonietta Sigala MD Nov 19, 2016 12:23
[2016-11-19] MEDS ORDERED: Albuterol-Ipratropium 3 mL Inhalation Solution NEB PRN (12:30)
--- NOTE | 2016-11-19 12:35 | NUR ---
transferred care to junior network administrator. at time of transfer pt remained confused, repeatedly asking for his sock and "let's get out of here", "do you have a cigarette?" pt constantly pulling bp cuff and tele leads off despite frequent reminders. Addendum: 11/19/16 at 1339 by HESHAM JOHNSON RN at time of transfer tunnel cath site was CDI, soft and nontender.
[2016-11-19] MEDS: Haloperidol 5 mg/mL Inj IVPUSH PRN (13:09)
[2016-11-19] MEDS ORDERED: Haloperidol 5 mg/mL Inj ONE (15:05)
--- NOTE | 2016-11-19 15:42 | PCM.PNMED ---
Subjective Date of Service Nov 19, 2016 Subjective Patient had a complaint of chest pain yesterday but it was transient. His pain is well managed he is not having shortness of breath or nausea and vomiting. He is confused and has fallen twice since last night Exam Vital Signs Vital Sign - Last Date Time Temp Pulse Resp B/P Pulse Ox O2 Delivery O2 Flow Rate FiO2 11/19/16 12:25 78 12 123/86 95 Room Air 11/19/16 12:00 36.7 Intake and Output 11/18/16 11/18/16 11/19/16 Cumulative From/Thru 14:59 22:59 06:59 10/26/16 17:03 - 11/19/16 06:38 Intake Total 520 ml 600 ml 61192 ml Output Total 1400 ml 1450 ml 87072 ml Balance -880 ml -850 ml 91160 ml Intake Oral 520 ml 450 ml 4024 ml IV Total 150 ml 93744 ml Tube Feeding 4554 ml Tube Irrigant 2041 ml Output Urine Total 1400 ml 1450 ml 75506 ml Stool Total 2550 ml Urine/Stool Mix 350 ml Gastric Drainage Total 575 ml Ultrafiltrate 5150 ml # Bowel Movements 1 12 11 Exam Gen.: Obese male of , no apparent distress, once seen sleeping the next time trying to get out of bed Eyes: Open, conjunctivae clear no scleral icterus noted pupils equal HEENT: Ears normal, nose normal Neck: Trachea midline supple CVS: Rate within normal limits Lungs: rate within normal limits, no accessory muscle usage no evidence of respiratory distress Abdomen: generous pannus Musc: Moving 4 Neuro: Cranial 2 through 12 intact to gross examination, nonfocal Skin: Warm and dry Psych: Patient pleasant needs constant redirection, he is impulsive climbing out of bed and really does not seem to be oriented to time or place Lab and Diagnostics Result Diagram: 11/17/16 0525 11/18/16 0448 X-Rays, CTs and MRIs PROCEDURE: X-RAY CHEST ONE VIEW, PORTABLE ([id number]) INDICATIONS: monitor resolution of pneumonia/congestion TECHNIQUE: One view of the chest was acquired. COMPARISON: [facility], CR, XR CHEST 1VW (PORTABLE), 11/09/2016, 4 :53. [facility], CR, XR CHEST 1VW (PORTABLE), 11/10/2016, 4:21. FINDINGS: Surgical changes and devices: Right IJ central line projecting to the area of SVT. Lungs and pleura: Persistent bilateral airspace and interstitial infiltrates. Probable small pleural effusions. Overall, there is minimal interval change. No pneumothorax. Mediastinum: Mediastinal contours appear normal. Heart size is normal. Bones and chest wall: No suspicious bony lesions. Overlying soft tissues appear unremarkable. IMPRESSION: Persistent bilateral airspace and interstitial infiltrates and small pleural effusions, consistent with bilateral pneumonia and/or pulmonary edema. PROCEDURE: CT ABDOMEN AND PELVIS WITHOUT CONTRAST ([id number]) IMPRESSION: 1. Bibasilar pneumonia. 2. Small loculated left pleural effusion with thickened rind, possibly indicating empyema. This is too small to safely aspirate percutaneously. 3. Cholelithiasis without evidence of cholecystitis. 4. Normal appendix. 5. Small hiatal hernia. Dictated by: Myke Gonzalez M.D. on 10/27/2016 at 20:52 Approved by: Myke Gonzalez M.D. on 10/27/2016 at 20:52 Chest x-ray on 11/03/2016: IMPRESSION: Pulmonary edema and or diffuse bilateral inflammatory process not significantly changed. Developing ARDS cannot be excluded. Dictated by: Bakari SAMANIEGO Interpreted: Ekaterina Carter MD on 11/03/2016 at 11:06 Transcribed by: NAHOMI on 11/03/2016 at 11:06 U/S lower extremity on 11/03/2016: IMPRESSION: No deep venous thrombosis identified within either the left or right lower extremities. Dictated by: Bakari SAMANIEGO Interpreted: Kika Crews MD on 11/03/2016 at 13:36 Transcribed by: RJ on 11/03/2016 at 13:36 Approved by: Kika Crews M.D. on 11/03/2016 at 13:50 U/S chest on 11/03/2016: IMPRESSION: A small loculated right pleural effusion. Dictated by: Bakari SAMANIEGO Interpreted: Kika Crews MD on 11/03/2016 at 13:36 Transcribed by: RJ on 11/03/2016 at 13:36 Approved by: Kika Crews M.D. on 11/03/2016 at 13:50 U/S retroperitoneal 11/04/2016: IMPRESSION: Left renal cyst. Dictated by: Bakari SAMANIEGO Interpreted: Gaby Nixon MD on 11/04/2016 at 16: 09 Transcribed by: GAURAV on 11/04/2016 at 16:09 Approved by: Gaby Nixon M.D. on 11/04/2016 at 16:57 U/S left upper extremity 11/07/2016: IMPRESSION: Occlusive thrombus within the left cephalic vein within the lower arm. Jennyfer Phan RN given results by the construction assistant at 1415 hrs. 11/06/16. Dictated by: Bakari SAMANIEGO Interpreted: Ekaterina Carter MD on 11/06/2016 at 16:14 Transcribed by: NAHOMI on 11/06/2016 at 16:14 Approved by: Ekaterina Carter MD, PhD on 11/06/2016 at 17:09 Assessment & Plan 61-year-old male 10/26 admitted for MRSA pneumonia who was intubated until . Extubated has been confused since being treated for HTN with dialysis with renal following. 11/17 he complains of pain all over and reports that he was part of a pain clinic previously. I will judiciously resume some low-dose narcotics gabapentin is out of the question as our NSAIDs given his renal failure. Metabolic encephalopathy- I am hopeful that we are just noting affects of uremia if it does not improve with dialysis we should probably check an ammonia level because he likely has cirrhosis in the setting of hepatitis C. We are using very little narcotic in the last few days. I will start him on some Zyprexa for behavioral issues. chest pain- 1 episode 11/18 in pm, EKG personally reviewed by myself absolutely normal. Not pursuing it any further.perhaps GI and was resolved with famotidine started yesterday DVT left upper extremity- documented by Doppler 11/07 with indicate patient needs 3-6 months of anticoagulation therapy which is complicated because of his renal failure. Currently I would not anticoagulate him given pending procedures but will need to discuss this with treating team Generalized pain/acute on chronic- judicious use of narcotics. Seems to be controlling his symptoms without too much aggravating his encephalopathy AKASH?CKD?3-4?. Likely he will need to be a [facility] dialysis patient. Follow with renal. Creatinine is up to 6.8 today it is worsening, renal is arranging for tunnel cath for dialysis. Anion Gap Metabolic Acidosis. POA- Secondary to renal failure, Will likely continue unless patient's kidneys improve or he goes on chronic dialysis Hyperphosphatemia- -improved with dialysis, calcium carbonate Hypokalemia-ongoing replacement as needed with monitoring HCV-patient tested positive for cryoglobulins likely the source of at least some of his kidney failure Weakness-PT consult pending 11/17. We need to start mobilizing this patient. Prophylaxis: DVT-SCDs, GI-started on famotidine Disposition-patient is a full code it is not clear what home is for him whether he actually has one at this point in time it does not seem like this patient could return to independent living Medically complex patient at high risk for complications VTE Prophylaxis: Sub-Q Heparin (Unfractionated), SCDs VTE Mechanical Devices: Intermittant Pneumatic CD Resuscitation Status: CPR: Attempt Resuscitation Robert Hoffman MD Nov 19, 2016 15:42
--- NOTE | 2016-11-19 16:00 | NUR ---
Dialysis note: S/P catheter placement. 3 hrs tx. Zero net UF. Right catheter, dsg changed, sutures intact. Pls see DTR for VS details. Qb 300. Heparin prime given. O2 @ 2L via NC on. Restless during tx, PRN Haldol 2 mg IV and Oxycodone 10 mg po given. Slept at intervals. Catheter flushed, heparin dwelled and secured.
--- NOTE | 2016-11-19 16:03 | NUR ---
Pt Off Unit Pt off unit to electroplating laborer for tunnelcath for dialysis at 1100. Left via [facility] bed, new IV sites placed by IV therapy prior to departure. Pt chart transferred with pt, report given to electroplating laborer RN, pt on RA and SL for transport. At 1557 report was called to this RN stating pt would be ready to return to floor at 1610 via [place] bed however a new bed was needed as a zipper was broken on the previous bed. WCTM pt upon return to floor.
--- NOTE | 2016-11-19 16:35 | NUR ---
Social work Continued Discharge Planning Boom Supervisor spoke with [facility] and she stated that she was working on setting up an outpatient dialysis chair for the patient. SW will call Yeimi at Ext. [phone] and notify her of the patient's discharge date. Boom Supervisor also provided yeimi with the patient's daughter's number. SW will continue to follow. Marva Ludwig LMSW, [facility]
[2016-11-20] VITALS (8 sets, daily range): BP systolic 101–117; BP diastolic 61–75; PULSE 81–109; RESP 17–20; O2SAT 92–96
[2016-11-20] MEDS: Insulin Human REGular 300 Unit/3 mL Inj SUBQ SCH ×4 (02:30→20:22)
--- NOTE | 2016-11-20 04:14 | NUR ---
Behavior/Activity/Pain Patient cooperative with care. Remains in soma bed for safety. Continues to express desire to get OOB. Asking to be let out of bed so he can get up and walk. Patient reminded that he cannot safely get up on his own at this time and PT will continue to work with him. States understanding. Complaining of pain to right shoulder, Oxycodone 10mg PO given with effective results. Currently resting with eyes closed.
--- NOTE | 2016-11-20 05:27 | NUR ---
pt is now in a soma bed. pt is unsteady on feet and not able to stand on a scale. the soma bed has no built in scale therefore a weight was not done. Addendum: 11/20/16 at 0528 by MERCED MAYO CNA Amended: Links added.
[2016-11-20] MEDS: Polyethylene Glycol (PEG) 17 Gm Powder PO SCH (08:30)
[2016-11-20] MEDS: Multivit-Miner-Folic Acid-Iron Tablet PO SCH (09:09)
[2016-11-20] MEDS: Heparin 5,000 Unit/mL Inj SUBQ SCH ×2 (09:11→20:25)
--- NOTE | 2016-11-20 09:12 | PCM.PNMED ---
Subjective Date of Service Nov 20, 2016 Subjective Sitting up in [place] bed, denies chest pain, dyspnea, nausea or vomiting. Has pain in his back and is asking for a pill. Exam Vital Signs Vital Sign - Last Date Time Temp Pulse Resp B/P Pulse Ox O2 Delivery O2 Flow Rate FiO2 11/20/16 05:26 36.4 90 17 101/61 92 Room Air Intake and Output 11/19/16 11/19/16 11/20/16 Cumulative From/Thru 14:59 22:59 06:59 10/26/16 17:03 - 11/20/16 05:26 Intake Total 0 ml 21077 ml Output Total 0 ml 330 ml 15670 ml Balance 0 ml -330 ml 76903 ml Intake Oral 0 ml 4024 ml IV Total 72685 ml Tube Feeding 4554 ml Tube Irrigant 2041 ml Output Urine Total 330 ml 66359 ml Stool Total 2550 ml Urine/Stool Mix 350 ml Gastric Drainage Total 575 ml Ultrafiltrate 0 ml 5150 ml # Voids 1 1 # Bowel Movements 0 19 Exam Gen.: Obese male of , no apparent distress, seen sitting up in [place] bed oriented 2 Eyes: Open, conjunctivae clear no scleral icterus noted pupils equal HEENT: Ears normal, nose normal Neck: Trachea midline supple CVS: Rate within normal limits Lungs: rate within normal limits, no accessory muscle usage no evidence of respiratory distress Abdomen: generous pannus Musc: Moving 4 Neuro: Cranial 2 through 12 intact to gross examination, nonfocal Skin: Warm and dry Psych: Patient pleasant needs constant redirection, he is impulsive climbing out of bed and really does not seem to be oriented to time or place Lab and Diagnostics Result Diagram: 11/17/16 0525 11/18/16 0448 X-Rays, CTs and MRIs PROCEDURE: X-RAY CHEST ONE VIEW, PORTABLE ([id number]) INDICATIONS: monitor resolution of pneumonia/congestion TECHNIQUE: One view of the chest was acquired. COMPARISON: [facility], CR, XR CHEST 1VW (PORTABLE), 11/09/2016, 4 :53. [facility], CR, XR CHEST 1VW (PORTABLE), 11/10/2016, 4:21. FINDINGS: Surgical changes and devices: Right IJ central line projecting to the area of SVT. Lungs and pleura: Persistent bilateral airspace and interstitial infiltrates. Probable small pleural effusions. Overall, there is minimal interval change. No pneumothorax. Mediastinum: Mediastinal contours appear normal. Heart size is normal. Bones and chest wall: No suspicious bony lesions. Overlying soft tissues appear unremarkable. IMPRESSION: Persistent bilateral airspace and interstitial infiltrates and small pleural effusions, consistent with bilateral pneumonia and/or pulmonary edema. PROCEDURE: CT ABDOMEN AND PELVIS WITHOUT CONTRAST ([id number]) IMPRESSION: 1. Bibasilar pneumonia. 2. Small loculated left pleural effusion with thickened rind, possibly indicating empyema. This is too small to safely aspirate percutaneously. 3. Cholelithiasis without evidence of cholecystitis. 4. Normal appendix. 5. Small hiatal hernia. Dictated by: Myke Gonzalez M.D. on 10/27/2016 at 20:52 Approved by: Myke Gonzalez M.D. on 10/27/2016 at 20:52 Chest x-ray on 11/03/2016: IMPRESSION: Pulmonary edema and or diffuse bilateral inflammatory process not significantly changed. Developing ARDS cannot be excluded. Dictated by: Bakari SAMANIEGO Interpreted: Ekaterina Carter MD on 11/03/2016 at 11:06 Transcribed by: NAHOMI on 11/03/2016 at 11:06 U/S lower extremity on 11/03/2016: IMPRESSION: No deep venous thrombosis identified within either the left or right lower extremities. Dictated by: Bakari SAMANIEGO Interpreted: Kika Crews MD on 11/03/2016 at 13:36 Transcribed by: RJ on 11/03/2016 at 13:36 Approved by: Kika Crews M.D. on 11/03/2016 at 13:50 U/S chest on 11/03/2016: IMPRESSION: A small loculated right pleural effusion. Dictated by: Bakari SAMANIEGO Interpreted: Kika Crews MD on 11/03/2016 at 13:36 Transcribed by: RJ on 11/03/2016 at 13:36 Approved by: Kika Crews M.D. on 11/03/2016 at 13:50 U/S retroperitoneal 11/04/2016: IMPRESSION: Left renal cyst. Dictated by: Bakari SAMANIEGO Interpreted: Gaby Nixon MD on 11/04/2016 at 16: 09 Transcribed by: GAURAV on 11/04/2016 at 16:09 Approved by: Gaby Nixon M.D. on 11/04/2016 at 16:57 U/S left upper extremity 11/07/2016: IMPRESSION: Occlusive thrombus within the left cephalic vein within the lower arm. Jennyfer Phan RN given results by the pin inserter regulator at 1415 hrs. 11/06/16. Dictated by: Bakari Bunch RRA Interpreted: Ekaterina Carter MD on 11/06/2016 at 16:14 Transcribed by: NAHOMI on 11/06/2016 at 16:14 Approved by: Ekaterina Carter MD, PhD on 11/06/2016 at 17:09 Assessment & Plan 61-year-old male 10/26 admitted for MRSA pneumonia who was intubated until . Extubated has been confused since being treated for HTN with dialysis with renal following. 11/17 he complains of pain all over and reports that he was part of a pain clinic previously. Metabolic encephalopathy- I am hopeful that we are just noting affects of uremia if it does not improve with dialysis. We are using very little narcotic in the last few days. I will start him on some Zyprexa for behavioral issues. I will check ammonia level 11/20 DVT left upper extremity- documented by Doppler 11/07 with indicate patient needs 3-6 months of anticoagulation therapy which is complicated because of his renal failure. Currently I would not anticoagulate him given pending procedures but will need to discuss this with treating team Generalized pain/acute on chronic- judicious use of narcotics. Seems to be controlling his symptoms without too much aggravating his encephalopathy AKASH/CKD?3-4?. 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 Follow with renal. Creatinine is up to 6.8 today it is worsening, renal is arranging for tunnel cath for dialysis. Hypokalemia-ongoing replacement as needed with monitoring HCV-patient tested positive for cryoglobulins likely the source of at least some of his kidney failure Weakness-PT consult pending 11/17. We need to start mobilizing this patient. Prophylaxis: DVT-SCDs, GI-started on famotidine 11/18 Disposition-patient is a full code it is not clear what home is for him whether he actually has one at this point in time it does not seem like this patient could return to independent living Medically complex patient at high risk for complications VTE Prophylaxis: Sub-Q Heparin (Unfractionated), SCDs VTE Mechanical Devices: Intermittant Pneumatic CD Resuscitation Status: CPR: Attempt Resuscitation Robert Hoffman MD Nov 20, 2016 09:12
[2016-11-20] MEDS: Mupirocin 2% 22 Gm Ointment TOPICAL SCH ×2 (09:21→20:25)
--- NOTE | 2016-11-20 12:46 | PCM.PNMED ---
Subjective Date of Service Nov 20, 2016 Subjective Agitated during HD yesterday, received IV Haldol and oxycodone. s/p tunneled cath placement. drowsy at the moment, on soma bed. Exam Vital Signs Vital Sign - Last Date Time Temp Pulse Resp B/P Pulse Ox O2 Delivery O2 Flow Rate FiO2 11/20/16 09:40 37.7 94 18 108/75 96 Room Air Intake and Output 11/19/16 11/19/16 11/20/16 Cumulative From/Thru 15:00 23:00 07:00 10/26/16 17:03 - 11/20/16 05:26 Intake Total 0 ml 72178 ml Output Total 0 ml 330 ml 20039 ml Balance 0 ml -330 ml 27529 ml Intake Oral 0 ml 4024 ml IV Total 02887 ml Tube Feeding 4554 ml Tube Irrigant 2041 ml Output Urine Total 330 ml 13218 ml Stool Total 2550 ml Urine/Stool Mix 350 ml Gastric Drainage Total 575 ml Ultrafiltrate 0 ml 5150 ml # Voids 1 1 # Bowel Movements 0 19 Exam GEN: in no acute distress, laying in soma bed, drowsy, responsive to verbal stimuli. HEENT: PERRLA, atraumatic, mouth dry RESP: CTA, no wheezing, no rhonchi. CV: RRR, no M/R/G. ABD: obese, soft, NT, ND, no HSM. EXT: no edema, L BKA. Lab and Diagnostics Result Diagram: 11/17/16 0525 11/18/16 0448 X-Rays, CTs and MRIs PROCEDURE: X-RAY CHEST ONE VIEW, PORTABLE ([id number]) INDICATIONS: monitor resolution of pneumonia/congestion TECHNIQUE: One view of the chest was acquired. COMPARISON: [facility], CR, XR CHEST 1VW (PORTABLE), 11/09/2016, 4 :53. [facility], CR, XR CHEST 1VW (PORTABLE), 11/10/2016, 4:21. FINDINGS: Surgical changes and devices: Right IJ central line projecting to the area of SVT. Lungs and pleura: Persistent bilateral airspace and interstitial infiltrates. Probable small pleural effusions. Overall, there is minimal interval change. No pneumothorax. Mediastinum: Mediastinal contours appear normal. Heart size is normal. Bones and chest wall: No suspicious bony lesions. Overlying soft tissues appear unremarkable. IMPRESSION: Persistent bilateral airspace and interstitial infiltrates and small pleural effusions, consistent with bilateral pneumonia and/or pulmonary edema. PROCEDURE: CT ABDOMEN AND PELVIS WITHOUT CONTRAST ([id number]) IMPRESSION: 1. Bibasilar pneumonia. 2. Small loculated left pleural effusion with thickened rind, possibly indicating empyema. This is too small to safely aspirate percutaneously. 3. Cholelithiasis without evidence of cholecystitis. 4. Normal appendix. 5. Small hiatal hernia. Dictated by: Myke Gonzalez M.D. on 10/27/2016 at 20:52 Approved by: Myke Gonzalez M.D. on 10/27/2016 at 20:52 Chest x-ray on 11/03/2016: IMPRESSION: Pulmonary edema and or diffuse bilateral inflammatory process not significantly changed. Developing ARDS cannot be excluded. Dictated by: Bakari SAMANIEGO Interpreted: Ekaterina Carter MD on 11/03/2016 at 11:06 Transcribed by: NAHOMI on 11/03/2016 at 11:06 U/S lower extremity on 11/03/2016: IMPRESSION: No deep venous thrombosis identified within either the left or right lower extremities. Dictated by: Bakari SAMANIEGO Interpreted: Kika Crews MD on 11/03/2016 at 13:36 Transcribed by: RJ on 11/03/2016 at 13:36 Approved by: Kika Crews M.D. on 11/03/2016 at 13:50 U/S chest on 11/03/2016: IMPRESSION: A small loculated right pleural effusion. Dictated by: Bakari SAMANIEGO Interpreted: Kika Crews MD on 11/03/2016 at 13:36 Transcribed by: RJ on 11/03/2016 at 13:36 Approved by: Kika Crews M.D. on 11/03/2016 at 13:50 U/S retroperitoneal 11/04/2016: IMPRESSION: Left renal cyst. Dictated by: Bakari SAMANIEGO Interpreted: Gaby Nioxn MD on 11/04/2016 at 16: 09 Transcribed by: GAURAV on 11/04/2016 at 16:09 Approved by: Gaby Nixon M.D. on 11/04/2016 at 16:57 U/S left upper extremity 11/07/2016: IMPRESSION: Occlusive thrombus within the left cephalic vein within the lower arm. Jennyfer Phan RN given results by the senior javascript engineer at 1415 hrs. 11/06/16. Dictated by: Bakari Bunch RRA Interpreted: Ekaterina Carter MD on 11/06/2016 at 16:14 Transcribed by: NAHOMI on 11/06/2016 at 16:14 Approved by: Ekaterina Carter MD, PhD on 11/06/2016 at 17:09 Assessment & Plan 1. ESRD now declared. - will continue HD Q MWF. - will arrange for OP HD at [facility]. - cryoglobulin came back positive with h/o hepatitis C infection. - There is no improvement in kidney function thus far. 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 - uncertain if kidney biopsy would change our management at this point. Risks outweigh benefits. 2. AMS, confused at times. - ? uremia, hepatic encephalopathy, narcotics, delirium. 3. Chronic hepatitis C infection, (+) cryoglobulin - Liver is diffusely increased in echogenicity per US on 10/27 4. Anemia of CKD. VTE Prophylaxis: Sub-Q Heparin (Unfractionated), SCDs VTE Mechanical Devices: Intermittant Pneumatic CD Resuscitation Status: CPR: Attempt Resuscitation Antonietta Sigala MD Nov 20, 2016 12:46
--- NOTE | 2016-11-20 13:26 | NUR ---
NUTRITION FOLLOW UP: ASSESS: 61 YO male admitted with confusion, weakness, falls, renal failure. Pt intubated 10/30, successfully extubated 11/10. Confusion continues, unknown etiology. Pt diet modified to puree with no po recorded. Per MD notes, pt with ESRD with plans to arrange outpt. dialysis, s/p tunnel cath with HD yesterday. Pt with agitation, placed on SOMA bed. PMHX: Chronic renal insufficiency, pre-diabetes, alcoholism, BKA. LABS: BUN 42, Cr 6.82, Phos 7.0, Alb 3.4 MEDS: Reviewed. MVI, PhosLo, Senna, Miralax. GI: BM x 1 (11/19). WT: 90.6 kg, BMI 30.4 kg/m2. IBW 70 kg, Admit Wt: 104.5 kg, adj bw:77 kg DIET: Puree. No PO recorded RE-ESTIMATED NEEDS: Dialysis, BMI, BKA (-5% of BKA): Calories:2090-2375kal/day (22-25kcal/kg) Protein: 80-130 g/day (1.2-2.0 g/kg IBW) Fluids: 1767-4911 ml/day or per nephrology NUTRITION DIAGNOSIS: 1) Inadequate oral intake related to decreased ability to consume sufficient energy as evidenced by current NPO status - MILDLY IMPROVED. Pt now on puree diet. 2) Increased nutrient needs related to increased demand for nutrients as evidence by pt on dialysis - PERSISTS. NUTRITION INTERVENTION: 1) Nepro supplements added BID to promote adequate kcal/protein intake. 2) If pt with poor oral intake recommend NGT placement and re-starting nutrition support. Pt would greatly benefit from nutrition support to help with rehab and to gain back his strength. Recommend Nepro @55 ml/hr to provide 2277kcal and 102g pro (100% estimated needs) . Start enteral feeding at 15ml/hr and advance by 10ml q 6 hrs until reach goal rate. Flush 30ml q 4 hrs if on IVF. If IVF stopped, flush 75ml q 3 hrs or per nephrology. MONITOR/EVALUATE: ST, diet advance/tolerance,po intake, TF restart, labs, wt, nutrition status. Follow per high nutrition risk guidelines.
[2016-11-20] MEDS: Vitamin B Complex/Vit C Tablet PO SCH (14:15)
--- NOTE | 2016-11-20 14:49 | NUR ---
Social Work: Continued discharge Planning Data & Assessment: Driller'S Assistant called and spoke with patient's daughter, Manolo [phone], to discuss discharge and she gave delinquency prevention social worker the number to the patient's girlfriend's niece because the patient's girlfriend does not have a phone. The telephone number the the girlfriend's niece is [phone]. SW called the girlfriend's niece, but there was no answer and the voicemail was full. SW was able to page the patient's girlfriend and left her number. SW will continue to try and contact the patient's girlfriend to discuss discharge planning. SW will continue to follow. Plan: Currently the plan is for the patient to discharge Home or Self Pay SNF. SW will continue to follow. Marva Ludwig LMSW, [facility]
[2016-11-20 17:30] LABS: Mean Corpuscular Hemoglobin 32.2 pg (27.0-35.0)
[2016-11-20 17:40] LABS: Mean Corpuscular Volume 97.9 fL (81-100); Platelet Count 187 bil/L (150-400)
[2016-11-20 17:41] LABS: BASOPHILS % (AUTO) 0 % (0-3); EOSINOPHILS % (AUTO) 3 % (0-5); MONOCYTES % (AUTO) 9 % (4-12); NEUTROPHILS % (AUTO) 64 % (40-74)
[2016-11-20 18:12] LABS: TROPONIN T 0.185 ug/L (0.0-0.011)
--- NOTE | 2016-11-20 19:23 | NUR ---
Mentation, Critical Values Patient continues to be somewhat confused/impulsive during shift, pulling tele leads off and occasionally making nonsensical statements. However, mainly verbally appropriate during shift. Critical troponin and creatinine called from lab. Patient denies any chest pain, discomfort, sweating, nausea or other difficulties. Tele reading SR 90s. paged, call returned for no new orders. Care passed on to oncoming shift, made aware of critical results.
--- NOTE | 2016-11-20 23:04 | NUR ---
Crawl OOB Patient had a witnessed incident of crawling out of soma bed this evening. Patient did not injure himself and it was noted that he did not strike his head. Per report, staff member noticed him crawling out of soma bed with hands down on floor, but staff member unable to get there in time before he lowered the rest of his body to the floor. FYI page sent to Dr. Ortega @ [phone]. ROM @ baseline, did not strike any body parts during crawl OOB, nor did he strike head. Patient back in soma bed with two person staff assist with all zippers closed appropriately.
[2016-11-21] MEDS: Insulin Human REGular 300 Unit/3 mL Inj SUBQ SCH ×4 (02:28→20:30)
[2016-11-21 05:36] VITALS: BP 129/73; PULSE 95; RESP 17; O2SAT 97
[2016-11-21 06:31] LABS: APPEARANCE,URINE CLEAR (CLEAR,HAZY); COLOR,URINE YELLOW (YELLOW); OCCULT BLOOD,URINE SMALL (NEGATIVE); UROBILINOGEN,URINE NORMAL (NORMAL)
[2016-11-21 07:30] LABS: BASOPHILS % (AUTO) 1.7 % (0-3); EOSINOPHILS % (AUTO) 8.7 % (0-5); MONOCYTES % (AUTO) 10.2 % (4-12); Mean Corpuscular Hemoglobin 31.9 pg (27.0-35.0); Mean Corpuscular Volume 97.6 fL (81-100); NEUTROPHILS % (AUTO) 57.1 % (40-74); Platelet Count 206 bil/L (150-400)
[2016-11-21 08:09] LABS: Phosphorus 5.9 mg/dL (2.5-4.9)
[2016-11-21] MEDS: Polyethylene Glycol (PEG) 17 Gm Powder PO SCH (08:30)
--- NOTE | 2016-11-21 09:30 | PCM.PNMED ---
Subjective Date of Service Nov 21, 2016 Subjective "Can I have a pill?", His standard morning question is been in a [place]. No falls no chest pain, dyspnea nausea vomiting Exam Vital Signs Vital Sign - Last Date Time Temp Pulse Resp B/P Pulse Ox O2 Delivery O2 Flow Rate FiO2 11/21/16 05:36 36.5 95 17 129/73 97 Room Air Intake and Output 11/20/16 11/20/16 11/21/16 Cumulative From/Thru 15:00 23:00 07:00 10/26/16 17:03 - 11/21/16 05:35 Intake Total 230 ml 600 ml 54063 ml Output Total 0 ml 350 ml 41782 ml Balance 230 ml 250 ml 14021 ml Intake Oral 230 ml 600 ml 4854 ml IV Total 73667 ml Tube Feeding 4554 ml Tube Irrigant 2041 ml Output Urine Total 0 ml 350 ml 35778 ml Stool Total 2550 ml Urine/Stool Mix 350 ml Gastric Drainage Total 575 ml Ultrafiltrate 5150 ml # Voids 1 # Bowel Movements 1 20 Exam Gen.: Obese male of , no apparent distress, seen sitting up in [place] bed oriented 2-3 he knows he wants to watch the [place] [employer] game tomorrow 11/22 Eyes: Open, conjunctivae clear no scleral icterus noted pupils equal HEENT: Ears normal, nose normal Neck: Trachea midline supple CVS: Rate within normal limits Lungs: rate within normal limits, no accessory muscle usage no evidence of respiratory distress Abdomen: generous pannus Musc: Moving 4, left sided BKA Neuro: Cranial 2 through 12 intact to gross examination, nonfocal Skin: Warm and dry Psych: Patient pleasant and appropriate other than always asking for a pain pill when I see him Lab and Diagnostics Result Diagram: 11/21/16 0710 11/21/16 0710 X-Rays, CTs and MRIs PROCEDURE: X-RAY CHEST ONE VIEW, PORTABLE ([id number]) INDICATIONS: monitor resolution of pneumonia/congestion TECHNIQUE: One view of the chest was acquired. COMPARISON: [facility], CR, XR CHEST 1VW (PORTABLE), 11/09/2016, 4 :53. [facility], CR, XR CHEST 1VW (PORTABLE), 11/10/2016, 4:21. FINDINGS: Surgical changes and devices: Right IJ central line projecting to the area of SVT. Lungs and pleura: Persistent bilateral airspace and interstitial infiltrates. Probable small pleural effusions. Overall, there is minimal interval change. No pneumothorax. Mediastinum: Mediastinal contours appear normal. Heart size is normal. Bones and chest wall: No suspicious bony lesions. Overlying soft tissues appear unremarkable. IMPRESSION: Persistent bilateral airspace and interstitial infiltrates and small pleural effusions, consistent with bilateral pneumonia and/or pulmonary edema. PROCEDURE: CT ABDOMEN AND PELVIS WITHOUT CONTRAST ([id number]) IMPRESSION: 1. Bibasilar pneumonia. 2. Small loculated left pleural effusion with thickened rind, possibly indicating empyema. This is too small to safely aspirate percutaneously. 3. Cholelithiasis without evidence of cholecystitis. 4. Normal appendix. 5. Small hiatal hernia. Dictated by: Myke Gonzalez M.D. on 10/27/2016 at 20:52 Approved by: Myke Gonzalez M.D. on 10/27/2016 at 20:52 Chest x-ray on 11/03/2016: IMPRESSION: Pulmonary edema and or diffuse bilateral inflammatory process not significantly changed. Developing ARDS cannot be excluded. Dictated by: Bakari SAMANIEGO Interpreted: Ekaterina Carter MD on 11/03/2016 at 11:06 Transcribed by: NAHOMI on 11/03/2016 at 11:06 U/S lower extremity on 11/03/2016: IMPRESSION: No deep venous thrombosis identified within either the left or right lower extremities. Dictated by: Bakari SAMANIEGO Interpreted: Kika Crews MD on 11/03/2016 at 13:36 Transcribed by: RJ on 11/03/2016 at 13:36 Approved by: Kika Crews M.D. on 11/03/2016 at 13:50 U/S chest on 11/03/2016: IMPRESSION: A small loculated right pleural effusion. Dictated by: Bakari SAMANIEGO Interpreted: Kika Crews MD on 11/03/2016 at 13:36 Transcribed by: RJ on 11/03/2016 at 13:36 Approved by: Kika Crews M.D. on 11/03/2016 at 13:50 U/S retroperitoneal 11/04/2016: IMPRESSION: Left renal cyst. Dictated by: Bakari SAMANIEGO Interpreted: Gaby Nixon MD on 11/04/2016 at 16: 09 Transcribed by: GAURAV on 11/04/2016 at 16:09 Approved by: Gaby Nixon M.D. on 11/04/2016 at 16:57 U/S left upper extremity 11/07/2016: IMPRESSION: Occlusive thrombus within the left cephalic vein within the lower arm. Jennyfer Phan RN given results by the flexboard operator at 1415 hrs. 11/06/16. Dictated by: Bakari Bunch [facility] Interpreted: Ekaterina Carter MD on 11/06/2016 at 16:14 Transcribed by: NAHOMI on 11/06/2016 at 16:14 Approved by: Ekaterina Carter MD, PhD on 11/06/2016 at 17:09 Assessment & Plan 61-year-old male 10/26 admitted for MRSA pneumonia who was intubated until . Extubated has been confused since being treated for HTN with dialysis with renal following. 11/17 he complains of pain all over and reports that he was part of a pain clinic previously. Elevated troponin-11/20 the setting of end-stage renal disease and normal EKG without symptoms this is meaningless. No action. ESRD CKD5 on HD- likely residential dialysis patient. MWF tunnel Cath placed 11/19/16 Metabolic encephalopathy- I am hopeful that we are just noting affects of uremia if it does not improve with dialysis. We are using very little narcotic in the last few days. I will start him on some Zyprexa for behavioral issues. ammonia only 30 11/20, unlikely to be part of the picture. DVT left upper extremity- documented by Doppler 11/07 with indicate patient needs 3-6 months of anticoagulation therapy which is complicated because of his renal failure. Need to discuss anticoagulation or why not. Generalized pain/acute on chronic- judicious use of narcotics. Seems to be controlling his symptoms without too much aggravating his encephalopathy Hypokalemia-ongoing replacement as needed with monitoring HCV-patient tested positive for cryoglobulins likely the source of at least some of his kidney failure Weakness-PT consult pending 11/17. We need to start mobilizing this patient. Prophylaxis: DVT-SCDs, GI-started on famotidine 11/18 Disposition-patient is a full code it is not clear what home is for him whether he actually has one at this point in time it does not seem like this patient could return to independent living Medically complex patient who is seeming to be more lucid today and may be able to get out of [place] and work with physical therapy. It seems that he is very impulsive and unrealistic about his abilities and may be a danger to himself. Disposition is likely to be difficult given his resources and issues. VTE Prophylaxis: Sub-Q Heparin (Unfractionated), SCDs VTE Mechanical Devices: Intermittant Pneumatic CD Resuscitation Status: CPR: Attempt Resuscitation Robert Hoffman MD Nov 21, 2016 09:30
[2016-11-21] MEDS: Multivit-Miner-Folic Acid-Iron Tablet PO SCH (10:25)
[2016-11-21] MEDS: Vitamin B Complex/Vit C Tablet PO SCH (10:25)
[2016-11-21] MEDS: Mupirocin 2% 22 Gm Ointment TOPICAL SCH ×2 (10:26→22:47)
[2016-11-21] MEDS: Heparin 5,000 Unit/mL Inj SUBQ SCH (10:26)
--- NOTE | 2016-11-21 10:53 | PCM.PNMED ---
Subjective Date of Service Nov 21, 2016 Subjective The patient's renal function remains dialysis dependent. Last 24 hours he has had approximately 350 mils of urine out. His other major issue is his mental status and his uncooperativeness with the nursing staff. Exam Vital Signs Vital Sign - Last Date Time Temp Pulse Resp B/P Pulse Ox O2 Delivery O2 Flow Rate FiO2 11/21/16 05:36 36.5 95 17 129/73 97 Room Air Intake and Output 11/20/16 11/20/16 11/21/16 Cumulative From/Thru 15:00 23:00 07:00 10/26/16 17:03 - 11/21/16 05:35 Intake Total 230 ml 600 ml 46658 ml Output Total 0 ml 350 ml 13830 ml Balance 230 ml 250 ml 00593 ml Intake Oral 230 ml 600 ml 4854 ml IV Total 34495 ml Tube Feeding 4554 ml Tube Irrigant 2041 ml Output Urine Total 0 ml 350 ml 76419 ml Stool Total 2550 ml Urine/Stool Mix 350 ml Gastric Drainage Total 575 ml Ultrafiltrate 5150 ml # Voids 1 # Bowel Movements 1 20 Exam Lungs showed scattered rhonchi in both lung navarrete. She is because of the soft systolic murmur. Abdomen is soft with somewhat diminished bowel sounds, there is no tenderness rebound or guarding noted. Extremities not show significant clubbing cyanosis or edema. Skin turgor was good nor is no evidence of any rashes. Lab and Diagnostics Result Diagram: 11/21/16 0710 11/21/16 0710 X-Rays, CTs and MRIs PROCEDURE: X-RAY CHEST ONE VIEW, PORTABLE ([id number]) INDICATIONS: monitor resolution of pneumonia/congestion TECHNIQUE: One view of the chest was acquired. COMPARISON: [facility], CR, XR CHEST 1VW (PORTABLE), 11/09/2016, 4 :53. [facility], CR, XR CHEST 1VW (PORTABLE), 11/10/2016, 4:21. FINDINGS: Surgical changes and devices: Right IJ central line projecting to the area of SVT. Lungs and pleura: Persistent bilateral airspace and interstitial infiltrates. Probable small pleural effusions. Overall, there is minimal interval change. No pneumothorax. Mediastinum: Mediastinal contours appear normal. Heart size is normal. Bones and chest wall: No suspicious bony lesions. Overlying soft tissues appear unremarkable. IMPRESSION: Persistent bilateral airspace and interstitial infiltrates and small pleural effusions, consistent with bilateral pneumonia and/or pulmonary edema. PROCEDURE: CT ABDOMEN AND PELVIS WITHOUT CONTRAST ([id number]) IMPRESSION: 1. Bibasilar pneumonia. 2. Small loculated left pleural effusion with thickened rind, possibly indicating empyema. This is too small to safely aspirate percutaneously. 3. Cholelithiasis without evidence of cholecystitis. 4. Normal appendix. 5. Small hiatal hernia. Dictated by: Myke Gonzalez M.D. on 10/27/2016 at 20:52 Approved by: Myke Gonzalez M.D. on 10/27/2016 at 20:52 Chest x-ray on 11/03/2016: IMPRESSION: Pulmonary edema and or diffuse bilateral inflammatory process not significantly changed. Developing ARDS cannot be excluded. Dictated by: Bakari SAMANIEGO Interpreted: Ekaterina Carter MD on 11/03/2016 at 11:06 Transcribed by: NAHOMI on 11/03/2016 at 11:06 U/S lower extremity on 11/03/2016: IMPRESSION: No deep venous thrombosis identified within either the left or right lower extremities. Dictated by: Bakari SAMANIEGO Interpreted: Kika Crews MD on 11/03/2016 at 13:36 Transcribed by: RJ on 11/03/2016 at 13:36 Approved by: Kika Crews M.D. on 11/03/2016 at 13:50 U/S chest on 11/03/2016: IMPRESSION: A small loculated right pleural effusion. Dictated by: Bakari SAMANIEGO Interpreted: Kika Crews MD on 11/03/2016 at 13:36 Transcribed by: RJ on 11/03/2016 at 13:36 Approved by: Kika Crews M.D. on 11/03/2016 at 13:50 U/S retroperitoneal 11/04/2016: IMPRESSION: Left renal cyst. Dictated by: Bakari SAMANIEGO Interpreted: Gaby Nixon MD on 11/04/2016 at 16: 09 Transcribed by: GAURAV on 11/04/2016 at 16:09 Approved by: Gaby Nixon M.D. on 11/04/2016 at 16:57 U/S left upper extremity 11/07/2016: IMPRESSION: Occlusive thrombus within the left cephalic vein within the lower arm. Jennyfer Phan RN given results by the seed sales manager at 1415 hrs. 11/06/16. Dictated by: Bakari Bunch RRA Interpreted: Ekaterina Carter MD on 11/06/2016 at 16:14 Transcribed by: NAHOMI on 11/06/2016 at 16:14 Approved by: Ekaterina Carter MD, PhD on 11/06/2016 at 17:09 Assessment & Plan Impression #1 acute tubular necrosis was performed #2 hypertension with hypertensive heart disease and hypertensive nephrosclerosis #3 Chronic Kidney Disease Stage III #4 Hepatitis C Recommendations #1 alkaline equations for his dialysis today. He is to be dialyzed for 4 hours on a 2K bath with approximately 2 L fluid to be removed. VTE Prophylaxis: Sub-Q Heparin (Unfractionated), SCDs VTE Mechanical Devices: Intermittant Pneumatic CD Resuscitation Status: CPR: Attempt Resuscitation Humphrey Gonzalez DO Nov 21, 2016 10:53
[2016-11-21] MEDS: Haloperidol 5 mg/mL Inj IVPUSH PRN (12:10)
[2016-11-21] MEDS ORDERED: Heparin 5,000 Unit/mL Inj IVPUSH PRN (12:35)
[2016-11-21] MEDS ORDERED: Heparin 25K Unit/500mL 0.45 NS 25,000 UNIT in IV Premix 1 EACH IV SCH (12:35)
[2016-11-21 12:39] VITALS: BP 113/74; PULSE 88
--- NOTE | 2016-11-21 12:53 | NUR ---
pt arrived to [facility] for DIALYSIS at ~1230 via soma bed report received from SS RN ([facility]) pt alert and cooperative upon arrival; SWITCHBOARD OPERATOR ASSISTANT/sitter at bedside during dialysis treatment for line safety
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
--- NOTE | 2016-11-21 14:42 | NUR ---
Off Unit Pt off unit to [facility] [place] [place] at 1225; left via soma bed. Alert, received dose Haldol prior to transfer, IV SL, Pt did receive some of lunch tray prior to leaving. Pt aware of plan for dialysis, cooperative and wanting to go. Report given to Lynn ivory rn prior to leaving. Await pt return. Addendum: 11/21/16 at 1934 by CLIFTON MCGILL RN pt back to unit at 1640
--- NOTE | 2016-11-21 16:30 | NUR ---
Dialysis note: 3 1/2 hrs tx. 1000 ml net UF. Right catheter, dsg dry and intact. Pls see DTR for VS details. Qb 400. Heparin prime given. O2 @ 2L via NC on. Pre-medicated with Haldol prior to tx and PRN Roxicodone 10 mg po given for pain. With sitter at bedside, Soma bed. Some restlessness noted but cooperative with tx. Catheter flushed, heparin dwelled and secured.
--- NOTE | 2016-11-21 16:38 | NUR ---
pt returned to [facility] post DIALYSIS via soma bed escorted by CNAs report returned to primary nurse, SS RN pt cooperative and pleasant during treatment c/o chronic back pain; provided prn pain med with moderate relief see interior design principal note, intervention, and/or graphic flow chart for treatment details
[2016-11-21 17:04] VITALS: BP 100/65; PULSE 100; RESP 20; O2SAT 93
[2016-11-21 19:30] VITALS: BP 111/64; PULSE 90; RESP 17; O2SAT 95
--- NOTE | 2016-11-21 19:34 | NUR ---
heparin gtt delay Pt returned from dialysis. Call to hospitalist re: heparin gtt protocol as cardiac was ordered - changed to dvt. stat ptt heparin ordered - lab present to draw at ~1815. At 1900, this RN attempted to flush IV to ensure patency prior to start. Difficulty flushing and knot developed at iv site. IV dc'd intact. Attempted to restart - looked for vein, not comfortable as pt with edematous extremities. Call to iv therapy. Noc RN aware. Will start heparin when IV access established.
[2016-11-21] MEDS: Heparin 25K Unit/500mL 0.45 NS 25,000 UNIT in IV Premix 1 EACH IV SCH (22:36)
[2016-11-22] MEDS: Insulin Human REGular 300 Unit/3 mL Inj SUBQ SCH ×4 (02:30→20:10)
--- NOTE | 2016-11-22 04:06 | NUR ---
Heparin Gtt/ Restraints IV therapy unable to place IV while patient was in [facility] bed. Patient was pulling away while IV start was being attempted. TO per night hospitalist for soft wrist restraints were ordered at 2141, and placed. Patient was put in regular bed due to no restraint securements in the [facility] bed. Heparin Gtt was able to be started at 2236. At 0300, Patients IV was found pulled out. ED nurse came, to place new IV, and new IV was placed and infusing at 0400. Spoke with Lab, and MD notified. Night hospitalist approved for PTT draw to be delayed until 0500. Will continue care, and will continue Q 1hr checks. Addendum: 11/22/16 at 0556 by ROSE YANEZ RN Unsuccessful Lab Draw This nurse not notified of unsuccessful lab draw at 0500. Lab is currently in room again ([id number]) attempting to draw. Will continue care.
[2016-11-22 06:52] LABS: INR 1.06 ratio
[2016-11-22] MEDS: Heparin Protocol Boluses IVPUSH PRN ×2 (07:51→21:22)
[2016-11-22] MEDS: Polyethylene Glycol (PEG) 17 Gm Powder PO SCH (08:30)
[2016-11-22 09:25] VITALS: PULSE 96; RESP 20; O2SAT 95
[2016-11-22] MEDS: Vitamin B Complex/Vit C Tablet PO SCH (10:41)
[2016-11-22] MEDS: Multivit-Miner-Folic Acid-Iron Tablet PO SCH (10:45)
[2016-11-22] MEDS: Mupirocin 2% 22 Gm Ointment TOPICAL SCH (10:50)
--- NOTE | 2016-11-22 11:10 | PCM.PNMED ---
Subjective Date of Service Nov 22, 2016 Subjective Patient appears to be more appropriate and interactive today compared to previous evaluations. He has had about 2900 and also of fluid in and 710 mL solid last 24 hours. He denies any pain, chest pain, breathing problems and I will see her vomiting. Exam Vital Signs Vital Sign - Last Date Time Temp Pulse Resp B/P Pulse Ox O2 Delivery O2 Flow Rate FiO2 11/22/16 09:25 96 20 95 Room Air 11/21/16 19:30 36.4 111/64 Intake and Output 11/21/16 11/21/16 11/22/16 Cumulative From/Thru 15:00 23:00 07:00 10/26/16 17:03 - 11/22/16 05:09 Intake Total 700 ml 150 ml 05246 ml Output Total 1000 ml 450 ml 250 ml 03444 ml Balance -1000 ml 250 ml -100 ml 48974 ml Intake Oral 700 ml 150 ml 5704 ml IV Total 86544 ml Tube Feeding 4554 ml Tube Irrigant 2041 ml Output Urine Total 450 ml 250 ml 81240 ml Stool Total 2550 ml Urine/Stool Mix 350 ml Gastric Drainage Total 575 ml Ultrafiltrate 1000 ml 6150 ml # Voids 1 2 # Bowel Movements 0 20 Exam Neck is supple without adenopathy thyromegaly or jugular venous distention. Lungs were clear though some scattered rhonchi were noted. Heart was a soft systolic murmur. Abdomen soft without any tenderness rebound guarding masses or hepatosplenomegaly. Extremities joints A clubbing cyanosis or edema. Skin turgor is good and is no evidence of any rashes. Lab and Diagnostics Result Diagram: 11/22/16 0616 11/21/16 0710 X-Rays, CTs and MRIs PROCEDURE: X-RAY CHEST ONE VIEW, PORTABLE ([id number]) INDICATIONS: monitor resolution of pneumonia/congestion TECHNIQUE: One view of the chest was acquired. COMPARISON: [facility], CR, XR CHEST 1VW (PORTABLE), 11/09/2016, 4 :53. [facility], CR, XR CHEST 1VW (PORTABLE), 11/10/2016, 4:21. FINDINGS: Surgical changes and devices: Right IJ central line projecting to the area of SVT. Lungs and pleura: Persistent bilateral airspace and interstitial infiltrates. Probable small pleural effusions. Overall, there is minimal interval change. No pneumothorax. Mediastinum: Mediastinal contours appear normal. Heart size is normal. Bones and chest wall: No suspicious bony lesions. Overlying soft tissues appear unremarkable. IMPRESSION: Persistent bilateral airspace and interstitial infiltrates and small pleural effusions, consistent with bilateral pneumonia and/or pulmonary edema. PROCEDURE: CT ABDOMEN AND PELVIS WITHOUT CONTRAST ([id number]) IMPRESSION: 1. Bibasilar pneumonia. 2. Small loculated left pleural effusion with thickened rind, possibly indicating empyema. This is too small to safely aspirate percutaneously. 3. Cholelithiasis without evidence of cholecystitis. 4. Normal appendix. 5. Small hiatal hernia. Dictated by: Myke Gonzalez M.D. on 10/27/2016 at 20:52 Approved by: Myke Gonzalez M.D. on 10/27/2016 at 20:52 Chest x-ray on 11/03/2016: IMPRESSION: Pulmonary edema and or diffuse bilateral inflammatory process not significantly changed. Developing ARDS cannot be excluded. Dictated by: Bakari SAMANIEGO Interpreted: Ekaterina Carter MD on 11/03/2016 at 11:06 Transcribed by: NAHOMI on 11/03/2016 at 11:06 U/S lower extremity on 11/03/2016: IMPRESSION: No deep venous thrombosis identified within either the left or right lower extremities. Dictated by: Bakari SAMANIEGO Interpreted: Kika Crews MD on 11/03/2016 at 13:36 Transcribed by: RJ on 11/03/2016 at 13:36 Approved by: Kika Crews M.D. on 11/03/2016 at 13:50 U/S chest on 11/03/2016: IMPRESSION: A small loculated right pleural effusion. Dictated by: Bakari SAMANIEGO Interpreted: Kika Crews MD on 11/03/2016 at 13:36 Transcribed by: RJ on 11/03/2016 at 13:36 Approved by: Kika Crews M.D. on 11/03/2016 at 13:50 U/S retroperitoneal 11/04/2016: IMPRESSION: Left renal cyst. Dictated by: Bakari SAMANIEGO Interpreted: Gaby Nixon MD on 11/04/2016 at 16: 09 Transcribed by: GAURAV on 11/04/2016 at 16:09 Approved by: Gaby Nixon M.D. on 11/04/2016 at 16:57 U/S left upper extremity 11/07/2016: IMPRESSION: Occlusive thrombus within the left cephalic vein within the lower arm. Jennyfer Phan RN given results by the oncology rep specialist at 1415 hrs. 11/06/16. Dictated by: Bakari Bunch RRA Interpreted: Ekaterina Carter MD on 11/06/2016 at 16:14 Transcribed by: NAHOMI on 11/06/2016 at 16:14 Approved by: Ekaterina Carter MD, PhD on 11/06/2016 at 17:09 Assessment & Plan Impression #1 acute tubular necrosis was performed #2 hypertension with hypertensive heart disease and hypertensive nephrosclerosis #3 Chronic Kidney Disease Stage III #4 Hepatitis C Recommendations #1 need to continue to follow his intake, output, and laboratory values over the next several days. VTE Prophylaxis: Sub-Q Heparin (Unfractionated), SCDs VTE Mechanical Devices: Intermittant Pneumatic CD Resuscitation Status: CPR: Attempt Resuscitation Humphrey Gonzalez DO Nov 22, 2016 11:10
[2016-11-22 14:09] VITALS: BP 96/63; PULSE 101; RESP 16; O2SAT 93
--- NOTE | 2016-11-22 15:42 | NUR ---
NUTRITION FOLLOW UP: ASSESS: 61 YO male admitted with confusion, weakness, falls, renal failure. Pt intubated 10/30, successfully extubated 11/10. Confusion continues, unknown etiology. Diet modified by Speech Therapy to pureed with honey thick liquids. PO intake currently 50% - 75% trays, well tolerated. Per MD notes, pt with ESRD with plans to arrange outpt. dialysis, s/p tunnel cath with HD. Coumadin ordered today related to DVT. PMHX: Chronic renal insufficiency, pre-diabetes, alcoholism, BKA. LABS: No labs ordered today. MEDS: Reviewed. MVI, PhosLo, Senna, Miralax, N-linda, Coumadin. GI: BM x 1 (11/21). WT: 91.2 kg, BMI 30.0 kg/m2. IBW 70 kg, Admit Wt: 104.5 kg, adj bw:77 kg DIET: Puree. No PO recorded RE-ESTIMATED NEEDS: Dialysis, BMI, BKA (-5% of BKA): Calories:2090-2375kal/day (22-25kcal/kg) Protein: 80-130 g/day (1.2-2.0 g/kg IBW) Fluids: 3189-9579 ml/day or per nephrology NUTRITION DIAGNOSIS: 1) Inadequate oral intake related to decreased ability to consume sufficient energy - SIGNIFICANTLY IMPROVED. 2) Increased nutrient needs related to increased demand for nutrients as evidenced by requirement for dialysis - PERSISTS. NUTRITION INTERVENTION: 1) Continue to add Nepro supplements BID to promote adequate kcal/protein intake. 2) In the event PO intake declines, recommend NGT placement and restarting nutrition support. Pt would greatly benefit from nutrition support to help with rehab and to gain back his strength. Recommend Nepro @55 ml/hr to provide 2277kcal and 102g pro (100% estimated needs) . Start enteral feeding at 15ml/hr and advance by 10ml q 6 hrs until reach goal rate. Flush 30ml q 4 hrs if on IVF. If IVF stopped, flush 75ml q 3 hrs or per nephrology. MONITOR/EVALUATE: ST, diet advance/tolerance, PO intake, enteral feeding restart, labs, wt, nutrition status. Follow per moderate nutrition risk guidelines.
[2016-11-22] MEDS: Heparin 25K Unit/500mL 0.45 NS 25,000 UNIT in IV Premix 1 EACH IV SCH (19:41)
--- NOTE | 2016-11-22 19:43 | NUR ---
Heparin/wrist restraints/confusion Patient continues with heparin gtt for cephalic embolus noted to left arm. Pt remains with soft wrist restraints related to pulling out iv lines and confusion. Pt very confused and disoriented at times and brief periods of being lucid. Pt continues to try to climb out of bed wanting to get to chair but is unsafe to transfer at this time related to does not follow directions well.
--- NOTE | 2016-11-22 19:56 | PCM.PNMED ---
Subjective Date of Service Nov 22, 2016 Subjective Patient wants a pill. Since his question every day he never has any complaints of pain dyspnea or nausea vomiting Exam Vital Signs Vital Sign - Last Date Time Temp Pulse Resp B/P Pulse Ox O2 Delivery O2 Flow Rate FiO2 11/22/16 14:09 36.6 101 16 96/63 93 Room Air Intake and Output 11/21/16 11/21/16 11/22/16 Cumulative From/Thru 15:00 23:00 07:00 10/26/16 17:03 - 11/22/16 05:09 Intake Total 700 ml 150 ml 79398 ml Output Total 1000 ml 450 ml 250 ml 93854 ml Balance -1000 ml 250 ml -100 ml 50396 ml Intake Oral 700 ml 150 ml 5704 ml IV Total 74374 ml Tube Feeding 4554 ml Tube Irrigant 2041 ml Output Urine Total 450 ml 250 ml 51670 ml Stool Total 2550 ml Urine/Stool Mix 350 ml Gastric Drainage Total 575 ml Ultrafiltrate 1000 ml 6150 ml # Voids 1 2 # Bowel Movements 0 20 Exam Gen.: Obese male of , no apparent distress, seen sitting up in [place] bed oriented 2-3 he knows he wants to watch the [employer] game tomorrow 11/22 Eyes: Open, conjunctivae clear no scleral icterus noted pupils equal HEENT: Ears normal, nose normal Neck: Trachea midline supple CVS: Rate within normal limits Lungs: rate within normal limits, no accessory muscle usage no evidence of respiratory distress Abdomen: generous pannus Musc: Moving 4, left sided BKA Neuro: Cranial 2 through 12 intact to gross examination, nonfocal Skin: Warm and dry Psych: Patient pleasant and appropriate other than always asking for a pain pill when I see him Lab and Diagnostics Result Diagram: 11/22/16 0616 11/21/16 0710 X-Rays, CTs and MRIs PROCEDURE: X-RAY CHEST ONE VIEW, PORTABLE ([id number]) INDICATIONS: monitor resolution of pneumonia/congestion TECHNIQUE: One view of the chest was acquired. COMPARISON: [facility], CR, XR CHEST 1VW (PORTABLE), 11/09/2016, 4 :53. [facility], CR, XR CHEST 1VW (PORTABLE), 11/10/2016, 4:21. FINDINGS: Surgical changes and devices: Right IJ central line projecting to the area of SVT. Lungs and pleura: Persistent bilateral airspace and interstitial infiltrates. Probable small pleural effusions. Overall, there is minimal interval change. No pneumothorax. Mediastinum: Mediastinal contours appear normal. Heart size is normal. Bones and chest wall: No suspicious bony lesions. Overlying soft tissues appear unremarkable. IMPRESSION: Persistent bilateral airspace and interstitial infiltrates and small pleural effusions, consistent with bilateral pneumonia and/or pulmonary edema. PROCEDURE: CT ABDOMEN AND PELVIS WITHOUT CONTRAST ([id number]) IMPRESSION: 1. Bibasilar pneumonia. 2. Small loculated left pleural effusion with thickened rind, possibly indicating empyema. This is too small to safely aspirate percutaneously. 3. Cholelithiasis without evidence of cholecystitis. 4. Normal appendix. 5. Small hiatal hernia. Dictated by: Myke Gonzalez M.D. on 10/27/2016 at 20:52 Approved by: Myke Gonzalez M.D. on 10/27/2016 at 20:52 Chest x-ray on 11/03/2016: IMPRESSION: Pulmonary edema and or diffuse bilateral inflammatory process not significantly changed. Developing ARDS cannot be excluded. Dictated by: Bakari SAMANIEGO Interpreted: Ekaterina Carter MD on 11/03/2016 at 11:06 Transcribed by: NAHOMI on 11/03/2016 at 11:06 U/S lower extremity on 11/03/2016: IMPRESSION: No deep venous thrombosis identified within either the left or right lower extremities. Dictated by: Bakari SAMANIEGO Interpreted: Kika Crews MD on 11/03/2016 at 13:36 Transcribed by: RJ on 11/03/2016 at 13:36 Approved by: Kika Crews M.D. on 11/03/2016 at 13:50 U/S chest on 11/03/2016: IMPRESSION: A small loculated right pleural effusion. Dictated by: Bakari SAMANIEGO Interpreted: Kika Crews MD on 11/03/2016 at 13:36 Transcribed by: RJ on 11/03/2016 at 13:36 Approved by: Kika Crews M.D. on 11/03/2016 at 13:50 U/S retroperitoneal 11/04/2016: IMPRESSION: Left renal cyst. Dictated by: Bakari SAMANIEGO Interpreted: Gaby Nixon MD on 11/04/2016 at 16: 09 Transcribed by: GAURAV on 11/04/2016 at 16:09 Approved by: Gaby Nixon M.D. on 11/04/2016 at 16:57 U/S left upper extremity 11/07/2016: IMPRESSION: Occlusive thrombus within the left cephalic vein within the lower arm. Jennyfer Phan RN given results by the payroll tax analyst at 1415 hrs. 11/06/16. Dictated by: Bakari Bunch RRA Interpreted: Ekaterina Carter MD on 11/06/2016 at 16:14 Transcribed by: NAHOMI on 11/06/2016 at 16:14 Approved by: Ekaterina Carter MD, PhD on 11/06/2016 at 17:09 Assessment & Plan 61-year-old male 10/26 admitted for MRSA pneumonia who was intubated until . Extubated has been confused since being treated for HTN with dialysis with renal following. 11/17 he complains of pain all over and reports that he was part of a pain clinic previously. Elevated troponin-11/20 the setting of end-stage renal disease and normal EKG without symptoms this is meaningless. No action. ESRD CKD5 on HD- likely [facility]. ATN/HTNnephrosclerosis. MWF tunnel Cath placed 11/19/16 Metabolic encephalopathy- I am hopeful that we are just noting affects of uremia if it does not improve with dialysis. We are using very little narcotic in the last few days. I will start him on some Zyprexa for behavioral issues. ammonia only 30 11/20, unlikely to be part of the picture. DVT left upper extremity- documented by Doppler 11/07 with indicate patient needs 3-6 months of anticoagulation therapy which is complicated because of his renal failure. starting patient on a heparin drip 11/21 and Coumadin. I do not believe the patient will be able to keep an IV line has not even Telemetry on. It has already been on 2 weeks without treatment so I would settle for Coumadin alone however at the correct treatment is heparin, no other anticoagulants will work given his renal failure. Generalized pain/acute on chronic- judicious use of narcotics. Seems to be controlling his symptoms without too much aggravating his encephalopathy Hypokalemia-ongoing replacement as needed with monitoring HCV-patient tested positive for cryoglobulins likely the source of at least some of his kidney failure Weakness-PT consult pending 11/17. We need to start mobilizing this patient. Prophylaxis: DVT-SCDs, GI-started on famotidine 11/18 Disposition-patient is a full code it is not clear what home is for him whether he actually has one at this point in time it does not seem like this patient could return to independent living Patient's mentation has waxed and waned over the course of the week. He is not safe and has unrealistic expectations about his abilities when he works with physical therapy. He fell twice earlier in the week however he is doing better now that I placed him on Zyprexa. We are minimizing narcotics, his ammonia level was barely elevated so this is not hepatic encephalopathy. Patient is going to be a placement issue given that he is self-pay and at this stage it does not seem there is any chance he will be able to go home anytime soon with his mentation and ambulatory capacity being what they are. Social work can hopefully apply for Medicaid for this patient and perhaps something can be done. Otherwise this patient will be a long-term visitor here. Medically he has reached a place where I think that he could be discharged. VTE Prophylaxis: Sub-Q Heparin (Unfractionated), SCDs VTE Mechanical Devices: Intermittant Pneumatic CD Resuscitation Status: CPR: Attempt Resuscitation Robert Hoffman MD Nov 22, 2016 19:56
[2016-11-22 19:57] VITALS: PULSE 93; RESP 18; O2SAT 90
[2016-11-22 20:50] VITALS: BP 99/68; PULSE 104; RESP 16; O2SAT 96
[2016-11-23] MEDS: Insulin Human REGular 300 Unit/3 mL Inj SUBQ SCH ×4 (02:30→20:30)
--- NOTE | 2016-11-23 04:03 | NUR ---
Heparin Drip/ Restraint DC'd At 0150, IV was found pulled out and laying on the bed. It appears that Patient was able to rub hand on side rail and pull IV out of hand, while in restraints. Order has been written that if IV is pulled out, Heparin drip is to be discontinued, and a new IV does not need to be re-started. Night hospitalist notified, and soft wrist restraints D/C at 0239. [place] alarm has been applied under fitted sheet. Patient has been moving around in bed, but has not attempted to get out of bed at this time. Will continue to closely monitor.
[2016-11-23 04:18] LABS: INR 1.26 ratio
[2016-11-23 04:29] VITALS: BP 111/68; PULSE 99; RESP 18; O2SAT 95
--- NOTE | 2016-11-23 04:38 | NUR ---
Critical Lab Value Critical Creatinine of 6.49. RN notified at 0434. Night hospitalist notified at 0435. No new orders at this time. Will continue to monitor.
[2016-11-23] MEDS: Polyethylene Glycol (PEG) 17 Gm Powder PO SCH (08:18)
[2016-11-23 08:29] LABS: BASOPHILS % (AUTO) 0.5 % (0-3); MONOCYTES % (AUTO) 13.8 % (4-12); Mean Corpuscular Hemoglobin 32.4 pg (27.0-35.0); Mean Corpuscular Volume 99.7 fL (81-100); NEUTROPHILS % (AUTO) 58.9 % (40-74); Platelet Count 172 bil/L (150-400)
[2016-11-23 08:55] VITALS: BP 101/69; PULSE 93; RESP 18; O2SAT 95
[2016-11-23] MEDS: Multivit-Miner-Folic Acid-Iron Tablet PO SCH (08:58)
[2016-11-23] MEDS: Vitamin B Complex/Vit C Tablet PO SCH (08:59)
--- NOTE | 2016-11-23 11:31 | PCM.PNMED ---
Subjective Date of Service Nov 23, 2016 Subjective The patient is still having considerable waxing and waning of his mental status. His intake and output in the last 24 hours her on 636 in and 250 out. Exam Vital Signs Vital Sign - Last Date Time Temp Pulse Resp B/P Pulse Ox O2 Delivery O2 Flow Rate FiO2 11/23/16 08:55 36.8 93 18 101/69 95 Room Air Intake and Output 11/22/16 11/22/16 11/23/16 Cumulative From/Thru 15:00 23:00 07:00 10/26/16 17:03 - 11/23/16 06:33 Intake Total 246 ml 240 ml 709 ml 58494 ml Output Total 0 ml 50354 ml Balance 246 ml 240 ml 709 ml 56273 ml Intake Oral 240 ml 270 ml 6214 ml IV Total 246 ml 439 ml 56031 ml Tube Feeding 4554 ml Tube Irrigant 2041 ml Output Urine Total 0 ml 69840 ml Stool Total 2550 ml Urine/Stool Mix 350 ml Gastric Drainage Total 575 ml Ultrafiltrate 6150 ml # Voids 1 3 # Bowel Movements 0 20 Exam Neck is supple without adenopathy thyromegaly or jugular venous distention. Lungs are clear to auscultation. Heart is regular rhythm with a soft systolic murmur. Abdomen is soft without tenderness rebound guarding masses or hepatosplenomegaly. Extremities joints clubbing cyanosis or edema. Skin turgor is good and there is no evidence of any rashes. Lab and Diagnostics Result Diagram: 11/23/16 0745 11/23/16 0340 X-Rays, CTs and MRIs PROCEDURE: X-RAY CHEST ONE VIEW, PORTABLE ([id number]) INDICATIONS: monitor resolution of pneumonia/congestion TECHNIQUE: One view of the chest was acquired. COMPARISON: [facility], CR, XR CHEST 1VW (PORTABLE), 11/09/2016, 4 :53. [facility], CR, XR CHEST 1VW (PORTABLE), 11/10/2016, 4:21. FINDINGS: Surgical changes and devices: Right IJ central line projecting to the area of SVT. Lungs and pleura: Persistent bilateral airspace and interstitial infiltrates. Probable small pleural effusions. Overall, there is minimal interval change. No pneumothorax. Mediastinum: Mediastinal contours appear normal. Heart size is normal. Bones and chest wall: No suspicious bony lesions. Overlying soft tissues appear unremarkable. IMPRESSION: Persistent bilateral airspace and interstitial infiltrates and small pleural effusions, consistent with bilateral pneumonia and/or pulmonary edema. PROCEDURE: CT ABDOMEN AND PELVIS WITHOUT CONTRAST ([id number]) IMPRESSION: 1. Bibasilar pneumonia. 2. Small loculated left pleural effusion with thickened rind, possibly indicating empyema. This is too small to safely aspirate percutaneously. 3. Cholelithiasis without evidence of cholecystitis. 4. Normal appendix. 5. Small hiatal hernia. Dictated by: Myke Gonzalez M.D. on 10/27/2016 at 20:52 Approved by: Myke Gonzalez M.D. on 10/27/2016 at 20:52 Chest x-ray on 11/03/2016: IMPRESSION: Pulmonary edema and or diffuse bilateral inflammatory process not significantly changed. Developing ARDS cannot be excluded. Dictated by: Baakri SAMANIEGO Interpreted: Ekaterina Carter MD on 11/03/2016 at 11:06 Transcribed by: NAHOMI on 11/03/2016 at 11:06 U/S lower extremity on 11/03/2016: IMPRESSION: No deep venous thrombosis identified within either the left or right lower extremities. Dictated by: Bakari SAMANIEGO Interpreted: Kika Crews MD on 11/03/2016 at 13:36 Transcribed by: RJ on 11/03/2016 at 13:36 Approved by: Kika Crews M.D. on 11/03/2016 at 13:50 U/S chest on 11/03/2016: IMPRESSION: A small loculated right pleural effusion. Dictated by: Bakari SAMANIEGO Interpreted: Kika Crews MD on 11/03/2016 at 13:36 Transcribed by: RJ on 11/03/2016 at 13:36 Approved by: Kika Crews M.D. on 11/03/2016 at 13:50 U/S retroperitoneal 11/04/2016: IMPRESSION: Left renal cyst. Dictated by: Bakari SAMANIEGO Interpreted: Gaby Nixon MD on 11/04/2016 at 16: 09 Transcribed by: GAURAV on 11/04/2016 at 16:09 Approved by: Gaby Nixon M.D. on 11/04/2016 at 16:57 U/S left upper extremity 11/07/2016: IMPRESSION: Occlusive thrombus within the left cephalic vein within the lower arm. Jennyfer Phan RN given results by the errand runner at 1415 hrs. 11/06/16. Dictated by: Bakari Bunch RRA Interpreted: Ekaterina Carter MD on 11/06/2016 at 16:14 Transcribed by: NAHOMI on 11/06/2016 at 16:14 Approved by: Ekaterina Carter MD, PhD on 11/06/2016 at 17:09 Assessment & Plan Impression #1 acute tubular necrosis secondary to sepsis 2 hypertension with hypertensive heart disease hypertensive nephrosclerosis #3 history of hepatitis C with cryoglobulins Recommendations #1 I will make arrangements for his dialysis in the morning. VTE Prophylaxis: Sub-Q Heparin (Unfractionated), SCDs VTE Mechanical Devices: Intermittant Pneumatic CD Resuscitation Status: CPR: Attempt Resuscitation Humphrey Gonzalez DO Nov 23, 2016 11:31
--- NOTE | 2016-11-23 11:56 | PCM.PNMED ---
Subjective Date of Service Nov 23, 2016 Subjective - No acute events over night. - Scheduled for HD today - Denies any new complaints. Exam Vital Signs Vital Sign - Last Date Time Temp Pulse Resp B/P Pulse Ox O2 Delivery O2 Flow Rate FiO2 11/23/16 08:55 36.8 93 18 101/69 95 Room Air Intake and Output 11/22/16 11/22/16 11/23/16 Cumulative From/Thru 15:00 23:00 07:00 10/26/16 17:03 - 11/23/16 06:33 Intake Total 246 ml 240 ml 709 ml 89199 ml Output Total 0 ml 08246 ml Balance 246 ml 240 ml 709 ml 68495 ml Intake Oral 240 ml 270 ml 6214 ml IV Total 246 ml 439 ml 21842 ml Tube Feeding 4554 ml Tube Irrigant 2041 ml Output Urine Total 0 ml 67004 ml Stool Total 2550 ml Urine/Stool Mix 350 ml Gastric Drainage Total 575 ml Ultrafiltrate 6150 ml # Voids 1 3 # Bowel Movements 0 20 Exam Gen.: Obese male of , no apparent distress, seen sitting up in [place] bed oriented 2-3 he knows he wants to watch the [employer] game tomorrow 11/22 Eyes: Open, conjunctivae clear no scleral icterus noted pupils equal HEENT: Ears normal, nose normal Neck: Trachea midline supple CVS: Rate within normal limits Lungs: rate within normal limits, no accessory muscle usage no evidence of respiratory distress Abdomen: generous pannus Musc: Moving 4, left sided BKA Neuro: Cranial 2 through 12 intact to gross examination, nonfocal Skin: Warm and dry Psych: Patient pleasant Lab and Diagnostics Result Diagram: 11/23/16 0745 11/23/16 0340 X-Rays, CTs and MRIs PROCEDURE: X-RAY CHEST ONE VIEW, PORTABLE ([id number]) INDICATIONS: monitor resolution of pneumonia/congestion TECHNIQUE: One view of the chest was acquired. COMPARISON: [facility], CR, XR CHEST 1VW (PORTABLE), 11/09/2016, 4 :53. [facility], CR, XR CHEST 1VW (PORTABLE), 11/10/2016, 4:21. FINDINGS: Surgical changes and devices: Right IJ central line projecting to the area of SVT. Lungs and pleura: Persistent bilateral airspace and interstitial infiltrates. Probable small pleural effusions. Overall, there is minimal interval change. No pneumothorax. Mediastinum: Mediastinal contours appear normal. Heart size is normal. Bones and chest wall: No suspicious bony lesions. Overlying soft tissues appear unremarkable. IMPRESSION: Persistent bilateral airspace and interstitial infiltrates and small pleural effusions, consistent with bilateral pneumonia and/or pulmonary edema. PROCEDURE: CT ABDOMEN AND PELVIS WITHOUT CONTRAST ([id number]) IMPRESSION: 1. Bibasilar pneumonia. 2. Small loculated left pleural effusion with thickened rind, possibly indicating empyema. This is too small to safely aspirate percutaneously. 3. Cholelithiasis without evidence of cholecystitis. 4. Normal appendix. 5. Small hiatal hernia. Dictated by: Myke Gonzalez M.D. on 10/27/2016 at 20:52 Approved by: Myke Gonzalez M.D. on 10/27/2016 at 20:52 Chest x-ray on 11/03/2016: IMPRESSION: Pulmonary edema and or diffuse bilateral inflammatory process not significantly changed. Developing ARDS cannot be excluded. Dictated by: Bakari SAMANIEGO Interpreted: Ekaterina Carter MD on 11/03/2016 at 11:06 Transcribed by: NAHOMI on 11/03/2016 at 11:06 U/S lower extremity on 11/03/2016: IMPRESSION: No deep venous thrombosis identified within either the left or right lower extremities. Dictated by: Bakari SAMANIEGO Interpreted: Kika Crews MD on 11/03/2016 at 13:36 Transcribed by: RJ on 11/03/2016 at 13:36 Approved by: Kika Crews M.D. on 11/03/2016 at 13:50 U/S chest on 11/03/2016: IMPRESSION: A small loculated right pleural effusion. Dictated by: Bakari SAMANIEGO Interpreted: Kika Crews MD on 11/03/2016 at 13:36 Transcribed by: RJ on 11/03/2016 at 13:36 Approved by: Kika Crews M.D. on 11/03/2016 at 13:50 U/S retroperitoneal 11/04/2016: IMPRESSION: Left renal cyst. Dictated by: Bakari SAMANIGEO Interpreted: Gaby Nixon MD on 11/04/2016 at 16: 09 Transcribed by: GAURAV on 11/04/2016 at 16:09 Approved by: Gaby Nixon M.D. on 11/04/2016 at 16:57 U/S left upper extremity 11/07/2016: IMPRESSION: Occlusive thrombus within the left cephalic vein within the lower arm. Jennyfer Phan RN given results by the psychological assistant at 1415 hrs. 11/06/16. Dictated by: Bakari Bunch RRA Interpreted: Ekaterina Carter MD on 11/06/2016 at 16:14 Transcribed by: NAHOMI on 11/06/2016 at 16:14 Approved by: Ekaterina Carter MD, PhD on 11/06/2016 at 17:09 Assessment & Plan 61-year-old male 10/26 admitted for MRSA pneumonia who was intubated until . Extubated has been confused since being treated for HTN with dialysis with renal following. 11/17 he complains of pain all over and reports that he was part of a pain clinic previously. Elevated troponin-11/20 the setting of end-stage renal disease and normal EKG without symptoms this is meaningless. No action. ESRD CKD5 on HD- likely [employer] dialysis patient. ATN/HTNnephrosclerosis. MWF tunnel Cath placed 11/19/16 Metabolic encephalopathy- - clinically improving - Started on Zyprexa DVT left upper extremity- - documented by Doppler 11/07 with indicate patient needs 3-6 months of anticoagulation therapy which is complicated because of his renal failure. starting patient on a heparin drip 11/21 and Coumadin. - He removed IV line - on coumadin Generalized pain/acute on chronic- judicious use of narcotics. Seems to be controlling his symptoms without too much aggravating his encephalopathy Hypokalemia-ongoing replacement as needed with monitoring HCV-patient tested positive for cryoglobulins likely the source of at least some of his kidney failure Weakness-PT consult pending 11/17. We need to start mobilizing this patient. Prophylaxis: DVT-SCDs, GI-started on famotidine 11/18 Disposition-patient is a full code it is not clear what home is for him whether he actually has one at this point in time it does not seem like this patient could return to independent living Patient's mentation has waxed and waned over the course of the week. He is not safe and has unrealistic expectations about his abilities when he works with physical therapy. He fell twice earlier in the week however he is doing better now that I placed him on Zyprexa. We are minimizing narcotics, his ammonia level was barely elevated so this is not hepatic encephalopathy. Patient is going to be a placement issue given that he is self-pay and at this stage it does not seem there is any chance he will be able to go home anytime soon with his mentation and ambulatory capacity being what they are. Social work can hopefully apply for Medicaid for this patient and perhaps something can be done. Otherwise this patient will be a long-term visitor here. Medically he has reached a place where I think that he could be discharged. VTE Prophylaxis: Sub-Q Heparin (Unfractionated), SCDs VTE Mechanical Devices: Intermittant Pneumatic CD Resuscitation Status: CPR: Attempt Resuscitation Juan Carlos Calderon MD Nov 23, 2016 11:56
--- NOTE | 2016-11-23 14:46 | NUR ---
[facility] Pt placed back in [facility] bed around 0800 after he refused to get off of the couch to get back to bed and is an extremely high falls risk. Pt has been cooperative while in [facility] bed. Dangles at side of bed for meals w/ 1:1 feeder. Care ongoing.
[2016-11-23 16:04] VITALS: BP 91/57; PULSE 80; RESP 18; O2SAT 94
[2016-11-23 17:47] VITALS: BP 107/70; PULSE 66; RESP 18; O2SAT 95
[2016-11-23 20:07] VITALS: BP 121/72; PULSE 103; RESP 18; O2SAT 94
[2016-11-24] MEDS: Insulin Human REGular 300 Unit/3 mL Inj SUBQ SCH ×4 (02:30→20:30)
--- NOTE | 2016-11-24 03:41 | NUR ---
Jayden cath At beginning of shift CENTER LEAD CONSULTANT found patient picking at jayden-cath dressing, and pulling on site. CENTER LEAD CONSULTANT quickly redirected patient, and dressing and catheters remain intact and secure, except for the bottom of the dressing that has started to lift. Close monitoring continues, and patient has not been seen picking at site any further. Will continue to closely monitor.
[2016-11-24 04:49] VITALS: BP 98/63; PULSE 98; RESP 16; O2SAT 95
[2016-11-24] MEDS: Polyethylene Glycol (PEG) 17 Gm Powder PO SCH (08:30)
[2016-11-24 08:39] LABS: INR 2.76 ratio
[2016-11-24] MEDS: Vitamin B Complex/Vit C Tablet PO SCH (08:51)
[2016-11-24] MEDS: Multivit-Miner-Folic Acid-Iron Tablet PO SCH (08:51)
[2016-11-24 08:54] VITALS: BP 105/68; PULSE 93; RESP 20; O2SAT 94
[2016-11-24 09:38] VITALS: BP 107/71; PULSE 90
--- NOTE | 2016-11-24 11:13 | PCM.PNMED ---
Subjective Date of Service Nov 24, 2016 Subjective This morning the patient is a bit more appropriate in his interpersonal interactions. She denies any complaints, chest pain, shortness of breath nausea or vomiting. Had 1509 and 200 mL superior and out Exam Vital Signs Vital Sign - Last Date Time Temp Pulse Resp B/P Pulse Ox O2 Delivery O2 Flow Rate FiO2 11/24/16 08:54 36.5 93 20 105/68 94 Room Air Intake and Output 11/23/16 11/23/16 11/24/16 Cumulative From/Thru 15:00 23:00 07:00 10/26/16 17:03 - 11/24/16 04:49 Intake Total 800 ml 300 ml 15707 ml Output Total 200 ml 0 ml 69528 ml Balance 600 ml 300 ml 57332 ml Intake Oral 800 ml 300 ml 7314 ml IV Total 09588 ml Tube Feeding 4554 ml Tube Irrigant 2041 ml Output Urine Total 200 ml 0 ml 88668 ml Stool Total 2550 ml Urine/Stool Mix 350 ml Gastric Drainage Total 575 ml Ultrafiltrate 6150 ml # Voids 3 # Bowel Movements 1 0 21 Exam Neck is supple without adenopathy, thyromegaly, or jugular venous distention. Lungs were clear to auscultation. Heart exam soft systolic murmur. Abdomen is soft without any tenderness or rebound guarding masses or hepatosplenomegaly. Extremities she has a plumbing cyanosis or edema. Lab and Diagnostics Result Diagram: 11/23/16 0745 11/24/16 0810 X-Rays, CTs and MRIs PROCEDURE: X-RAY CHEST ONE VIEW, PORTABLE ([id number]) INDICATIONS: monitor resolution of pneumonia/congestion TECHNIQUE: One view of the chest was acquired. COMPARISON: [facility], CR, XR CHEST 1VW (PORTABLE), 11/09/2016, 4 :53. [facility], CR, XR CHEST 1VW (PORTABLE), 11/10/2016, 4:21. FINDINGS: Surgical changes and devices: Right IJ central line projecting to the area of SVT. Lungs and pleura: Persistent bilateral airspace and interstitial infiltrates. Probable small pleural effusions. Overall, there is minimal interval change. No pneumothorax. Mediastinum: Mediastinal contours appear normal. Heart size is normal. Bones and chest wall: No suspicious bony lesions. Overlying soft tissues appear unremarkable. IMPRESSION: Persistent bilateral airspace and interstitial infiltrates and small pleural effusions, consistent with bilateral pneumonia and/or pulmonary edema. PROCEDURE: CT ABDOMEN AND PELVIS WITHOUT CONTRAST ([id number]) IMPRESSION: 1. Bibasilar pneumonia. 2. Small loculated left pleural effusion with thickened rind, possibly indicating empyema. This is too small to safely aspirate percutaneously. 3. Cholelithiasis without evidence of cholecystitis. 4. Normal appendix. 5. Small hiatal hernia. Dictated by: Myke Gonzalez M.D. on 10/27/2016 at 20:52 Approved by: Myke Gonzalez M.D. on 10/27/2016 at 20:52 Chest x-ray on 11/03/2016: IMPRESSION: Pulmonary edema and or diffuse bilateral inflammatory process not significantly changed. Developing ARDS cannot be excluded. Dictated by: Bakari SAMANIEGO Interpreted: Ekaterina Carter MD on 11/03/2016 at 11:06 Transcribed by: NAHOMI on 11/03/2016 at 11:06 U/S lower extremity on 11/03/2016: IMPRESSION: No deep venous thrombosis identified within either the left or right lower extremities. Dictated by: Bakari SAMANIEGO Interpreted: Kika Crews MD on 11/03/2016 at 13:36 Transcribed by: RJ on 11/03/2016 at 13:36 Approved by: Kika Crews M.D. on 11/03/2016 at 13:50 U/S chest on 11/03/2016: IMPRESSION: A small loculated right pleural effusion. Dictated by: Bakari SAMANIEGO Interpreted: Kika Crews MD on 11/03/2016 at 13:36 Transcribed by: RJ on 11/03/2016 at 13:36 Approved by: Kika Crews M.D. on 11/03/2016 at 13:50 U/S retroperitoneal 11/04/2016: IMPRESSION: Left renal cyst. Dictated by: Bakari SAMANIEGO Interpreted: Gaby Nixon MD on 11/04/2016 at 16: 09 Transcribed by: GAURAV on 11/04/2016 at 16:09 Approved by: Gaby Nixon M.D. on 11/04/2016 at 16:57 U/S left upper extremity 11/07/2016: IMPRESSION: Occlusive thrombus within the left cephalic vein within the lower arm. Jennyfer Phan RN given results by the human resource professional at 1415 hrs. 11/06/16. Dictated by: Bakari Bunch RRA Interpreted: Ekaterina Carter MD on 11/06/2016 at 16:14 Transcribed by: NAHOMI on 11/06/2016 at 16:14 Approved by: Ekaterina Carter MD, PhD on 11/06/2016 at 17:09 Assessment & Plan Impression #1 acute kidney injury/acute tubular necrosis remains oliguric Recommendations #1 patient to be dialyzed today for 4 hours on a 2 potassium bath with 1200 units of heparin given his bolus and 500 now. We will attempt to take off 2-3 L of fluid. VTE Prophylaxis: Sub-Q Heparin (Unfractionated), SCDs VTE Mechanical Devices: Intermittant Pneumatic CD Resuscitation Status: CPR: Attempt Resuscitation Humphrey Gonzalez DO Nov 24, 2016 11:13
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
--- NOTE | 2016-11-24 12:06 | PCM.PNMED ---
Subjective Date of Service Nov 24, 2016 Subjective - No acute events over night. - Denies any complaints at this time. Exam Vital Signs Vital Sign - Last Date Time Temp Pulse Resp B/P Pulse Ox O2 Delivery O2 Flow Rate FiO2 11/24/16 08:54 36.5 93 20 105/68 94 Room Air Intake and Output 11/23/16 11/23/16 11/24/16 Cumulative From/Thru 15:00 23:00 07:00 10/26/16 17:03 - 11/24/16 04:49 Intake Total 800 ml 300 ml 63802 ml Output Total 200 ml 0 ml 22176 ml Balance 600 ml 300 ml 78267 ml Intake Oral 800 ml 300 ml 7314 ml IV Total 40607 ml Tube Feeding 4554 ml Tube Irrigant 2041 ml Output Urine Total 200 ml 0 ml 40659 ml Stool Total 2550 ml Urine/Stool Mix 350 ml Gastric Drainage Total 575 ml Ultrafiltrate 6150 ml # Voids 3 # Bowel Movements 1 0 21 Exam Gen.: Obese male of , no apparent distress, seen sitting up in [place] bed oriented 2-3 he knows he wants to watch the [employer] game tomorrow 11/22 Eyes: Open, conjunctivae clear no scleral icterus noted pupils equal HEENT: Ears normal, nose normal Neck: Trachea midline supple CVS: Rate within normal limits Lungs: rate within normal limits, no accessory muscle usage no evidence of respiratory distress Abdomen: generous pannus Musc: Moving 4, left sided BKA Neuro: Cranial 2 through 12 intact to gross examination, nonfocal Skin: Warm and dry IVs and Medications Medications Reviewed: Medications were reviewed in detail Lab and Diagnostics Result Diagram: 11/23/16 0745 11/24/16 0810 X-Rays, CTs and MRIs PROCEDURE: X-RAY CHEST ONE VIEW, PORTABLE ([id number]) INDICATIONS: monitor resolution of pneumonia/congestion TECHNIQUE: One view of the chest was acquired. COMPARISON: [facility], CR, XR CHEST 1VW (PORTABLE), 11/09/2016, 4 :53. [facility], CR, XR CHEST 1VW (PORTABLE), 11/10/2016, 4:21. FINDINGS: Surgical changes and devices: Right IJ central line projecting to the area of SVT. Lungs and pleura: Persistent bilateral airspace and interstitial infiltrates. Probable small pleural effusions. Overall, there is minimal interval change. No pneumothorax. Mediastinum: Mediastinal contours appear normal. Heart size is normal. Bones and chest wall: No suspicious bony lesions. Overlying soft tissues appear unremarkable. IMPRESSION: Persistent bilateral airspace and interstitial infiltrates and small pleural effusions, consistent with bilateral pneumonia and/or pulmonary edema. PROCEDURE: CT ABDOMEN AND PELVIS WITHOUT CONTRAST ([id number]) IMPRESSION: 1. Bibasilar pneumonia. 2. Small loculated left pleural effusion with thickened rind, possibly indicating empyema. This is too small to safely aspirate percutaneously. 3. Cholelithiasis without evidence of cholecystitis. 4. Normal appendix. 5. Small hiatal hernia. Dictated by: Myke Gonzalez M.D. on 10/27/2016 at 20:52 Approved by: Myke Gonzalez M.D. on 10/27/2016 at 20:52 Chest x-ray on 11/03/2016: IMPRESSION: Pulmonary edema and or diffuse bilateral inflammatory process not significantly changed. Developing ARDS cannot be excluded. Dictated by: Bakari SAMANIEGO Interpreted: Ekaterina Carter MD on 11/03/2016 at 11:06 Transcribed by: NAHOMI on 11/03/2016 at 11:06 U/S lower extremity on 11/03/2016: IMPRESSION: No deep venous thrombosis identified within either the left or right lower extremities. Dictated by: Bakari SAMANIEGO Interpreted: Kika Crews MD on 11/03/2016 at 13:36 Transcribed by: RJ on 11/03/2016 at 13:36 Approved by: Kika Crews M.D. on 11/03/2016 at 13:50 U/S chest on 11/03/2016: IMPRESSION: A small loculated right pleural effusion. Dictated by: Bakari SAMANIEGO Interpreted: Kika Crews MD on 11/03/2016 at 13:36 Transcribed by: RJ on 11/03/2016 at 13:36 Approved by: Kika Crews M.D. on 11/03/2016 at 13:50 U/S retroperitoneal 11/04/2016: IMPRESSION: Left renal cyst. Dictated by: Bakari SAMANIEGO Interpreted: Gaby Nixon MD on 11/04/2016 at 16: 09 Transcribed by: GAURAV on 11/04/2016 at 16:09 Approved by: Gaby Nixon M.D. on 11/04/2016 at 16:57 U/S left upper extremity 11/07/2016: IMPRESSION: Occlusive thrombus within the left cephalic vein within the lower arm. Jennyfer Phan RN given results by the coping machine assembler at 1415 hrs. 11/06/16. Dictated by: Bakari Bunch RRA Interpreted: Ekaterina Carter MD on 11/06/2016 at 16:14 Transcribed by: NAHOMI on 11/06/2016 at 16:14 Approved by: Ekaterina Carter MD, PhD on 11/06/2016 at 17:09 Assessment & Plan 61-year-old male 10/26 admitted for MRSA pneumonia who was intubated until . Extubated has been confused since being treated for HTN with dialysis with renal following. 11/17 he complains of pain all over and reports that he was part of a pain clinic previously. Elevated troponin-11/20 the setting of end-stage renal disease and normal EKG without symptoms this is meaningless. No action. 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 - ATN/HTNnephrosclerosis. - MWF tunnel Cath placed 11/19/16 - Appreciate Nephrology consult Metabolic encephalopathy- - clinically improving - Started on Zyprexa DVT left upper extremity- - documented by Doppler 11/07 with indicate patient needs 3-6 months of anticoagulation therapy which is complicated because of his renal failure. starting patient on a heparin drip 11/21 and Coumadin. - He removed IV line - on Coumadin and Lovenox HCV-patient tested positive for cryoglobulins likely the source of at least some of his kidney failure Weakness-PT consult pending 11/17. We need to start mobilizing this patient. Prophylaxis: DVT-SCDs, GI-started on famotidine 11/18 Disposition-patient is a full code it is not clear what home is for him whether he actually has one at this point in time it does not seem like this patient could return to independent living Patient's mentation has waxed and waned over the course of the week. He is not safe and has unrealistic expectations about his abilities when he works with physical therapy. He fell twice earlier in the week however he is doing better now that I placed him on Zyprexa. We are minimizing narcotics, his ammonia level was barely elevated so this is not hepatic encephalopathy. Patient is going to be a placement issue given that he is self-pay and at this stage it does not seem there is any chance he will be able to go home anytime soon with his mentation and ambulatory capacity being what they are. Social work can hopefully apply for Medicaid for this patient and perhaps something can be done. VTE Prophylaxis: Sub-Q Heparin (Unfractionated), SCDs VTE Mechanical Devices: Intermittant Pneumatic CD Resuscitation Status: CPR: Attempt Resuscitation Juan Carlos Calderon MD Nov 24, 2016 12:06
--- NOTE | 2016-11-24 13:15 | NUR ---
Dialysis note: 4 hr tx, net UF 850. Soma bed and sitter present. Pt calm for the first 3 hrs of tx and then began to get a little restless. Pt became calm again with conversation. Pt hypotensive with BP in the high 80s and 90s, and so the UF goal was lowered. Drsg loose, changed with CHG, chloroprep. Slight pain when cleaning around site. Limbs secured with Heparin 1000 and caps, gauze. Please see DTR for complete record of VS. Pt returned to floor stable.
--- NOTE | 2016-11-24 14:26 | NUR ---
Off floor back to 1003 Pt with sitter while on MOC for dialysis, no interventions.
[2016-11-24 14:46] VITALS: BP 145/78; PULSE 121; RESP 28; O2SAT 91
--- NOTE | 2016-11-24 19:28 | NUR ---
Off floor Pt off floor to dialysis from , Report given to Yudith ESPOSITO (diamond merchant) Addendum: 11/24/16 at 1930 by COCO PHIPPS RN activity Pt frequently moved around in bed, was out of bed in chair for a short time with SENIOR ORACLE DBA 1:1. Pt had large incontinent BM this evening.
[2016-11-24 19:44] VITALS: BP 100/65; PULSE 102; RESP 20; O2SAT 93
[2016-11-25] MEDS: Insulin Human REGular 300 Unit/3 mL Inj SUBQ SCH ×4 (01:08→20:30)
[2016-11-25 04:38] VITALS: BP 99/60; PULSE 104; RESP 18; O2SAT 91
--- NOTE | 2016-11-25 04:46 | NUR ---
ACTIVITY: Pt. is frequently repositioning himself in bed when awake, requesting water often. Requested blankets and a gown, given a gown and then he take it off. Was incontinent of a small urine in his brief x1. Confused and disoriented. VSS. On going care.
[2016-11-25 05:58] LABS: INR 2.94 ratio
[2016-11-25] MEDS: Polyethylene Glycol (PEG) 17 Gm Powder PO SCH (08:30)
[2016-11-25 09:11] VITALS: PULSE 102; RESP 20; O2SAT 92
--- NOTE | 2016-11-25 10:17 | PCM.PNMED ---
Subjective Date of Service Nov 25, 2016 Subjective Patient remains oliguric. Once again his mental status continues to wax and wane and this morning he is more appropriate. Exam Vital Signs Vital Sign - Last Date Time Temp Pulse Resp B/P Pulse Ox O2 Delivery O2 Flow Rate FiO2 11/25/16 09:11 102 20 92 Room Air 11/25/16 04:38 36.6 99/60 Intake and Output 11/24/16 11/24/16 11/25/16 Cumulative From/Thru 15:00 23:00 07:00 10/26/16 17:03 - 11/25/16 06:12 Intake Total 1436 ml 113 ml 37566 ml Output Total 850 ml 50 ml 51585 ml Balance -850 ml 1386 ml 113 ml 28141 ml Intake Oral 1436 ml 113 ml 8863 ml IV Total 0 ml 72797 ml Tube Feeding 4554 ml Tube Irrigant 2041 ml Output Urine Total 50 ml 88196 ml Stool Total 2550 ml Urine/Stool Mix 350 ml Gastric Drainage Total 575 ml Ultrafiltrate 850 ml 7000 ml # Voids 1 1 5 # Bowel Movements 0 21 Exam Lungs were clear to auscultation. Heart is regular with a soft systolic murmur. Abdomen soft tenderness rebound guarding masses or hepatosplenomegaly. Extremities no transient clubbing cyanosis or edema. Skin turgor is good no evidence of any rashes. Lab and Diagnostics Result Diagram: 11/23/16 0745 11/24/16 0810 X-Rays, CTs and MRIs PROCEDURE: X-RAY CHEST ONE VIEW, PORTABLE ([id number]) INDICATIONS: monitor resolution of pneumonia/congestion TECHNIQUE: One view of the chest was acquired. COMPARISON: [facility], CR, XR CHEST 1VW (PORTABLE), 11/09/2016, 4 :53. [facility], CR, XR CHEST 1VW (PORTABLE), 11/10/2016, 4:21. FINDINGS: Surgical changes and devices: Right IJ central line projecting to the area of SVT. Lungs and pleura: Persistent bilateral airspace and interstitial infiltrates. Probable small pleural effusions. Overall, there is minimal interval change. No pneumothorax. Mediastinum: Mediastinal contours appear normal. Heart size is normal. Bones and chest wall: No suspicious bony lesions. Overlying soft tissues appear unremarkable. IMPRESSION: Persistent bilateral airspace and interstitial infiltrates and small pleural effusions, consistent with bilateral pneumonia and/or pulmonary edema. PROCEDURE: CT ABDOMEN AND PELVIS WITHOUT CONTRAST ([id number]) IMPRESSION: 1. Bibasilar pneumonia. 2. Small loculated left pleural effusion with thickened rind, possibly indicating empyema. This is too small to safely aspirate percutaneously. 3. Cholelithiasis without evidence of cholecystitis. 4. Normal appendix. 5. Small hiatal hernia. Dictated by: Myke Gonzalez M.D. on 10/27/2016 at 20:52 Approved by: Myke Gonzalez M.D. on 10/27/2016 at 20:52 Chest x-ray on 11/03/2016: IMPRESSION: Pulmonary edema and or diffuse bilateral inflammatory process not significantly changed. Developing ARDS cannot be excluded. Dictated by: Bakari SAMANIEGO Interpreted: Ekaterina Carter MD on 11/03/2016 at 11:06 Transcribed by: NAHOMI on 11/03/2016 at 11:06 U/S lower extremity on 11/03/2016: IMPRESSION: No deep venous thrombosis identified within either the left or right lower extremities. Dictated by: Bakari SAMANIEGO Interpreted: Kika Crews MD on 11/03/2016 at 13:36 Transcribed by: RJ on 11/03/2016 at 13:36 Approved by: Kika Crews M.D. on 11/03/2016 at 13:50 U/S chest on 11/03/2016: IMPRESSION: A small loculated right pleural effusion. Dictated by: Bakari SAMANIEGO Interpreted: Kika Crews MD on 11/03/2016 at 13:36 Transcribed by: RJ on 11/03/2016 at 13:36 Approved by: Kika Crews M.D. on 11/03/2016 at 13:50 U/S retroperitoneal 11/04/2016: IMPRESSION: Left renal cyst. Dictated by: Bakari SAMANIEGO Interpreted: Gaby Nixon MD on 11/04/2016 at 16: 09 Transcribed by: GAURAV on 11/04/2016 at 16:09 Approved by: Gaby Nixon M.D. on 11/04/2016 at 16:57 U/S left upper extremity 11/07/2016: IMPRESSION: Occlusive thrombus within the left cephalic vein within the lower arm. Jennyfer Phan RN given results by the financial counselor at 1415 hrs. 11/06/16. Dictated by: Bakari Bunch RRA Interpreted: Ekaterina Carter MD on 11/06/2016 at 16:14 Transcribed by: NAHOMI on 11/06/2016 at 16:14 Approved by: Ekaterina Carter MD, PhD on 11/06/2016 at 17:09 Assessment & Plan Impression #1 acute tubular necrosis with ongoing anuria #2 hepatitis C by history #3 hypertension with hypertensive heart disease hypertensive nephrosclerosis recommendation #1 over and make arrangements for his dialysis in the morning. VTE Prophylaxis: Sub-Q Heparin (Unfractionated), SCDs VTE Mechanical Devices: Intermittant Pneumatic CD Resuscitation Status: CPR: Attempt Resuscitation Humphrey Gonzalez DO Nov 25, 2016 10:17
--- NOTE | 2016-11-25 11:00 | NUR ---
NUTRITION FOLLOW UP: ASSESS: 61 YO male admitted with confusion, weakness, falls, renal failure. Pt intubated 10/30, successfully extubated 11/10. Confusion continues. Diet modified by Speech Therapy to pureed with honey thick liquids. PO overall continues to be well tolerated at 75% most trays. Nephrology is following for dialysis. PMHX: Chronic renal insufficiency, pre-diabetes, alcoholism, BKA. 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 MVI, PhosLo, Senna, Miralax, Coumadin. GI: BM x 1 (11/23) SKIN: Kevon 18 WT: 90.6 kg, BMI 30.4 kg/m2. IBW 70 kg, Admit Wt: 104.5 kg, adj bw:77 kg DIET: Puree, HT. PO 75% most meals RE-ESTIMATED NEEDS: Dialysis, BMI, BKA (-5% of BKA): Calories: 1895-2152kal/day (22-25kcal/kg) Protein: 80-130 g/day (1.2-2.0 g/kg IBW) Fluids: 2411-4842 ml/day or per nephrology NUTRITION DIAGNOSIS: 1) Inadequate oral intake related to decreased ability to consume sufficient energy as evidence by AMS and weakness - IMPROVED. 2) Increased nutrient needs related to increased demand for nutrients as evidenced by requirement for dialysis - PERSISTS. 3) Chew/swallow difficulty related at AMS as evidence by need for pureed diet with HT liquids NUTRITION INTERVENTION: 1) Continue to send HT Nepro supplements BID to promote adequate kcal/protein intake. 2) Continue diet per ST MONITOR/EVALUATE: ST, diet advance/tolerance, PO intake, labs, wt, nutrition status. Follow per moderate nutrition risk guidelines.
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
[2016-11-25] MEDS: Vitamin B Complex/Vit C Tablet PO SCH (11:53)
[2016-11-25] MEDS: Multivit-Miner-Folic Acid-Iron Tablet PO SCH (11:55)
--- NOTE | 2016-11-25 12:55 | NUR ---
Mentation Patient continues in [facility] bed for safety as was crawling around floor few days ago . Patient has periods of confusion at times . Patient cooperative took morning meds except stool meds as had lg bm last night and also [facility] nicotine patch. [facility]60's.
--- NOTE | 2016-11-25 14:12 | PCM.PNMED ---
Subjective Date of Service Nov 25, 2016 Subjective Patient resting in bed in a Davy bed. Continues to complain of various pains. No nausea vomiting, chest pain, abdominal pain. He does have some general body aches Exam Vital Signs Vital Sign - Last Date Time Temp Pulse Resp B/P Pulse Ox O2 Delivery O2 Flow Rate FiO2 11/25/16 11:38 Room Air 11/25/16 09:11 102 20 92 11/25/16 04:38 36.6 99/60 Intake and Output 11/24/16 11/24/16 11/25/16 Cumulative From/Thru 15:00 23:00 07:00 10/26/16 17:03 - 11/25/16 06:12 Intake Total 1436 ml 113 ml 87762 ml Output Total 850 ml 50 ml 68348 ml Balance -850 ml 1386 ml 113 ml 97147 ml Intake Oral 1436 ml 113 ml 8863 ml IV Total 0 ml 64625 ml Tube Feeding 4554 ml Tube Irrigant 2041 ml Output Urine Total 50 ml 64266 ml Stool Total 2550 ml Urine/Stool Mix 350 ml Gastric Drainage Total 575 ml Ultrafiltrate 850 ml 7000 ml # Voids 1 1 5 # Bowel Movements 0 21 Exam General: Alert, somewhat confused, NAD Head: Normocephalic, atraumatic Eyes: JENY, EOMI, no scleral Icterus Chest: clear to auscultation B/L, no wheezing rales or rhonchi Heart: Regular rate and rhythm. Normal S1, S2, no murmurs noted Abdomen: soft, non-tender. Bowel sounds are normoactive. No guarding or rebound. Extremities: no cyanosis, clubbing or edema. Left leg BKA IVs and Medications Medications Reviewed: Medications were reviewed in detail Lab and Diagnostics Result Diagram: 11/23/16 0745 11/24/16 0810 X-Rays, CTs and MRIs PROCEDURE: X-RAY CHEST ONE VIEW, PORTABLE ([id number]) INDICATIONS: monitor resolution of pneumonia/congestion TECHNIQUE: One view of the chest was acquired. COMPARISON: [facility], CR, XR CHEST 1VW (PORTABLE), 11/09/2016, 4 :53. [facility], CR, XR CHEST 1VW (PORTABLE), 11/10/2016, 4:21. FINDINGS: Surgical changes and devices: Right IJ central line projecting to the area of SVT. Lungs and pleura: Persistent bilateral airspace and interstitial infiltrates. Probable small pleural effusions. Overall, there is minimal interval change. No pneumothorax. Mediastinum: Mediastinal contours appear normal. Heart size is normal. Bones and chest wall: No suspicious bony lesions. Overlying soft tissues appear unremarkable. IMPRESSION: Persistent bilateral airspace and interstitial infiltrates and small pleural effusions, consistent with bilateral pneumonia and/or pulmonary edema. PROCEDURE: CT ABDOMEN AND PELVIS WITHOUT CONTRAST ([id number]) IMPRESSION: 1. Bibasilar pneumonia. 2. Small loculated left pleural effusion with thickened rind, possibly indicating empyema. This is too small to safely aspirate percutaneously. 3. Cholelithiasis without evidence of cholecystitis. 4. Normal appendix. 5. Small hiatal hernia. Dictated by: Myke Gonzalez M.D. on 10/27/2016 at 20:52 Approved by: Myke Gonzalez M.D. on 10/27/2016 at 20:52 Chest x-ray on 11/03/2016: IMPRESSION: Pulmonary edema and or diffuse bilateral inflammatory process not significantly changed. Developing ARDS cannot be excluded. Dictated by: Bakari SAMANIEGO Interpreted: Ekaterina Carter MD on 11/03/2016 at 11:06 Transcribed by: NAHOMI on 11/03/2016 at 11:06 U/S lower extremity on 11/03/2016: IMPRESSION: No deep venous thrombosis identified within either the left or right lower extremities. Dictated by: Bakari SAMANIEGO Interpreted: Kika Crews MD on 11/03/2016 at 13:36 Transcribed by: RJ on 11/03/2016 at 13:36 Approved by: Kika Crews M.D. on 11/03/2016 at 13:50 U/S chest on 11/03/2016: IMPRESSION: A small loculated right pleural effusion. Dictated by: Bakari SAMANIEGO Interpreted: Kika Crews MD on 11/03/2016 at 13:36 Transcribed by: JR on 11/03/2016 at 13:36 Approved by: Kika Crews M.D. on 11/03/2016 at 13:50 U/S retroperitoneal 11/04/2016: IMPRESSION: Left renal cyst. Dictated by: Bakari SAMANIEGO Interpreted: Gaby Nixon MD on 11/04/2016 at 16: 09 Transcribed by: GAURAV on 11/04/2016 at 16:09 Approved by: Gaby Nixon M.D. on 11/04/2016 at 16:57 U/S left upper extremity 11/07/2016: IMPRESSION: Occlusive thrombus within the left cephalic vein within the lower arm. Jennyfer Phan RN given results by the sample checker at 1415 hrs. 11/06/16. Dictated by: Bakari Bunch RRA Interpreted: Ekaterina Carter MD on 11/06/2016 at 16:14 Transcribed by: NAHOMI on 11/06/2016 at 16:14 Approved by: Ekaterina Carter MD, PhD on 11/06/2016 at 17:09 Assessment & Plan 61-year-old male 10/26 admitted for MRSA pneumonia who was intubated until . Extubated has been confused since. being treated for HTN with dialysis with renal following. 11/17 he complains of pain all over and reports that he was part of a pain clinic previously. Elevated troponin-11/20 the setting of end-stage renal disease and normal EKG without symptoms this is meaningless. No action. ESRD CKD5 on HD - likely rn long term care dialysis patient. - ATN/HTNnephrosclerosis. - MWF tunnel Cath placed 11/19/16 - Appreciate Nephrology consult Metabolic encephalopathy- - clinically improving - Started on Zyprexa DVT left upper extremity- - documented by Doppler 11/07 with indicate patient needs 3-6 months of anticoagulation therapy which is complicated because of his renal failure. starting patient on a heparin drip 11/21 and Coumadin. - He removed IV line - on Coumadin. Therapeutic, Lovenox discontinued HCV-patient tested positive for cryoglobulins likely the source of at least some of his kidney failure Weakness-PT consult pending 11/17. We need to start mobilizing this patient. Prophylaxis: DVT-SCDs, GI-started on famotidine 11/18 Disposition-patient is a full code it is not clear what home is for him whether he actually has one at this point in time it does not seem like this patient could return to independent living History is been complicated by unrealistic expectations with physical therapy with multiple falls, he has been placed on Zyprexa and narcotics being minimized. Not likely able to DC home. Case management attempting placement VTE Prophylaxis: Sub-Q Heparin (Unfractionated), SCDs VTE Mechanical Devices: Intermittant Pneumatic CD Resuscitation Status: CPR: Attempt Resuscitation Niranjan Bolivar DO Nov 25, 2016 14:12
[2016-11-25 18:55] VITALS: BP 116/75; PULSE 98; RESP 19; O2SAT 94
[2016-11-25 19:47] VITALS: BP 110/69; PULSE 101; RESP 20; O2SAT 94
[2016-11-26 00:01] VITALS: PULSE 104; RESP 20; O2SAT 93
[2016-11-26] MEDS: Insulin Human REGular 300 Unit/3 mL Inj SUBQ SCH ×4 (02:30→22:00)
--- NOTE | 2016-11-26 03:54 | NUR ---
Mentation/ Agitation Patient experienced episode of agitation/confusion this evening while charge nurse was assisting with care. Patient became vulgar, and noncompliant with getting back into soma bed. Security notified, but did not have to intervene. In addition to agitation, patient continuously asked for a "smoke", so his nicotine patch was given. Oxycodone PO was given for pain as patient states is a 9-10/10, and Olanzapine PO was given for agitation. Upon reassessment, patient still says pain is a 10/10, but is laying in bed watching TV. Feldt score is a 0, however will continue to monitor patient for pain. Will continue Q 1 hour checks.
[2016-11-26 04:26] VITALS: BP 106/66; PULSE 89; RESP 18; O2SAT 94
[2016-11-26 05:48] LABS: Unsaturated Iron Binding 199.5 ug/dL
[2016-11-26 05:59] LABS: INR 2.93 ratio
[2016-11-26] MEDS: Polyethylene Glycol (PEG) 17 Gm Powder PO SCH (08:30)
[2016-11-26] MEDS: Vitamin B Complex/Vit C Tablet PO SCH (08:40)
[2016-11-26 10:38] VITALS: PULSE 82; RESP 18; O2SAT 94
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
--- NOTE | 2016-11-26 14:50 | NUR ---
Social Work Continued Discharge Planning: D: EMR reviewed. Pt is on day 31 of hospitalization for AKASH, Community Acquired Pneumonia. Pt is not medically stable at this time for discharge. Pt remains in a SOMA bed as he has been found crawling on the ground on several occasions. Pt is able to carry on conversation but appears to be very impulsive. PT continues to work with Pt and anticipates him to be able to discharge home with home health when medically stable. Pt does not have a PCP and would require one prior to initiation of HH services. Pt's insurance would only allow for Senior Living, no physical therapy. Pt is new to HD which was initiated during this hospitalization. SW will need to update [facility] as to Pt discharge plan (ext [phone]) as she is working on a dialysis chair for Pt at discharge. An expedited BLUE referral has been sent. Pt's brother and sister in , [place] and [place] can be reached at [phone]. They live in [place] and are concerned about Pt's current state and ability to care for himself at discharge. Pt's girlfriend (name unknown) does not have a phone. Girlfriend can be reached through her niece at [phone]. VM has been full and unable to leave message. BRANDT anticipates Pt to discharge home when medically stable. Pt to continue with Hemodialysis. BRANDT following A: Pt previously independent P: BRANDT anticipates Pt to discharge home when medically stable. Pt to continue with Hemodialysis. BRANDT will need to contact Wales[facility] at [facility] to inform of discharge plan. BRANDT will continue to work with family/girlfriend on safe discharge for Pt. BRANDT following. JANELLE Crain
--- NOTE | 2016-11-26 16:27 | PCM.PNMED ---
Subjective Date of Service Nov 26, 2016 Subjective Overall the patient's condition is unchanged. He still remains oliguric and he is having waxing and waning mental status. Exam Vital Signs Vital Sign - Last Date Time Temp Pulse Resp B/P Pulse Ox O2 Delivery O2 Flow Rate FiO2 11/26/16 10:38 82 18 94 Room Air 11/26/16 04:26 36.5 106/66 Intake and Output 11/25/16 11/25/16 11/26/16 Cumulative From/Thru 15:00 23:00 07:00 10/26/16 17:03 - 11/26/16 05:21 Intake Total 980 ml 150 ml 04432 ml Output Total 200 ml 0 ml 67993 ml Balance 780 ml 150 ml 83304 ml Intake Oral 980 ml 150 ml 9993 ml IV Total 12442 ml Tube Feeding 4554 ml Tube Irrigant 2041 ml Output Urine Total 200 ml 0 ml 07890 ml Stool Total 2550 ml Urine/Stool Mix 350 ml Gastric Drainage Total 575 ml Ultrafiltrate 7000 ml # Voids 0 5 # Bowel Movements 0 21 Exam Lungs are clear to auscultation. Heart is regular with soft systolic murmur. Abdomen is soft without any tenderness rebound guarding masses or hepatosplenomegaly. She is not shows any clubbing cyanosis or edema. Skin turgor is good and is no evidence of any rashes. Lab and Diagnostics Result Diagram: 11/26/16 0500 11/26/16 0500 X-Rays, CTs and MRIs PROCEDURE: X-RAY CHEST ONE VIEW, PORTABLE ([id number]) INDICATIONS: monitor resolution of pneumonia/congestion TECHNIQUE: One view of the chest was acquired. COMPARISON: [facility], CR, XR CHEST 1VW (PORTABLE), 11/09/2016, 4 :53. [facility], CR, XR CHEST 1VW (PORTABLE), 11/10/2016, 4:21. FINDINGS: Surgical changes and devices: Right IJ central line projecting to the area of SVT. Lungs and pleura: Persistent bilateral airspace and interstitial infiltrates. Probable small pleural effusions. Overall, there is minimal interval change. No pneumothorax. Mediastinum: Mediastinal contours appear normal. Heart size is normal. Bones and chest wall: No suspicious bony lesions. Overlying soft tissues appear unremarkable. IMPRESSION: Persistent bilateral airspace and interstitial infiltrates and small pleural effusions, consistent with bilateral pneumonia and/or pulmonary edema. PROCEDURE: CT ABDOMEN AND PELVIS WITHOUT CONTRAST ([id number]) IMPRESSION: 1. Bibasilar pneumonia. 2. Small loculated left pleural effusion with thickened rind, possibly indicating empyema. This is too small to safely aspirate percutaneously. 3. Cholelithiasis without evidence of cholecystitis. 4. Normal appendix. 5. Small hiatal hernia. Dictated by: Myke Gonzalez M.D. on 10/27/2016 at 20:52 Approved by: Myke Gonzalez M.D. on 10/27/2016 at 20:52 Chest x-ray on 11/03/2016: IMPRESSION: Pulmonary edema and or diffuse bilateral inflammatory process not significantly changed. Developing ARDS cannot be excluded. Dictated by: Bakari SAMANIEGO Interpreted: Ekaterina Carter MD on 11/03/2016 at 11:06 Transcribed by: NAHOMI on 11/03/2016 at 11:06 U/S lower extremity on 11/03/2016: IMPRESSION: No deep venous thrombosis identified within either the left or right lower extremities. Dictated by: Bakari SAMANIEGO Interpreted: Kika Crews MD on 11/03/2016 at 13:36 Transcribed by: RJ on 11/03/2016 at 13:36 Approved by: Kika Crews M.D. on 11/03/2016 at 13:50 U/S chest on 11/03/2016: IMPRESSION: A small loculated right pleural effusion. Dictated by: Bakari SAMANIEGO Interpreted: Kika Crews MD on 11/03/2016 at 13:36 Transcribed by: RJ on 11/03/2016 at 13:36 Approved by: Kika Crews M.D. on 11/03/2016 at 13:50 U/S retroperitoneal 11/04/2016: IMPRESSION: Left renal cyst. Dictated by: Bakari SAMANIEGO Interpreted: Gaby Nixon MD on 11/04/2016 at 16: 09 Transcribed by: GAURAV on 11/04/2016 at 16:09 Approved by: Gaby Nixon M.D. on 11/04/2016 at 16:57 U/S left upper extremity 11/07/2016: IMPRESSION: Occlusive thrombus within the left cephalic vein within the lower arm. Jennyfer Phan RN given results by the oxygen furnace operator at 1415 hrs. 11/06/16. Dictated by: Bakari Bunch RRA Interpreted: Ekaterina Carter MD on 11/06/2016 at 16:14 Transcribed by: NAHOMI on 11/06/2016 at 16:14 Approved by: Ekaterina Carter MD, PhD on 11/06/2016 at 17:09 Assessment & Plan Impression #1 acute tubular necrosis with persistent oliguria Recommendations #1 the patient's P dialyze today for 4 hours on a 2 potassium bath, 1200 units of heparin 500 now and will try to take 2-3 L of fluid off VTE Prophylaxis: Sub-Q Heparin (Unfractionated), SCDs VTE Mechanical Devices: Intermittant Pneumatic CD Resuscitation Status: CPR: Attempt Resuscitation Humphrey Gonzalez DO Nov 26, 2016 16:27
--- NOTE | 2016-11-26 17:23 | NUR ---
Dialysis note 4 hr HD tx. 1000ml net net UF removed. QB variable between 400 down to 300 with frequent alarms from pt moving constantly in soma bed. Pt started tx more lucid, then becoming more agitated and restless thru tx. See DTR for complete vitals. Catheter dwelled with 1000/1 U Heparin and secured. Returned to floor stable.
--- NOTE | 2016-11-26 17:34 | NUR ---
pt returned to [facility] post DIALYSIS AT 1730 via bed escorted by email marketing assistant and BOAT DIESEL MOTOR MECHANIC
--- NOTE | 2016-11-26 19:11 | PCM.PNMED ---
Subjective Date of Service Nov 26, 2016 Subjective Feels fine, back from dialysis today. Mental status continues to wax and wane. No fevers chills, no chest pain or abdominal pain. He has been incontinent of stool Exam Vital Signs Vital Sign - Last Date Time Temp Pulse Resp B/P Pulse Ox O2 Delivery O2 Flow Rate FiO2 11/26/16 10:38 82 18 94 Room Air 11/26/16 04:26 36.5 106/66 Intake and Output 11/25/16 11/25/16 11/26/16 Cumulative From/Thru 15:00 23:00 07:00 10/26/16 17:03 - 11/26/16 05:21 Intake Total 980 ml 150 ml 66609 ml Output Total 200 ml 0 ml 09498 ml Balance 780 ml 150 ml 54596 ml Intake Oral 980 ml 150 ml 9993 ml IV Total 65028 ml Tube Feeding 4554 ml Tube Irrigant 2041 ml Output Urine Total 200 ml 0 ml 30803 ml Stool Total 2550 ml Urine/Stool Mix 350 ml Gastric Drainage Total 575 ml Ultrafiltrate 7000 ml # Voids 0 5 # Bowel Movements 0 21 Exam General: Alert, Oriented, NAD Head: Normocephalic, atraumatic Eyes: JENY, EOMI, no scleral Icterus Chest: clear to auscultation B/L, no wheezing rales or rhonchi Heart: Regular rate and rhythm. Normal S1, S2, no murmurs noted Abdomen: soft, non-tender. Bowel sounds are normoactive. No guarding or rebound. Extremities: no cyanosis, clubbing or edema. IVs and Medications Medications Reviewed: Medications were reviewed in detail Lab and Diagnostics Result Diagram: 11/26/16 0500 11/26/16 0500 X-Rays, CTs and MRIs PROCEDURE: X-RAY CHEST ONE VIEW, PORTABLE ([id number]) INDICATIONS: monitor resolution of pneumonia/congestion TECHNIQUE: One view of the chest was acquired. COMPARISON: [facility], CR, XR CHEST 1VW (PORTABLE), 11/09/2016, 4 :53. [facility], CR, XR CHEST 1VW (PORTABLE), 11/10/2016, 4:21. FINDINGS: Surgical changes and devices: Right IJ central line projecting to the area of SVT. Lungs and pleura: Persistent bilateral airspace and interstitial infiltrates. Probable small pleural effusions. Overall, there is minimal interval change. No pneumothorax. Mediastinum: Mediastinal contours appear normal. Heart size is normal. Bones and chest wall: No suspicious bony lesions. Overlying soft tissues appear unremarkable. IMPRESSION: Persistent bilateral airspace and interstitial infiltrates and small pleural effusions, consistent with bilateral pneumonia and/or pulmonary edema. PROCEDURE: CT ABDOMEN AND PELVIS WITHOUT CONTRAST ([id number]) IMPRESSION: 1. Bibasilar pneumonia. 2. Small loculated left pleural effusion with thickened rind, possibly indicating empyema. This is too small to safely aspirate percutaneously. 3. Cholelithiasis without evidence of cholecystitis. 4. Normal appendix. 5. Small hiatal hernia. Dictated by: Myke Gonzalez M.D. on 10/27/2016 at 20:52 Approved by: Myke Gonzalez M.D. on 10/27/2016 at 20:52 Chest x-ray on 11/03/2016: IMPRESSION: Pulmonary edema and or diffuse bilateral inflammatory process not significantly changed. Developing ARDS cannot be excluded. Dictated by: Bakari SAMANIEGO Interpreted: Ekaterina Carter MD on 11/03/2016 at 11:06 Transcribed by: NAHOMI on 11/03/2016 at 11:06 U/S lower extremity on 11/03/2016: IMPRESSION: No deep venous thrombosis identified within either the left or right lower extremities. Dictated by: Bakari SAMANIEGO Interpreted: Kika Crews MD on 11/03/2016 at 13:36 Transcribed by: RJ on 11/03/2016 at 13:36 Approved by: Kika Crews M.D. on 11/03/2016 at 13:50 U/S chest on 11/03/2016: IMPRESSION: A small loculated right pleural effusion. Dictated by: Bakari SAMANIEGO Interpreted: Kika Crews MD on 11/03/2016 at 13:36 Transcribed by: RJ on 11/03/2016 at 13:36 Approved by: Kika Crews M.D. on 11/03/2016 at 13:50 U/S retroperitoneal 11/04/2016: IMPRESSION: Left renal cyst. Dictated by: Bakari SAMANIEGO Interpreted: Gaby Nixon MD on 11/04/2016 at 16: 09 Transcribed by: GAURAV on 11/04/2016 at 16:09 Approved by: Gaby Nixon M.D. on 11/04/2016 at 16:57 U/S left upper extremity 11/07/2016: IMPRESSION: Occlusive thrombus within the left cephalic vein within the lower arm. Jennyfer Phan RN given results by the rn surgery icu at 1415 hrs. 11/06/16. Dictated by: Bakari Bunch RRA Interpreted: Ekaterina Carter MD on 11/06/2016 at 16:14 Transcribed by: NAHOMI on 11/06/2016 at 16:14 Approved by: Ekaterina Carter MD, PhD on 11/06/2016 at 17:09 Assessment & Plan 61-year-old male 10/26 admitted for MRSA pneumonia who was intubated until . Extubated has been confused since. being treated for HTN with dialysis with renal following. 11/17 he complains of pain all over and reports that he was part of a pain clinic previously. Elevated troponin-11/20 the setting of end-stage renal disease and normal EKG without symptoms this is meaningless. No action. 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 - ATN/HTNnephrosclerosis. - MWF tunnel Cath placed 11/19/16 - Appreciate Nephrology consult Metabolic encephalopathy- - clinically improving - Started on Zyprexa - Continues to need Soma bed DVT left upper extremity- - documented by Doppler 11/07 with indicate patient needs 3-6 months of anticoagulation therapy which is complicated because of his renal failure. - on Coumadin. Therapeutic, Lovenox discontinued HCV-patient tested positive for cryoglobulins likely the source of at least some of his kidney failure Weakness-PT consult pending 11/17. We need to start mobilizing this patient. Prophylaxis: DVT-SCDs, GI-started on famotidine 11/18 Disposition-patient is a full code it is not clear what home is for him whether he actually has one at this point in time it does not seem like this patient could return to independent living History is been complicated by unrealistic expectations with physical therapy with multiple falls, he has been placed on Zyprexa and narcotics being minimized. VTE Prophylaxis: Sub-Q Heparin (Unfractionated), SCDs VTE Mechanical Devices: Intermittant Pneumatic CD Resuscitation Status: CPR: Attempt Resuscitation Niranjan Bolivar DO Nov 26, 2016 19:11
--- NOTE | 2016-11-26 19:26 | NUR ---
Confused/incont of stool Patient arrived back from dialysis very agitated and confused proceeded to have bowel movement and rubbed it over netting in soma bed. Pt uncooperative with care right now, pm meds not given yet as patient throwing stool in soma bed .
[2016-11-26 22:20] VITALS: PULSE 86; RESP 16; O2SAT 90
--- NOTE | 2016-11-26 23:53 | NUR ---
Incontinence Patient had one episode of bowel incontinence at beginning of shift. Proceeded to smear fecal matter on netting of [facility] bed and on pillows, blankets, and padding. Patient cooperative with bed bath and cleaning up with 3 person staff assist. Able to stand and sit on bedside chair while old [facility] bed was replaced with new one. Cooperative with getting back into new [facility] bed with no issue.
[2016-11-27 05:59] LABS: INR 3.6 ratio
[2016-11-27 06:45] VITALS: BP 104/72; PULSE 100; RESP 20; O2SAT 91
[2016-11-27] MEDS: Insulin Human REGular 300 Unit/3 mL Inj SUBQ SCH ×4 (07:30→22:00)
[2016-11-27 08:00] VITALS: PULSE 86; RESP 20; O2SAT 93
[2016-11-27] MEDS: Polyethylene Glycol (PEG) 17 Gm Powder PO SCH (08:30)
[2016-11-27] MEDS: Vitamin B Complex/Vit C Tablet PO SCH (08:34)
[2016-11-27 09:56] VITALS: BP 119/75; PULSE 75; RESP 20; O2SAT 97
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
--- NOTE | 2016-11-27 12:33 | PCM.PNMED ---
Subjective Date of Service Nov 27, 2016 Subjective Patient's overall condition is really unchanged. He still has some waxing and waning of his mental status and potentially making a bit more urine although this is stopping very well recorded. He denies any chest pain shortness of breath cough wheezing. Exam Vital Signs Vital Sign - Last Date Time Temp Pulse Resp B/P Pulse Ox O2 Delivery O2 Flow Rate FiO2 11/27/16 09:56 36.2 75 20 119/75 97 Room Air Intake and Output 11/26/16 11/26/16 11/27/16 Cumulative From/Thru 15:00 23:00 07:00 10/26/16 17:03 - 11/26/16 21:00 Intake Total 1115 ml 54116 ml Output Total 1000 ml 20158 ml Balance 115 ml 74039 ml Intake Oral 1115 ml 40988 ml IV Total 64441 ml Tube Feeding 4554 ml Tube Irrigant 2041 ml Output Urine Total 0 ml 64944 ml Stool Total 2550 ml Urine/Stool Mix 350 ml Gastric Drainage Total 575 ml Ultrafiltrate 1000 ml 8000 ml # Voids 5 # Bowel Movements 0 21 Exam Neck is supple without adenopathy thyromegaly or jugular venous distention. Lungs with a few scattered rhonchi but otherwise were clear. Heart is regular rhythm with a soft systolic murmur. Minutes soft without any tenderness rebound guarding masses or hepatosplenomegaly. Extremities without significant clubbing cyanosis or edema. Skin turgor is good. Lab and Diagnostics Result Diagram: 11/26/16 0500 11/26/16 0500 X-Rays, CTs and MRIs PROCEDURE: X-RAY CHEST ONE VIEW, PORTABLE ([id number]) INDICATIONS: monitor resolution of pneumonia/congestion TECHNIQUE: One view of the chest was acquired. COMPARISON: [facility], CR, XR CHEST 1VW (PORTABLE), 11/09/2016, 4 :53. [facility], CR, XR CHEST 1VW (PORTABLE), 11/10/2016, 4:21. FINDINGS: Surgical changes and devices: Right IJ central line projecting to the area of SVT. Lungs and pleura: Persistent bilateral airspace and interstitial infiltrates. Probable small pleural effusions. Overall, there is minimal interval change. No pneumothorax. Mediastinum: Mediastinal contours appear normal. Heart size is normal. Bones and chest wall: No suspicious bony lesions. Overlying soft tissues appear unremarkable. IMPRESSION: Persistent bilateral airspace and interstitial infiltrates and small pleural effusions, consistent with bilateral pneumonia and/or pulmonary edema. PROCEDURE: CT ABDOMEN AND PELVIS WITHOUT CONTRAST ([id number]) IMPRESSION: 1. Bibasilar pneumonia. 2. Small loculated left pleural effusion with thickened rind, possibly indicating empyema. This is too small to safely aspirate percutaneously. 3. Cholelithiasis without evidence of cholecystitis. 4. Normal appendix. 5. Small hiatal hernia. Dictated by: Myke Gonzalez M.D. on 10/27/2016 at 20:52 Approved by: Myke Gonzalez M.D. on 10/27/2016 at 20:52 Chest x-ray on 11/03/2016: IMPRESSION: Pulmonary edema and or diffuse bilateral inflammatory process not significantly changed. Developing ARDS cannot be excluded. Dictated by: Bakari SAMANIEGO Interpreted: Ekaterina Carter MD on 11/03/2016 at 11:06 Transcribed by: NAHOMI on 11/03/2016 at 11:06 U/S lower extremity on 11/03/2016: IMPRESSION: No deep venous thrombosis identified within either the left or right lower extremities. Dictated by: Bakari SAMANIEGO Interpreted: Kika Crews MD on 11/03/2016 at 13:36 Transcribed by: RJ on 11/03/2016 at 13:36 Approved by: Kika Crews M.D. on 11/03/2016 at 13:50 U/S chest on 11/03/2016: IMPRESSION: A small loculated right pleural effusion. Dictated by: Bakari SAMANIEGO Interpreted: Kika Crews MD on 11/03/2016 at 13:36 Transcribed by: RJ on 11/03/2016 at 13:36 Approved by: Kika Crews M.D. on 11/03/2016 at 13:50 U/S retroperitoneal 11/04/2016: IMPRESSION: Left renal cyst. Dictated by: Bakari SAMANIEGO Interpreted: Gaby Nixon MD on 11/04/2016 at 16: 09 Transcribed by: GAURAV on 11/04/2016 at 16:09 Approved by: Gaby Nixon M.D. on 11/04/2016 at 16:57 U/S left upper extremity 11/07/2016: IMPRESSION: Occlusive thrombus within the left cephalic vein within the lower arm. Jennyfer Phan RN given results by the ferry captain at 1415 hrs. 11/06/16. Dictated by: Bakari Bunch RRA Interpreted: Ekaterina Carter MD on 11/06/2016 at 16:14 Transcribed by: NAHOMI on 11/06/2016 at 16:14 Approved by: Ekaterina Carter MD, PhD on 11/06/2016 at 17:09 Assessment & Plan Impression #1 acute coronary necrosis with persistent oliguria #2 hypertension with hypertensive heart disease and hypertensive nephrosclerosis Condition of I will make arrangements for his dialysis in the morning. VTE Prophylaxis: Sub-Q Heparin (Unfractionated), SCDs VTE Mechanical Devices: Intermittant Pneumatic CD Resuscitation Status: CPR: Attempt Resuscitation Humphrey Gonzalez DO Nov 27, 2016 12:33
[2016-11-27 14:12] VITALS: BP 105/66; PULSE 94; RESP 19; O2SAT 95
--- NOTE | 2016-11-27 17:19 | PCM.PNMED ---
Subjective Date of Service Nov 27, 2016 Subjective Patient contains a ongoing allover pain asking for higher levels of pain medications. Indicating headache, chest discomfort, abdominal pain etc. No fevers chills, nausea vomiting, diarrhea or constipation. He did have some incontinence yesterday. Mental status continues to wax and wane. He remains in a Soma bed Exam Vital Signs Vital Sign - Last Date Time Temp Pulse Resp B/P Pulse Ox O2 Delivery O2 Flow Rate FiO2 11/27/16 14:12 36.9 94 19 105/66 95 Room Air Intake and Output 11/26/16 11/26/16 11/27/16 Cumulative From/Thru 15:00 23:00 07:00 10/26/16 17:03 - 11/26/16 21:00 Intake Total 1115 ml 27738 ml Output Total 1000 ml 43801 ml Balance 115 ml 12432 ml Intake Oral 1115 ml 59371 ml IV Total 19231 ml Tube Feeding 4554 ml Tube Irrigant 2041 ml Output Urine Total 0 ml 05587 ml Stool Total 2550 ml Urine/Stool Mix 350 ml Gastric Drainage Total 575 ml Ultrafiltrate 1000 ml 8000 ml # Voids 5 # Bowel Movements 0 21 Exam General: Alert, Oriented, NAD Head: Normocephalic, atraumatic Eyes: JENY, EOMI, no scleral Icterus Chest: clear to auscultation B/L, no wheezing rales or rhonchi Heart: Regular rate and rhythm. Normal S1, S2, no murmurs noted Abdomen: soft, non-tender. Bowel sounds are normoactive. No guarding or rebound. Extremities: no cyanosis, clubbing or edema. IVs and Medications Medications Reviewed: Medications were reviewed in detail Lab and Diagnostics Result Diagram: 11/26/16 0500 11/26/16 0500 X-Rays, CTs and MRIs PROCEDURE: X-RAY CHEST ONE VIEW, PORTABLE ([id number]) INDICATIONS: monitor resolution of pneumonia/congestion TECHNIQUE: One view of the chest was acquired. COMPARISON: [facility], CR, XR CHEST 1VW (PORTABLE), 11/09/2016, 4 :53. [facility], CR, XR CHEST 1VW (PORTABLE), 11/10/2016, 4:21. FINDINGS: Surgical changes and devices: Right IJ central line projecting to the area of SVT. Lungs and pleura: Persistent bilateral airspace and interstitial infiltrates. Probable small pleural effusions. Overall, there is minimal interval change. No pneumothorax. Mediastinum: Mediastinal contours appear normal. Heart size is normal. Bones and chest wall: No suspicious bony lesions. Overlying soft tissues appear unremarkable. IMPRESSION: Persistent bilateral airspace and interstitial infiltrates and small pleural effusions, consistent with bilateral pneumonia and/or pulmonary edema. PROCEDURE: CT ABDOMEN AND PELVIS WITHOUT CONTRAST ([id number]) IMPRESSION: 1. Bibasilar pneumonia. 2. Small loculated left pleural effusion with thickened rind, possibly indicating empyema. This is too small to safely aspirate percutaneously. 3. Cholelithiasis without evidence of cholecystitis. 4. Normal appendix. 5. Small hiatal hernia. Dictated by: Myke Gonzalez M.D. on 10/27/2016 at 20:52 Approved by: Myke Gonzalez M.D. on 10/27/2016 at 20:52 Chest x-ray on 11/03/2016: IMPRESSION: Pulmonary edema and or diffuse bilateral inflammatory process not significantly changed. Developing ARDS cannot be excluded. Dictated by: Bakari SAMANIEGO Interpreted: Ekaterina Carter MD on 11/03/2016 at 11:06 Transcribed by: NAHOMI on 11/03/2016 at 11:06 U/S lower extremity on 11/03/2016: IMPRESSION: No deep venous thrombosis identified within either the left or right lower extremities. Dictated by: Bakari SAMANIEGO Interpreted: Kika Crews MD on 11/03/2016 at 13:36 Transcribed by: RJ on 11/03/2016 at 13:36 Approved by: Kika Crews M.D. on 11/03/2016 at 13:50 U/S chest on 11/03/2016: IMPRESSION: A small loculated right pleural effusion. Dictated by: Bakari SAMANIEGO Interpreted: Kika Crews MD on 11/03/2016 at 13:36 Transcribed by: RJ on 11/03/2016 at 13:36 Approved by: Kika Crews M.D. on 11/03/2016 at 13:50 U/S retroperitoneal 11/04/2016: IMPRESSION: Left renal cyst. Dictated by: Bakari SAMANIEGO Interpreted: Gaby Nixon MD on 11/04/2016 at 16: 09 Transcribed by: GAURAV on 11/04/2016 at 16:09 Approved by: Gaby Nixon M.D. on 11/04/2016 at 16:57 U/S left upper extremity 11/07/2016: IMPRESSION: Occlusive thrombus within the left cephalic vein within the lower arm. Jennyfer Phan RN given results by the clinical studies specialist at 1415 hrs. 11/06/16. Dictated by: Bakari Bunch RRA Interpreted: Ekaterina Carter MD on 11/06/2016 at 16:14 Transcribed by: NAHOMI on 11/06/2016 at 16:14 Approved by: Ekaterina Carter MD, PhD on 11/06/2016 at 17:09 Assessment & Plan 61-year-old male 10/26 admitted for MRSA pneumonia who was intubated until . Extubated has been confused since. being treated for HTN with dialysis with renal following. 11/17 he complains of pain all over and reports that he was part of a pain clinic previously. Elevated troponin-11/20 the setting of end-stage renal disease and normal EKG without symptoms this is meaningless. No action. 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 - ATN/HTNnephrosclerosis. - MWF tunnel Cath placed 11/19/16 - Appreciate Nephrology consult Metabolic encephalopathy- - Mental status waxes and wanes. - Started on Zyprexa - Continues to need Soma bed DVT left upper extremity- - documented by Doppler 11/07 with indicate patient needs 3-6 months of anticoagulation therapy which is complicated because of his renal failure. - on Coumadin. HCV-patient tested positive for cryoglobulins likely the source of at least some of his kidney failure Weakness- PT consulted Prophylaxis: DVT-SCDs, GI-started on famotidine 11/18 CODE STATUS: Full code DVT prophylaxis: Anticoagulation on Coumadin. Disposition: Difficult disposition due to the patient's lack of resources and waxing and waning mental status. VTE Prophylaxis: Sub-Q Heparin (Unfractionated), SCDs VTE Mechanical Devices: Intermittant Pneumatic CD Resuscitation Status: CPR: Attempt Resuscitation Niranjan Bolivar DO Nov 27, 2016 17:19
--- NOTE | 2016-11-27 19:40 | NUR ---
Pain Patient complaining of all over body pain. Patient cooperative with care today. Some periods of disorientation but easily reoriented today.
[2016-11-27 21:13] VITALS: BP 92/56; PULSE 100; RESP 20; O2SAT 91
[2016-11-28 06:01] LABS: BASOPHILS % (AUTO) 0.3 % (0-3); MONOCYTES % (AUTO) 18.4 % (4-12); Mean Corpuscular Hemoglobin 31.2 pg (27.0-35.0); Mean Corpuscular Volume 98.7 fL (81-100); Platelet Count 158 bil/L (150-400)
[2016-11-28 06:08] LABS: INR 2.93 ratio
[2016-11-28 06:30] VITALS: BP 102/61; PULSE 103; RESP 18; O2SAT 95
[2016-11-28 06:45] LABS: TROPONIN T 0.234 ug/L (0.0-0.011)
--- NOTE | 2016-11-28 07:25 | NUR ---
PO Pt tolerated taking meds in well. No S/Sx of aspiration noted. Aspiration precaution active. VSS. No significant behavioral issues noted. He is cooperative with care. He is more Lucid. No overt complications noted.
[2016-11-28] MEDS: Insulin Human REGular 300 Unit/3 mL Inj SUBQ SCH ×4 (07:30→22:00)
[2016-11-28 07:40] VITALS: PULSE 100; RESP 18; O2SAT 95
[2016-11-28] MEDS: Polyethylene Glycol (PEG) 17 Gm Powder PO SCH (08:26)
[2016-11-28] MEDS: Vitamin B Complex/Vit C Tablet PO SCH (08:27)
--- NOTE | 2016-11-28 08:51 | NUR ---
NUTRITION FOLLOW UP: ASSESS: 61 YO male admitted with confusion, weakness, falls, renal failure. Pt intubated 10/30, successfully extubated 11/10. Pt continues to be encephalopathic. Nephrology is following for dialysis. PMHX: Chronic renal insufficiency, pre-diabetes, alcoholism, BKA. LABS: Cl 92, Cr 2.97 MEDS: Reviewed. Nephro-linda, PhosLo, Renvela GI: Incontinent of stool SKIN: Kevon 18 WT: 90.6 kg, BMI 30.4 kg/m2. IBW 70 kg, Admit Wt: 104.5 kg, adj bw:77 kg DIET: Puree, HT. PO 50-100% most meals RE-ESTIMATED NEEDS: Dialysis, BMI, BKA (-5% of BKA): Calories: 1895-2152kal/day (22-25kcal/kg) Protein: 80-130 g/day (1.2-2.0 g/kg IBW) Fluids: 1300-3536 ml/day or per nephrology NUTRITION DIAGNOSIS: 1) Inadequate oral intake related to decreased ability to consume sufficient energy as evidence by AMS and weakness - IMPROVED. 2) Increased nutrient needs related to increased demand for nutrients as evidenced by requirement for dialysis - PERSISTS. 3) Chew/swallow difficulty related at AMS as evidence by need for pureed diet with HT liquids---PERSISTS NUTRITION INTERVENTION: 1) Continue to send HT Nepro supplements BID to promote adequate kcal/protein intake. 2) Continue diet per ST MONITOR/EVALUATE: ST, diet advance/tolerance, PO intake, labs, wt, nutrition status. Follow per moderate nutrition risk guidelines.
[2016-11-28 08:55] VITALS: BP 100/70; PULSE 89
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
--- NOTE | 2016-11-28 11:24 | PCM.PNMED ---
Subjective Date of Service Nov 28, 2016 Subjective Overall the patient's essentially unchanged. His mental status is about the same and he is making urine however they are unable to quantify it for some reason. Exam Vital Signs Vital Sign - Last Date Time Temp Pulse Resp B/P Pulse Ox O2 Delivery O2 Flow Rate FiO2 11/28/16 08:55 89 11/28/16 07:40 18 95 Room Air 11/28/16 06:30 36.9 102/61 Intake and Output 11/27/16 11/27/16 11/28/16 Cumulative From/Thru 15:00 23:00 07:00 10/26/16 17:03 - 11/28/16 06:04 Intake Total 240 ml 948 ml 11804 ml Output Total 0 ml 400 ml 50028 ml Balance 240 ml 548 ml 51740 ml Intake Oral 240 ml 948 ml 57883 ml IV Total 94593 ml Tube Feeding 4554 ml Tube Irrigant 2041 ml Output Urine Total 0 ml 400 ml 84880 ml Stool Total 2550 ml Urine/Stool Mix 350 ml Gastric Drainage Total 575 ml Ultrafiltrate 8000 ml # Voids 5 # Bowel Movements 21 Exam Neck is supple without adenopathy, thyromegaly, or jugular venous distention. Lungs were clear to auscultation. Heart is regular in rhythm with a soft systolic murmur. Abdomen is soft without any tenderness rebound guarding masses or hepatosplenomegaly. She shows a clubbing cyanosis or edema. Lab and Diagnostics Result Diagram: 11/28/16 0450 11/28/16 0450 X-Rays, CTs and MRIs PROCEDURE: X-RAY CHEST ONE VIEW, PORTABLE ([id number]) INDICATIONS: monitor resolution of pneumonia/congestion TECHNIQUE: One view of the chest was acquired. COMPARISON: [facility], CR, XR CHEST 1VW (PORTABLE), 11/09/2016, 4 :53. [facility], CR, XR CHEST 1VW (PORTABLE), 11/10/2016, 4:21. FINDINGS: Surgical changes and devices: Right IJ central line projecting to the area of SVT. Lungs and pleura: Persistent bilateral airspace and interstitial infiltrates. Probable small pleural effusions. Overall, there is minimal interval change. No pneumothorax. Mediastinum: Mediastinal contours appear normal. Heart size is normal. Bones and chest wall: No suspicious bony lesions. Overlying soft tissues appear unremarkable. IMPRESSION: Persistent bilateral airspace and interstitial infiltrates and small pleural effusions, consistent with bilateral pneumonia and/or pulmonary edema. PROCEDURE: CT ABDOMEN AND PELVIS WITHOUT CONTRAST ([id number]) IMPRESSION: 1. Bibasilar pneumonia. 2. Small loculated left pleural effusion with thickened rind, possibly indicating empyema. This is too small to safely aspirate percutaneously. 3. Cholelithiasis without evidence of cholecystitis. 4. Normal appendix. 5. Small hiatal hernia. Dictated by: Myke Gonzalez M.D. on 10/27/2016 at 20:52 Approved by: Myke Gonzalez M.D. on 10/27/2016 at 20:52 Chest x-ray on 11/03/2016: IMPRESSION: Pulmonary edema and or diffuse bilateral inflammatory process not significantly changed. Developing ARDS cannot be excluded. Dictated by: Bakari SAMANIEGO Interpreted: Ekaterina Carter MD on 11/03/2016 at 11:06 Transcribed by: NAHOMI on 11/03/2016 at 11:06 U/S lower extremity on 11/03/2016: IMPRESSION: No deep venous thrombosis identified within either the left or right lower extremities. Dictated by: Bakari SAMANIEGO Interpreted: Kika Crews MD on 11/03/2016 at 13:36 Transcribed by: RJ on 11/03/2016 at 13:36 Approved by: Kika Crews M.D. on 11/03/2016 at 13:50 U/S chest on 11/03/2016: IMPRESSION: A small loculated right pleural effusion. Dictated by: Bakari SAMANIEGO Interpreted: Kika Crews MD on 11/03/2016 at 13:36 Transcribed by: RJ on 11/03/2016 at 13:36 Approved by: Kika Crews M.D. on 11/03/2016 at 13:50 U/S retroperitoneal 11/04/2016: IMPRESSION: Left renal cyst. Dictated by: Bakari SAMANIEGO Interpreted: Gaby Nixon MD on 11/04/2016 at 16: 09 Transcribed by: GAURAV on 11/04/2016 at 16:09 Approved by: Gaby Nixon M.D. on 11/04/2016 at 16:57 U/S left upper extremity 11/07/2016: IMPRESSION: Occlusive thrombus within the left cephalic vein within the lower arm. Jennyfer Phan RN given results by the architectural practice manager at 1415 hrs. 11/06/16. Dictated by: Bakari Bunch RRA Interpreted: Ekaterina Carter MD on 11/06/2016 at 16:14 Transcribed by: NAHOMI on 11/06/2016 at 16:14 Approved by: Ekaterina Carter MD, PhD on 11/06/2016 at 17:09 Assessment & Plan Impression #1 acute tubular necrosis with prolonged oliguria secondary to sepsis Recommendations #1 patient dialyzes 4 hours, a 2 potassium bath, 1200 of units of heparin and 500 mg for anticoagulation and we will remove approximately 2-3 L of fluid. VTE Prophylaxis: Sub-Q Heparin (Unfractionated), SCDs VTE Mechanical Devices: Intermittant Pneumatic CD Resuscitation Status: CPR: Attempt Resuscitation Humphrey Gonzalez DO Nov 28, 2016 11:24
--- NOTE | 2016-11-28 13:20 | NUR ---
Dialysis note: 4 hrs tx. 2200 ml net UF. Right catheter, dsg dry and intact. Pls see DTR for VS details. Qb 400. Heparin given. O2 @ 2L via NC on. With sitter at bedside, on Soma bed. Some restlessness noted but cooperative with tx. Catheter flushed, heparin dwelled and secured.
[2016-11-28 15:40] VITALS: BP 86/54; PULSE 109; RESP 20; O2SAT 94
--- NOTE | 2016-11-28 18:24 | PCM.PNMED ---
Subjective Date of Service Nov 28, 2016 Subjective Patient laying comfortably in his Soma bed. Complains of ongoing pain everywhere. No nausea vomiting, diarrhea constipation, fevers or chills Exam Vital Signs Vital Sign - Last Date Time Temp Pulse Resp B/P Pulse Ox O2 Delivery O2 Flow Rate FiO2 11/28/16 15:40 37.0 109 20 86/54 94 Room Air Intake and Output 11/27/16 11/27/16 11/28/16 Cumulative From/Thru 15:00 23:00 07:00 10/26/16 17:03 - 11/28/16 06:04 Intake Total 240 ml 948 ml 78462 ml Output Total 0 ml 400 ml 52260 ml Balance 240 ml 548 ml 32171 ml Intake Oral 240 ml 948 ml 35778 ml IV Total 45568 ml Tube Feeding 4554 ml Tube Irrigant 2041 ml Output Urine Total 0 ml 400 ml 51957 ml Stool Total 2550 ml Urine/Stool Mix 350 ml Gastric Drainage Total 575 ml Ultrafiltrate 8000 ml # Voids 5 # Bowel Movements 21 Exam General: Alert, mental status waxes and wanes. NAD Head: Normocephalic, atraumatic Eyes: JENY, EOMI, no scleral Icterus Chest: clear to auscultation B/L, no wheezing rales or rhonchi Heart: Regular rate and rhythm. Normal S1, S2, no murmurs noted Abdomen: soft, non-tender. Bowel sounds are normoactive. No guarding or rebound. Extremities: no cyanosis, clubbing or edema. Left BKA IVs and Medications Medications Reviewed: Medications were reviewed in detail Lab and Diagnostics Result Diagram: 11/28/16 0450 11/28/16 0450 X-Rays, CTs and MRIs PROCEDURE: X-RAY CHEST ONE VIEW, PORTABLE ([id number]) INDICATIONS: monitor resolution of pneumonia/congestion TECHNIQUE: One view of the chest was acquired. COMPARISON: [facility], CR, XR CHEST 1VW (PORTABLE), 11/09/2016, 4 :53. [facility], CR, XR CHEST 1VW (PORTABLE), 11/10/2016, 4:21. FINDINGS: Surgical changes and devices: Right IJ central line projecting to the area of SVT. Lungs and pleura: Persistent bilateral airspace and interstitial infiltrates. Probable small pleural effusions. Overall, there is minimal interval change. No pneumothorax. Mediastinum: Mediastinal contours appear normal. Heart size is normal. Bones and chest wall: No suspicious bony lesions. Overlying soft tissues appear unremarkable. IMPRESSION: Persistent bilateral airspace and interstitial infiltrates and small pleural effusions, consistent with bilateral pneumonia and/or pulmonary edema. PROCEDURE: CT ABDOMEN AND PELVIS WITHOUT CONTRAST ([id number]) IMPRESSION: 1. Bibasilar pneumonia. 2. Small loculated left pleural effusion with thickened rind, possibly indicating empyema. This is too small to safely aspirate percutaneously. 3. Cholelithiasis without evidence of cholecystitis. 4. Normal appendix. 5. Small hiatal hernia. Dictated by: Myke Gonzalez M.D. on 10/27/2016 at 20:52 Approved by: Myke Gonzalez M.D. on 10/27/2016 at 20:52 Chest x-ray on 11/03/2016: IMPRESSION: Pulmonary edema and or diffuse bilateral inflammatory process not significantly changed. Developing ARDS cannot be excluded. Dictated by: Bakari SAMANIEGO Interpreted: Ekaterina Carter MD on 11/03/2016 at 11:06 Transcribed by: NAHOMI on 11/03/2016 at 11:06 U/S lower extremity on 11/03/2016: IMPRESSION: No deep venous thrombosis identified within either the left or right lower extremities. Dictated by: Bakari SAMANIEGO Interpreted: Kika Crews MD on 11/03/2016 at 13:36 Transcribed by: RJ on 11/03/2016 at 13:36 Approved by: Kika Crews M.D. on 11/03/2016 at 13:50 U/S chest on 11/03/2016: IMPRESSION: A small loculated right pleural effusion. Dictated by: Bakari SAMANIEGO Interpreted: Kika Crews MD on 11/03/2016 at 13:36 Transcribed by: RJ on 11/03/2016 at 13:36 Approved by: Kika Crews M.D. on 11/03/2016 at 13:50 U/S retroperitoneal 11/04/2016: IMPRESSION: Left renal cyst. Dictated by: Bakari SAMANIEGO Interpreted: Gaby Nixon MD on 11/04/2016 at 16: 09 Transcribed by: GAURAV on 11/04/2016 at 16:09 Approved by: Gaby Nixon M.D. on 11/04/2016 at 16:57 U/S left upper extremity 11/07/2016: IMPRESSION: Occlusive thrombus within the left cephalic vein within the lower arm. Jennyfer Phan RN given results by the software design analyst at 1415 hrs. 11/06/16. Dictated by: Bakari Bunch RRA Interpreted: Ekaterina Carter MD on 11/06/2016 at 16:14 Transcribed by: NAHOMI on 11/06/2016 at 16:14 Approved by: Ekaterina Carter MD, PhD on 11/06/2016 at 17:09 Assessment & Plan 61-year-old male 10/26 admitted for MRSA pneumonia who was intubated until . Extubated has been confused since. being treated for HTN with dialysis with renal following. 11/17 he complains of pain all over and reports that he was part of a pain clinic previously. Elevated troponin- the setting of end-stage renal disease and normal EKG without symptoms this is meaningless. No action. ESRD CKD5 on HD - likely senior living dialysis patient. - ATN/HTNnephrosclerosis. - MWF dialysis. Tunnel Cath placed 11/19/16 - Appreciate Nephrology consult Metabolic encephalopathy- - Mental status waxes and wanes. -Continue on Zyprexa - Continues to need Soma bed DVT left upper extremity- - documented by Doppler 11/07 with indicate patient needs 3-6 months of anticoagulation therapy which is complicated because of his renal failure. - on Coumadin. HCV-patient tested positive for cryoglobulins likely the source of at least some of his kidney failure Weakness- PT consulted Prophylaxis: DVT-SCDs, GI-started on famotidine 11/18 CODE STATUS: Full code DVT prophylaxis: Anticoagulation on Coumadin. Disposition: Difficult disposition due to the patient's lack of resources and waxing and waning mental status. VTE Prophylaxis: Sub-Q Heparin (Unfractionated), SCDs VTE Mechanical Devices: Intermittant Pneumatic CD Resuscitation Status: CPR: Attempt Resuscitation Niranjan Bolivar DO Nov 28, 2016 18:24
--- NOTE | 2016-11-28 20:28 | NUR ---
Pain/nausea Patient received back from dialysis c/o pain 07/02 generalized. Pt given po pain meds. Bp noted slightly later 70-80's over 40'50's. Pt with hypotension and usually is more after dialysis. Pt up to c had lg bowel movement. Pt nauseated so dinner meds declined .
[2016-11-28 20:57] VITALS: BP 76/48; PULSE 95; RESP 18; O2SAT 93
--- NOTE | 2016-11-29 06:16 | NUR ---
ACTIVITY/BP: Pt. has been awake off and on requesting water or coffee or snacks. Given apple sauce and coffee thicken. No c/o pain. BP after dialysis has been low 80s over 50s and 70s over 40s. Asymptomatic. Cont. in Soma bed.
[2016-11-29 06:43] VITALS: BP 99/64; PULSE 95; RESP 18; O2SAT 93
[2016-11-29] MEDS: Insulin Human REGular 300 Unit/3 mL Inj SUBQ SCH ×4 (07:30→22:00)
[2016-11-29] MEDS: Polyethylene Glycol (PEG) 17 Gm Powder PO SCH (08:19)
[2016-11-29] MEDS: Vitamin B Complex/Vit C Tablet PO SCH (08:19)
[2016-11-29 10:34] VITALS: BP 96/61; PULSE 82; RESP 18; O2SAT 95
[2016-11-29 13:21] LABS: INR 3.02 ratio
[2016-11-29 14:14] VITALS: BP 98/65; PULSE 90; RESP 18; O2SAT 96
--- NOTE | 2016-11-29 17:16 | PCM.PNMED ---
Subjective Date of Service Nov 29, 2016 Subjective Patient's mental status continues to wax and wane. Continues in Soma bed. Feels well, continues to feel all over pain and consistently asking for narcotics. No fevers chills, chest pain or shortness of breath. Exam Vital Signs Vital Sign - Last Date Time Temp Pulse Resp B/P Pulse Ox O2 Delivery O2 Flow Rate FiO2 11/29/16 14:14 37.0 90 18 98/65 96 Room Air Intake and Output 11/28/16 11/28/16 11/29/16 Cumulative From/Thru 15:00 23:00 07:00 10/26/16 17:03 - 11/29/16 06:55 Intake Total 613 ml 236 ml 60691 ml Output Total 2200 ml 300 ml 0 ml 17278 ml Balance -2200 ml 313 ml 236 ml 39001 ml Intake Oral 613 ml 236 ml 02797 ml IV Total 0 ml 94693 ml Tube Feeding 4554 ml Tube Irrigant 2041 ml Output Urine Total 300 ml 0 ml 24042 ml Stool Total 2550 ml Urine/Stool Mix 350 ml Gastric Drainage Total 575 ml Ultrafiltrate 2200 ml 07094 ml # Voids 1 6 # Bowel Movements 2 23 Exam General: Alert, orientation waxes and wanes, NAD Head: Normocephalic, atraumatic Eyes: JENY, EOMI, no scleral Icterus Chest: clear to auscultation B/L, no wheezing rales or rhonchi Heart: Regular rate and rhythm. Normal S1, S2, no murmurs noted Abdomen: soft, non-tender. Bowel sounds are normoactive. No guarding or rebound. Extremities: no cyanosis, clubbing or edema. Left BKA IVs and Medications Medications Reviewed: Medications were reviewed in detail Lab and Diagnostics Result Diagram: 11/28/16 0450 11/28/16 0450 X-Rays, CTs and MRIs PROCEDURE: X-RAY CHEST ONE VIEW, PORTABLE ([id number]) INDICATIONS: monitor resolution of pneumonia/congestion TECHNIQUE: One view of the chest was acquired. COMPARISON: [facility], CR, XR CHEST 1VW (PORTABLE), 11/09/2016, 4 :53. [facility], CR, XR CHEST 1VW (PORTABLE), 11/10/2016, 4:21. FINDINGS: Surgical changes and devices: Right IJ central line projecting to the area of SVT. Lungs and pleura: Persistent bilateral airspace and interstitial infiltrates. Probable small pleural effusions. Overall, there is minimal interval change. No pneumothorax. Mediastinum: Mediastinal contours appear normal. Heart size is normal. Bones and chest wall: No suspicious bony lesions. Overlying soft tissues appear unremarkable. IMPRESSION: Persistent bilateral airspace and interstitial infiltrates and small pleural effusions, consistent with bilateral pneumonia and/or pulmonary edema. PROCEDURE: CT ABDOMEN AND PELVIS WITHOUT CONTRAST ([id number]) IMPRESSION: 1. Bibasilar pneumonia. 2. Small loculated left pleural effusion with thickened rind, possibly indicating empyema. This is too small to safely aspirate percutaneously. 3. Cholelithiasis without evidence of cholecystitis. 4. Normal appendix. 5. Small hiatal hernia. Dictated by: Myke Gonzalez M.D. on 10/27/2016 at 20:52 Approved by: Myke Gonzalez M.D. on 10/27/2016 at 20:52 Chest x-ray on 11/03/2016: IMPRESSION: Pulmonary edema and or diffuse bilateral inflammatory process not significantly changed. Developing ARDS cannot be excluded. Dictated by: Bakari SAMANIEGO Interpreted: Ekaterina Carter MD on 11/03/2016 at 11:06 Transcribed by: NAHOMI on 11/03/2016 at 11:06 U/S lower extremity on 11/03/2016: IMPRESSION: No deep venous thrombosis identified within either the left or right lower extremities. Dictated by: Bakari SAMANIEGO Interpreted: Kika Crews MD on 11/03/2016 at 13:36 Transcribed by: RJ on 11/03/2016 at 13:36 Approved by: Kika Crews M.D. on 11/03/2016 at 13:50 U/S chest on 11/03/2016: IMPRESSION: A small loculated right pleural effusion. Dictated by: Bakari SAMANIEGO Interpreted: Kika Crews MD on 11/03/2016 at 13:36 Transcribed by: RJ on 11/03/2016 at 13:36 Approved by: Kika Crews M.D. on 11/03/2016 at 13:50 U/S retroperitoneal 11/04/2016: IMPRESSION: Left renal cyst. Dictated by: Bakari SAMANIEGO Interpreted: Gaby Nixon MD on 11/04/2016 at 16: 09 Transcribed by: GAURAV on 11/04/2016 at 16:09 Approved by: Gaby Nixon M.D. on 11/04/2016 at 16:57 U/S left upper extremity 11/07/2016: IMPRESSION: Occlusive thrombus within the left cephalic vein within the lower arm. Jennyfer Phan RN given results by the parts remover at 1415 hrs. 11/06/16. Dictated by: Bakari SAMANIEGO Interpreted: Ekaterina Carter MD on 11/06/2016 at 16:14 Transcribed by: NAHOMI on 11/06/2016 at 16:14 Approved by: Ekaterina Carter MD, PhD on 11/06/2016 at 17:09 Assessment & Plan 61-year-old male 10/26 admitted for MRSA pneumonia who was intubated until . Extubated has been confused since. being treated for HTN with dialysis with renal following. 11/17 he complains of pain all over and reports that he was part of a pain clinic previously. Elevated troponin- the setting of end-stage renal disease and normal EKG without symptoms this is meaningless. No action. ESRD CKD5 on HD - likely care home dialysis patient. Started this admission. - ATN/HTN nephrosclerosis. - MWF dialysis. Tunnel Cath placed 11/19/16 - Appreciate Nephrology consult Metabolic encephalopathy- - Mental status waxes and wanes. -Continue on Zyprexa -Continues to need Soma bed DVT left upper extremity- - documented by Doppler 11/07 with indicate patient needs 3-6 months of anticoagulation therapy which is complicated because of his renal failure. - on Coumadin. HCV-patient tested positive for cryoglobulins likely the source of at least some of his kidney failure Weakness- PT consulted Prophylaxis: DVT-SCDs, GI-started on famotidine 11/18 CODE STATUS: Full code DVT prophylaxis: Anticoagulation on Coumadin. Disposition: Difficult disposition due to the patient's lack of resources and waxing and waning mental status. VTE Prophylaxis: Sub-Q Heparin (Unfractionated), SCDs VTE Mechanical Devices: Intermittant Pneumatic CD Resuscitation Status: CPR: Attempt Resuscitation Niranjan Bolivar DO Nov 29, 2016 17:16
--- NOTE | 2016-11-29 18:01 | NUR ---
Pain Patient is alert and oriented X3. Able to make needs known. PRN pain medications given as ordered for pain 9/10 for back pain with effective results. stable blood sugars this shift. continue to monitor for pain.
[2016-11-29 20:33] VITALS: BP 123/73; PULSE 62; RESP 18; O2SAT 99
[2016-11-30] MEDS ORDERED: Ondansetron 8 mg ODT Tablet PO PRN (00:40)
--- NOTE | 2016-11-30 02:44 | NUR ---
NAUSEA/VOMITING: Pt. c/o nausea, then had an emesis digested food. Paged Hospitalist to request PO Zofran as pt. has only orders for IV Zofran and no IV access. Gave 4 mg of PO Zofran. No other c/o nausea so far. Denies pain. Pt. sleeping in bed at this time. On going care.
--- NOTE | 2016-11-30 05:17 | NUR ---
PAIN: Pt. woke up c/o pain. Right side tunnel catheter area and right flank. Given 10 mg of Roxicodone.
[2016-11-30 05:43] VITALS: BP 102/62; PULSE 87; RESP 18; O2SAT 94
[2016-11-30] MEDS: Insulin Human REGular 300 Unit/3 mL Inj SUBQ SCH ×4 (07:30→23:42)
[2016-11-30 08:06] VITALS: BP 100/66; PULSE 84; RESP 16; O2SAT 97
[2016-11-30 09:09] LABS: INR 3.25 ratio
[2016-11-30] MEDS: Vitamin B Complex/Vit C Tablet PO SCH (09:45)
[2016-11-30] MEDS: Polyethylene Glycol (PEG) 17 Gm Powder PO SCH (09:46)
--- NOTE | 2016-11-30 10:15 | NUR ---
MENTATION Patient is alert and oriented X 4. Answers questions appropriately. MD made aware. SPT to reassess patient. PT to assess patient. Care continues.
--- NOTE | 2016-11-30 11:16 | PCM.PNMED ---
Subjective Date of Service Nov 30, 2016 Subjective Patient is more sociable and interactive today. He also has had some increase in his urine output and has had a total 400 mils of urine out in the last 24 hours. She denies any chest pain shortness of breath nausea or vomiting Exam Vital Signs Vital Sign - Last Date Time Temp Pulse Resp B/P Pulse Ox O2 Delivery O2 Flow Rate FiO2 11/30/16 08:06 84 16 100/66 97 Room Air 11/30/16 05:43 36.8 Intake and Output 11/29/16 11/29/16 11/30/16 Cumulative From/Thru 14:59 22:59 06:59 10/26/16 17:03 - 11/30/16 06:15 Intake Total 960 ml 200 ml 38387 ml Output Total 400 ml 550 ml 30451 ml Balance 560 ml -350 ml 65724 ml Intake Oral 960 ml 200 ml 46578 ml IV Total 0 ml 24055 ml Tube Feeding 4554 ml Tube Irrigant 2041 ml Output Urine Total 400 ml 400 ml 28418 ml Stool Total 2550 ml Urine/Stool Mix 350 ml Gastric Drainage Total 575 ml Emesis 150 ml 150 ml Ultrafiltrate 30563 ml # Voids 6 # Bowel Movements 0 23 Exam Neck is supple without adenopathy thyromegaly or jugular venous distention. Lungs were clear to auscultation. Heart is regular and rhythmical with a soft systolic murmur. Abdomen is soft without any tenderness rebound guarding masses or hepatosplenomegaly. Extremities do not show any evidence of any clubbing cyanosis or edema. Lab and Diagnostics Result Diagram: 11/30/16 0840 11/28/16 0450 X-Rays, CTs and MRIs PROCEDURE: X-RAY CHEST ONE VIEW, PORTABLE ([id number]) INDICATIONS: monitor resolution of pneumonia/congestion TECHNIQUE: One view of the chest was acquired. COMPARISON: [facility], CR, XR CHEST 1VW (PORTABLE), 11/09/2016, 4 :53. [facility], CR, XR CHEST 1VW (PORTABLE), 11/10/2016, 4:21. FINDINGS: Surgical changes and devices: Right IJ central line projecting to the area of SVT. Lungs and pleura: Persistent bilateral airspace and interstitial infiltrates. Probable small pleural effusions. Overall, there is minimal interval change. No pneumothorax. Mediastinum: Mediastinal contours appear normal. Heart size is normal. Bones and chest wall: No suspicious bony lesions. Overlying soft tissues appear unremarkable. IMPRESSION: Persistent bilateral airspace and interstitial infiltrates and small pleural effusions, consistent with bilateral pneumonia and/or pulmonary edema. PROCEDURE: CT ABDOMEN AND PELVIS WITHOUT CONTRAST ([id number]) IMPRESSION: 1. Bibasilar pneumonia. 2. Small loculated left pleural effusion with thickened rind, possibly indicating empyema. This is too small to safely aspirate percutaneously. 3. Cholelithiasis without evidence of cholecystitis. 4. Normal appendix. 5. Small hiatal hernia. Dictated by: Myke Gonzalez M.D. on 10/27/2016 at 20:52 Approved by: Myke Gonzalez M.D. on 10/27/2016 at 20:52 Chest x-ray on 11/03/2016: IMPRESSION: Pulmonary edema and or diffuse bilateral inflammatory process not significantly changed. Developing ARDS cannot be excluded. Dictated by: Bakari SAMANIEGO Interpreted: Ekaterina Carter MD on 11/03/2016 at 11:06 Transcribed by: NAHOMI on 11/03/2016 at 11:06 U/S lower extremity on 11/03/2016: IMPRESSION: No deep venous thrombosis identified within either the left or right lower extremities. Dictated by: Bakari SAMANIEGO Interpreted: Kika Crews MD on 11/03/2016 at 13:36 Transcribed by: RJ on 11/03/2016 at 13:36 Approved by: Kika Crews M.D. on 11/03/2016 at 13:50 U/S chest on 11/03/2016: IMPRESSION: A small loculated right pleural effusion. Dictated by: Bakari SAMANIEGO Interpreted: Kika Crews MD on 11/03/2016 at 13:36 Transcribed by: RJ on 11/03/2016 at 13:36 Approved by: Kika Crews M.D. on 11/03/2016 at 13:50 U/S retroperitoneal 11/04/2016: IMPRESSION: Left renal cyst. Dictated by: Bakari SAMANIEGO Interpreted: Gaby Nixon MD on 11/04/2016 at 16: 09 Transcribed by: GAURAV on 11/04/2016 at 16:09 Approved by: Gaby Nixon M.D. on 11/04/2016 at 16:57 U/S left upper extremity 11/07/2016: IMPRESSION: Occlusive thrombus within the left cephalic vein within the lower arm. Jennyfer Phan RN given results by the php website developer at 1415 hrs. 11/06/16. Dictated by: Bakari Bunch RRA Interpreted: Ekaterina Carter MD on 11/06/2016 at 16:14 Transcribed by: NAHOMI on 11/06/2016 at 16:14 Approved by: Ekaterina Carter MD, PhD on 11/06/2016 at 17:09 Assessment & Plan Impression #1 acute tubular necrosis with persistent oliguria #2 hypertension with hypertensive heart disease and hypertensive nephrosclerosis #3 hepatitis C Recommendations #1 g arrangements for his dialysis in the morning. VTE Prophylaxis: Sub-Q Heparin (Unfractionated), SCDs VTE Mechanical Devices: Intermittant Pneumatic CD Resuscitation Status: CPR: Attempt Resuscitation Humphrey Gonzalez DO Nov 30, 2016 11:16
--- NOTE | 2016-11-30 12:20 | NUR ---
Evaluation completed. Rec: [place]/Dysphagia Mechanical with sips of H20/ice chips. Medication as tolerate. FLOSSER to follow Please go to "Notes" then click on "Assessments and Notes" (bottom left corner of screen). Then select appropriate discipline tab on top of screen.
--- NOTE | 2016-11-30 12:24 | NUR ---
Social Work Continued Discharge Planning: Data & Assessment: EMR reviewed. Pt is on day 35 of hospitalization for AKASH, Community Acquired Pneumonia. Pt is not medically stable at this time for discharge. Pt is out of the Soma bed and is now on a low bed. Pt is now able to carry on conversation and is more social and able to interact. A new PT and ST evaluation has been ordered since it appears that the patient will be able to participate. Tack Cleaner attempted to call patient's brother and sister in law, Hernando and Christel at [phone], but there was no answer. rubber and plastics worker left a message with her name and number requesting a call back. Tack Cleaner also attempted to reach patient's daughter Manolo Vega [phone] but the number is no longer active. SW also attempted to call girlfriend niece's phone at [phone], but the voicemail was full. An expedited BLUE referral has been sent. SW anticipates Pt to discharge home when medically stable. Pt to continue with Hemodialysis. SW will continue to follow. Plan SW anticipates Pt to discharge home when medically stable. Pt to continue with Hemodialysis. SW will need to contact [facility] to inform of discharge plan. SW will continue to attempt to contact family/girlfriend to coordinate safe discharge planning. SW will continue to follow. Marva Ludwig LMSW, STEWART
[2016-11-30 14:44] VITALS: BP 99/66; PULSE 92; RESP 16; O2SAT 98
--- NOTE | 2016-11-30 15:31 | NUR ---
Social Work: Continued Discharge Planning Data & Assessment: Front Window Cashier met with patient at bedside to discuss discharge planning. Patient was alert and oriented x 3. Front Window Cashier notified the patient that PT is recommending for him to discharge Home with HH, and he [facility]. Patient voiced understanding and was in agreement. Patient stated that he would use his Medicaid transportation to transport him to dialysis. aircraft layout worker notified patient that she has attempted to call his family/friends to coordinate discharge, but no one has answered the phone. Patient reported that he had his cell phone and proceeded to give names and numbers of people to call to get in touch with his girlfriend, Leanna because she does not have a phone. The numbers are as follows; Malina Huitron [phone], Eliana [phone], Eliana Edd [phone], and Abraham [facility] [phone]. Front Window Cashier was only able to get in touch with Malina Huitron and he stated that he would tell Leanna to call the Front Window Cashier. SW anticipates that patient will discharge home when medically stable and will continue [facility]. Front Window Cashier will continue to follow. Plan: SW anticipates that patient will discharge home when medically stable and will continue [facility]. Front Window Cashier needs to contact [facility] at [facility] and notify her when the patient discharges. aircraft layout worker will continue to try and contact patients family/friend. Front Window Cashier will continue to follow. Marva Ludwig LMSW, STEWART
--- NOTE | 2016-11-30 15:32 | NUR ---
ACTIVITY Patient continues to be alert and oriented X 4. Oxicodone 5 mg PO administered for complaints of back/shoulder pain, which was helpful. Diet was upgraded by SPT. Denies nausea. No emesis noted. Denies SOB. Patient was able to work with PT this shift. Tolerated activity well. Voided without any problems: 200 ml of clear, yellow colored UO. Patient is off SOMA bed and has a low bed. He is sitting in the wheelchair at this time. Hourly rounding ongoing.
--- NOTE | 2016-11-30 16:46 | PCM.PNMED ---
Subjective Date of Service Nov 30, 2016 Subjective denies any pain or discomfort. says feeling better Exam Vital Signs Vital Sign - Last Date Time Temp Pulse Resp B/P Pulse Ox O2 Delivery O2 Flow Rate FiO2 11/30/16 14:44 36.9 92 16 99/66 98 Room Air Intake and Output 11/29/16 11/29/16 11/30/16 Cumulative From/Thru 15:00 23:00 07:00 10/26/16 17:03 - 11/30/16 06:15 Intake Total 960 ml 200 ml 04812 ml Output Total 400 ml 550 ml 58562 ml Balance 560 ml -350 ml 49589 ml Intake Oral 960 ml 200 ml 25265 ml IV Total 0 ml 75263 ml Tube Feeding 4554 ml Tube Irrigant 2041 ml Output Urine Total 400 ml 400 ml 24322 ml Stool Total 2550 ml Urine/Stool Mix 350 ml Gastric Drainage Total 575 ml Emesis 150 ml 150 ml Ultrafiltrate 91160 ml # Voids 6 # Bowel Movements 0 23 General: Alert, Oriented X3, Cooperative, No Acute Distress Eyes: Scleral Anicteric Mouth: Mucous Membr Moist/[place] Neck: Supple Chest & Lungs: Chest Wall Normal, Clear to auscultation & percussion Cardiovascular: Regular Rate/Rhythm Abdomen: Non-tender, Non-distended, Normoactive bowel tones, Soft Extremities: No cyanosis/clubbing/edma bilat Neurological: Grossly Neurologically Intact, Normal Speech IVs and Medications Medications Reviewed: Medications were reviewed in detail Lab and Diagnostics Result Diagram: 11/30/16 0840 11/28/16 0450 X-Rays, CTs and MRIs PROCEDURE: X-RAY CHEST ONE VIEW, PORTABLE ([id number]) INDICATIONS: monitor resolution of pneumonia/congestion TECHNIQUE: One view of the chest was acquired. COMPARISON: [facility], CR, XR CHEST 1VW (PORTABLE), 11/09/2016, 4 :53. [facility], CR, XR CHEST 1VW (PORTABLE), 11/10/2016, 4:21. FINDINGS: Surgical changes and devices: Right IJ central line projecting to the area of SVT. Lungs and pleura: Persistent bilateral airspace and interstitial infiltrates. Probable small pleural effusions. Overall, there is minimal interval change. No pneumothorax. Mediastinum: Mediastinal contours appear normal. Heart size is normal. Bones and chest wall: No suspicious bony lesions. Overlying soft tissues appear unremarkable. IMPRESSION: Persistent bilateral airspace and interstitial infiltrates and small pleural effusions, consistent with bilateral pneumonia and/or pulmonary edema. PROCEDURE: CT ABDOMEN AND PELVIS WITHOUT CONTRAST ([id number]) IMPRESSION: 1. Bibasilar pneumonia. 2. Small loculated left pleural effusion with thickened rind, possibly indicating empyema. This is too small to safely aspirate percutaneously. 3. Cholelithiasis without evidence of cholecystitis. 4. Normal appendix. 5. Small hiatal hernia. Dictated by: Myke Gonzalez M.D. on 10/27/2016 at 20:52 Approved by: Myke Gonzalez M.D. on 10/27/2016 at 20:52 Chest x-ray on 11/03/2016: IMPRESSION: Pulmonary edema and or diffuse bilateral inflammatory process not significantly changed. Developing ARDS cannot be excluded. Dictated by: Bakari SAMANIEGO Interpreted: Ekaterina Carter MD on 11/03/2016 at 11:06 Transcribed by: NAHOMI on 11/03/2016 at 11:06 U/S lower extremity on 11/03/2016: IMPRESSION: No deep venous thrombosis identified within either the left or right lower extremities. Dictated by: Bakari SAMANIEGO Interpreted: Kika Crews MD on 11/03/2016 at 13:36 Transcribed by: RJ on 11/03/2016 at 13:36 Approved by: Kika Crews M.D. on 11/03/2016 at 13:50 U/S chest on 11/03/2016: IMPRESSION: A small loculated right pleural effusion. Dictated by: Bakari SAMANIEGO Interpreted: Kika Crews MD on 11/03/2016 at 13:36 Transcribed by: RJ on 11/03/2016 at 13:36 Approved by: Kika Crews M.D. on 11/03/2016 at 13:50 U/S retroperitoneal 11/04/2016: IMPRESSION: Left renal cyst. Dictated by: Bakari SAMANIEGO Interpreted: Gaby Nixon MD on 11/04/2016 at 16: 09 Transcribed by: GAURAV on 11/04/2016 at 16:09 Approved by: Gaby Nixon M.D. on 11/04/2016 at 16:57 U/S left upper extremity 11/07/2016: IMPRESSION: Occlusive thrombus within the left cephalic vein within the lower arm. Jennyfer Phan RN given results by the liquid chlorine operator at 1415 hrs. 11/06/16. Dictated by: Bakari Bunch RRA Interpreted: Ekaterina Carter MD on 11/06/2016 at 16:14 Transcribed by: NAHOMI on 11/06/2016 at 16:14 Approved by: Ekaterina Carter MD, PhD on 11/06/2016 at 17:09 Assessment & Plan 61-year-old male 10/26 admitted for MRSA pneumonia who was intubated until . # Encephalopathy, ICU delirium, initially likely from metabolic encephalopathy due to sepsis. appears resolved - c/w supportive care # Subsequent acute metabolic encephalopathy post ICU with reported waxing and waning. Currently appears resolved with patient oriented x 3 - c/w supportive care # Acute respiratory failure with hypoxia/ARDS, resolved -due to MRSA pneumonia /sepsis, pt was initially maintained on BiPAP, deteriorated 10/29-, intubated 10/30 ,EXTUBATED 11/10 -bronchoscopy 11/06 shows Marked erythema and edema of lobar airways, especially left upper lobe,significant thin secretion,sent for analysis -CT C/A/P 11/05 :Bilateral pneumonia which appears to have worsened, right left , with reference to the earlier comparison CT from 10/27/16. Small posterior right pleural effusion, no suspicion for empyema by appearance. -Finished dexamethasone taper for intrathoracic airway obstruction, # AKASH on CKD requiring initiation of HD, secondary to ATN with persistent oliguria from sepsis, resultant severe metabolic acidosis, hyperkalemia, -baseline creatinine reportedly mid 2's -started on HD 11/06 - MWF dialysis. Tunnel Cath placed 11/19/16 -appreciate nephrology consult. will f/u w/ recs # Acute septic shock requiring pressor support secondary to MRSA pneumonia, resolved -norepi stopped on 11/09 -high initial wbc/procalcitonin, MRSA+ on sputum -was on linezolid/flagyl started on 11/03,initially treated with switched from zosyn, ceftaroline. stopped all antibiotics 11/11 # metabolic acidosis due to ARF and sepsis. Resolved # LUE swelling, duplex: left cephalic vein thrombosis, no indication fo anticoagulation,continue to monitor # watery diarrhea. Resolved - c.dif negative # hepC ab +, diagnosed on current admission, viral load 185,070, - outpatient GI or ID followup # Acute Hyperphosphatemia, improved with dialysis, calcium carbonate # Normocytic Normochromic Anemia secondary to anemia from CKD, - s/p Aranesp - f/u # Elevated troponin without reported chest pain - unclear why Troponin was checked recently - f/u repeat Trop in am if still elevated consider repeat Echo Dispo: 1-2 days pending stable mental status. Reassessment by PT and speech now that mental status improved. VTE Prophylaxis: Sub-Q Heparin (Unfractionated), SCDs VTE Mechanical Devices: Intermittant Pneumatic CD Resuscitation Status: CPR: Attempt Resuscitation Time spent 40 min Ck Sharpe Nov 30, 2016 16:46
[2016-11-30 21:15] VITALS: BP 101/64; PULSE 92; RESP 20; O2SAT 95
[2016-11-30 21:44] VITALS: BP 136/94; PULSE 99; RESP 22; O2SAT 97
[2016-12-01 05:30] VITALS: BP 105/61; PULSE 92; RESP 20; O2SAT 97
[2016-12-01 05:38] LABS: Mean Corpuscular Hemoglobin 31.3 pg (27.0-35.0); Mean Corpuscular Volume 96.4 fL (81-100)
[2016-12-01 05:57] LABS: INR 2.96 ratio
--- NOTE | 2016-12-01 06:05 | NUR ---
PAIN; oxycondone 10mg po effective for chest and shoulders pain. Alert and oriented. Up in wheelchair and to bed independently.
[2016-12-01 06:15] LABS: Creatine Kinase 32 U/L (21-232)
[2016-12-01 06:30] LABS: TROPONIN T 0.195 ug/L (0.0-0.011)
--- NOTE | 2016-12-01 06:39 | NUR ---
Vicki YANCEY; not given yet. Pharmacy faxed message to please send 0630 dose. Will pass on to day shift rn.
--- NOTE | 2016-12-01 06:59 | PCM.PHAPRO ---
Progress Warfarin Management by Pharmacy: Indication: DVT Home Dose: NEW START GOAL INR: 2-3 Date: NOV 21 2016 INR: 0.96 5 MG NOV 22 2016 INR 1.06 5 MG NOV 23 2016 INR 1.26 5 MG NOV 24 2016 INR 2.76 2 MG NOV 25 2016 INR 2.94 3 MG NOV 26 2016 INR 2.93 3 MG NOV 27 2016 INR 3.60 HELD NOV 28 2016 INR 2.93 2mg 11/29 INR 3.02 0.5MG 11/30 INR 3.25 HELD 12/01 INR 2.96 0.5MG Plan: Inr is therapeutic on the high side. will give warfarin 0.5mg this evening and follow Adelina Manzanares [facility] Dec 01, 2016 06:59
[2016-12-01] MEDS: Insulin Human REGular 300 Unit/3 mL Inj SUBQ SCH ×4 (07:25→22:00)
--- NOTE | 2016-12-01 08:54 | NUR ---
Dialysis ([facility]) Pt. transferred to [facility] for dialyisis at 0845. Report given to Coby Gonzalez RN. Addendum: 12/01/16 at 1401 by PUJA ZEPEDA RN Pt. transferred back to [facility] at 1335 after dialysis. Upon arrival, pt. frowned and moaned "Gave me my pain med." PRN Roxicodone was given for "neck and butt" pain. Pt. sat on his wheelchair resting now.
--- NOTE | 2016-12-01 08:56 | NUR ---
Dialysis Patient arrived to unit. signs and displays sales representative at bedside. Received report from Ana Cristina Vaughn RN.
[2016-12-01 09:02] VITALS: BP 117/79; PULSE 83
--- NOTE | 2016-12-01 11:30 | NUR ---
Dialysis note: 4 hr tx Net UF 1200, accessed right cath, switched limbs A/V V/A, 400 QB. Pt arrived in regular bed without sitter and was stable throughout tx. Dresg changed CHG, chloroprep. No s/s of infection. Ate lunch, BG 80 at 1137. Cath limbs dwelled with Heparin 1000 and secured with caps. Pt returned to floor stable. Please see DTR for complete record of VS.
--- NOTE | 2016-12-01 13:20 | PCM.PNMED ---
Subjective Date of Service Dec 01, 2016 Subjective Pt is seen during HD, stable. no new complaint. Exam Vital Signs Vital Sign - Last Date Time Temp Pulse Resp B/P Pulse Ox O2 Delivery O2 Flow Rate FiO2 12/01/16 05:30 36.7 92 20 105/61 97 Room Air Intake and Output 11/30/16 11/30/16 12/01/16 Cumulative From/Thru 15:00 23:00 07:00 10/26/16 17:03 - 11/30/16 22:53 Intake Total 1000 ml 85064 ml Output Total 650 ml 30672 ml Balance 350 ml 80489 ml Intake Oral 1000 ml 73416 ml IV Total 60714 ml Tube Feeding 4554 ml Tube Irrigant 2041 ml Output Urine Total 650 ml 98895 ml Stool Total 2550 ml Urine/Stool Mix 350 ml Gastric Drainage Total 575 ml Emesis 150 ml Ultrafiltrate 48627 ml # Voids 1 7 # Bowel Movements 0 23 Exam General: Alert, Oriented X3, Cooperative, No Acute Distress Eyes: Scleral Anicteric Mouth: Mucous Membr Moist/[place] Neck: Supple Chest & Lungs: Chest Wall Normal, Clear to auscultation & percussion, tunneled cath in place: dry, clean and intact. Cardiovascular: Regular Rate/Rhythm Abdomen: Non-tender, Non-distended, Normoactive bowel tones, Soft Extremities: No cyanosis/clubbing/edma bilat Neurological: Grossly Neurologically Intact, Normal Speech Lab and Diagnostics Result Diagram: 12/01/1644712/01/16447 X-Rays, CTs and MRIs PROCEDURE: X-RAY CHEST ONE VIEW, PORTABLE ([id number]) INDICATIONS: monitor resolution of pneumonia/congestion TECHNIQUE: One view of the chest was acquired. COMPARISON: [facility], CR, XR CHEST 1VW (PORTABLE), 11/09/2016, 4 :53. [facility], CR, XR CHEST 1VW (PORTABLE), 11/10/2016, 4:21. FINDINGS: Surgical changes and devices: Right IJ central line projecting to the area of SVT. Lungs and pleura: Persistent bilateral airspace and interstitial infiltrates. Probable small pleural effusions. Overall, there is minimal interval change. No pneumothorax. Mediastinum: Mediastinal contours appear normal. Heart size is normal. Bones and chest wall: No suspicious bony lesions. Overlying soft tissues appear unremarkable. IMPRESSION: Persistent bilateral airspace and interstitial infiltrates and small pleural effusions, consistent with bilateral pneumonia and/or pulmonary edema. PROCEDURE: CT ABDOMEN AND PELVIS WITHOUT CONTRAST ([id number]) IMPRESSION: 1. Bibasilar pneumonia. 2. Small loculated left pleural effusion with thickened rind, possibly indicating empyema. This is too small to safely aspirate percutaneously. 3. Cholelithiasis without evidence of cholecystitis. 4. Normal appendix. 5. Small hiatal hernia. Dictated by: Myke Gonzalez M.D. on 10/27/2016 at 20:52 Approved by: Myke Gonzalez M.D. on 10/27/2016 at 20:52 Chest x-ray on 11/03/2016: IMPRESSION: Pulmonary edema and or diffuse bilateral inflammatory process not significantly changed. Developing ARDS cannot be excluded. Dictated by: Bakari SAMANIEGO Interpreted: Ekaterina Carter MD on 11/03/2016 at 11:06 Transcribed by: NAHOMI on 11/03/2016 at 11:06 U/S lower extremity on 11/03/2016: IMPRESSION: No deep venous thrombosis identified within either the left or right lower extremities. Dictated by: Bakari SAMANIEGO Interpreted: Kika Crews MD on 11/03/2016 at 13:36 Transcribed by: RJ on 11/03/2016 at 13:36 Approved by: Kika Crews M.D. on 11/03/2016 at 13:50 U/S chest on 11/03/2016: IMPRESSION: A small loculated right pleural effusion. Dictated by: Bakari SAMANIEGO Interpreted: Kika Crews MD on 11/03/2016 at 13:36 Transcribed by: RJ on 11/03/2016 at 13:36 Approved by: Kika Crews M.D. on 11/03/2016 at 13:50 U/S retroperitoneal 11/04/2016: IMPRESSION: Left renal cyst. Dictated by: Bakari SAMANIEGO Interpreted: Gaby Nixon MD on 11/04/2016 at 16: 09 Transcribed by: GAURAV on 11/04/2016 at 16:09 Approved by: Gaby Nixon M.D. on 11/04/2016 at 16:57 U/S left upper extremity 11/07/2016: IMPRESSION: Occlusive thrombus within the left cephalic vein within the lower arm. Jennyfer Phan RN given results by the boston cutter at 1415 hrs. 11/06/16. Dictated by: Bakari Bunch RRA Interpreted: Ekaterina Carter MD on 11/06/2016 at 16:14 Transcribed by: NAHOMI on 11/06/2016 at 16:14 Approved by: Ekaterina Carter MD, PhD on 11/06/2016 at 17:09 Assessment & Plan 1. ESRD now declared. - continue HD Q MWF. - pending an arrangement for OP HD at [facility], will contact HD staff at kidney center today. - will order US vein mapping for AVF creation. 2. AMS, resolved. 3. Chronic hepatitis C infection, (+) cryoglobulin. - Liver is diffusely increased in echogenicity per US on 10/27 4. Anemia of CKD. 5. Acute septic shock secondary to MRSA pneumonia, resolved. VTE Prophylaxis: Sub-Q Heparin (Unfractionated), SCDs VTE Mechanical Devices: Intermittant Pneumatic CD Resuscitation Status: CPR: Attempt Resuscitation Antonietta Sigala MD Dec 01, 2016 13:20
[2016-12-01 13:46] VITALS: BP 92/58; PULSE 63; RESP 20; O2SAT 96
[2016-12-01] MEDS: Vitamin B Complex/Vit C Tablet PO SCH (13:53)
--- NOTE | 2016-12-01 14:32 | NUR ---
Social Work Continued Discharge Planning/Readiness for Discharge D: EMR Reviewed. Pt is on day 36 of hospitalization. Pt AMS has resolved and appears to be back at baseline. PT=Home Health. Pt lives with his significant other Leanna who can help Pt once he returns home. BRANDT spoke with Pt's friend Rigoberto Garrido [phone] to discuss d/c. Mr. Garrido will provide transport home for patient when medically stable, likely tomorrow. Mr. Garrido reports he has been unable to reach Pt's girlfriend (does not have a phone) but did confirm Pt's girlfriend lives with Pt. BRANDT contacted [facility] to notify Pt is discharging tomorrow. SW to receive call back on chair time for Pt on Thursday as Pt on [facility] schedule. BRANDT met with Pt and updated. Pt indicating he needs caregiving services. BRANDT explained caregiving is private pay, expedited BLUE application has been submitted for Pt. Pt is agreeable to Home Health services. BRANDT made referral to [facility] as they contract with Pt's insurance. Access given. F2F signed and in folder. BRANDT anticipates Pt to discharge home tomorrow via POV with [facility] RN/PT/OT/ST/BEAM SEALER/INKING MACHINE TENDER and [facility]. Pt indicates he will use [facility] for dialysis or have a friend drive him. SW will continue to follow and address if additional needs arise. A: Pt who will benefit from Home Health, Dialysis and BLUE caregiving once established. P: Pt is agreeable to Home Health services. BRANDT made referral to [facility] as they contract with Pt's insurance. Access given. F2F signed and in folder. BRANDT anticipates Pt to discharge home tomorrow via POV with [facility] RN/PT/OT/ST/BEAM SEALER/INKING MACHINE TENDER and [facility]ialysis [facility]. Pt indicates he will use [facility] for dialysis or have a friend drive him. BRANDT will continue to follow and address if additional needs arise. Addendum: 12/01/16 at 1452 by KIRIT ENGLISH Rafael garcia [facility] Picked Up F2F in person. JANELLE Crain
--- NOTE | 2016-12-01 16:02 | PCM.PNMED ---
Subjective Date of Service Dec 01, 2016 Subjective Reports some nausea with dialysis today. also reports new right shoulder pain. Exam Vital Signs Vital Sign - Last Date Time Temp Pulse Resp B/P Pulse Ox O2 Delivery O2 Flow Rate FiO2 12/01/16 13:46 36.6 63 20 92/58 96 Room Air Intake and Output 11/30/16 11/30/16 12/01/16 Cumulative From/Thru 15:00 23:00 07:00 10/26/16 17:03 - 11/30/16 22:53 Intake Total 1000 ml 67057 ml Output Total 650 ml 59073 ml Balance 350 ml 61076 ml Intake Oral 1000 ml 46227 ml IV Total 18748 ml Tube Feeding 4554 ml Tube Irrigant 2041 ml Output Urine Total 650 ml 89618 ml Stool Total 2550 ml Urine/Stool Mix 350 ml Gastric Drainage Total 575 ml Emesis 150 ml Ultrafiltrate 13347 ml # Voids 1 7 # Bowel Movements 0 23 Exam General: Alert, Oriented X3, Cooperative, No Acute Distress Eyes: Scleral Anicteric Mouth: Mucous Membr Moist/[place] Neck: Supple Chest & Lungs: Chest Wall Normal, Clear to auscultation bilat Cardiovascular: Regular Rate/Rhythm Abdomen: Non-tender, Non-distended, Normoactive bowel tones, Soft Extremities: No cyanosis/clubbing/edema bilat. post right BKA Neurological: Grossly Neurologically Intact, Normal Speech IVs and Medications Medications Reviewed: Medications were reviewed in detail Lab and Diagnostics Result Diagram: 12/01/1644712/01/16447 X-Rays, CTs and MRIs PROCEDURE: X-RAY CHEST ONE VIEW, PORTABLE ([id number]) INDICATIONS: monitor resolution of pneumonia/congestion TECHNIQUE: One view of the chest was acquired. COMPARISON: [facility], CR, XR CHEST 1VW (PORTABLE), 11/09/2016, 4 :53. [facility], CR, XR CHEST 1VW (PORTABLE), 11/10/2016, 4:21. FINDINGS: Surgical changes and devices: Right IJ central line projecting to the area of SVT. Lungs and pleura: Persistent bilateral airspace and interstitial infiltrates. Probable small pleural effusions. Overall, there is minimal interval change. No pneumothorax. Mediastinum: Mediastinal contours appear normal. Heart size is normal. Bones and chest wall: No suspicious bony lesions. Overlying soft tissues appear unremarkable. IMPRESSION: Persistent bilateral airspace and interstitial infiltrates and small pleural effusions, consistent with bilateral pneumonia and/or pulmonary edema. PROCEDURE: CT ABDOMEN AND PELVIS WITHOUT CONTRAST ([id number]) IMPRESSION: 1. Bibasilar pneumonia. 2. Small loculated left pleural effusion with thickened rind, possibly indicating empyema. This is too small to safely aspirate percutaneously. 3. Cholelithiasis without evidence of cholecystitis. 4. Normal appendix. 5. Small hiatal hernia. Dictated by: Myke Gonzalez M.D. on 10/27/2016 at 20:52 Approved by: Myke Gonzalez M.D. on 10/27/2016 at 20:52 Chest x-ray on 11/03/2016: IMPRESSION: Pulmonary edema and or diffuse bilateral inflammatory process not significantly changed. Developing ARDS cannot be excluded. Dictated by: Bakari SAMANIEGO Interpreted: Ekaterina Carter MD on 11/03/2016 at 11:06 Transcribed by: NAHOMI on 11/03/2016 at 11:06 U/S lower extremity on 11/03/2016: IMPRESSION: No deep venous thrombosis identified within either the left or right lower extremities. Dictated by: Bakari SAMANIEGO Interpreted: Kika Crews MD on 11/03/2016 at 13:36 Transcribed by: RJ on 11/03/2016 at 13:36 Approved by: Kika Crews M.D. on 11/03/2016 at 13:50 U/S chest on 11/03/2016: IMPRESSION: A small loculated right pleural effusion. Dictated by: Bakari SAMANIEGO Interpreted: Kika Crews MD on 11/03/2016 at 13:36 Transcribed by: RJ on 11/03/2016 at 13:36 Approved by: Kika Crews M.D. on 11/03/2016 at 13:50 U/S retroperitoneal 11/04/2016: IMPRESSION: Left renal cyst. Dictated by: Bakari SAMANIEGO Interpreted: Gaby Nixon MD on 11/04/2016 at 16: 09 Transcribed by: GAURAV on 11/04/2016 at 16:09 Approved by: Gaby Nixon M.D. on 11/04/2016 at 16:57 U/S left upper extremity 11/07/2016: IMPRESSION: Occlusive thrombus within the left cephalic vein within the lower arm. Jennyfer Phan RN given results by the pathology laboratory aide at 1415 hrs. 11/06/16. Dictated by: Bakari Bunch RRA Interpreted: Ekaterina Carter MD on 11/06/2016 at 16:14 Transcribed by: NAHOMI on 11/06/2016 at 16:14 Approved by: Ekaterina Carter MD, PhD on 11/06/2016 at 17:09 Assessment & Plan 61-year-old male 10/26 admitted for MRSA pneumonia who was intubated until . # Encephalopathy, ICU delirium, initially likely from metabolic encephalopathy due to sepsis. Resolved - c/w supportive care # Subsequent acute metabolic encephalopathy post ICU with reported waxing and waning. Resolved. patient continues to remain oriented x 3 - c/w supportive care # AKASH on CKD requiring initiation of HD, secondary to ATN with persistent oliguria from sepsis, resultant severe metabolic acidosis, hyperkalemia, - baseline creatinine reportedly mid 2's - started on HD 11/06 - MWF dialysis. Tunnel Cath placed 11/19/16 - appreciate nephrology consult. will f/u w/ recs - US vein mapping for AVF creation per nephrology # Acute respiratory failure with hypoxia/ARDS, resolved - due to MRSA pneumonia /sepsis, pt was initially maintained on BiPAP, deteriorated 10/29-, intubated 10/30 ,EXTUBATED 11/10 - bronchoscopy 11/06 shows Marked erythema and edema of lobar airways, especially left upper lobe,significant thin secretion,sent for analysis - CT C/A/P 11/05 :Bilateral pneumonia which appears to have worsened, right left , with reference to the earlier comparison CT from 10/27/16. Small posterior right pleural effusion, no suspicion for empyema by appearance. - Finished dexamethasone taper for intrathoracic airway obstruction, # Acute septic shock requiring pressor support secondary to MRSA pneumonia. Resolved - norepi stopped on 11/09 - high initial wbc/procalcitonin, MRSA+ on sputum - was on linezolid/Flagyl started on 11/03, initially treated with and switched Zosyn, ceftaroline. Stopped all antibiotics 11/11 # metabolic acidosis due to ARF and sepsis. Resolved # LUE swelling, duplex: Left cephalic vein thrombosis, no indication fo anticoagulation,continue to monitor # watery diarrhea. Resolved - c.dif negative # hep C Ab +, diagnosed on current admission, viral load 185,070, - outpatient GI or ID followup # Acute Hyperphosphatemia, improved with dialysis, calcium carbonate # Normocytic Normochromic Anemia secondary to anemia from CKD, - s/p Aranesp - f/u # Elevated troponin without reported chest pain - unclear why Troponin was checked recently - check limited echo # Acute right shoulder pain - check x-ray Dispo: 1-2 days VTE Prophylaxis: Sub-Q Heparin (Unfractionated), SCDs VTE Mechanical Devices: Intermittant Pneumatic CD Resuscitation Status: CPR: Attempt Resuscitation Time spent 30 min Ck Sharpe Dec 01, 2016 16:02
--- NOTE | 2016-12-01 17:44 | NUR ---
activity/pain/diet assumed care of patient at 1500. patient asleep at that time. patient awoke before dinner and wheeled around the unit. patient tolerated 100% of nectar thick diet. pills given in applesauce. up in wheelchair currently and watching football game with family. denies pain currently. states "i am fine". will give report to elenita reyes at 1900.
--- NOTE | 2016-12-01 18:06 | DRSVH ---
PROCEDURE: X-RAY RIGHT SHOULDER, MINIMUM TWO VIEWS ([id number]) INDICATIONS: 61 year-old male with right shoulder pain. TECHNIQUE: 3 views of the shoulder were acquired. COMPARISON: None. FINDINGS: Bones: No fractures or dislocations. There is acromioclavicular joint degeneration. No suspicious b michael lesions. Visualized ribs appear intact. Soft tissues: Right chest wall tunneled central venous catheter is present. No suspicious soft tissu e calcifications. IMPRESSION: Right acromioclavicular joint degeneration. Dictated by: Vidal Crooks M.D. on 12/01/2016 at 18:04 Approved by: Vidal Crooks M.D. on 12/01/2016 at 18:04
--- NOTE | 2016-12-01 18:25 | DRSVH ---
[facility] [address] [place] [address] Echocardiogram Report Name: MERCED HOLDER LStudy Date: Height: 68 in Hospital Exam Location: [facility] Weight: 200 lb Gender: Male BSA: 2.0 m2 : 1955 Age: 61 yrs BP: 105/61 mm Hg Reason For Study: Elevated Troponin Ordering Physician: HOSPITALIST [facility] Performed By: Theron Morgan Referring Physician: JINNY HUNTER Interpretation Summary The ejection fraction is estimated to be 65-70%. There are no focal wall motion abnormalities. There has been no significant change in LV EF since the previous study. The right ventricle grossly appears normal in size with probable normal systolic function. Procedure: A two-dimensional transthoracic echocardiogram with color flow and Doppler was performed in limited views only. The study quality was technically difficult. The patient was in normal sinus rhythm during the exam. Left Ventricle: There is mild concentric left ventricular hypertrophy. The left ventricle is normal in size. The ejection fraction is estimated to be 65 -70%. There has been no significant change since the previous study. There are no focal wall motion abnormalities. Right Ventricle: The right ventricle grossly appears normal in size with probable normal systolic function. The right ventricle appears to be hypertrophied. MMode/2D Measurements & Calculations LVIDd: 4.2 cm LV correa. diameter/BSA (cm/m^2): 2.1 IVSd: 1.2 cm LVPWd: 1.1 cm Reading Physician:JADYN
[2016-12-01 19:40] VITALS: BP 112/68; PULSE 90; RESP 17; O2SAT 96
[2016-12-02 06:16] VITALS: BP 121/74; PULSE 85; RESP 17; O2SAT 97
[2016-12-02 06:45] LABS: INR 2.04 ratio
[2016-12-02 06:56] LABS: Phosphorus 5.3 mg/dL (2.5-4.9)
[2016-12-02] MEDS: Insulin Human REGular 300 Unit/3 mL Inj SUBQ SCH ×2 (07:30→11:30)
--- NOTE | 2016-12-02 08:33 | PCM.PHAPRO ---
Progress Warfarin Management by Pharmacy: - Indication: DVT Home Dose: NEW START GOAL INR: 2-3 Date: NOV 21 2016 INR: 0.96 5 MG NOV 22 2016 INR 1.06 5 MG NOV 23 2016 INR 1.26 5 MG NOV 24 2016 INR 2.76 2 MG NOV 25 2016 INR 2.94 3 MG NOV 26 2016 INR 2.93 3 MG NOV 27 2016 INR 3.60 HELD NOV 28 2016 INR 2.93 2mg 11/29 INR 3.02 0.5MG 11/30 INR 3.25 HELD 12/01 INR 2.96 0.5MG 12/02 INR 2.04 2.5MG -Plan: Inr dropped significantly to 2.04 this morning likely from the held dose on 11/30. Will give warfarin 2.5mg this evening and follow Adelina Manzanares [facility] Dec 02, 2016 08:33
[2016-12-02] MEDS ORDERED: NICO1PAT5 TOPICAL (10:29)
[2016-12-02] MEDS ORDERED: WARF2.5T PO (10:29)
[2016-12-02] MEDS ORDERED: FOLI0.8T2 PO (10:29)
[2016-12-02] MEDS ORDERED: SEVE800T7 PO (10:29)
[2016-12-02] MEDS ORDERED: AMLO5TAB2 PO (10:29)
[2016-12-02] MEDS ORDERED: OXYC5TAB72 PO (11:49)
[2016-12-02] MEDS: Vitamin B Complex/Vit C Tablet PO SCH (12:08)
--- NOTE | 2016-12-02 12:09 | PCM.DIMED ---
Discharge Instructions Date of Service Dec 02, 2016 Dates of Hospitalization Oct 26, 2016 at 20:28 Discharge Diagnosis Discharge Diagnosis # Acute respiratory failure with hypoxia/ARDS. Present on admission. Resolved - Due to MRSA pneumonia /sepsis - initially maintained on BiPAP, deteriorated 10/29-, intubated 10/30/16 , EXTUBATED 11/10/16 # Acute septic shock requiring pressor support secondary to MRSA pneumonia. Resolved # Encephalopathy, ICU delirium, initially likely from metabolic encephalopathy due to sepsis. Resolved # Subsequent acute metabolic encephalopathy post ICU with reported waxing and waning. Resolved. # Acute Renal Failure (ARF) on Chronic kidney disease (CKD) requiring initiation of hemodialysis, secondary to ATN with persistent oliguria from sepsis, resultant severe metabolic acidosis, hyperkalemia. Improved and now maintained on hemodialysis every other day. # Metabolic acidosis due to ARF and sepsis. Resolved # Left cephalic vein thrombosis # Hepatitis C, diagnosed on current admission. ongoing - viral load 185,070, - outpatient gastroenterology is recommended # Acute Hyperphosphatemia, improved with dialysis # Normocytic Normochromic Anemia secondary to anemia from CKD, # Elevated troponin without reported chest pain # Acute right shoulder pain with x-ray showing: "Right acromioclavicular joint degeneration." Diet Heart Healthy, Renal Diet Activity Home Health Phyical Therapy Call your provider Fever or Chills, Shortness of breath, Bleeding, Chest pain Patient Instructions Seek immediate medical attention if any new or worsening signs or symptoms occur. Follow-up plan 1. Followup with new primary care provider (Dr. Santos) at [facility] on 12/04/16 at 2:[address] [id number] 2. Followup at dialysis center for your hemodialysis as already scheduled. Follow-up Provider: Micki Santos MD, Masoud Dec 02, 2016 12:09
--- NOTE | 2016-12-02 13:40 | NUR ---
Social Work Discharge D: EMR Reviewed. Pt is on day 37 and medically stable for discharge. Pt discharging home today via POV with friends to transport. Pt to open with [facility] RN/PT/OT/ST/PLATING TANK OPERATOR APPRENTICE/HERB GROWER within 48hrs. BRANDT contacted Rafael at [facility] to inform of discharge. Pt is new to dialysis, [facility] met with Pt at bedside to provide Pt with his schedule (also entered into d/c instructions by UA). Pt reports he plans to use [facility] for transport to dialysis. [facility] will follow up and confirm to ensure Pt has transportation arranged. An expedited BLUE referral was faxed on Pt's behalf early in his stay. A: Pt who was previously independent. P: Pt discharging home today via POV with friends to transport. Pt to open with [facility] RN/PT/OT/ST/PLATING TANK OPERATOR APPRENTICE/HERB GROWER within 48hrs. BRANDT contacted Rafael at [facility] to inform of discharge. Pt is new to dialysis, [facility] met with Pt at bedside to provide Pt with his schedule (also entered into d/c instructions by UA). Pt reports he plans to use [facility] for transport to dialysis. [facility] will follow up and confirm to ensure Pt has transportation arranged. An expedited BLUE referral was faxed on Pt's behalf early in his stay. JANELLE Crain
--- NOTE | 2016-12-02 16:08 | NUR ---
Discharge Pt left with friends in stable condition with all belongings at 1608, No IV access, Dialysis scheduled for travel arrangements already made. Follow up appointments had conflicting times, Offered to call and change the times for the patient, Pt stated he did not want to wait and stated he will have his friend call and change the times tomorrow. Appointment for vain mapping for dialyses fistula scheduled, pt stated he will call and switch the time on it. prescriptions given to pt.
--- NOTE | 2016-12-02 17:07 | PCM.DC.MED ---
Discharge Summary Date of Service Dec 02, 2016 Dates of Hospitalization Date of Hospital Admission Oct 26, 2016 at 20:28 Date of Discharge: Dec 02, 2016 Providers: Admitting Physician: Kuldip Mendoza MD Primary Care Physician: Feng Attending Physician: Kuldip Mendoza MD Diagnosis at Time of Discharge Diagnosis at Time of Discharge # Acute respiratory failure with hypoxia/ARDS. Present on admission. Resolved - Due to MRSA pneumonia /sepsis - initially maintained on BiPAP, deteriorated 10/29-, intubated 10/30/16 , EXTUBATED 11/10/16 # Acute septic shock requiring pressor support secondary to MRSA pneumonia. Resolved # Encephalopathy, ICU delirium, initially likely from metabolic encephalopathy due to sepsis. Resolved # Subsequent acute metabolic encephalopathy post ICU with reported waxing and waning. Resolved. # Acute Renal Failure (ARF) on Chronic kidney disease (CKD) requiring initiation of hemodialysis, secondary to ATN with persistent oliguria from sepsis, resultant severe metabolic acidosis, hyperkalemia. Improved and now maintained on hemodialysis every other day. # Metabolic acidosis due to ARF and sepsis. Resolved # Left cephalic vein thrombosis # Hepatitis C, diagnosed on current admission. ongoing - viral load 185,070, - outpatient gastroenterology is recommended # Acute Hyperphosphatemia, improved with dialysis # Normocytic Normochromic Anemia secondary to anemia from CKD, # Elevated troponin without reported chest pain # Acute right shoulder pain with x-ray showing: "Right acromioclavicular joint degeneration." Consultations 1. Pulmonology 2. Nephrology 3. ID Procedures XRay, CTs & MRIs PROCEDURE: X-RAY CHEST ONE VIEW, PORTABLE ([id number]) INDICATIONS: monitor resolution of pneumonia/congestion TECHNIQUE: One view of the chest was acquired. COMPARISON: [facility], CR, XR CHEST 1VW (PORTABLE), 11/09/2016, 4 :53. [facility], CR, XR CHEST 1VW (PORTABLE), 11/10/2016, 4:21. FINDINGS: Surgical changes and devices: Right IJ central line projecting to the area of SVT. Lungs and pleura: Persistent bilateral airspace and interstitial infiltrates. Probable small pleural effusions. Overall, there is minimal interval change. No pneumothorax. Mediastinum: Mediastinal contours appear normal. Heart size is normal. Bones and chest wall: No suspicious bony lesions. Overlying soft tissues appear unremarkable. IMPRESSION: Persistent bilateral airspace and interstitial infiltrates and small pleural effusions, consistent with bilateral pneumonia and/or pulmonary edema. PROCEDURE: CT ABDOMEN AND PELVIS WITHOUT CONTRAST ([id number]) IMPRESSION: 1. Bibasilar pneumonia. 2. Small loculated left pleural effusion with thickened rind, possibly indicating empyema. This is too small to safely aspirate percutaneously. 3. Cholelithiasis without evidence of cholecystitis. 4. Normal appendix. 5. Small hiatal hernia. Dictated by: Myke Gonzalez M.D. on 10/27/2016 at 20:52 Approved by: Myke Gonzalez M.D. on 10/27/2016 at 20:52 Chest x-ray on 11/03/2016: IMPRESSION: Pulmonary edema and or diffuse bilateral inflammatory process not significantly changed. Developing ARDS cannot be excluded. Dictated by: Bakari SAMANIEGO Interpreted: Ekaterina Carter MD on 11/03/2016 at 11:06 Transcribed by: NAHOMI on 11/03/2016 at 11:06 U/S lower extremity on 11/03/2016: IMPRESSION: No deep venous thrombosis identified within either the left or right lower extremities. Dictated by: Bakari SAMANIEGO Interpreted: Kika Crews MD on 11/03/2016 at 13:36 Transcribed by: RJ on 11/03/2016 at 13:36 Approved by: Kika Crews M.D. on 11/03/2016 at 13:50 U/S chest on 11/03/2016: IMPRESSION: A small loculated right pleural effusion. Dictated by: Bakari SAMANIEGO Interpreted: Kika Crews MD on 11/03/2016 at 13:36 Transcribed by: RJ on 11/03/2016 at 13:36 Approved by: Kika Crews M.D. on 11/03/2016 at 13:50 U/S retroperitoneal 11/04/2016: IMPRESSION: Left renal cyst. Dictated by: Bakari SAMANIEGO Interpreted: Gaby Nixon MD on 11/04/2016 at 16: 09 Transcribed by: GAURAV on 11/04/2016 at 16:09 Approved by: Gaby Nixon M.D. on 11/04/2016 at 16:57 U/S left upper extremity 11/07/2016: IMPRESSION: Occlusive thrombus within the left cephalic vein within the lower arm. Jennyfer Phan RN given results by the band tier at 1415 hrs. 11/06/16. Dictated by: Bakari SAMANIEGO Interpreted: Ekaterina Carter MD on 11/06/2016 at 16:14 Transcribed by: NAHOMI on 11/06/2016 at 16:14 Approved by: Ekaetrina Carter MD, PhD on 11/06/2016 at 17:09 Cardiac Echo Impression Date of Service: 10/27/16 2139 Echocardiogram Report Interpretation Summary Technically difficult study. Mild concentric left ventricular hypertrophy with ejection fraction 65-70%. Normal right ventricle and both atria. Mild mitral regurgitation. Right ventricular systolic pressure is estimated to be 32 mmHg plus the clinically estimated CVP which cannot be estimated on this exam. Electronically signed by: Kera Vargas on Reading Physician:10/27/2016 02:40 PM Date of Service: 12/01/16 0739 Echocardiogram Report Interpretation Summary The ejection fraction is estimated to be 65-70%. There are no focal wall motion abnormalities. There has been no significant change in LV EF since the previous study. The right ventricle grossly appears normal in size with probable normal systolic function. Reading Physician:PM Invasive Procedures DATE OF SERVICE: 10/30/2016 PROCEDURE: Bronchoscopy. ENDOSCOPIST: Faye Katz MD. INDICATION: Bilateral pneumonia, respiratory failure. FINDINGS: Normal airways. Faye Katz MD 10/30/16 1222 <Electronically signed by Faye Katz MD> 10/30/16 1635 DATE OF SERVICE: 11/06/2016 PROCEDURE: Flexible fiberoptic bronchoscopy. SURGEON: Niranjan Marie MD. PREOPERATIVE DIAGNOSIS: Intrathoracic upper airway obstruction. POSTOPERATIVE DIAGNOSES: 1. Intrathoracic upper airway obstruction. 2. Marked erythema and edema of lobar airways, especially left upper lobe. Additionally, there was a goodly amount of white, relatively thin secretions, almost completely obstructing some of the lower airways. FINDINGS: 1. Marked erythema and edema of the lobar bronchi, especially left upper lobe bronchus and to some extent left lower lobe bronchus. 2. A goodly amount of clear secretions diffusely. Niranjan Marie MD 11/06/16 1106 <Electronically signed by Niranjan Marie MD> 11/08/16 1418 Brief History For details of HPI please refer to the H&P by Dr. Mendoza. Briefly, patient is a 61- year-old male who was admitted for MRSA pneumonia and was intubated until 11/11. Hospital Course # Acute respiratory failure with hypoxia/ARDS, resolved - due to MRSA pneumonia /sepsis, pt was initially maintained on BiPAP, deteriorated 10/29-, intubated 10/30 ,EXTUBATED 11/10 - bronchoscopy 11/06 shows Marked erythema and edema of lobar airways, especially left upper lobe,significant thin secretion,sent for analysis - CT C/A/P 11/05 :Bilateral pneumonia which appears to have worsened, right left , with reference to the earlier comparison CT from 10/27/16. Small posterior right pleural effusion, no suspicion for empyema by appearance. - Finished dexamethasone taper for intrathoracic airway obstruction, # Encephalopathy, ICU delirium, initially likely from metabolic encephalopathy due to sepsis. Resolved - c/w supportive care # Subsequent acute metabolic encephalopathy post ICU with reported waxing and waning. Resolved. patient continues to remain oriented x 3 - c/w supportive care # AKASH on CKD requiring initiation of HD, secondary to ATN with persistent oliguria from sepsis, resultant severe metabolic acidosis, hyperkalemia, - baseline creatinine reportedly mid 2's - started on HD 11/06 - MWF dialysis. Tunnel Cath placed 11/19/16 - appreciate nephrology consult. will f/u w/ recs - US vein mapping for AVF creation per nephrology will be scheduled as outpatient # Acute septic shock requiring pressor support secondary to MRSA pneumonia. Resolved - norepi stopped on 11/09 - high initial wbc/procalcitonin, MRSA+ on sputum - was on linezolid/Flagyl started on 11/03, initially treated with and switched Zosyn, ceftaroline. Stopped all antibiotics 11/11 # metabolic acidosis due to ARF and sepsis. Resolved # LUE swelling, duplex: Left cephalic vein thrombosis, no indication fo anticoagulation at this time # watery diarrhea. Resolved - c.dif negative # hep C Ab +, diagnosed on current admission, viral load 185,070, - outpatient GI or ID followup # Acute Hyperphosphatemia, improved with dialysis, calcium carbonate # Normocytic Normochromic Anemia secondary to anemia from CKD, - s/p Aranesp - f/u # Elevated troponin without reported chest pain - unclear why Troponin was checked recently - repeat limited echo without significant wall motion abnormality. no further cardiac workup at this time. by day of d/c lungs CTA bilat. Neuro exam non-focal with patient noted to be awake, alert and Ox3. It should be noted that his hospital course was somewhat prolonged to his altered mental status and delirium raising concern for his safety going home. However for the past 48-72 hours prior to d/c his mental status is back to baseline without any further noted confusion. Exam Vital Signs (Last) Date Time Temp Pulse Resp B/P Pulse Ox O2 Delivery O2 Flow Rate FiO2 12/02/16 06:16 36.7 85 17 121/74 97 Room Air Test 10/26/16 20:25 10/27/16 06:50 10/27/16 08:35 10/27/16 20:25 Urine Random Creatinine 125mg/dL (22-328) Urine Random Total Protein 73mg/dL (0-15) Parathyroid Hormone (Intact) 101pg/mL (15-65) Myeloperoxidase <9.0U/mL (0.0-9.0) Vitamin D 25-Hydroxy 27.8ng/mL (30.0-100.0) Anti-Nuclear Antibody Screen Negative (Negative) Cytoplasmic ANCA (c-ANCA) Antibody <1:20titer (Neg:<1:20) Proteinase 3 (PR3) Antibodies <3.5U/mL (0.0-3.5) Atypical p-ANCA <1:20titer (Neg:<1:20) Perinuclear ANCA (p-ANCA) Antibody <1:20titer (Neg:<1:20) Anti-Glomerular Basement Memb Ab 6units (0-20) Hepatitis C Genotype 1a (.) Hepatitis C Genotype Comment Comment (.) Urine Legionella pneumophilia Ag Negative (Negative) Test 10/28/16 10:20 10/28/16 14:50 10/29/16 04:45 11/02/16 13:55 TB Test (QFT) Gold In Tube Indeterminate (Negative) TB Test (QFT) Incubation Comment (.) TB Test (QFT) Mitogen 0.13IU/mL (.) TB Test (QFT) Antigen 0.02IU/mL (.) TB Test (QFT) Antigen Minus Nil <0.00IU/mL (.) TB Test (QFT) TB - Nil 0.03IU/mL (.) TB Test (QFT) Positive Criteria Comment (.) TB Test (QFT) Interpretation Comment (.) Hepatitis C Antibody >11.0s/co ratio HIV (1&2) Ag and Ab, 4th Generation Non reactive (Non Reactive) HIV (1&2) Antibody Rapid Negative (Negative) Hepatitis C Virus Quantitation [id number]/mL (.) Hepatitis C RNA (PCR) log10 5.267 (.) Hepatitis C Comment Comment (.) Hold Purple Top Tube Received (Received) Test 11/04/16 11:50 11/04/16 12:09 11/05/16 04:00 11/06/16 12:00 Cholesterol Level 110mg/dL (100-199) LDL Cholesterol, Calculated 37.600mg/dL (0-99) VLDL Cholesterol 62.400mg/dL HDL Cholesterol 10mg/dL (>39) Cholesterol/HDL Ratio 11.00 (0.0-4.4) Hold [place] Top Tube Received (Received) Hold Ji Top Tube Received (Received) Ferritin 291ng/mL (30-400) Urinalysis Comment None Test 11/08/16 04:20 11/09/16 06:00 11/10/16 05:45 11/11/16 22:13 Hemoglobin A1c 5.9% (4.8-5.6) Complement C3 111mg/dL (82-167) Complement C4 31mg/dL (14-44) Triglycerides Level 231mg/dL (0-149) Lipase 150U/L (13-60) Lactic Acid Level 1.6mmol/L (0.4-2.0) Cryoglobulin Positive (None detected) Test 11/12/16 03:30 11/13/16 04:50 11/14/16 08:52 11/20/16 15:50 Band Neutrophils % 1% (1-5) Pro-B-Type Natriuretic Peptide 2934pg/mL (0-210) Procalcitonin 0.53ng/mL (See Comment) Magnesium Level 1.9mg/dL (1.6-2.6) Ammonia 39ug/dL (18-53) Test 11/20/16 17:20 11/21/16 05:32 11/23/16 03:40 11/26/16 05:00 Total Bilirubin 0.4mg/dL (0.0-1.2) Aspartate Amino Transf (AST/SGOT) 67U/L (0-50) Alanine Aminotransferase (ALT/SGPT) 53U/L (0-44) Alkaline Phosphatase 363U/L (25-160) Total Protein 7.9g/dL (6.4-8.4) Urine Color Yellow (YELLOW) Urine Appearance Clear (CLEAR,HAZY) Urine pH 7.0 (5.0-8.0) Urine Specific [place] 1.010 (1.003-1.035) Urine Protein 30mg/dL (NEG,TRACE) Urine Glucose (UA) Negativemg/dL (NEGATIVE) Urine Ketones Negativemg/dL (NEGATIVE) Urine Occult Blood Small (NEGATIVE) Urine Nitrite Negative (NEGATIVE) Urine Bilirubin Negative (NEGATIVE) Urine Urobilinogen Normalmg/dL (NORMAL) Urine Leukocyte Esterase Negative (NEGATIVE) Urine RBC 0-2/hpf (0-2) Urine WBC 0-5/hpf (0-5) Urine Epithelial Cells Few/hpf (NONE-MOD) Urine Crystals None seen (NONE SEEN) Urine Bacteria None/hpf (NONE-FEW) Urine Hyaline Casts None/lpf (NONE) Urine Granular Casts None seen (NONE SEEN) Urine Waxy Casts None seen (NONE SEEN) Urine Red Blood Cell Casts None seen (NONE SEEN) Urine White Blood Cell Casts None seen (NONE SEEN) Urine Mucus None seen (None Seen) Urine Trichomonas None seen (NONE SEEN) Urine Yeast None (NONE SEEN) Urine Culture Reflexed Not indicated Activated Partial Thromboplast Time 40.1sec (22.8-33.0) Iron Level 43ug/dL (35-150) Total Iron Binding Capacity 243ug/dL (250-450) Percent Iron Saturation 18%sat (15-50) Unsaturated Iron Binding 199.5ug/dL Test 11/28/16 04:50 12/01/16 04:48 12/02/16 05:50 Neutrophils (%) (Auto) 42.0% (40-74) Lymphocytes (%) (Auto) 28.2% (14-46) Monocytes (%) (Auto) 18.4% (4-12) Eosinophils (%) (Auto) 11.0% (0-5) Basophils (%) (Auto) 0.3% (0-3) White Blood Count 7.8th/mm3 (3.8-10.1) Red Blood Count 3.35mil/mm3 (4.40-5.80) Hemoglobin 10.5g/dL (13.8-17.2) Hematocrit 32.3% (41.0-50.0) Mean Corpuscular Volume 96.4fL (81-100) Mean Corpuscular Hemoglobin 31.3pg (27.0-35.0) Mean Corpuscular Hemoglobin Concent 32.5% (32.0-37.0) Red Cell Distribution Width 13.5% (12.3-15.4) Platelet Count 217bil/L (150-400) Estimat Glomerular Filtration Rate 7mL/min (>59) Total Creatine Kinase 32U/L (21-232) Creatine Kinase MB 2.5ng/mL (0.0-10.4) Creatine Kinase MB % % (0.0-5.0) Troponin T 0.195ug/L (0.0-0.011) Prothrombin Time 22.2sec (8.1-12.5) Prothromb Time International Ratio 2.04ratio Sodium Level 132mEq/L (134-144) Potassium Level 4.9mEq/L (3.5-5.2) Chloride Level 90mEq/L (97-108) Carbon Dioxide Level 24mmol/L (18-29) Blood Urea Nitrogen 13mg/dL (8-27) Creatinine 5.84mg/dL (0.76-1.27) Glucose Level 104mg/dL (60-99) Calcium Level 8.6mg/dL (8.5-10.1) Phosphorus Level 5.3mg/dL (2.5-4.9) Albumin 3.1g/dL (3.4-5.0) Discharge Medications Discharge Medications Amlodipine (Amlodipine) 5 Mg Tablet 5 MG PO DAILY Prescribed by: JINNY HUNTER MD Folic Acid/Vitamin B Comp W-C (Nephro-Wander Tablet) 0.8 Mg Tablet 1 TABLET PO DAILY Prescribed by: JINNY HUNTER MD Nicotine 14 mg/24 hr Patch (Nicotine 14 mg/24 hr Patch) 1 Each Patch.td24 1 PATCH TOPICAL DAILY Prescribed by: JINNY HUNTER MD Sevelamer Carbonate (Renvela) 800 Mg Tablet 800 MG PO TIDWM Prescribed by: JINNY HUNTER MD As needed oxyCODONE (oxyCODONE) 5 Mg Tablet 5-10 MG PO Q4H PRN PRN For Moderate Pain Prescribed by: JINNY HUNTER MD Followup Plan Disposition: home with home health Follow-up plan 1. Followup with new primary care provider (Dr. Santos) at [facility] on 12/04/16 at 2:[address] [id number] 2. Followup at dialysis center for your hemodialysis as already scheduled. Discharge Diet: Heart Healthy, Renal Diet Discharge Activity: Home Health Phyical Therapy Patient Instructions Seek immediate medical attention if any new or worsening signs or symptoms occur. Follow-up Provider: Micki Santos MD Time spent 40 min copies to: Micki Santos MD, Masoud Dec 02, 2016 17:07
== END 2016-12-02 16:00 | disposition home health service (06) | DRG 710 ==
LOC: SED 16:47 → PCC 20:28 → CCU 10-27 18:26 → PCC 11-12 07:36 → OSC 11-12 17:05
PROVIDERS: ADMIT Urology; ATTEND Urology
PROC: 4A033R1 Measurement of Arterial Saturation, Peripheral, Percutaneous Approach (ICD-10-PCS; 2016-10-27)
PROC: 5A09358 Assistance with Respiratory Ventilation, Less than 24 Consecutive Hours, Intermittent Positive Airway Pressure (ICD-10-PCS; 2016-10-27)
PROC: 02HV33Z Insertion of Infusion Device into Superior Vena Cava, Percutaneous Approach (ICD-10-PCS; 2016-10-28)
PROC: 03HY32Z Insertion of Monitoring Device into Upper Artery, Percutaneous Approach (ICD-10-PCS; 2016-10-30)
PROC: 02HV33Z Insertion of Infusion Device into Superior Vena Cava, Percutaneous Approach (ICD-10-PCS; 2016-10-30)
PROC: 0BH17EZ Insertion of Endotracheal Airway into Trachea, Via Natural or Artificial Opening (ICD-10-PCS; 2016-10-30)
PROC: 0B948ZX Drainage of Right Upper Lobe Bronchus, Via Natural or Artificial Opening Endoscopic, Diagnostic (ICD-10-PCS; 2016-10-30)
PROC: 0B9B8ZX Drainage of Left Lower Lobe Bronchus, Via Natural or Artificial Opening Endoscopic, Diagnostic (ICD-10-PCS; 2016-10-30)
PROC: 5A1955Z Respiratory Ventilation, Greater than 96 Consecutive Hours (ICD-10-PCS; principal; 2016-10-30 12:00)
PROC: 0B988ZX Drainage of Left Upper Lobe Bronchus, Via Natural or Artificial Opening Endoscopic, Diagnostic (ICD-10-PCS; 2016-11-06)
PROC: 0BJK8ZZ Inspection of Right Lung, Via Natural or Artificial Opening Endoscopic (ICD-10-PCS; 2016-11-06)
PROC: 0BJL8ZZ Inspection of Left Lung, Via Natural or Artificial Opening Endoscopic (ICD-10-PCS; 2016-11-06)
PROC: 06HM33Z Insertion of Infusion Device into Right Femoral Vein, Percutaneous Approach (ICD-10-PCS; 2016-11-06)
PROC: 5A1D00Z (ICD-10-PCS; 2016-11-06)
PROC: 5A1D00Z (ICD-10-PCS; 2016-11-07)
PROC: 5A1D00Z (ICD-10-PCS; 2016-11-10)
PROC: 02HV33Z Insertion of Infusion Device into Superior Vena Cava, Percutaneous Approach (ICD-10-PCS; 2016-11-16)
PROC: 5A1D00Z (ICD-10-PCS; 2016-11-19)
PROC: 5A1D00Z (ICD-10-PCS; 2016-11-21)
PROC: 5A1D00Z (ICD-10-PCS; 2016-11-24)
PROC: 5A1D00Z (ICD-10-PCS; 2016-11-26)
PROC: 5A1D00Z (ICD-10-PCS; 2016-11-28)
PROC: 5A1D00Z (ICD-10-PCS; 2016-12-01)
DX: A41.9 Sepsis, unspecified organism (principal); N17.0 Acute kidney failure with tubular necrosis; J96.01 Acute respiratory failure with hypoxia; R65.21 Severe sepsis with septic shock; J15.3 Pneumonia due to streptococcus, group B; G93.41 Metabolic encephalopathy; E72.20 Disorder of urea cycle metabolism, unspecified; N18.6 End stage renal disease; J15.212 Pneumonia due to Methicillin resistant Staphylococcus aureus; E87.0 Hyperosmolality and hypernatremia; E87.2 Acidosis; I13.11 Hypertensive heart and chronic kidney disease without heart failure, with stage 5 chronic kidney disease, or end stage renal disease; R62.7 Adult failure to thrive; K56.7 Ileus, unspecified; E87.5 Hyperkalemia; E87.1 Hypo-osmolality and hyponatremia; Z78.1 Physical restraint status; E88.09 Other disorders of plasma-protein metabolism, not elsewhere classified; E83.39 Other disorders of phosphorus metabolism; I82.612 Acute embolism and thrombosis of superficial veins of left upper extremity; F10.20 Alcohol dependence, uncomplicated; E11.9 Type 2 diabetes mellitus without complications; Z89.512 Acquired absence of left leg below knee; F17.210 Nicotine dependence, cigarettes, uncomplicated; K21.9 Gastro-esophageal reflux disease without esophagitis; Z66 Do not resuscitate; E87.6 Hypokalemia; B19.20 Unspecified viral hepatitis C without hepatic coma; D63.1 Anemia in chronic kidney disease; R19.7 Diarrhea, unspecified; G89.29 Other chronic pain